=== PATIENT | female | born 1990 | race Caucasian/White ===

== ENCOUNTER 2016-10-01 10:09 | Emergency (ER) | payer OTHER ==
[2016-10-01] MEDS ORDERED: KETOROLAC 60 MG/2 ML VIAL IM STA (10:42)
[2016-10-01] MEDS ORDERED: ORPHENADRINE 30 MG/ML 2 ML VIAL IM STA (10:42)
--- NOTE | 2016-10-01 10:44 | ED ---
General Adult HPI - General Chief complaint: Back Pain/Injury Stated complaint: Back Pain Time Seen by Provider: 10/01/16 10:10 Source: patient, RN notes reviewed Mode of arrival: ambulatory Limitations: no limitations - History of Present Illness Initial comments: This is a 26-year-old female who presents emergency Department complaining of lower back pain. Patient states yesterday she was moving a lot of things in her apartment because she is moving into a new place. Patient states she woke up today bent over and also started having pain in the middle of her back. Patient states she feels like the pain radiates down to her upper thigh posteriorly. Patient states it is bilateral. Patient denies any numbness weakness. Patient denies any difficulty lifting her leg. Patient denies any urinary retention or urinary incontinence. Patient denies any direct blow or injury to the back. Patient states she's had this happen multiple times in the past and always resolves with a little anti-inflammatory and muscle relaxant. - Related Data Home Medications Medication Instructions Recorded Confirmed Multivitamins, Thera [Multivitamin 1 tab PO DAILY 10/01/16 10/01/16 (formulary)] Sleep Aid (Otc Unknown) 1 tab PO HS PRN 10/01/16 10/01/16 diphenhydrAMINE [Benadryl] 25 mg PO QID PRN 10/01/16 10/01/16 Previous Rx's Medication Instructions Recorded Ibuprofen [Motrin] 600 mg PO Q6HR PRN #20 tab 10/01/16 Orphenadrine [Norflex] 100 mg PO Q12H #20 tablet.er 10/01/16 Allergies Allergy/AdvReac Type Severity Reaction Status Date / Time cyclobenzaprine HCl Allergy Unknown Verified 10/01/16 10:34 [From Flexeril] divalproex sodium Allergy Unknown Verified 10/01/16 10:34 [From Depakote] sulfamethoxazole Allergy Unknown Verified 10/01/16 10:34 [From Septra] sumatriptan [From Imitrex] Allergy Unknown Verified 10/01/16 10:34 sumatriptan succinate Allergy Unknown Verified 10/01/16 10:34 [From Imitrex] trimethoprim [From Septra] Allergy Unknown Verified 10/01/16 10:34 Review of Systems ROS Statement: Those systems with pertinent positive or pertinent negative responses have been documented in the HPI. ROS Other: All systems not noted in ROS Statement are negative. Past Medical History Past Medical History: Asthma, Fibromyalgia Additional Past Medical History / Comment(s): ARTHRITIS, HIATAL HERNIA AND GASTRIC ULCER, ENVIRONMENTAL ALLERGIES, DIGESTIVE ISSUES, MIGRAINES History of Any Multi-Drug Resistant Organisms: None Reported Past Surgical History: Adenoidectomy, Tonsillectomy Past Psychological History: Anxiety Smoking Status: Never smoker Past Alcohol Use History: None Reported Past Drug Use History: None Reported General Exam - General Exam Comments Initial Comments: GENERAL: Patient is well-developed and well-nourished. Patient is nontoxic and well- hydrated and is in mild distress. ENT: Neck is soft and supple. No significant lymphadenopathy is noted. Oropharynx is clear. Moist mucous membranes. Neck has full range of motion without eliciting any pain. EYES: The sclera were anicteric and conjunctiva were pink and moist. Extraocular movements were intact and pupils were equal round and reactive to light. Eyelids were unremarkable. PULMONARY: Unlabored respirations. Good breath sounds bilaterally. No audible rales rhonchi or wheezing was noted. CARDIOVASCULAR: There is a regular rate and rhythm without any murmurs gallops or rubs. ABDOMEN: Soft and nontender with normal bowel sounds. No palpable organomegaly was noted. There is no palpable pulsatile mass. SKIN: Skin is clear with no lesions or rashes and otherwise unremarkable. NEUROLOGIC: Patient is alert and oriented x3. Cranial nerves II through XII are grossly intact. Motor and sensory are also intact. Normal speech, volume and content. Symmetrical smile. Straight leg test is negative bilaterally. Exam is normal MUSCULOSKELETAL: Normal extremities with adequate strength and full range of motion. LYMPHATICS: No significant lymphadenopathy is noted PSYCHIATRIC: Normal psychiatric evaluation. Normal interpersonal interactions appears functionally intact in deals appropriately with others. No signs of depression. Limitations: no limitations Course Vital Signs 10/01/16 10:22 Temperature 97.5 F L Pulse Rate 83 Respiratory 20 Rate Blood Pressure 99/71 O2 Sat by Pulse 98 Oximetry Medical Decision Making - Medical Decision Making Lumbosacral spine is normal I will begin to reevaluate the patient after the muscle relaxant while she was feeling better but not back to her baseline. Disposition Clinical Impression: Strain of lumbar region Disposition: HOME SELF-CARE Condition: Good Instructions: Acute Low Back Pain (ED) Prescriptions: Ibuprofen [Motrin] 600 mg PO Q6HR PRN #20 tab PRN Reason: For pain Orphenadrine [Norflex] 100 mg PO Q12H #20 tablet.er Referrals: Raciel Briones MD [REFERRING] - 1-2 days Time of Disposition: 11:26
--- NOTE | 2016-10-01 11:19 | XR ---
EXAMINATION TYPE: XR lumbosacral spine - 5V DATE OF EXAM: 10/01/2016 COMPARISON: NONE HISTORY: Neck pain TECHNIQUE: Departmental lumbar spine five-view protocol FINDINGS: There is no malalignment. The bones and joints and soft tissues are unremarkable. IMPRESSION: Negative examination.
[2016-10-01 12:11] VITALS: BP 107/51; PULSE 80; RESP 16; TEMP 98.1
== END 2016-10-01 12:12 | disposition home or self-care (01) ==
LOC: EC 10:09
DX: S39.012A Strain of muscle, fascia and tendon of lower back, initial encounter (principal); Z79.899 Other long term (current) drug therapy; Z88.8 Allergy status to other drugs, medicaments and biological substances; X50.9XXA Other and unspecified overexertion or strenuous movements or postures, initial encounter; Y92.039 Unspecified place in apartment as the place of occurrence of the external cause
CPT/HCPCS: 72110; 99283; 96372 ×2; J2360; J1885

== ENCOUNTER 2016-10-16 15:59 | Emergency (ER) | payer OTHER ==
--- NOTE | 2016-10-16 16:18 | ED ---
Abdominal Pain HPI - General Chief Complaint: Abdominal Pain Stated Complaint: Nausea Time Seen by Provider: 10/16/16 16:05 Source: patient, RN notes reviewed Mode of arrival: ambulatory Limitations: no limitations - History of Present Illness Initial Comments: 26-year-old female presents emergency department with a chief complaint of nausea vomiting and diarrhea. Patient states that she has a long history of any gastrointestinal issues but she did leave work today sustaining a work note. Patient states she is currently on Zofran at home and she started to have a prescription for this. Patient states is exactly like her normal abdominal pain. Patient states she does not want a workup she does not want lab work she just wants her prescriptions and to go home. Patient denies any fever chills with this. Patient states this is much like her chronic pain. Patient states is not currently having any other symptoms at this time. Patient denies any recent fever, chills, shortness of breath, chest pain, back pain, numbness or tingling, dysuria or hematuria, constipation, headaches or visual changes, or any other current symptoms. - Related Data Home Medications Medication Instructions Recorded Confirmed Multivitamins, Thera [Multivitamin 1 tab PO DAILY 10/01/16 10/01/16 (formulary)] Sleep Aid (Otc Unknown) 1 tab PO HS PRN 10/01/16 10/01/16 diphenhydrAMINE [Benadryl] 25 mg PO QID PRN 10/01/16 10/01/16 Previous Rx's Medication Instructions Recorded Ibuprofen [Motrin] 600 mg PO Q6HR PRN #20 tab 10/01/16 Orphenadrine [Norflex] 100 mg PO Q12H #20 tablet.er 10/01/16 Ondansetron Odt [Zofran ODT] 4 mg PO Q8HR PRN #20 tab 10/16/16 Pantoprazole [Protonix] 40 mg PO DAILY #20 tablet. 10/16/16 Allergies Allergy/AdvReac Type Severity Reaction Status Date / Time cyclobenzaprine HCl Allergy Unknown Verified 10/16/16 16:03 [From Flexeril] divalproex sodium Allergy Unknown Verified 10/16/16 16:03 [From Depakote] sulfamethoxazole Allergy Unknown Verified 10/16/16 16:03 [From Septra] sumatriptan [From Imitrex] Allergy Unknown Verified 10/16/16 16:03 sumatriptan succinate Allergy Unknown Verified 10/16/16 16:03 [From Imitrex] topiramate [From Topamax] Allergy Rash/Hives Verified 10/16/16 16:04 trimethoprim [From Septra] Allergy Unknown Verified 10/16/16 16:03 Review of Systems ROS Statement: Those systems with pertinent positive or pertinent negative responses have been documented in the HPI. ROS Other: All systems not noted in ROS Statement are negative. Past Medical History Past Medical History: Asthma, Fibromyalgia Additional Past Medical History / Comment(s): ARTHRITIS, HIATAL HERNIA AND GASTRIC ULCER, ENVIRONMENTAL ALLERGIES, DIGESTIVE ISSUES, MIGRAINES History of Any Multi-Drug Resistant Organisms: None Reported Past Surgical History: Adenoidectomy, Tonsillectomy Past Psychological History: Anxiety Smoking Status: Current every day smoker Past Alcohol Use History: Rare Past Drug Use History: None Reported General Exam - General Exam Comments Initial Comments: General: The patient is awake and alert, in no distress, and does not appear acutely ill. Eye: Pupils are equal, round and reactive to light, extra-ocular movements are intact; there is normal conjunctiva bilaterally. No signs of icterus. Ears, nose, mouth and throat: There are moist mucous membranes and no oral lesions. Neck: The neck is supple, there is no tenderness. Cardiovascular: There is a regular rate and rhythm. No murmur, rub or gallop is appreciated. Respiratory: Lungs are clear to auscultation, respirations are non-labored, breath sounds are equal. No wheezes, stridor, rales, or rhonchi. Gastrointestinal: Soft, non-distended, non-tender abdomen without masses or organomegaly noted. There is no rebound or guarding present. No CVA tenderness. Bowel sounds are unremarkable. Back: There is no tenderness to palpation in the midline. There is no obvious deformity. No rashes noted. Musculoskeletal: Normal ROM, no tenderness, There is no pedal edema. There is no calf tenderness or swelling. Sensation intact. Pulses equal bilaterally 2+. Neurological: CN II-XII intact, There are no obvious motor or sensory deficits. Coordination appears grossly intact. Speech is normal. Skin: Skin is warm and dry and no rashes or lesions are noted. Psychiatric: Cooperative, appropriate mood & affect, normal judgment. Limitations: no limitations Course Vital Signs 06/28/17 16:01 Temperature 98.1 F Pulse Rate 76 Respiratory 18 Rate Blood Pressure 111/75 O2 Sat by Pulse 99 Oximetry Medical Decision Making - Medical Decision Making 26-year-old female presents for nausea vomiting diarrhea. Patient was offered blood work imaging IV medications to help with her symptoms and she states she just needs a work note to like a refill of her Zofran medication. At this time we did discuss that we cannot rule anything out with this she states that she notices her chronic pain she does not want a workup. This time the patient will be discharged home. We did discuss follow-up with her doctor return parameters all questions. They stated they understood and they are given plan. They will be discharged. Disposition Clinical Impression: Nausea & vomiting, Diarrhea Disposition: HOME SELF-CARE Condition: Stable Instructions: Abdominal Pain (ED) Additional Instructions: Please use medication as discussed. Please follow up with family doctor if symptoms have not improved over the next two days. Please return to the emergency room if your symptoms increase or worsen or for any other concerns. Prescriptions: Ondansetron Odt [Zofran ODT] 4 mg PO Q8HR PRN #20 tab PRN Reason: Nausea Pantoprazole [Protonix] 40 mg PO DAILY #20 tablet.dr Referrals: Sumaya Frank MD [STAFF PHYSICIAN] - 1-2 days Time of Disposition: 16:18
[2016-10-16 16:32] VITALS: BP 116/58; PULSE 69; RESP 15; TEMP 97.3
== END 2016-10-16 16:30 | disposition home or self-care (01) ==
LOC: EC 15:59
DX: R11.2 Nausea with vomiting, unspecified (principal); R19.7 Diarrhea, unspecified; R10.9 Unspecified abdominal pain; F17.200 Nicotine dependence, unspecified, uncomplicated; Z79.899 Other long term (current) drug therapy; Z88.1 Allergy status to other antibiotic agents; Z88.8 Allergy status to other drugs, medicaments and biological substances
CPT/HCPCS: 99283

== ENCOUNTER 2016-11-16 15:08 | Emergency (ER) | payer OTHER ==
[2016-11-16 15:15] VITALS: BP 106/68; PULSE 83; RESP 16; TEMP 99.2
[2016-11-16] MEDS ORDERED: IBUPROFEN 800 MG TAB PO STA (15:26)
--- NOTE | 2016-11-16 15:27 | ED ---
Upper Extremity HPI - General Chief Complaint: Extremity Injury, Upper Stated Complaint: L wrist pain Time Seen by Provider: 11/16/16 15:16 Source: patient, RN notes reviewed Mode of arrival: ambulatory Limitations: no limitations - History of Present Illness Initial Comments: Patient is a pleasant 26-year-old female with past medical history of hiatal hernia, migraine, and asthma who is presenting to the emergency department with chief complaint of left wrist pain. Patient reports that she has had increasing pain over the last 4-5 days. She complains of swelling to the ulnar aspect of the wrist. 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 She believes this may have exacerbated her issue. She denies any recent fall or trauma. She reports a previous history of fracture in the left wrist at age 14 but no recent injury. Patient reports she has otherwise been well without fever, chills, cough, rhinorrhea, sore throat. Denies fatigue or malaise. Denies chest pain or shortness of breath. Denies abdominal pain, nausea, vomiting, diarrhea. - Related Data Home Medications Medication Instructions Recorded Confirmed Multivitamins, Thera [Multivitamin 1 tab PO DAILY 10/01/16 11/16/16 (formulary)] Sleep Aid (Otc Unknown) 1 tab PO HS PRN 10/01/16 11/16/16 diphenhydrAMINE [Benadryl] 25 mg PO QID PRN 10/01/16 11/16/16 Previous Rx's Medication Instructions Recorded Ibuprofen [Motrin] 600 mg PO Q6HR PRN #20 tab 10/01/16 Orphenadrine [Norflex] 100 mg PO Q12H #20 tablet.er 10/01/16 Ondansetron Odt [Zofran ODT] 4 mg PO Q8HR PRN #20 tab 10/16/16 Pantoprazole [Protonix] 40 mg PO DAILY #20 tablet. 10/16/16 Allergies Allergy/AdvReac Type Severity Reaction Status Date / Time cyclobenzaprine HCl Allergy Unknown Verified 11/16/16 15:11 [From Flexeril] divalproex sodium Allergy Unknown Verified 11/16/16 15:11 [From Depakote] sulfamethoxazole Allergy Unknown Verified 11/16/16 15:11 [From Septra] sumatriptan [From Imitrex] Allergy Unknown Verified 11/16/16 15:11 sumatriptan succinate Allergy Unknown Verified 11/16/16 15:11 [From Imitrex] topiramate [From Topamax] Allergy Rash/Hives Verified 11/16/16 15:11 trimethoprim [From Septra] Allergy Unknown Verified 11/16/16 15:11 Review of Systems ROS Statement: Those systems with pertinent positive or pertinent negative responses have been documented in the HPI. ROS Other: All systems not noted in ROS Statement are negative. Past Medical History Past Medical History: Asthma, Fibromyalgia Additional Past Medical History / Comment(s): ARTHRITIS, HIATAL HERNIA AND GASTRIC ULCER, ENVIRONMENTAL ALLERGIES, DIGESTIVE ISSUES, MIGRAINES History of Any Multi-Drug Resistant Organisms: None Reported Past Surgical History: Adenoidectomy, Tonsillectomy Past Psychological History: Anxiety Smoking Status: Current every day smoker Past Alcohol Use History: Rare Past Drug Use History: None Reported General Exam Limitations: no limitations General appearance: alert, in no apparent distress Head exam: Present: atraumatic, normocephalic Eye exam: Present: normal appearance ENT exam: Present: mucous membranes moist Neck exam: Present: normal inspection Respiratory exam: Present: normal lung sounds bilaterally. Absent: respiratory distress, wheezes, rales, rhonchi Cardiovascular Exam: Present: regular rate, normal rhythm, normal heart sounds. Absent: systolic murmur, diastolic murmur Left Shoulder Exam: Present: normal inspection, full ROM. Absent: tenderness Upper Arm exam: Present: normal inspection, full ROM. Absent: tenderness Elbow exam: Present: normal inspection, full ROM. Absent: tenderness, swelling Forearm Wrist exam: Present: full ROM, tenderness (Tenderness to palpation of the distal one third of the dorsal wrist. Point tenderness over the distal) Hand Wrist exam: Present: full ROM, tenderness (Diffuse tenderness to palpation of the distal one third of left wrist. Distal pulses and sensation intact. Range of motion full.), other (Patient has tenderness to palpation over the tendon of the flexor carpi ulnaris. ). Absent: normal inspection (Minimal swelling to the ulnar aspect of the aerosol left wrist.) Neuro motor exam: Present: wrist extension intact, thumb opposition intact, fingers 2-5 abduction intact Vascular: Present: normal capillary refill, radial pulse (2+ and symmetric bilaterally). Absent: vascular compromise, Pallo Course Vital Signs 11/16/16 15:11 Temperature 99.2 F Pulse Rate 83 Respiratory 16 Rate Blood Pressure 106/68 O2 Sat by Pulse 100 Oximetry Medical Decision Making - Medical Decision Making Patient is a pleasant 26-year-old female presenting to the emergency department with insidious onset increasing left wrist pain over the past 4-5 days. 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 Patient does have some mild swelling soft tissue swelling to the ulnar aspect of the wrist. Patient reports no recent trauma or injury. On exam, patient does have some tenderness to palpation over the tendon flexor carpi ulnaris. There is some surrounding soft tissue swelling in this area as well. Patient does have full range of motion but history and exam is most consistent with tendinitis. Patient and I have discussed conservative management including anti-inflammatory medications rest phase Motrin and continue to use other supportive brace was wearing prior to evaluation. Patient and I did discuss possible follow-up with orthopedics and possible PT evaluation and treatment. - Radiology Data Radiology results: report reviewed (X-ray left wrist: No evidence of fracture or dislocation. X-ray read by Dr. Callejas. Report reviewed. ) Disposition Clinical Impression: Wrist pain, left Disposition: HOME SELF-CARE Condition: Stable Instructions: Arthralgia (ED), Tendinitis (ED) Additional Instructions: Please follow up with a primary care physician and orthopedics as discussed. Take ibuprofen 600-800mg every 6-8 hours as needed for pain. Referrals: None,Stated [Primary Care Provider] - 1-2 days Imtiaz Mccarty PAC [PHYSICIAN PUBLIC ACCOUNTANT] - 1-2 days Time of Disposition: 16:05
--- NOTE | 2016-11-16 15:57 | XR ---
Left wrist HISTORY: Pain 4 views of the left wrist Bone mineralization, joint spaces and alignment are maintained. IMPRESSION: No fracture or dislocation.
== END 2016-11-16 16:14 | disposition home or self-care (01) ==
LOC: EC 15:08
DX: M25.532 Pain in left wrist (principal); M79.89 Other specified soft tissue disorders; F17.200 Nicotine dependence, unspecified, uncomplicated; Z79.899 Other long term (current) drug therapy; Z88.1 Allergy status to other antibiotic agents; Z88.8 Allergy status to other drugs, medicaments and biological substances
CPT/HCPCS: 99283

== ENCOUNTER 2016-12-21 20:08 | Emergency (ER) | payer OTHER ==
[2016-12-21] MEDS ORDERED: ACETAMINOPHEN TAB 500 MG TAB PO STA (21:22)
[2016-12-21] MEDS ORDERED: IBUPROFEN 600 MG TAB PO STA (21:22)
--- NOTE | 2016-12-21 21:27 | ED ---
General Adult HPI - General Chief complaint: ENT Stated complaint: Sore Throat/Cough Time Seen by Provider: 12/21/16 21:03 Source: patient, family, RN notes reviewed Mode of arrival: ambulatory Limitations: no limitations - History of Present Illness Initial comments: 26-year-old female presents emergency department with a chief complaint of sore throat and cough. Patient states she's been feeling rundown for about a week. Patient states she's had a sore throat with productive cough that causes a little bit of florid chest discomfort. Patient states she hasn't had any fever chills but she states that she has had hot and cold flashes. Patient denies any nausea vomiting any concern for . Patient states she was concerned due to the symptoms so she thought that she should be evaluated. Patient denies any recent fever, chills, shortness of breath, chest pain, back pain, abdominal pain, nausea vomiting, numbness or tingling, dysuria or hematuria, constipation or diarrhea, headaches or visual changes, or any other current symptoms. - Related Data Previous Rx's Medication Instructions Recorded Azithromycin [Zithromax] 250 mg PO DIRECTED #6 tab 12/21/16 Allergies Allergy/AdvReac Type Severity Reaction Status Date / Time cyclobenzaprine HCl Allergy Unknown Verified 12/21/16 20:21 [From Flexeril] divalproex sodium Allergy Unknown Verified 12/21/16 20:21 [From Depakote] sulfamethoxazole Allergy Unknown Verified 12/21/16 20:21 [From Septra] sumatriptan [From Imitrex] Allergy Unknown Verified 12/21/16 20:21 sumatriptan succinate Allergy Unknown Verified 12/21/16 20:21 [From Imitrex] topiramate [From Topamax] Allergy Rash/Hives Verified 12/21/16 20:21 trimethoprim [From Septra] Allergy Unknown Verified 12/21/16 20:21 Review of Systems ROS Statement: Those systems with pertinent positive or pertinent negative responses have been documented in the HPI. ROS Other: All systems not noted in ROS Statement are negative. Past Medical History Past Medical History: Asthma, Fibromyalgia Additional Past Medical History / Comment(s): ARTHRITIS, HIATAL HERNIA AND GASTRIC ULCER, ENVIRONMENTAL ALLERGIES, DIGESTIVE ISSUES, MIGRAINES History of Any Multi-Drug Resistant Organisms: None Reported Past Surgical History: Adenoidectomy, Tonsillectomy Past Psychological History: Anxiety Smoking Status: Current every day smoker Past Alcohol Use History: Rare Past Drug Use History: None Reported General Exam - General Exam Comments Initial Comments: General exam: Alert, active, comfortable in no apparent distress Head: Normocephalic Eyes: Normal reaction of pupils, equal size, normal range of extraocular motion Ears: normal external ear canals, pink tympanic membranes with normal cone of light Nose: clear with pink turbinates Throat: no erythema or exudates with normal sized tonsils Neck: no masses, no nuchal rigidity Chest: no chest wall deformity Lungs: equal air entry with no crackles or wheeze CVS: S1 and S2 normal with no audible mumurs, regular rhythm Abdomen: no hepatosplenomegaly, normal bowel sounds, no guarding or rigidity Spine: no scoliosis or deformity Skin: no rashes Neurological: No focal deficits, tone is normal in all 4 extremities Limitations: no limitations Course Vital Signs 12/21/16 12/21/16 12/21/16 20:19 20:37 21:36 Temperature 97 F L Pulse Rate 86 74 Respiratory 18 20 18 Rate Blood Pressure 118/76 100/57 O2 Sat by Pulse 97 97 Oximetry Medical Decision Making - Medical Decision Making 26-year-old female presents emergency 5 chief complaint of cough and sore throat. At this time chest x-ray is concern for possible developing infiltrates. We'll start patient on azithromycin for home. Discussed close follow-up with her doctor for repeat x-ray we discussed return parameters all questions. They stated that she understood and she plan. At this time she will be discharged home. - Lab Data Lab Results 12/21/16 Range/Units 21:24 Group A Strep Rapid Negative (Negative) - Radiology Data Radiology results: report reviewed, image reviewed Disposition Clinical Impression: Pneumonia of both lungs due to infectious organism Disposition: HOME SELF-CARE Condition: Stable Instructions: Bacterial Pneumonia (ED) Additional Instructions: Please use medication as discussed. Please follow up with family doctor if symptoms have not improved over the next two days. Please return to the emergency room if your symptoms increase or worsen or for any other concerns. Prescriptions: Azithromycin [Zithromax] 250 mg PO DIRECTED #6 tab Referrals: Yanna Rosales MD [STAFF PHYSICIAN] - 1-2 days Time of Disposition: 21:52
--- NOTE | 2016-12-21 21:48 | XR ---
EXAMINATION TYPE: XR chest 2V DATE OF EXAM: 12/21/2016 COMPARISON: Chest x-ray June 02, 1998 HISTORY: Cough and cold-like symptoms TECHNIQUE: Frontal and lateral views of the chest are obtained. FINDINGS: On frontal view there is suspicious right greater than left infrahilar opacities not as we ll seen on lateral view. No pleural effusion or pneumothorax is seen bilaterally. The cardiac silhou ette size is within normal limits. The osseous structures are intact. There are posterior vertical skin sangita overlying the upper thorax. IMPRESSION: Perhaps developing right greater than left infrahilar infiltrates. Consider progress two view chest x-ray.
[2016-12-21 22:04] VITALS: RESP 18
[2016-12-21 22:06] VITALS: BP 98/66; PULSE 70; TEMP 98.2
== END 2016-12-21 22:05 | disposition home or self-care (01) ==
LOC: EC 20:08
DX: J16.8 Pneumonia due to other specified infectious organisms (principal); F17.200 Nicotine dependence, unspecified, uncomplicated; Z88.8 Allergy status to other drugs, medicaments and biological substances
CPT/HCPCS: 71020; 87081; 87430; 99284

== ENCOUNTER 2016-12-31 16:20 | Emergency (ER) | payer OTHER ==
[2016-12-31] MEDS ORDERED: traMADol 50 MG TAB PO STA (18:03)
[2016-12-31] MEDS ORDERED: KETOROLAC 60 MG/2 ML VIAL IM STA (18:03)
[2016-12-31] MEDS ORDERED: ORPHENADRINE 30 MG/ML 2 ML VIAL IM STA (18:03)
--- NOTE | 2016-12-31 18:08 | ED ---
General Adult HPI - General Chief complaint: Back Pain/Injury Stated complaint: Lower Back Pain Time Seen by Provider: 12/31/16 17:00 Source: patient, RN notes reviewed Mode of arrival: wheelchair Limitations: no limitations - History of Present Illness Initial comments: This is a 26-year-old female who presents to the emergency department complaining of lower back pain across both sides of her back per patient states it started about 2 hours ago when she bent over to reach for some alfredo pins on the countertop. Patient states this is happened a couple times in the past as well. Patient states it felt like her back started to spasm when she bent over. Patient denies any numbness weakness patient denies any radiation of pain down her legs. Patient denies any recent injury or trauma. 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 - Related Data Previous Rx's Medication Instructions Recorded Azithromycin [Zithromax] 250 mg PO DIRECTED #6 tab 12/21/16 Ibuprofen [Motrin] 600 mg PO Q6HR PRN #20 tab 12/31/16 Orphenadrine [Norflex] 100 mg PO Q12H #20 tablet.er 12/31/16 traMADol HCl [Ultram] 50 mg PO Q6H PRN #20 tab 12/31/16 Allergies Allergy/AdvReac Type Severity Reaction Status Date / Time cyclobenzaprine HCl Allergy Unknown Verified 12/31/16 16:34 [From Flexeril] divalproex sodium Allergy Unknown Verified 12/31/16 16:34 [From Depakote] sulfamethoxazole Allergy Unknown Verified 12/31/16 16:34 [From Septra] sumatriptan [From Imitrex] Allergy Unknown Verified 12/31/16 16:34 sumatriptan succinate Allergy Unknown Verified 12/31/16 16:34 [From Imitrex] topiramate [From Topamax] Allergy Rash/Hives Verified 12/31/16 16:34 trimethoprim [From Septra] Allergy Unknown Verified 12/31/16 16:34 Review of Systems ROS Statement: Those systems with pertinent positive or pertinent negative responses have been documented in the HPI. ROS Other: All systems not noted in ROS Statement are negative. Past Medical History Past Medical History: Asthma, Fibromyalgia Additional Past Medical History / Comment(s): ARTHRITIS, HIATAL HERNIA AND GASTRIC ULCER, ENVIRONMENTAL ALLERGIES, DIGESTIVE ISSUES, MIGRAINES History of Any Multi-Drug Resistant Organisms: None Reported Past Surgical History: Adenoidectomy, Tonsillectomy Past Psychological History: Anxiety Smoking Status: Current every day smoker Past Alcohol Use History: Rare Past Drug Use History: None Reported General Exam - General Exam Comments Initial Comments: GENERAL: Patient is well-developed and well-nourished. Patient is nontoxic and well- hydrated and is in no acute distress. ENT: Neck is soft and supple. No significant lymphadenopathy is noted. Neck has full range of motion without eliciting any pain. EYES: The sclera were anicteric and conjunctiva were pink and moist. Extraocular movements were intact and pupils were equal round and reactive to light. Eyelids were unremarkable. SKIN: Skin is clear with no lesions or rashes and otherwise unremarkable. NEUROLOGIC: Patient is alert and oriented x3. Cranial nerves II through XII are grossly intact. Motor and sensory are also intact. Normal speech, volume and content. Symmetrical smile. Her leg test is negative. MUSCULOSKELETAL: Normal extremities with adequate strength and full range of motion. No lower extremity swelling or edema. No calf tenderness. Limitations: no limitations Course Vital Signs 12/31/16 16:32 Temperature 98 F Pulse Rate 93 Respiratory 20 Rate Blood Pressure 102/65 O2 Sat by Pulse 100 Oximetry Disposition Clinical Impression: Strain of lumbar region Disposition: HOME SELF-CARE Condition: Good Instructions: Acute Low Back Pain (ED) Prescriptions: Ibuprofen [Motrin] 600 mg PO Q6HR PRN #20 tab PRN Reason: For pain Orphenadrine [Norflex] 100 mg PO Q12H #20 tablet.er traMADol HCl [Ultram] 50 mg PO Q6H PRN #20 tab PRN Reason: When necessary for pain Referrals: Yanna Rosales MD [Primary Care Provider] - 1-2 days Time of Disposition: 18:07
[2016-12-31 18:50] VITALS: BP 107/67; PULSE 80; RESP 18; TEMP 97.7
== END 2016-12-31 18:58 | disposition home or self-care (01) ==
LOC: EC 16:20
DX: S39.012A Strain of muscle, fascia and tendon of lower back, initial encounter (principal); M79.7 Fibromyalgia; F17.200 Nicotine dependence, unspecified, uncomplicated; Z88.2 Allergy status to sulfonamides; Z88.8 Allergy status to other drugs, medicaments and biological substances; X50.1XXA Overexertion from prolonged static or awkward postures, initial encounter
CPT/HCPCS: 99283; 96372 ×2; J2360; J1885

== ENCOUNTER 2017-01-06 15:43 | Emergency (ER) | payer OTHER ==
--- NOTE | 2017-01-06 16:43 | ED ---
General Adult HPI - General Chief complaint: Dizziness Stated complaint: F/U Pneumonia Time Seen by Provider: 01/06/17 16:31 Source: patient, RN notes reviewed Mode of arrival: ambulatory Limitations: no limitations - History of Present Illness Initial comments: Patient is a 26-year-old female who presents emergency room today with a chief complaint of increased cough congestion. She does not that she was diagnosed with pneumonia recently a few weeks ago. She states she was beginning to feel better still having some nasal drainage and pressure. She does move to history of asthma states she states Benadryl daily and also uses her inhalers. She states that she noticed increased cough congestion and scratchy throat today. Patient states that she was supposed to have repeat chest x-ray this past Friday but was out of town. She states came here to the emergency room today for evaluation as she was worried that possibly the pneumonia may have come back. She denies any other complaints or symptoms at this time. Patient denies any recent fever, chills, shortness of breath, chest pain, back pain, abdominal pain, nausea or vomiting, numbness or tingling, dysuria or hematuria, constipation or diarrhea, headaches or visual changes, or any other complaints. - Related Data Home Medications Medication Instructions Recorded Confirmed Albuterol Inhaler [Ventolin Hfa 2 puff INHALATION RT-Q6H PRN 12/31/16 01/06/17 Inhaler] Beclomethasone Dip 80 Mcg/Puff 2 puff INHALATION RT-DAILY 12/31/16 01/06/17 [Qvar 80 mcg] Multivitamins, Thera [Multivitamin 1 tab PO DAILY 12/31/16 01/06/17 (formulary)] Cetirizine HCl 10 mg PO DAILY 01/06/17 01/06/17 Ibuprofen [Motrin] 600 mg PO Q6HR PRN 01/06/17 01/06/17 traMADol HCl [Ultram] 50 mg PO Q6H PRN 01/06/17 01/06/17 Previous Rx's Medication Instructions Recorded Orphenadrine [Norflex] 100 mg PO Q12H #20 tablet.er 12/31/16 Amoxicillin/Potassium Clav 1 each PO Q12HR #20 tab 01/06/17 [Augmentin 875-125 Tablet] Allergies Allergy/AdvReac Type Severity Reaction Status Date / Time cyclobenzaprine HCl Allergy Unknown Verified 01/06/17 16:30 [From Flexeril] divalproex sodium Allergy Unknown Verified 01/06/17 16:30 [From Depakote] sulfamethoxazole Allergy Unknown Verified 01/06/17 16:30 [From Septra] sumatriptan [From Imitrex] Allergy Unknown Verified 01/06/17 16:30 sumatriptan succinate Allergy Unknown Verified 01/06/17 16:30 [From Imitrex] topiramate [From Topamax] Allergy Rash/Hives Verified 01/06/17 16:30 trimethoprim [From Septra] Allergy Unknown Verified 01/06/17 16:30 Review of Systems ROS Statement: Those systems with pertinent positive or pertinent negative responses have been documented in the HPI. ROS Other: All systems not noted in ROS Statement are negative. Past Medical History Past Medical History: Asthma, Fibromyalgia Additional Past Medical History / Comment(s): ARTHRITIS, HIATAL HERNIA AND GASTRIC ULCER, ENVIRONMENTAL ALLERGIES, DIGESTIVE ISSUES, MIGRAINES History of Any Multi-Drug Resistant Organisms: None Reported Past Surgical History: Adenoidectomy, Tonsillectomy Past Psychological History: Anxiety Smoking Status: Current every day smoker Past Alcohol Use History: Rare Past Drug Use History: None Reported General Exam - General Exam Comments Initial Comments: General: The patient is awake and alert, in no distress, and does not appear acutely ill. Eye: Pupils are equal, round and reactive to light, extra-ocular movements are intact. No nystagmus. There is normal conjunctiva bilaterally. No signs of icterus. Ears, nose, mouth and throat: There are moist mucous membranes and no oral lesions. Patient tender over both frontal and maxillary sinuses. TMs clear bilaterally. Neck: The neck is supple, there is no tenderness or JVD. Cardiovascular: There is a regular rate and rhythm. No murmur, rub or gallop is appreciated. Respiratory: Lungs are clear to auscultation, respirations are non-labored, breath sounds are equal. No wheezes, stridor, rales, or rhonchi. Gastrointestinal: Soft, non-distended, non-tender abdomen without masses or organomegaly noted. There is no rebound or guarding present. No CVA tenderness. Bowel sounds are unremarkable. Musculoskeletal: Normal ROM, no tenderness. Strength 5/5. Sensation intact. Pulses equal bilaterally 2+. Neurological: A&O x 3. CN II-XII intact, There are no obvious motor or sensory deficits. Coordination appears grossly intact. Speech is normal. Skin: Skin is warm and dry and no rashes or lesions are noted. Psychiatric: Cooperative, appropriate mood & affect, normal judgment. Limitations: no limitations Course Vital Signs 01/06/17 15:52 Temperature 97.8 F Pulse Rate 78 Respiratory 18 Rate Blood Pressure 118/79 O2 Sat by Pulse 98 Oximetry Medical Decision Making - Medical Decision Making Patient's chest x-ray reviewed no evidence of pneumonia. Patient's tender over the sinuses. Does admit to rhinorrhea and congestion. Patient will be placed on Augmentin for sinusitis. Advised follow-up family doctor over the next 2 days return to emergency room for any other concerns. Disposition Clinical Impression: Sinusitis Disposition: HOME SELF-CARE Condition: Good Instructions: Sinusitis (ED) Additional Instructions: Please use medication as discussed. Please follow-up with family doctor in the next 2 days of symptoms have not improved. Please return to emergency room if the symptoms increase or worsen or for any other concerns. Prescriptions: Amoxicillin/Potassium Clav [Augmentin 875-125 Tablet] 1 each PO Q12HR #20 tab Referrals: Yanna Rosales MD [Primary Care Provider] - 1-2 days Time of Disposition: 17:45
--- NOTE | 2017-01-06 16:59 | XR ---
EXAMINATION TYPE: XR chest 2V DATE OF EXAM: 01/06/2017 COMPARISON: Chest x-ray December 21, 2016 HISTORY: Cough and cold-like symptoms TECHNIQUE: Frontal and lateral views of the chest are obtained. FINDINGS: Symmetric opacities projecting over bilateral lower thorax are redemonstrated, I suspect th is is product of overlying breast tissue in retrospect given no interval change and no suspicious opa city on lateral view. There is no suspicious new focal air space opacity, pleural effusion, or pneumo thorax seen. The cardiac silhouette size is within normal limits. The osseous structures are intac t. IMPRESSION: No acute infiltrate clearly seen. No significant change from most recent study.
[2017-01-06 18:13] VITALS: BP 112/68; PULSE 97; RESP 20; TEMP 98.2
== END 2017-01-06 18:13 | disposition home or self-care (01) ==
LOC: EC 15:43
DX: J32.0 Chronic maxillary sinusitis (principal); J32.1 Chronic frontal sinusitis; J45.909 Unspecified asthma, uncomplicated; F17.200 Nicotine dependence, unspecified, uncomplicated; Z79.51 Long term (current) use of inhaled steroids; Z79.899 Other long term (current) drug therapy; Z88.1 Allergy status to other antibiotic agents; Z88.8 Allergy status to other drugs, medicaments and biological substances
CPT/HCPCS: 71020; 99284

== ENCOUNTER 2017-01-15 17:07 | Emergency (ER) | payer OTHER ==
[2017-01-15 17:19] VITALS: RESP 18; TEMP 98.5
[2017-01-15] MEDS ORDERED: methylPREDNISolone SOD SUCCI 125 MG/2 ML VIAL IM ONE (18:07)
[2017-01-15] MEDS ORDERED: KETOROLAC 60 MG/2 ML VIAL IM STA (18:07)
--- NOTE | 2017-01-15 18:11 | ED ---
Back Pain HPI - General Chief Complaint: Back Pain/Injury Stated Complaint: back pain Time Seen by Provider: 01/15/17 17:26 Source: patient Limitations: no limitations - History of Present Illness Initial Comments: 26-year-old female patient presents to emergency department today for evaluation of lower back pain. She states that she has had this pain in the past. She states that she was taking Ultram and waiting for an appointment with her primary care physician for possible MRI. She states that the pain has a pattern of getting better and then worsening. She states that this episode has come on over the last few days. She states that she is getting some radiation down the back of both legs. She denies any numbness or tingling to her extremities. She denies any loss of bowel or bladder control. She denies any saddle anesthesia. She denies any discoloration to her lower extremities. She denies any injury causing the back pain. Has any change to the back pain or new symptoms. She does have an appointment with her primary doctor next Friday, she just needs some medication to get her through until she sees him. Patient denies any recent fever, chills, shortness breath, chest pain, abdominal pain, nausea, vomiting, diarrhea, constipation, headache, visual changes, hematuria, dysuria, urinary frequency, urinary urgency, or any other complaints. - Related Data Home Medications Medication Instructions Recorded Confirmed Albuterol Inhaler [Ventolin Hfa 2 puff INHALATION RT-Q6H PRN 12/31/16 01/06/17 Inhaler] Beclomethasone Dip 80 Mcg/Puff 2 puff INHALATION RT-DAILY 12/31/16 01/06/17 [Qvar 80 mcg] Multivitamins, Thera [Multivitamin 1 tab PO DAILY 12/31/16 01/06/17 (formulary)] Cetirizine HCl 10 mg PO DAILY 01/06/17 01/06/17 Ibuprofen [Motrin] 600 mg PO Q6HR PRN 01/06/17 01/06/17 traMADol HCl [Ultram] 50 mg PO Q6H PRN 01/06/17 01/06/17 Previous Rx's Medication Instructions Recorded Orphenadrine [Norflex] 100 mg PO Q12H #20 tablet.er 12/31/16 Amoxicillin/Potassium Clav 1 each PO Q12HR #20 tab 01/06/17 [Augmentin 875-125 Tablet] Ibuprofen 600 mg PO Q8H #30 tablet 01/15/17 traMADol HCL [Ultram] 50 mg PO Q6HR PRN #15 tab 01/15/17 Allergies Allergy/AdvReac Type Severity Reaction Status Date / Time cyclobenzaprine HCl Allergy Unknown Verified 01/15/17 17:16 [From Flexeril] divalproex sodium Allergy Unknown Verified 01/15/17 17:16 [From Depakote] sulfamethoxazole Allergy Unknown Verified 01/15/17 17:16 [From Septra] sumatriptan [From Imitrex] Allergy Unknown Verified 01/15/17 17:16 sumatriptan succinate Allergy Unknown Verified 01/15/17 17:16 [From Imitrex] topiramate [From Topamax] Allergy Rash/Hives Verified 01/15/17 17:16 trimethoprim [From Septra] Allergy Unknown Verified 01/15/17 17:16 Review of Systems ROS Statement: Those systems with pertinent positive or pertinent negative responses have been documented in the HPI. ROS Other: All systems not noted in ROS Statement are negative. Past Medical History Past Medical History: Asthma, Fibromyalgia Additional Past Medical History / Comment(s): ARTHRITIS, HIATAL HERNIA AND GASTRIC ULCER, ENVIRONMENTAL ALLERGIES, DIGESTIVE ISSUES, MIGRAINES History of Any Multi-Drug Resistant Organisms: None Reported Past Surgical History: Adenoidectomy, Tonsillectomy Past Psychological History: Anxiety Smoking Status: Current every day smoker Past Alcohol Use History: Rare Past Drug Use History: None Reported General Exam Limitations: no limitations General appearance: alert, in no apparent distress, other (This is a well- developed, well-nourished 26-year-old female. She is in no acute distress. Vital signs upon presentation temperature 98.5F, pulse 98, respirations 18, blood pressure 118/64, pulse ox 98% on room air.) Neck exam: Present: normal inspection. Absent: tenderness, meningismus, lymphadenopathy Respiratory exam: Present: normal lung sounds bilaterally. Absent: respiratory distress, wheezes, rales, rhonchi, stridor Cardiovascular Exam: Present: regular rate, normal rhythm, normal heart sounds. Absent: systolic murmur, diastolic murmur, rubs, gallop, clicks GI/Abdominal exam: Present: soft, normal bowel sounds. Absent: distended, tenderness, guarding, rebound, rigid Extremities exam: Present: normal inspection, full ROM, normal capillary refill , other (Strength in all 4 extremities is 5/5.). Absent: tenderness, pedal edema, joint swelling, calf tenderness Back exam: Present: normal inspection, other (Negative straight leg test.). Absent: tenderness Neurological exam: Present: alert, oriented X3, CN II-XII intact Psychiatric exam: Present: normal affect, normal mood Skin exam: Present: warm, dry, intact, normal color. Absent: rash Course Vital Signs 01/15/17 01/15/17 17:16 18:32 Temperature 98.5 F Pulse Rate 98 75 Respiratory 18 18 Rate Blood Pressure 118/64 115/72 O2 Sat by Pulse 98 100 Oximetry Medical Decision Making - Medical Decision Making 26-year-old female patient presented for evaluation of lower back pain. Physical exam is unremarkable. Patient is neurologically intact. She does have an appointment with her primary care physician next Friday for further evaluation of the back pain. She will be given a prescription for tramadol and Norflex, states that these have worked for her in the past. She was instructed to follow-up with the primary care physician, that keeping her appointment was important. She is instructed to return here immediately for any new, worsening , or concerning symptoms. She verbalizes understanding and agrees with this plan. Disposition Clinical Impression: Chronic low back pain Disposition: HOME SELF-CARE Condition: Good Instructions: Chronic Back Pain (ED) Additional Instructions: Apply warm moist heat to the area 20 minutes at a time at least 4 times daily. Take anti-inflammatory pain medications as directed. Follow up with your primary care physician for recheck as soon as possible. Return here immediately for any new, worsening, or concerning symptoms. Prescriptions: Ibuprofen 600 mg PO Q8H #30 tablet traMADol HCL [Ultram] 50 mg PO Q6HR PRN #15 tab PRN Reason: Pain Referrals: Yanna Rosales MD [Primary Care Provider] - 1-2 days Time of Disposition: 18:09
[2017-01-15 18:33] VITALS: BP 115/72; PULSE 75
== END 2017-01-15 18:33 | disposition home or self-care (01) ==
LOC: EC 17:07
DX: G89.29 Other chronic pain (principal); M54.5 Low back pain; J45.909 Unspecified asthma, uncomplicated; F17.200 Nicotine dependence, unspecified, uncomplicated; Z88.1 Allergy status to other antibiotic agents; Z88.8 Allergy status to other drugs, medicaments and biological substances; Z91.09 Other allergy status, other than to drugs and biological substances; Z79.51 Long term (current) use of inhaled steroids; Z79.899 Other long term (current) drug therapy
CPT/HCPCS: 99283; 96372 ×2; J2930; J1885

== ENCOUNTER → 2017-02-07 | Outpatient (CLI) | payer OTHER ==
--- NOTE | 2017-02-07 11:56 | MR ---
EXAMINATION TYPE: MR lumbar spine wo con DATE OF EXAM: 02/07/2017 COMPARISON: Plain film 10/01/2016 HISTORY: Low back pain TECHNIQUE: Multiplanar, multisequence images of the lumbar spine were acquired. L1-L2: Normal disc appearance without desiccation. No herniation, protrusion or disc bulging. No ca nal stenosis is present. Foramina are patent bilaterally. L2-L3: Normal disc appearance without desiccation. No herniation, protrusion or disc bulging. No ca nal stenosis is present. Foramina are patent bilaterally. L3-L4: Normal disc appearance without desiccation. No herniation, protrusion or disc bulging. No ca nal stenosis is present. Foramina are patent bilaterally. L4-L5: Posterior broad-based disc bulge causes mild anterior mass effect on the thecal sac. No signif icant central stenosis or foraminal encroachment L5-S1: Loss of disc height and signal is present compatible with disc desiccation. Small central post erior disc herniation may contact the proximal S1 nerve roots, anterior thecal sac and extends forest products teacher ior to the S1 vertebral body. No significant central stenosis or foraminal encroachment. Lumbar segments are intact. No paraspinal masses are identified. Conus medullaris has a normal appe arance. Lumbar vertebral bodies show normal height and alignment IMPRESSION: Mild degenerative disc disease. Small posterior central disc herniation L5-S1.
== END | disposition home or self-care (01) ==
LOC: RADMRIMAIN 08:28
PROVIDERS: ATTEND Internal Medicine
DX: M51.27 Other intervertebral disc displacement, lumbosacral region (principal); M51.36 Other intervertebral disc degeneration, lumbar region
CPT/HCPCS: 72148

== ENCOUNTER 2017-02-12 11:15 | Emergency (ER) | payer OTHER ==
--- NOTE | 2017-02-12 12:19 | ED ---
General Adult HPI - General Chief complaint: Extremity Problem,Nontraumatic Stated complaint: right shoulder pain Time Seen by Provider: 02/12/17 12:04 Source: patient, RN notes reviewed Mode of arrival: ambulatory Limitations: no limitations - History of Present Illness Initial comments: 26-year-old female presents emergency Department chief complaint of right shoulder pain. 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 Patient states her last Dr. Rudolph actually been vomiting. Feels almost out of place. Some positions make it worse than others. She denies any falls or injury that she is aware of to the shoulder. She denies any history of having issues with children past. Patient was concerned due to her pain so she thought that she should be seen.Patient denies any recent fever , chills, shortness of breath, chest pain, back pain, abdominal pain, nausea vomiting, numbness or tingling, dysuria or hematuria, constipation or diarrhea, headaches or visual changes, or any other current symptoms. - Related Data Home Medications Medication Instructions Recorded Confirmed Multivitamins, Thera [Multivitamin 1 tab PO DAILY 12/31/16 02/12/17 (formulary)] Ibuprofen [Motrin] 600 mg PO Q6HR PRN 01/06/17 02/12/17 Naproxen (Unknown Dose) 1 tab PO Q6H PRN 02/12/17 02/12/17 Previous Rx's Medication Instructions Recorded Ibuprofen [Motrin] 600 mg PO Q6HR PRN #20 tab 02/12/17 Allergies Allergy/AdvReac Type Severity Reaction Status Date / Time cyclobenzaprine HCl Allergy Unknown Verified 02/12/17 11:52 [From Flexeril] divalproex sodium Allergy Unknown Verified 02/12/17 11:52 [From Depakote] sulfamethoxazole Allergy Unknown Verified 02/12/17 11:52 [From Septra] sumatriptan [From Imitrex] Allergy Unknown Verified 02/12/17 11:52 sumatriptan succinate Allergy Unknown Verified 02/12/17 11:52 [From Imitrex] topiramate [From Topamax] Allergy Rash/Hives Verified 02/12/17 11:52 trimethoprim [From Septra] Allergy Unknown Verified 02/12/17 11:52 Review of Systems ROS Statement: Those systems with pertinent positive or pertinent negative responses have been documented in the HPI. ROS Other: All systems not noted in ROS Statement are negative. Past Medical History Past Medical History: Asthma, Fibromyalgia Additional Past Medical History / Comment(s): ARTHRITIS, HIATAL HERNIA AND GASTRIC ULCER, ENVIRONMENTAL ALLERGIES, DIGESTIVE ISSUES, MIGRAINES History of Any Multi-Drug Resistant Organisms: None Reported Past Surgical History: Adenoidectomy, Tonsillectomy Past Psychological History: Anxiety Smoking Status: Current every day smoker Past Alcohol Use History: Rare Past Drug Use History: None Reported General Exam - General Exam Comments Initial Comments: General: The patient is awake and alert, in no distress, and does not appear acutely ill. Neck: The neck is supple, there is no tenderness. Cardiovascular: There is a regular rate and rhythm. No murmur, rub or gallop is appreciated. Respiratory: Lungs are clear to auscultation, respirations are non-labored, breath sounds are equal. No wheezes, stridor, rales, or rhonchi. Musculoskeletal: sensation intact with 2+ pulses. Pressure. Full range of motion of the right shoulder right elbow. Patient has no point tenderness noted. No deformity no swelling noted. 5. Muscle strength testing. Negative empty can testing. Neurological: CN II-XII intact, There are no obvious motor or sensory deficits. Coordination appears grossly intact. Speech is normal. Skin: Skin is warm and dry and no rashes or lesions are noted. Psychiatric: Normal mood and affect. Limitations: no limitations Course Vital Signs 02/12/17 11:30 Temperature 99.0 F Pulse Rate 94 Respiratory 20 Rate Blood Pressure 113/72 O2 Sat by Pulse 100 Oximetry Medical Decision Making - Medical Decision Making 26-year-old female presents for appears to be right shoulder strain. This time we discussed Motrin Tylenol for pain ice. We discussed following up with orthopedic for continued care and return parameters. Patient stated that she understood and she is negative plan. All questions have been answered. She'll be discharged. - Radiology Data Radiology results: report reviewed, image reviewed Disposition Clinical Impression: Right shoulder strain Disposition: HOME SELF-CARE Condition: Stable Instructions: Rotator Cuff Injury (ED) Additional Instructions: Please use medication as discussed. Please follow up with family doctor if symptoms have not improved over the next two days. Please return to the emergency room if your symptoms increase or worsen or for any other concerns. Prescriptions: Ibuprofen [Motrin] 600 mg PO Q6HR PRN #20 tab PRN Reason: Pain Referrals: Yanna Rosales MD [Primary Care Provider] - 1-2 days Time of Disposition: 12:41
--- NOTE | 2017-02-12 12:35 | XR ---
EXAMINATION TYPE: XR shoulder complete RT DATE OF EXAM: 02/12/2017 COMPARISON: NONE HISTORY: Pain TECHNIQUE: Shoulder examined in 3 projections FINDINGS: The humeral head articulates with the glenoid. The acromio-clavicular junction is normal. No acute fractures or dislocations are evident. A follow up study can be performed 7-10 days from acute trauma for continued pain. IMPRESSION: 1. Normal Shoulder
[2017-02-12 12:51] VITALS: BP 120/80; PULSE 92; RESP 16; TEMP 98.9
== END 2017-02-12 12:51 | disposition home or self-care (01) ==
LOC: EC 11:15
DX: S46.911A Strain of unspecified muscle, fascia and tendon at shoulder and upper arm level, right arm, initial encounter (principal); F17.200 Nicotine dependence, unspecified, uncomplicated; Z88.2 Allergy status to sulfonamides; Z88.8 Allergy status to other drugs, medicaments and biological substances; Z79.899 Other long term (current) drug therapy; X50.0XXA Overexertion from strenuous movement or load, initial encounter; Y93.89 Activity, other specified
CPT/HCPCS: 99283

== ENCOUNTER 2017-03-07 05:11 | Emergency (ER) | payer OTHER ==
[2017-03-07] MEDS ORDERED: MORPHINE SULFATE 4 MG/ML SYRINGE IV STA (05:27)
[2017-03-07] MEDS ORDERED: SODIUM CHLORIDE 0.9% 1,000 ML IV ONE (05:27)
[2017-03-07] MEDS ORDERED: ONDANSETRON 4 MG/2 ML VIAL IVP STA (05:28)
--- NOTE | 2017-03-07 05:31 | ED ---
General Adult HPI - General Source: patient, RN notes reviewed, old records reviewed Mode of arrival: ambulatory Limitations: no limitations <Tony Paulino - Last Filed: 03/07/17 05:30> <Walter Cherry - Last Filed: 03/07/17 08:28> - General Chief complaint: Urogenital Stated complaint: Abd pain Time Seen by Provider: 03/07/17 05:12 - History of Present Illness Initial comments: This is a 26-year-old female to the ER for evaluation strictured bowel pain, cramping. Patient has no prior history of . Denies at this time. Patient states her periods are going on for 7 days and is progressively worsening with increased pain. Mild nausea no vomiting. Crampy pain. Patient' s periods are increasing in having this. The patient states the patient has been throughout the night. Patient does take and suffers from chronic pain and has taken Ultram and naproxen tonight with no help. Patient denies any other significant complaints (Tony Paulino) - Related Data Home Medications Medication Instructions Recorded Confirmed Multivitamins, Thera [Multivitamin 1 tab PO DAILY 12/31/16 03/07/17 (formulary)] Naproxen 500 mg PO Q12H PRN 02/19/17 03/07/17 Previous Rx's Medication Instructions Recorded Ibuprofen [Motrin] 600 mg PO Q6HR PRN #20 tab 02/12/17 Ibuprofen [Motrin] 600 mg PO Q8HR PRN #24 tab 03/07/17 traMADol HCL [Ultram] 50 mg PO Q8HR PRN #20 tab 03/07/17 Allergies Allergy/AdvReac Type Severity Reaction Status Date / Time cyclobenzaprine HCl Allergy Unknown Verified 03/07/17 08:09 [From Flexeril] divalproex sodium Allergy Unknown Verified 03/07/17 08:09 [From Depakote] sulfamethoxazole Allergy Unknown Verified 03/07/17 08:09 [From Septra] sumatriptan [From Imitrex] Allergy Unknown Verified 03/07/17 08:09 sumatriptan succinate Allergy Unknown Verified 03/07/17 08:09 [From Imitrex] topiramate [From Topamax] Allergy Rash/Hives Verified 03/07/17 08:09 trimethoprim [From Septra] Allergy Unknown Verified 03/07/17 08:09 Review of Systems ROS Other: All systems not noted in ROS Statement are negative. <Tony Paulino - Last Filed: 03/07/17 05:30> ROS Other: All systems not noted in ROS Statement are negative. <Walter Cherry - Last Filed: 03/07/17 08:28> ROS Statement: Those systems with pertinent positive or pertinent negative responses have been documented in the HPI. Past Medical History Past Medical History: Asthma, Fibromyalgia Additional Past Medical History / Comment(s): ARTHRITIS, HIATAL HERNIA AND GASTRIC ULCER, ENVIRONMENTAL ALLERGIES, DIGESTIVE ISSUES, MIGRAINES History of Any Multi-Drug Resistant Organisms: None Reported Past Surgical History: Adenoidectomy, Tonsillectomy Past Psychological History: Anxiety Smoking Status: Current every day smoker Past Alcohol Use History: Occasional Past Drug Use History: None Reported <Tony Paulino - Last Filed: 03/07/17 05:30> General Exam Limitations: no limitations General appearance: alert, in no apparent distress Head exam: Present: atraumatic, normocephalic, normal inspection Eye exam: Present: normal appearance, PERRL, EOMI. Absent: scleral icterus, conjunctival injection, periorbital swelling ENT exam: Present: normal exam, mucous membranes moist Neck exam: Present: normal inspection. Absent: tenderness, meningismus, lymphadenopathy Respiratory exam: Present: normal lung sounds bilaterally. Absent: respiratory distress, wheezes, rales, rhonchi, stridor Cardiovascular Exam: Present: regular rate, normal rhythm, normal heart sounds. Absent: systolic murmur, diastolic murmur, rubs, gallop, clicks GI/Abdominal exam: Present: soft, tenderness (Suprapubic), normal bowel sounds. Absent: distended, guarding, rebound, rigid Extremities exam: Present: normal inspection, full ROM, normal capillary refill. Absent: tenderness, pedal edema, joint swelling, calf tenderness Back exam: Present: normal inspection Neurological exam: Present: alert, oriented X3, CN II-XII intact Psychiatric exam: Present: normal affect, normal mood Skin exam: Present: warm, dry, intact, normal color. Absent: rash <Tony Paulino - Last Filed: 03/07/17 05:30> Course <Tony Paulino - Last Filed: 03/07/17 05:30> <Walter Cherry - Last Filed: 03/07/17 08:28> Vital Signs 03/07/17 03/07/17 03/07/17 05:16 05:51 06:41 Temperature 98.2 F Pulse Rate 89 83 86 Respiratory 16 18 18 Rate Blood Pressure 114/71 107/59 95/55 O2 Sat by Pulse 99 100 100 Oximetry - Reevaluation(s) Reevaluation #1: 03/07/17 08:25 I reevaluation, patient is feeling much better. (Walter Cherry) Medical Decision Making <Tony Paulino - Last Filed: 03/07/17 05:30> - Lab Data Result diagrams: 03/07/17 05:34 03/07/17 05:34 <Walter Cherry - Last Filed: 03/07/17 08:28> - Medical Decision Making 25-year-old female presents for evaluation of vaginal bleeding and pelvic pain. Patient was signed out at shift change awaiting pelvic ultrasound. This ultrasound was significant for a right hemorrhagic ovarian cyst, this is consistent with patient's pain. Hemoglobin stable. Vital signs stable. On reevaluation patient is feeling much better. She'll be given a prescription for Motrin and tramadol. 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 (Walter Cherry) - Lab Data Lab Results 03/07/17 03/07/17 03/07/17 Range/Units 05:34 05:34 05:34 WBC 7.7 (3.8-10.6) k/uL RBC 4.00 (3.80-5.40) m/uL Hgb 12.3 (11.4-16.0) gm/dL Hct 37.9 (34.0-46.0) % MCV 94.7 (80.0-100.0) fL MCH 30.8 (25.0-35.0) pg MCHC 32.5 (31.0-37.0) g/dL RDW 13.8 (11.5-15.5) % Plt Count 231 (150-450) k/uL Neutrophils % 64 % Lymphocytes % 26 % Monocytes % 7 % Eosinophils % 1 % Basophils % 0 % Neutrophils # 5.0 (1.3-7.7) k/uL Lymphocytes # 2.0 (1.0-4.8) k/uL Monocytes # 0.5 (0-1.0) k/uL Eosinophils # 0.1 (0-0.7) k/uL Basophils # 0.0 (0-0.2) k/uL PT (9.0-12.0) sec INR (<1.2) APTT (22.0-30.0) sec Sodium 141 (137-145) mmol/L Potassium 3.9 (3.5-5.1) mmol/L Chloride 108 H (98-107) mmol/L Carbon Dioxide 25 (22-30) mmol/L Anion Gap 8 mmol/L BUN 16 (7-17) mg/dL Creatinine 0.71 (0.52-1.04) mg/dL Est GFR (MDRD) Af Amer >60 (>60 ml/min/1.73 sqM) Est GFR (MDRD) Non-Af >60 (>60 ml/min/1.73 sqM) Glucose 87 (74-99) mg/dL Calcium 9.1 (8.4-10.2) mg/dL Total Bilirubin 0.2 (0.2-1.3) mg/dL AST 19 (14-36) U/L ALT 25 (9-52) U/L Alkaline Phosphatase 83 (38-126) U/L Total Protein 6.9 (6.3-8.2) g/dL Albumin 4.0 (3.5-5.0) g/dL HCG, Quant <2.4 mIU/mL Urine Color Urine Appearance (Clear) Urine pH (5.0-8.0) Ur Specific Mio (1.001-1.035) Urine Protein (Negative) Urine Glucose (UA) (Negative) Urine Ketones (Negative) Urine Blood (Negative) Urine Nitrite (Negative) Urine Bilirubin (Negative) Urine Urobilinogen (<2.0) mg/dL Ur Leukocyte Esterase (Negative) Urine RBC (0-5) /hpf Urine WBC (0-5) /hpf Ur Squamous Epith Cells (0-4) /hpf Urine Bacteria (None) /hpf Urine Mucus (None) /hpf Urine HCG, Qual (Not Detectd) Blood Type O Positive Blood Type Recheck No Antibody Screen NEGATIVE Spec Expiration Date 03/10/2017233303/07/17 03/07/17 03/07/17 Range/Units 05:34 06:00 06:00 WBC (3.8-10.6) k/uL RBC (3.80-5.40) m/uL Hgb (11.4-16.0) gm/dL Hct (34.0-46.0) % MCV (80.0-100.0) fL MCH (25.0-35.0) pg MCHC (31.0-37.0) g/dL RDW (11.5-15.5) % Plt Count (150-450) k/uL Neutrophils % % Lymphocytes % % Monocytes % % Eosinophils % % Basophils % % Neutrophils # (1.3-7.7) k/uL Lymphocytes # (1.0-4.8) k/uL Monocytes # (0-1.0) k/uL Eosinophils # (0-0.7) k/uL Basophils # (0-0.2) k/uL PT 10.0 (9.0-12.0) sec INR 1.0 (<1.2) APTT 25.4 (22.0-30.0) sec Sodium (137-145) mmol/L Potassium (3.5-5.1) mmol/L Chloride (98-107) mmol/L Carbon Dioxide (22-30) mmol/L Anion Gap mmol/L BUN (7-17) mg/dL Creatinine (0.52-1.04) mg/dL Est GFR (MDRD) Af Amer (>60 ml/min/1.73 sqM) Est GFR (MDRD) Non-Af (>60 ml/min/1.73 sqM) Glucose (74-99) mg/dL Calcium (8.4-10.2) mg/dL Total Bilirubin (0.2-1.3) mg/dL AST (14-36) U/L ALT (9-52) U/L Alkaline Phosphatase (38-126) U/L Total Protein (6.3-8.2) g/dL Albumin (3.5-5.0) g/dL HCG, Quant mIU/mL Urine Color Yellow Urine Appearance Cloudy H (Clear) Urine pH 8.0 (5.0-8.0) Ur Specific Mio 1.025 (1.001-1.035) Urine Protein 1+ H (Negative) Urine Glucose (UA) Negative (Negative) Urine Ketones Negative (Negative) Urine Blood Large H (Negative) Urine Nitrite Negative (Negative) Urine Bilirubin Negative (Negative) Urine Urobilinogen 2.0 (<2.0) mg/dL Ur Leukocyte Esterase Moderate H (Negative) Urine RBC >182 H (0-5) /hpf Urine WBC 26 H (0-5) /hpf Ur Squamous Epith Cells 3 (0-4) /hpf Urine Bacteria Rare H (None) /hpf Urine Mucus Rare H (None) /hpf Urine HCG, Qual Not Detected (Not Detectd) Blood Type Blood Type Recheck Antibody Screen Spec Expiration Date Disposition <Tony Paulino - Last Filed: 03/07/17 05:30> Time of Disposition: 08:28 <Walter Cherry - Last Filed: 03/07/17 08:28> Clinical Impression: Ovarian cyst, Ruptured ovarian cyst Disposition: HOME SELF-CARE Condition: Good Instructions: Ruptured Ovarian Cyst (ED) Prescriptions: Ibuprofen [Motrin] 600 mg PO Q8HR PRN #24 tab PRN Reason: Pain traMADol HCL [Ultram] 50 mg PO Q8HR PRN #20 tab PRN Reason: Pain Referrals: Yanna Rosales MD [Primary Care Provider] - 1-2 days Ajay Lawson MD [STAFF PHYSICIAN] - 1-2 days
[2017-03-07 05:47] LABS: Basophils % (A) 0 %; CHCM 32.9; Eosinophils # (A) 0.1 k/uL (0-0.7); Eosinophils % (A) 1 %; HCT 37.9 % (34.0-46.0); HDW 2.29; HGB 12.3 gm/dL (11.4-16.0); Luc # (Auto) 0.13; Luc % (Auto) 2; Lymphocytes % (A) 26 %; MCH 30.8 pg (25.0-35.0); MCHC 32.5 g/dL (31.0-37.0); MCV 94.7 fL (80.0-100.0); Mean Platelet Volume 7.4; Monocytes # (A) 0.5 k/uL (0-1.0); Monocytes % (A) 7 %; Neutrophils % (A) 64 %; RDW 13.8 % (11.5-15.5); WBC 7.7 k/uL (3.8-10.6); WBC (Perox) 7.97
[2017-03-07 05:54] LABS: Partial Thromboplastin Time 25.4 sec (22.0-30.0)
[2017-03-07 05:56] LABS: ALT 25 U/L (9-52); AST 19 U/L (14-36); Alkaline Phosphatase 83 U/L (38-126); Anion Gap 8 mmol/L; Blood Urea Nitrogen 16 mg/dL (7-17); Calcium 9.1 mg/dL (8.4-10.2); Carbon Dioxide 25 mmol/L (22-30); Chloride 108 mmol/L (98-107); Glucose 87 mg/dL (74-99); Non-African American GFR(MDRD) >60 (>60 ml/min/1.73 sqM); Potassium 3.9 mmol/L (3.5-5.1); Sodium 141 mmol/L (137-145); Total Bilirubin 0.2 mg/dL (0.2-1.3); Total Protein 6.9 g/dL (6.3-8.2)
[2017-03-07 07:04] LABS: Appearance,Urine Cloudy (Clear); Bacteria,Urine Rare /hpf; Bilirubin,Urine Negative (Negative); Glucose,Urine (UA) Negative (Negative); Ketones,Urine Negative (Negative); Leukocyte Esterase,Urine Moderate (Negative); Mucus,Urine Rare /hpf; Nitrite,Urine Negative (Negative); Particle Count 8403; Protein,Urine 1+ (Negative); RBC,Urine >182 /hpf (0-5); Specific Gravity,Urine 1.025 (1.001-1.035); Squamous Epithelial Cell,Urine 3 /hpf (0-4); UA Billing (MACRO vs. MICRO) MICRO; WBC,Urine 26 /hpf (0-5)
--- NOTE | 2017-03-07 08:05 | US ---
EXAMINATION TYPE: US transvaginal DATE OF EXAM: 03/07/2017 COMPARISON: NONE CLINICAL HISTORY: Pain. Right pelvic pain x 3 days, heavy bleeding and clots with this cycle, history of ovarian cysts, 0 TECHNIQUE: Transvaginal (TV) ER exam Date of LMP: 03/04/17 EXAM MEASUREMENTS: Uterus: 8.0 x 3.1 x 4.5 cm Endometrial Stripe: 0.3 cm Right Ovary: 4.2 x 2.6 x 3.3 cm Left Ovary: not seen 1. Uterus: anteverted 2. Endometrium: wnl 3. Right Ovary: 2.9 x 2.1 x 2.3cm cyst with internal echoes 4. Left Ovary: not seen due to overlying bowel gas Spectral, color and waveform doppler imaging shows good arterial and venous flow within the right o vary, left ovary not seen. 5. Bilateral Adnexa: wnl 6. Posterior cul-de-sac: small amount of free fluid IMPRESSION: 1. Minimally complex right ovarian cyst is most compatible with a hemorrhagic ovarian cyst. Scant gwendolyn unt of free fluid is likely physiologic and may be sequela of a recently ruptured cyst. 2. Left ovary is not seen. Endometrium is within normal limits in this patient with menorrhagia.
[2017-03-07] MEDS ORDERED: KETOROLAC 30 MG/ML 1 ML VIAL IVP STA (08:10)
[2017-03-07 08:48] VITALS: BP 103/72; PULSE 81; RESP 17; TEMP 98.3
== END 2017-03-07 08:47 | disposition home or self-care (01) ==
LOC: EC 05:11
DX: N83.201 Unspecified ovarian cyst, right side (principal); R11.0 Nausea; F17.200 Nicotine dependence, unspecified, uncomplicated; Z88.1 Allergy status to other antibiotic agents; Z88.8 Allergy status to other drugs, medicaments and biological substances; Z79.899 Other long term (current) drug therapy
CPT/HCPCS: 99285; 96374; 96375 ×2; 96361 ×2; 36415; 86900; 86901; 80053; 85025; 85610; 85730; 86850; 81001; 81025; 84702; 87491; 87591; 93976; 76830; J2270; J2405; J1885

== ENCOUNTER 2017-04-17 16:39 | Emergency (ER) | payer OTHER ==
[2017-04-17 16:55] VITALS: BP 123/78; PULSE 79; RESP 18; TEMP 98.7
--- NOTE | 2017-04-17 17:21 | ED ---
URI HPI - General Chief Complaint: Upper Respiratory Infection Stated Complaint: ENT Time Seen by Provider: 04/17/17 16:51 Source: patient, RN notes reviewed Mode of arrival: ambulatory Limitations: no limitations - History of Present Illness Initial Comments: This is a 26-year-old female who presents to the emergency department with chief complaint of cough and congestion. Patient states that she has felt unwell for the past 3 days. She states that she has had a cough productive of yellow phlegm. She states she has not had any fevers but has felt warm. Patient also complains of a sore throat but states that she has had some postnasal drip that is increased in the mornings. She also complains of bilateral ear pain and generalized myalgias. She states she has been feeling nauseous but has had no episodes of vomiting. She also complains of some diarrhea. Patient states that she does have some bowel issues and that may be the cause of her nausea and diarrhea. She also states that she has arthritis which may be contributing to her myalgias. Denies chills, chest pain, shortness of breath, abdominal pain, nausea, constipation, dysuria or hematuria , numbness or tingling, headache or vision changes. - Related Data Home Medications Medication Instructions Recorded Confirmed Multivitamins, Thera [Multivitamin 1 tab PO DAILY 12/31/16 03/25/17 (formulary)] Naproxen 500 mg PO Q12H PRN 02/19/17 03/25/17 Cetirizine HCl [Zyrtec] 10 mg PO HS 03/25/17 03/25/17 Allergies Allergy/AdvReac Type Severity Reaction Status Date / Time cyclobenzaprine HCl Allergy Unknown Verified 04/17/17 16:55 [From Flexeril] divalproex sodium Allergy Unknown Verified 04/17/17 16:55 [From Depakote] sulfamethoxazole Allergy Unknown Verified 04/17/17 16:55 [From Septra] sumatriptan [From Imitrex] Allergy Unknown Verified 04/17/17 16:55 sumatriptan succinate Allergy Unknown Verified 04/17/17 16:55 [From Imitrex] topiramate [From Topamax] Allergy Rash/Hives Verified 04/17/17 16:55 trimethoprim [From Septra] Allergy Unknown Verified 04/17/17 16:55 Review of Systems ROS Statement: Those systems with pertinent positive or pertinent negative responses have been documented in the HPI. ROS Other: All systems not noted in ROS Statement are negative. Past Medical History Past Medical History: Asthma, Fibromyalgia Additional Past Medical History / Comment(s): ARTHRITIS, HIATAL HERNIA AND GASTRIC ULCER, ENVIRONMENTAL ALLERGIES, DIGESTIVE ISSUES, MIGRAINES, ANEMIA, "PREDIABETIC" History of Any Multi-Drug Resistant Organisms: None Reported Past Surgical History: Adenoidectomy, Tonsillectomy Past Psychological History: Anxiety Smoking Status: Current every day smoker Past Alcohol Use History: Occasional Past Drug Use History: None Reported General Exam - General Exam Comments Initial Comments: General: Awake and alert, well-developed; in no apparent distress. HEENT: Head atraumatic, normocephalic. Pupils are equal, round and reactive to light. Extraocular movements intact. Oropharynx moist without erythema or exudate. Bilateral TMs are pearly without effusion. No tenderness on palpation of maxillary or frontal sinuses. Neck: Supple. Normal ROM. Tender anterior cervical lymphadenopathy. Cardiovascular: Regular rate and rhythm. No murmurs, rubs or gallops. Chest symmetrical. Respiratory: Lungs clear to auscultation bilaterally. No wheezes, rales or rhonchi. Normal respiratory effort with no use of accessory muscles. Musculoskeletal: Normal ROM, no tenderness bilateral upper and lower extremities. Ambulating normally. Skin: [place], warm and dry without rashes or lesions. Neurological: Alert and oriented x3. CN II-XII grossly intact. Speech is fluent and answers are appropriate. No focal neuro deficits. Psychiatric: Normal mood and affect. No overt signs of depression or anxiety noted. Limitations: no limitations Course Vital Signs 04/17/17 04/17/17 16:52 16:55 Temperature 98.7 F Pulse Rate 79 Respiratory 18 18 Rate Blood Pressure 123/78 O2 Sat by Pulse 98 Oximetry Medical Decision Making - Medical Decision Making This is a 26-year-old female who presents to the emergency department with chief complaint of cough and congestion. On presentation patient's vital signs are stable and she is afebrile. Chest x-ray revealed no acute abnormalities. Influenza was negative. Patient likely suffering from a common head cold. She will be discharged home. She is in no acute distress at this time. She is in agreement with plan and voices understanding. All questions were answered. Return parameters were discussed. - Radiology Data Radiology results: report reviewed Chest x-ray impression: No acute process. Disposition Clinical Impression: Common cold Disposition: HOME SELF-CARE Condition: Good Instructions: Upper Respiratory Infection (ED) Additional Instructions: Please follow up with primary care provider within 1-2 days. Return to emergency department if symptoms should worsen or any concerns arise. Referrals: Yanna Rosales MD [Primary Care Provider] - 1-2 days Time of Disposition: 17:48
--- NOTE | 2017-04-17 17:46 | XR ---
EXAMINATION: XR chest 2V DATE AND TIME: 04/17/2017 5:11 PM ORDERING PROVIDER: Marily Wood CLINICAL INDICATION: cough congestion, history of asthma TECHNIQUE: PA and lateral COMPARISON: 03/25/2017 DESCRIPTION: The lungs are clear. Subtle bilaterally symmetric groundglass opacity noted over the low er lung zones, consistent with mammary tissue. The pleural spaces are negative. The cardiac silhouette is not enlarged. The mediastinal and pleural silhouettes are unremarkable. The skeletal structures are intact without focal findings. The soft tissues are unremarkable. IMPRESSION: NO ACUTE PROCESS.
== END 2017-04-17 18:00 | disposition home or self-care (01) ==
LOC: EC 16:39
DX: J00 Acute nasopharyngitis [common cold] (principal); F17.200 Nicotine dependence, unspecified, uncomplicated; Z88.2 Allergy status to sulfonamides; Z88.8 Allergy status to other drugs, medicaments and biological substances
CPT/HCPCS: 71020; 87502; 99283

== ENCOUNTER 2017-05-20 10:30 | Emergency (ER) | payer OTHER ==
[2017-05-20 10:54] VITALS: BP 108/71; PULSE 82; RESP 16; TEMP 97.4
--- NOTE | 2017-05-20 10:56 | ED ---
Neck Injury/Pain HPI - General Stated Complaint: Neck pain Time Seen by Provider: 05/20/17 10:47 Source: patient, RN notes reviewed Mode of arrival: ambulatory Limitations: no limitations - History of Present Illness Initial Comments: This is a 26-year-old female presents emergency Department chief complaint of right-sided neck pain. Patient states this started yesterday when she was attempting to do her hair and states that she felt some tightening. She states it's worse with movement she denies any upper shunted paresthesias or weakness. Denies headache, dizziness, fever or chills denies sore throat. She states it feels like it's in the muscle. She did apply ice all night and took some ibuprofen with minimal relief. - Related Data Home Medications Medication Instructions Recorded Confirmed Multivitamins, Thera [Multivitamin 1 tab PO DAILY 12/31/16 03/25/17 (formulary)] Naproxen 500 mg PO Q12H PRN 02/19/17 03/25/17 Cetirizine HCl [Zyrtec] 10 mg PO HS 03/25/17 03/25/17 Previous Rx's Medication Instructions Recorded Acetaminophen-Codeine 300-30mg 1 tab PO Q4H PRN #20 tablet 05/20/17 [Tylenol #3] Orphenadrine [Norflex] 100 mg PO Q12H #14 tablet.er 05/20/17 Allergies Allergy/AdvReac Type Severity Reaction Status Date / Time cyclobenzaprine HCl Allergy Unknown Verified 04/17/17 16:55 [From Flexeril] divalproex sodium Allergy Unknown Verified 04/17/17 16:55 [From Depakote] sulfamethoxazole Allergy Unknown Verified 04/17/17 16:55 [From Septra] sumatriptan [From Imitrex] Allergy Unknown Verified 04/17/17 16:55 sumatriptan succinate Allergy Unknown Verified 04/17/17 16:55 [From Imitrex] topiramate [From Topamax] Allergy Rash/Hives Verified 04/17/17 16:55 trimethoprim [From Septra] Allergy Unknown Verified 04/17/17 16:55 Review of Systems ROS Statement: Those systems with pertinent positive or pertinent negative responses have been documented in the HPI. ROS Other: All systems not noted in ROS Statement are negative. Past Medical History Past Medical History: Asthma, Fibromyalgia Additional Past Medical History / Comment(s): ARTHRITIS, HIATAL HERNIA AND GASTRIC ULCER, ENVIRONMENTAL ALLERGIES, DIGESTIVE ISSUES, MIGRAINES, ANEMIA, "PREDIABETIC" History of Any Multi-Drug Resistant Organisms: None Reported Past Surgical History: Adenoidectomy, Tonsillectomy Past Psychological History: Anxiety Smoking Status: Current every day smoker Past Alcohol Use History: Occasional Past Drug Use History: None Reported General Exam General appearance: alert, in no apparent distress Head exam: Present: atraumatic, normocephalic, normal inspection Eye exam: Present: normal appearance, PERRL, EOMI. Absent: scleral icterus, conjunctival injection, periorbital swelling ENT exam: Present: normal exam, normal oropharynx, mucous membranes moist, TM's normal bilaterally, normal external ear exam Neck exam: Present: normal inspection, tenderness (Mild tenderness the right trapezius), full ROM (Mild discomfort with range of motion worse to the right compared to the left). Absent: meningismus, lymphadenopathy Respiratory exam: Present: normal lung sounds bilaterally. Absent: respiratory distress, wheezes, rales, rhonchi, stridor Cardiovascular Exam: Present: regular rate, normal rhythm, normal heart sounds. Absent: systolic murmur, diastolic murmur, rubs, gallop, clicks Extremities exam: Present: other (Patient has full range of motion full- strength and neurovascular intact upper extremities) Back exam: Present: normal inspection, full ROM. Absent: tenderness Neurological exam: Present: alert, oriented X3, CN II-XII intact, reflexes normal. Absent: motor sensory deficit Medical Decision Making - Medical Decision Making 26-year-old female presented For right-sided neck pain. Patient has obvious muscle spasm, tarsal the right trapezius is consistent with torticollis. Patient was given pain medication, muscle relaxer advised to take her ibuprofen as directed. Disposition Clinical Impression: Spasmodic torticollis Disposition: HOME SELF-CARE Condition: Stable Instructions: Spasmodic Torticollis (ED), Muscle Spasm (ED) Additional Instructions: Please return to the Emergency Department if symptoms worsen or any other concerns. Prescriptions: Acetaminophen-Codeine 300-30mg [Tylenol #3] 1 tab PO Q4H PRN #20 tablet PRN Reason: pain Orphenadrine [Norflex] 100 mg PO Q12H #14 tablet.er Referrals: Yanna Rosales MD [Primary Care Provider] - 1-2 days Time of Disposition: 10:56
[2017-05-20] MEDS ORDERED: Acetaminophen-Codeine 300-30mg TAB PO STA (11:10)
[2017-05-20] MEDS ORDERED: ORPHENADRINE 30 MG/ML 2 ML VIAL IM STA (11:12)
== END 2017-05-20 11:19 | disposition home or self-care (01) ==
LOC: EC 10:30
DX: G24.3 Spasmodic torticollis (principal); F17.200 Nicotine dependence, unspecified, uncomplicated; Z90.89 Acquired absence of other organs; Z88.2 Allergy status to sulfonamides; Z88.8 Allergy status to other drugs, medicaments and biological substances; Z79.899 Other long term (current) drug therapy
CPT/HCPCS: 99283; 96372; J2360

== ENCOUNTER 2017-10-12 16:49 | Emergency (ER) | payer OTHER ==
--- NOTE | 2017-10-12 17:09 | ED ---
SOB HPI - General Chief Complaint: Shortness of Breath Stated Complaint: SOB/Thoat Pain Time Seen by Provider: 10/12/17 17:09 Source: patient Mode of arrival: ambulatory Limitations: no limitations - History of Present Illness Initial Comments: Pt presents with 1 week SOB, nonproductive cough. States associated with mild rhinorrhea and nasal congestion. Mild decreased appetite. Patient states she has a history of intermittent diarrhea and constipation but no new bowel symptoms. Denies fevers, chills, nausea. States she vomited once one week ago without secondary to food poisoning, no vomiting the past 4 days. Patient states she always urinates frequently, no changes in urination. Denies vaginal bleeding or discharge. Denies history of lung disease. Patient states she has a history of fibromyalgia, "GI problems", arthritis. Pt states she had similar symptoms in fast 2/2 PNA. - Related Data Home Medications Medication Instructions Recorded Confirmed Multivitamins, Thera [Multivitamin 1 tab PO DAILY 12/31/16 05/20/17 (formulary)] Cetirizine HCl [Zyrtec] 10 mg PO HS 03/25/17 05/20/17 Ibuprofen [Motrin] 800 mg PO TID PRN 05/20/17 05/20/17 Otc Sleep Aid(Unknown) 1 tab PO HS PRN 05/20/17 05/20/17 Previous Rx's Medication Instructions Recorded Acetaminophen-Codeine 300-30mg 1 tab PO Q4H PRN #20 tablet 05/20/17 [Tylenol #3] Orphenadrine [Norflex] 100 mg PO Q12H #14 tablet.er 05/20/17 Albuterol Inhaler [Ventolin Hfa 1 - 2 puff INHALATION Q4HR PRN #1 10/12/17 Inhaler] inhaler predniSONE 40 mg PO DAILY 5 Days #10 tab 10/12/17 Allergies Allergy/AdvReac Type Severity Reaction Status Date / Time cyclobenzaprine HCl Allergy Unknown Verified 10/12/17 16:57 [From Flexeril] divalproex sodium Allergy Unknown Verified 10/12/17 16:57 [From Depakote] sulfamethoxazole Allergy Unknown Verified 10/12/17 16:57 [From Septra] sumatriptan [From Imitrex] Allergy Unknown Verified 10/12/17 16:57 sumatriptan succinate Allergy Unknown Verified 10/12/17 16:57 [From Imitrex] topiramate [From Topamax] Allergy Rash/Hives Verified 10/12/17 16:57 trimethoprim [From Septra] Allergy Unknown Verified 10/12/17 16:57 Review of Systems ROS Statement: Those systems with pertinent positive or pertinent negative responses have been documented in the HPI. ROS Other: All systems not noted in ROS Statement are negative. Constitutional: Denies: fever, chills, weakness, weight change, night sweats Eyes: Denies: vision change ENT: Reports: throat pain, congestion, other (rhinorrhea). Denies: ear pain, dental pain, hearing loss Respiratory: Reports: cough, dyspnea. Denies: wheezes, hemoptysis Cardiovascular: Denies: chest pain, palpitations, syncope Endocrine: Reports: fatigue Gastrointestinal: Denies: abdominal pain, hematemesis, melena Genitourinary: Reports: frequency. Denies: urgency, dysuria, hematuria, discharge, abnormal menses Musculoskeletal: Denies: back pain, joint swelling, arthralgia, myalgia Skin: Denies: rash, change in color Neurological: Denies: headache Past Medical History Past Medical History: Asthma, Fibromyalgia Additional Past Medical History / Comment(s): ARTHRITIS, HIATAL HERNIA AND GASTRIC ULCER, ENVIRONMENTAL ALLERGIES, DIGESTIVE ISSUES, MIGRAINES, ANEMIA, "PREDIABETIC" History of Any Multi-Drug Resistant Organisms: None Reported Past Surgical History: Adenoidectomy, Tonsillectomy Additional Past Surgical History / Comment(s): eye sclera Past Psychological History: Anxiety Smoking Status: Current every day smoker Past Alcohol Use History: Rare Past Drug Use History: None Reported General Exam - General Exam Comments Initial Comments: Sitting up in bed legs crossed. No acute distress. Conversing normally. Calm , pleasant, well-appearing, well-groomed well-dressed. Limitations: no limitations General appearance: alert, in no apparent distress Head exam: Present: atraumatic, normocephalic Eye exam: Present: normal appearance, PERRL, EOMI ENT exam: Present: normal exam, normal oropharynx, mucous membranes moist, normal external ear exam, other (Oropharynx clear, no erythema or exudates. No significant nasal congestion on exam.) Neck exam: Present: normal inspection, full ROM. Absent: tenderness, meningismus Respiratory exam: Present: normal lung sounds bilaterally. Absent: respiratory distress, wheezes, rales, rhonchi, stridor, accessory muscle use, decreased breath sounds, prolonged expiratory Cardiovascular Exam: Present: regular rate, normal rhythm GI/Abdominal exam: Present: soft. Absent: distended, tenderness, guarding, rebound Extremities exam: Present: normal inspection. Absent: pedal edema, joint swelling, calf tenderness Back exam: Present: normal inspection Neurological exam: Present: alert, oriented X3 Psychiatric exam: Present: normal affect, normal mood Skin exam: Present: warm, dry, intact, normal color. Absent: rash, cyanosis, diaphoretic, erythema, urticaria, vesicles Course Vital Signs 10/12/17 10/12/17 10/12/17 16:54 17:42 17:48 Temperature 98.2 F Pulse Rate 79 80 84 Respiratory 18 Rate Blood Pressure 116/72 O2 Sat by Pulse 100 Oximetry Medical Decision Making - Medical Decision Making HR, RR, O2 sat within normal limits. Do not feel pt has PE. Duonebs ordered. Urinalysis shows contaminated sample, patient with no symptoms of urinary tract infection. negative. Chest x-ray negative. Patient updated with all results. Symptoms likely secondary to bronchitis versus viral syndrome. Patient to follow primary care physician. Return to ER for new or worsening symptoms. Prescription of steroids and albuterol given. We'll discharge home. - Lab Data Lab Results 10/12/17 10/12/17 Range/Units 18:13 18:13 Urine Color Dark Yellow Urine Appearance Cloudy H (Clear) Urine pH 5.5 (5.0-8.0) Ur Specific [place] 1.029 (1.001-1.035) Urine Protein Trace H (Negative) Urine Glucose (UA) Negative (Negative) Urine Ketones Trace H (Negative) Urine Blood Negative (Negative) Urine Nitrite Negative (Negative) Urine Bilirubin Negative (Negative) Urine Urobilinogen <2.0 (<2.0) mg/dL Ur Leukocyte Esterase Moderate H (Negative) Urine RBC 3 (0-5) /hpf Urine WBC 49 H (0-5) /hpf Ur Squamous Epith Cells 21 H (0-4) /hpf Urine Mucus Moderate H (None) /hpf Urine HCG, Qual Not Detected (Not Detectd) Disposition Clinical Impression: Bronchitis, Congestive heart failure Disposition: HOME SELF-CARE Condition: Good Instructions: Acute Bronchitis (ED) Additional Instructions: Follow-up with your primary care physician one to 2 days. Prescriptions: Albuterol Inhaler [Ventolin Hfa Inhaler] 1 - 2 puff INHALATION Q4HR PRN #1 inhaler PRN Reason: Shortness Of Breath predniSONE 40 mg PO DAILY 5 Days #10 tab Is patient prescribed a controlled substance at d/c from ED?: No Referrals: Yanna Rosales MD [Primary Care Provider] - 1-2 days
[2017-10-12] MEDS ORDERED: IPRATROPIUM-ALBUTEROL 3 ML NEB INHALATION STA (17:14)
[2017-10-12 18:32] LABS: Appearance,Urine Cloudy (Clear); Bilirubin,Urine Negative (Negative); Blood,Urine Negative (Negative); Color,Urine Dark Yellow; Glucose,Urine (UA) Negative (Negative); Ketones,Urine Trace (Negative); Leukocyte Esterase,Urine Moderate (Negative); Mucus,Urine Moderate /hpf; Nitrite,Urine Negative (Negative); PH, Urine 5.5 (5.0-8.0); Protein,Urine Trace (Negative); RBC,Urine 3 /hpf (0-5); Specific Gravity,Urine 1.029 (1.001-1.035); Squamous Epithelial Cell,Urine 21 /hpf (0-4); Urobilinogen,Urine <2.0 mg/dL (<2.0); WBC,Urine 49 /hpf (0-5)
--- NOTE | 2017-10-12 18:54 | XR ---
EXAMINATION TYPE: XR chest 2V DATE OF EXAM: 10/12/2017 COMPARISON: 04/17/2017 INDICATION: Pain, cough, sore throat, dyspnea TECHNIQUE: Frontal and lateral views of the chest are obtained. FINDINGS: The heart size is normal. The pulmonary vasculature is normal. The lungs are clear. IMPRESSION: 1. No acute pulmonary process.
[2017-10-12 19:16] VITALS: BP 103/58; PULSE 58; RESP 19; TEMP 98.7
== END 2017-10-12 19:14 | disposition home or self-care (01) ==
LOC: EC 16:49
DX: J45.909 Unspecified asthma, uncomplicated (principal); I50.9 Heart failure, unspecified; R11.10 Vomiting, unspecified; M79.7 Fibromyalgia; F17.200 Nicotine dependence, unspecified, uncomplicated; Z79.899 Other long term (current) drug therapy; Z88.8 Allergy status to other drugs, medicaments and biological substances
CPT/HCPCS: 71046; 81001; 81025; 94640; 99285

== ENCOUNTER 2017-11-30 15:29 | Emergency (ER) | payer OTHER ==
[2017-11-30 15:36] VITALS: TEMP 98
[2017-11-30] MEDS ORDERED: KETOROLAC 30 MG/ML 1 ML VIAL IVP STA (16:29)
[2017-11-30] MEDS ORDERED: SODIUM CHLORIDE 0.9% 1,000 ML IV STA ×2 (16:29)
[2017-11-30] MEDS ORDERED: PANTOPRAZOLE 40 MG/10 ML VIAL IVP STA (16:29)
[2017-11-30] MEDS ORDERED: ONDANSETRON 4 MG/2 ML VIAL IVP STA (16:29)
--- NOTE | 2017-11-30 16:31 | ED ---
Abdominal Pain HPI - General Chief Complaint: Abdominal Pain Stated Complaint: Abd pain Time Seen by Provider: 11/30/17 16:17 Source: patient, RN notes reviewed, old records reviewed Mode of arrival: ambulatory Limitations: no limitations - History of Present Illness Initial Comments: 37-year-old female presents with nausea vomiting episodes of diarrhea after eating a barbecue yesterday. Symptoms started at 1 AM. Patient reports that multiple episodes of vomiting. Patient reports she's had no fevers or chills. She denies any significant abdominal pain. Patient states that she's had no other abnormal symptoms including chest pain or shortness of breath. She states it was due to the vomiting she said did feel somewhat lightheaded and dizzy. - Related Data Home Medications Medication Instructions Recorded Confirmed Otc Sleep Aid(Unknown) 1 tab PO HS PRN 05/20/17 11/30/17 Multivitamins, Thera [Multivitamin 1 tab PO DAILY 11/30/17 11/30/17 (formulary)] diphenhydrAMINE HCL [Benadryl] 25 mg PO Q6H PRN 11/30/17 11/30/17 hydrOXYzine PAMOATE [Vistaril] 25 mg PO Q12H PRN 11/30/17 11/30/17 Previous Rx's Medication Instructions Recorded Ondansetron Odt [Zofran Odt] 4 mg PO Q8HR PRN #12 tab 11/30/17 Allergies Allergy/AdvReac Type Severity Reaction Status Date / Time cyclobenzaprine HCl Allergy Unknown Verified 11/30/17 17:45 [From Flexeril] divalproex sodium Allergy Unknown Verified 11/30/17 17:45 [From Depakote] sulfamethoxazole Allergy Unknown Verified 11/30/17 17:45 [From Septra] sumatriptan [From Imitrex] Allergy Unknown Verified 11/30/17 17:45 sumatriptan succinate Allergy Unknown Verified 11/30/17 17:45 [From Imitrex] topiramate [From Topamax] Allergy Rash/Hives Verified 11/30/17 17:45 trimethoprim [From Septra] Allergy Unknown Verified 11/30/17 17:45 Review of Systems ROS Statement: Those systems with pertinent positive or pertinent negative responses have been documented in the HPI. ROS Other: All systems not noted in ROS Statement are negative. Past Medical History Past Medical History: Asthma, Fibromyalgia, GERD/Reflux, Osteoarthritis (OA), Pneumonia Additional Past Medical History / Comment(s): ARTHRITIS, HIATAL HERNIA AND GASTRIC ULCER, ENVIRONMENTAL ALLERGIES, DIGESTIVE ISSUES, MIGRAINES, ANEMIA, "PREDIABETIC", herniated disc History of Any Multi-Drug Resistant Organisms: None Reported Past Surgical History: Adenoidectomy, Tonsillectomy Additional Past Surgical History / Comment(s): eye sclera Past Psychological History: Anxiety, Depression, Panic Disorder Smoking Status: Current every day smoker Past Alcohol Use History: Rare Past Drug Use History: None Reported General Exam - General Exam Comments Initial Comments: This is a 27-year-old female. Alert and oriented. No significant distress. General: Well appearing, well nourished, in no distress. Oriented x 3, normal mood and affect . Ambulating without difficulty. Skin: Good turgor, no rash, unusual bruising or prominent lesions Hair: Normal texture and distribution. HEENT: Head: Normocephalic, atraumatic, no visible or palpable masses, depressions, or scaring. Eyes: Visual acuity intact, conjunctiva clear, sclera non-icteric, EOM intact, PERRL. Ears: EACs clear, TMs translucent & cone of light visualized. hearing intact. Nose: No external lesions, mucosa non-inflamed, septum and turbinates normal Mouth: Mucous membranes moist, no mucosal lesions. Teeth/Gums: No obvious caries or periodontal disease. No gingival inflammation or significant resorption. Pharynx: Mucosa non-inflamed, no tonsillar hypertrophy or exudate Neck: Supple, without lesions, bruits, or adenopathy, thyroid non-enlarged and non-tender Heart: No cardiomegaly or thrills; regular rate and rhythm, no murmur or gallop Lungs: Clear to auscultation and percussion Abdomen: Bowel sounds normal, no tenderness, organomegaly, masses, or hernia Back: Spine normal without deformity or tenderness, no CVA tenderness Musculoskeletal: Normal gait and station. No misalignment, asymmetry, crepitation, defects, tenderness, masses, effusions, decreased range of motion, instability, atrophy or abnormal strength or tone in the head, neck, spine, ribs , pelvis or extremities. Neurologic: CN 2-12 normal. Sensation to pain, touch, and proprioception normal. DTRs normal in upper and lower extremities. No pathologic reflexes. Psychiatric: Oriented X3, intact recent and remote memory, judgment and insight , normal mood and affect. Limitations: no limitations Course Vital Signs 11/30/17 15:34 Temperature 98 F Pulse Rate 67 Respiratory 18 Rate Blood Pressure 110/76 O2 Sat by Pulse 98 Oximetry Medical Decision Making - Medical Decision Making 27-year-old female presents nausea vomiting diarrhea after eating a barbecue. Possible food poisoning. Patient was given IV fluids are obtained. Lab work was reviewed and unremarkable. Chest x-ray and EKG reviewed and unremarkable. Patient was given Zofran and Protonix. She just a bit of her symptoms. We'll discharge her with Zofran and close follow-up with PCP. Discussed likely that he additional give her a note for work today. Patient is history plan will comply. Return parameters were discussed. - Lab Data Result diagrams: 11/30/17 17:08 11/30/17 17:08 Lab Results 11/30/17 11/30/17 11/30/17 Range/Units 17:08 17:08 17:08 WBC 7.2 (3.8-10.6) k/uL RBC 4.31 (3.80-5.40) m/uL Hgb 13.0 (11.4-16.0) gm/dL Hct 39.3 (34.0-46.0) % MCV 91.2 (80.0-100.0) fL MCH 30.2 (25.0-35.0) pg MCHC 33.2 (31.0-37.0) g/dL RDW 13.5 (11.5-15.5) % Plt Count 52 L (150-450) k/uL Neutrophils % 75 % Lymphocytes % 18 % Monocytes % 5 % Eosinophils % 1 % Basophils % 0 % Neutrophils # 5.3 (1.3-7.7) k/uL Lymphocytes # 1.3 (1.0-4.8) k/uL Monocytes # 0.3 (0-1.0) k/uL Eosinophils # 0.1 (0-0.7) k/uL Basophils # 0.0 (0-0.2) k/uL Manual Slide Review Performed RBC Morphology Normal PT (9.0-12.0) sec INR (<1.2) APTT (22.0-30.0) sec Sodium 141 (137-145) mmol/L Potassium 4.4 (3.5-5.1) mmol/L Chloride 105 (98-107) mmol/L Carbon Dioxide 21 L (22-30) mmol/L Anion Gap 15 mmol/L BUN 14 (7-17) mg/dL Creatinine 0.62 (0.52-1.04) mg/dL Est GFR (CKD-EPI)AfAm >90 (>60 ml/min/1.73 sqM) Est GFR (CKD-EPI)NonAf >90 (>60 ml/min/1.73 sqM) Glucose 77 (74-99) mg/dL Calcium 9.9 (8.4-10.2) mg/dL Total Bilirubin 0.7 (0.2-1.3) mg/dL AST 25 (14-36) U/L ALT 22 (9-52) U/L Alkaline Phosphatase 72 (38-126) U/L Total Protein 8.2 (6.3-8.2) g/dL Albumin 5.1 H (3.5-5.0) g/dL Amylase 76 (30-110) U/L Lipase 52 (23-300) U/L Urine Color Light Yellow Urine Appearance Clear (Clear) Urine pH 5.5 (5.0-8.0) Ur Specific [place] 1.007 (1.001-1.035) Urine Protein Negative (Negative) Urine Glucose (UA) Negative (Negative) Urine Ketones Negative (Negative) Urine Blood Negative (Negative) Urine Nitrite Negative (Negative) Urine Bilirubin Negative (Negative) Urine Urobilinogen <2.0 (<2.0) mg/dL Ur Leukocyte Esterase Trace H (Negative) Urine RBC <1 (0-5) /hpf Urine WBC 4 (0-5) /hpf Ur Squamous Epith Cells 5 H (0-4) /hpf Urine Bacteria Rare H (None) /hpf Urine Mucus Rare H (None) /hpf Urine HCG, Qual (Not Detectd) 11/30/17 11/30/17 Range/Units 17:08 17:33 WBC (3.8-10.6) k/uL RBC (3.80-5.40) m/uL Hgb (11.4-16.0) gm/dL Hct (34.0-46.0) % MCV (80.0-100.0) fL MCH (25.0-35.0) pg MCHC (31.0-37.0) g/dL RDW (11.5-15.5) % Plt Count (150-450) k/uL Neutrophils % % Lymphocytes % % Monocytes % % Eosinophils % % Basophils % % Neutrophils # (1.3-7.7) k/uL Lymphocytes # (1.0-4.8) k/uL Monocytes # (0-1.0) k/uL Eosinophils # (0-0.7) k/uL Basophils # (0-0.2) k/uL Manual Slide Review RBC Morphology PT 10.0 (9.0-12.0) sec INR 1.0 (<1.2) APTT 25.5 (22.0-30.0) sec Sodium (137-145) mmol/L Potassium (3.5-5.1) mmol/L Chloride (98-107) mmol/L Carbon Dioxide (22-30) mmol/L Anion Gap mmol/L BUN (7-17) mg/dL Creatinine (0.52-1.04) mg/dL Est GFR (CKD-EPI)AfAm (>60 ml/min/1.73 sqM) Est GFR (CKD-EPI)NonAf (>60 ml/min/1.73 sqM) Glucose (74-99) mg/dL Calcium (8.4-10.2) mg/dL Total Bilirubin (0.2-1.3) mg/dL AST (14-36) U/L ALT (9-52) U/L Alkaline Phosphatase (38-126) U/L Total Protein (6.3-8.2) g/dL Albumin (3.5-5.0) g/dL Amylase (30-110) U/L Lipase (23-300) U/L Urine Color Urine Appearance (Clear) Urine pH (5.0-8.0) Ur Specific [place] (1.001-1.035) Urine Protein (Negative) Urine Glucose (UA) (Negative) Urine Ketones (Negative) Urine Blood (Negative) Urine Nitrite (Negative) Urine Bilirubin (Negative) Urine Urobilinogen (<2.0) mg/dL Ur Leukocyte Esterase (Negative) Urine RBC (0-5) /hpf Urine WBC (0-5) /hpf Ur Squamous Epith Cells (0-4) /hpf Urine Bacteria (None) /hpf Urine Mucus (None) /hpf Urine HCG, Qual Not Detected (Not Detectd) 11/30/17 18:52 EKG shows sinus rhythm with sinus arrhythmia. Ventricular rate of 72 bpm. TN interval 136. QS duration 80. QT QTc is 390/427. - Radiology Data Radiology results: report reviewed Chest x-rays and a for any acute cardiopulmonary process. Normal bowel gas pattern. Disposition Clinical Impression: Nausea & vomiting, Diarrhea Disposition: HOME SELF-CARE Condition: Good Instructions: Acute Nausea and Vomiting (ED), Gastroenteritis (ED) Additional Instructions: Patient advised follow-up with primary care physician. Return to emergency department if any alarming signs or symptoms occur. Take nausea medicine as prescribed. Prescriptions: Ondansetron Odt [Zofran Odt] 4 mg PO Q8HR PRN #12 tab PRN Reason: Nausea Is patient prescribed a controlled substance at d/c from ED?: No Referrals: Murali Steele MD [Primary Care Provider] - 1-2 days Time of Disposition: 18:53
[2017-11-30 17:22] LABS: Basophils % (A) 0 %; Eosinophils # (A) 0.1 k/uL (0-0.7); Eosinophils % (A) 1 %; HCT 39.3 % (34.0-46.0); Lymphocytes # (A) 1.3 k/uL (1.0-4.8); Lymphocytes % (A) 18 %; MCH 30.2 pg (25.0-35.0); MCHC 33.2 g/dL (31.0-37.0); MCV 91.2 fL (80.0-100.0); Mean Platelet Volume 9.5; Monocytes # (A) 0.3 k/uL (0-1.0); Monocytes % (A) 5 %; Neutrophils # (A) 5.3 k/uL (1.3-7.7); Neutrophils % (A) 75 %; RBC 4.31 m/uL (3.80-5.40); RDW 13.5 % (11.5-15.5); WBC 7.2 k/uL (3.8-10.6)
[2017-11-30 17:33] LABS: ALT 22 U/L (9-52); AST 25 U/L (14-36); Albumin 5.1 g/dL (3.5-5.0); Alkaline Phosphatase 72 U/L (38-126); Amylase 76 U/L (30-110); Anion Gap 15 mmol/L; Blood Urea Nitrogen 14 mg/dL (7-17); Calcium 9.9 mg/dL (8.4-10.2); Carbon Dioxide 21 mmol/L (22-30); Chloride 105 mmol/L (98-107); Glucose 77 mg/dL (74-99); Lipase 52 U/L (23-300); Potassium 4.4 mmol/L (3.5-5.1); Sodium 141 mmol/L (137-145); Total Bilirubin 0.7 mg/dL (0.2-1.3); Total Protein 8.2 g/dL (6.3-8.2)
[2017-11-30 17:39] LABS: Platelet Count 52 k/uL (150-450)
[2017-11-30 18:05] LABS: Appearance,Urine Clear (Clear); Bacteria,Urine Rare /hpf; Bilirubin,Urine Negative (Negative); Blood,Urine Negative (Negative); Color,Urine Light Yellow; Glucose,Urine (UA) Negative (Negative); Ketones,Urine Negative (Negative); Leukocyte Esterase,Urine Trace (Negative); Mucus,Urine Rare /hpf; Nitrite,Urine Negative (Negative); PH, Urine 5.5 (5.0-8.0); Protein,Urine Negative (Negative); RBC,Urine <1 /hpf (0-5); Specific Gravity,Urine 1.007 (1.001-1.035); Squamous Epithelial Cell,Urine 5 /hpf (0-4); Urobilinogen,Urine <2.0 mg/dL (<2.0); WBC,Urine 4 /hpf (0-5)
[2017-11-30 18:07] LABS: Partial Thromboplastin Time 25.5 sec (22.0-30.0)
--- NOTE | 2017-11-30 18:30 | XR ---
EXAMINATION TYPE: XR chest 2V DATE OF EXAM: 11/30/2017 COMPARISON: 10/12/2017 HISTORY: Chest pain, nausea, and vomiting. TECHNIQUE: Frontal and lateral views of the chest are obtained. FINDINGS: There is no focal air space opacity, pleural effusion, or pneumothorax seen. The cardiac silhouette size is within normal limits. The osseous structures are intact. IMPRESSION: No acute cardiopulmonary process.
--- NOTE | 2017-11-30 18:31 | XR ---
EXAMINATION TYPE: XR KUB DATE OF EXAM: 11/30/2017 6:13 PM CLINICAL HISTORY: Nausea and vomiting TECHNIQUE: Single upright image of the abdomen is obtained. COMPARISON: 10/01/2016 lumbosacral spine radiograph FINDINGS: The liver is elongated extending to the iliac crest and may represent normal variant Raeann 's lobe or hepatomegaly. There is a moderate amount retained colonic stool in nondilated large bowel. No suspicious calcifications are seen within the abdomen or pelvis. No pneumoperitoneum. No dilated large or small bowel. Osseous structures appear intact. Lung bases are well aerated. IMPRESSION: Nonobstructive bowel gas pattern.
[2017-11-30] MEDS ORDERED: MAG HYDROX/AL HYDROX/SIMETH 30 ML, HYOSCYAMINE ELIXIR 10 ML, CIMETIDINE HCL 300 MG, LID... PO STA ×4 (19:03)
[2017-11-30 19:22] VITALS: BP 101/64; PULSE 68; RESP 16
== END 2017-11-30 17:10 | disposition home or self-care (01) ==
LOC: EC 15:29
DX: R11.2 Nausea with vomiting, unspecified (principal); R19.7 Diarrhea, unspecified; R42 Dizziness and giddiness; F41.9 Anxiety disorder, unspecified; F17.200 Nicotine dependence, unspecified, uncomplicated; Z88.1 Allergy status to other antibiotic agents; Z88.2 Allergy status to sulfonamides; Z88.8 Allergy status to other drugs, medicaments and biological substances
CPT/HCPCS: 36415; 93005; 80053; 82150; 83690; 85025; 85610; 85730; 81001; 81025; 71046; 74018; 99284; 96374; 96375 ×2; 96361; J2405; J1885; C9113

== ENCOUNTER 2017-12-15 22:29 | Emergency (ER) | payer OTHER ==
[2017-12-15 22:34] VITALS: RESP 16; TEMP 98.5
[2017-12-15] MEDS ORDERED: SODIUM CHLORIDE 0.9% 1,000 ML IV STA ×2 (23:01)
--- NOTE | 2017-12-15 23:04 | ED ---
Abdominal Pain HPI - General Chief Complaint: Abdominal Pain Stated Complaint: abdominal pain/dizzy Time Seen by Provider: 12/15/17 22:42 Source: patient, RN notes reviewed, old records reviewed Mode of arrival: ambulatory Limitations: no limitations - History of Present Illness Initial Comments: 27 year old female presents with RUQ pain after eating for 3 weeks. She reports she has had some vomiting, diarrhea, and gas intermittently. Patient denies fevers or chills. Patient has no chest pain or shortness or breath. Patient has history of ovarian cysts. She reports her LMP was 1 week ago. She has had history of GI upset for the past few years. She denies any other symptoms. She is concerned that her gallbladder could be source of issue, reports family history of gallbladder disease. - Related Data Home Medications Medication Instructions Recorded Confirmed Otc Sleep Aid(Unknown) 1 tab PO HS PRN 05/20/17 11/30/17 Multivitamins, Thera [Multivitamin 1 tab PO DAILY 11/30/17 11/30/17 (formulary)] diphenhydrAMINE HCL [Benadryl] 25 mg PO Q6H PRN 11/30/17 11/30/17 hydrOXYzine PAMOATE [Vistaril] 25 mg PO Q12H PRN 11/30/17 11/30/17 Previous Rx's Medication Instructions Recorded Ondansetron Odt [Zofran Odt] 4 mg PO Q8HR PRN #12 tab 11/30/17 Nitrofurantoin Monohyd/M-Cryst 100 mg PO Q12HR #14 cap 12/16/17 [Macrobid] Ondansetron [Zofran] 4 mg PO Q8HR PRN #8 tab 12/16/17 Allergies Allergy/AdvReac Type Severity Reaction Status Date / Time cyclobenzaprine HCl Allergy Unknown Verified 12/15/17 22:34 [From Flexeril] divalproex sodium Allergy Unknown Verified 12/15/17 22:34 [From Depakote] sulfamethoxazole Allergy Unknown Verified 12/15/17 22:34 [From Septra] sumatriptan [From Imitrex] Allergy Unknown Verified 12/15/17 22:34 sumatriptan succinate Allergy Unknown Verified 12/15/17 22:34 [From Imitrex] topiramate [From Topamax] Allergy Rash/Hives Verified 12/15/17 22:34 trimethoprim [From Septra] Allergy Unknown Verified 12/15/17 22:34 Review of Systems ROS Statement: Those systems with pertinent positive or pertinent negative responses have been documented in the HPI. ROS Other: All systems not noted in ROS Statement are negative. Past Medical History Past Medical History: Asthma, Fibromyalgia, GERD/Reflux, Osteoarthritis (OA), Pneumonia Additional Past Medical History / Comment(s): ARTHRITIS, HIATAL HERNIA AND GASTRIC ULCER, ENVIRONMENTAL ALLERGIES, DIGESTIVE ISSUES, MIGRAINES, ANEMIA, "PREDIABETIC", herniated disc History of Any Multi-Drug Resistant Organisms: None Reported Past Surgical History: Adenoidectomy, Tonsillectomy Additional Past Surgical History / Comment(s): eye sclera Past Psychological History: Anxiety, Depression, Panic Disorder Smoking Status: Current every day smoker Past Alcohol Use History: Rare Past Drug Use History: None Reported General Exam - General Exam Comments Initial Comments: This is a 27 year old female, no distress. Limitations: no limitations General appearance: alert, in no apparent distress Head exam: Present: atraumatic, normocephalic, normal inspection Eye exam: Present: normal appearance, PERRL, EOMI. Absent: scleral icterus, conjunctival injection, periorbital swelling ENT exam: Present: normal exam, mucous membranes moist Neck exam: Present: normal inspection. Absent: tenderness, meningismus, lymphadenopathy Respiratory exam: Present: normal lung sounds bilaterally. Absent: respiratory distress, wheezes, rales, rhonchi, stridor Cardiovascular Exam: Present: regular rate, normal rhythm, normal heart sounds. Absent: systolic murmur, diastolic murmur, rubs, gallop, clicks GI/Abdominal exam: Present: soft, tenderness (RUQ tendernesss), normal bowel sounds. Absent: distended, guarding, rebound, rigid Neurological exam: Present: alert, oriented X3, CN II-XII intact Psychiatric exam: Present: normal affect, normal mood Skin exam: Present: warm, dry, intact, normal color. Absent: rash Course Vital Signs 12/15/17 12/16/17 22:31 00:41 Temperature 98.5 F Pulse Rate 84 71 Respiratory 16 16 Rate Blood Pressure 120/75 111/56 O2 Sat by Pulse 97 99 Oximetry Medical Decision Making - Medical Decision Making 27 year old female with 3 weeks of intermittent RUQ pain, worse after eating. At this time she has mild tenderness. KUB shows no acute process. She is concerned for gallbladder etiology. RUQ US obtained and negative for acute disease. Patient labs are unremarkable. Patient does have mild UTI, WBC and leukocyte esterase in UA. Urine culture obtained. Started patient on macrobid. She has relief after toradol and zofran. Will discharge patient with follow upwith PCP and GI doctor. She was advised for possiblity of further testing including EGD and HIDA scan. - Lab Data Result diagrams: 12/15/17 22:56 12/15/17 22:56 Lab Results 12/15/17 12/15/17 12/15/17 Range/Units 22:56 22:56 22:56 WBC 7.4 (3.8-10.6) k/uL RBC 4.50 (3.80-5.40) m/uL Hgb 13.4 (11.4-16.0) gm/dL Hct 42.1 (34.0-46.0) % MCV 93.5 (80.0-100.0) fL MCH 29.7 (25.0-35.0) pg MCHC 31.8 (31.0-37.0) g/dL RDW 12.7 (11.5-15.5) % Plt Count 264 D (150-450) k/uL Neutrophils % 63 % Lymphocytes % 28 % Monocytes % 6 % Eosinophils % 1 % Basophils % 0 % Neutrophils # 4.7 (1.3-7.7) k/uL Lymphocytes # 2.0 (1.0-4.8) k/uL Monocytes # 0.4 (0-1.0) k/uL Eosinophils # 0.1 (0-0.7) k/uL Basophils # 0.0 (0-0.2) k/uL PT 10.2 (9.0-12.0) sec INR 1.0 (<1.2) APTT 26.1 (22.0-30.0) sec Sodium 141 (137-145) mmol/L Potassium 3.7 (3.5-5.1) mmol/L Chloride 103 (98-107) mmol/L Carbon Dioxide 27 (22-30) mmol/L Anion Gap 11 mmol/L BUN 6 L (7-17) mg/dL Creatinine 0.70 (0.52-1.04) mg/dL Est GFR (CKD-EPI)AfAm >90 (>60 ml/min/1.73 sqM) Est GFR (CKD-EPI)NonAf >90 (>60 ml/min/1.73 sqM) Glucose 88 (74-99) mg/dL Calcium 9.7 (8.4-10.2) mg/dL Total Bilirubin 0.4 (0.2-1.3) mg/dL AST 20 (14-36) U/L ALT 26 (9-52) U/L Alkaline Phosphatase 56 (38-126) U/L Total Protein 7.7 (6.3-8.2) g/dL Albumin 4.8 (3.5-5.0) g/dL Amylase 66 (30-110) U/L Lipase 60 (23-300) U/L Urine Color Urine Appearance (Clear) Urine pH (5.0-8.0) Ur Specific [place] (1.001-1.035) Urine Protein (Negative) Urine Glucose (UA) (Negative) Urine Ketones (Negative) Urine Blood (Negative) Urine Nitrite (Negative) Urine Bilirubin (Negative) Urine Urobilinogen (<2.0) mg/dL Ur Leukocyte Esterase (Negative) Urine RBC (0-5) /hpf Urine WBC (0-5) /hpf Ur Squamous Epith Cells (0-4) /hpf Urine Bacteria (None) /hpf Urine HCG, Qual (Not Detectd) 12/15/17 12/15/17 Range/Units 23:05 23:05 WBC (3.8-10.6) k/uL RBC (3.80-5.40) m/uL Hgb (11.4-16.0) gm/dL Hct (34.0-46.0) % MCV (80.0-100.0) fL MCH (25.0-35.0) pg MCHC (31.0-37.0) g/dL RDW (11.5-15.5) % Plt Count (150-450) k/uL Neutrophils % % Lymphocytes % % Monocytes % % Eosinophils % % Basophils % % Neutrophils # (1.3-7.7) k/uL Lymphocytes # (1.0-4.8) k/uL Monocytes # (0-1.0) k/uL Eosinophils # (0-0.7) k/uL Basophils # (0-0.2) k/uL PT (9.0-12.0) sec INR (<1.2) APTT (22.0-30.0) sec Sodium (137-145) mmol/L Potassium (3.5-5.1) mmol/L Chloride (98-107) mmol/L Carbon Dioxide (22-30) mmol/L Anion Gap mmol/L BUN (7-17) mg/dL Creatinine (0.52-1.04) mg/dL Est GFR (CKD-EPI)AfAm (>60 ml/min/1.73 sqM) Est GFR (CKD-EPI)NonAf (>60 ml/min/1.73 sqM) Glucose (74-99) mg/dL Calcium (8.4-10.2) mg/dL Total Bilirubin (0.2-1.3) mg/dL AST (14-36) U/L ALT (9-52) U/L Alkaline Phosphatase (38-126) U/L Total Protein (6.3-8.2) g/dL Albumin (3.5-5.0) g/dL Amylase (30-110) U/L Lipase (23-300) U/L Urine Color Colorless Urine Appearance Clear (Clear) Urine pH 7.0 (5.0-8.0) Ur Specific [place] 1.002 (1.001-1.035) Urine Protein Negative (Negative) Urine Glucose (UA) Negative (Negative) Urine Ketones Negative (Negative) Urine Blood Negative (Negative) Urine Nitrite Negative (Negative) Urine Bilirubin Negative (Negative) Urine Urobilinogen <2.0 (<2.0) mg/dL Ur Leukocyte Esterase Moderate H (Negative) Urine RBC <1 (0-5) /hpf Urine WBC 14 H (0-5) /hpf Ur Squamous Epith Cells 1 (0-4) /hpf Urine Bacteria Few H (None) /hpf Urine HCG, Qual Not Detected (Not Detectd) - Radiology Data Radiology results: report reviewed RUQ US is negative for acute process. KUB is within normal limits. Disposition Clinical Impression: Nausea & vomiting, UTI (urinary tract infection), Right sided abdominal pain Disposition: HOME SELF-CARE Condition: Good Instructions: Abdominal Pain (ED) Additional Instructions: Patient has a follow-up with primary care provider and GI specialist. Take nausea medicine as prescribed. Make sure take the antibiotic prescription. Return to emergency department if any alarming signs or symptoms occur. Prescriptions: Nitrofurantoin Monohyd/M-Cryst [Macrobid] 100 mg PO Q12HR #14 cap Ondansetron [Zofran] 4 mg PO Q8HR PRN #8 tab PRN Reason: Nausea And Vomiting Is patient prescribed a controlled substance at d/c from ED?: No Referrals: Leonardo Daugherty DO [Primary Care Provider] - 1-2 days Radha Mckinnon MD [STAFF PHYSICIAN] - 1-2 days Time of Disposition: 00:20
[2017-12-15 23:13] LABS: Basophils % (A) 0 %; Eosinophils # (A) 0.1 k/uL (0-0.7); Eosinophils % (A) 1 %; HCT 42.1 % (34.0-46.0); HGB 13.4 gm/dL (11.4-16.0); Lymphocytes % (A) 28 %; MCH 29.7 pg (25.0-35.0); MCHC 31.8 g/dL (31.0-37.0); MCV 93.5 fL (80.0-100.0); Mean Platelet Volume 6.5; Monocytes # (A) 0.4 k/uL (0-1.0); Monocytes % (A) 6 %; Neutrophils # (A) 4.7 k/uL (1.3-7.7); Neutrophils % (A) 63 %; RDW 12.7 % (11.5-15.5); WBC 7.4 k/uL (3.8-10.6)
[2017-12-15 23:21] LABS: Platelet Count 264 k/uL (150-450)
[2017-12-15 23:23] LABS: ALT 26 U/L (9-52); AST 20 U/L (14-36); Albumin 4.8 g/dL (3.5-5.0); Alkaline Phosphatase 56 U/L (38-126); Amylase 66 U/L (30-110); Anion Gap 11 mmol/L; Blood Urea Nitrogen 6 mg/dL (7-17); Calcium 9.7 mg/dL (8.4-10.2); Carbon Dioxide 27 mmol/L (22-30); Chloride 103 mmol/L (98-107); Glucose 88 mg/dL (74-99); Lipase 60 U/L (23-300); Potassium 3.7 mmol/L (3.5-5.1); Sodium 141 mmol/L (137-145); Total Bilirubin 0.4 mg/dL (0.2-1.3); Total Protein 7.7 g/dL (6.3-8.2)
[2017-12-15 23:25] LABS: Appearance,Urine Clear (Clear); Bacteria,Urine Few /hpf; Bilirubin,Urine Negative (Negative); Blood,Urine Negative (Negative); Color,Urine Colorless; Glucose,Urine (UA) Negative (Negative); Ketones,Urine Negative (Negative); Leukocyte Esterase,Urine Moderate (Negative); Nitrite,Urine Negative (Negative); Protein,Urine Negative (Negative); RBC,Urine <1 /hpf (0-5); Specific Gravity,Urine 1.002 (1.001-1.035); Squamous Epithelial Cell,Urine 1 /hpf (0-4); Urobilinogen,Urine <2.0 mg/dL (<2.0); WBC,Urine 14 /hpf (0-5)
[2017-12-15 23:32] LABS: Partial Thromboplastin Time 26.1 sec (22.0-30.0); Prothrombin Time 10.2 sec (9.0-12.0)
--- NOTE | 2017-12-15 23:43 | US ---
EXAMINATION TYPE: US gallbladder DATE OF EXAM: 12/15/2017 COMPARISON: NONE CLINICAL HISTORY: Pain. EXAM MEASUREMENTS: Liver Length: 18.2 cm Gallbladder Wall: 0.23 cm CBD: 0.24 cm Right Kidney: 10.8 x 3.9 x 4.5 cm Pancreas: wnl Liver: wnl Gallbladder: No stones seen Evidence for sonographic Marques's sign: No CBD: wnl Right Kidney: wnl IMPRESSION: No gallstones or dilated ducts.
--- NOTE | 2017-12-16 00:08 | XR ---
EXAMINATION TYPE: XR KUB DATE OF EXAM: 12/15/2017 COMPARISON: NONE HISTORY: Abdominal pain TECHNIQUE: 2 views upright FINDINGS: Bowel gas pattern is normal. There is no sign of intestinal obstruction or pneumoperitoneum . Fecal pattern is normal. There are no pathologic calcifications over the kidneys. Lung bases are cl ear. IMPRESSION: Nonacute abdomen.
[2017-12-16] MEDS ORDERED: ONDANSETRON 4 MG/2 ML VIAL IVP STA (00:19)
[2017-12-16] MEDS ORDERED: KETOROLAC 30 MG/ML 1 ML VIAL IVP STA (00:19)
[2017-12-16 00:42] VITALS: BP 111/56; PULSE 71
== END 2017-12-16 00:42 | disposition home or self-care (01) ==
LOC: EC 22:29
DX: N39.0 Urinary tract infection, site not specified (principal); R11.2 Nausea with vomiting, unspecified; R42 Dizziness and giddiness; F41.0 Panic disorder [episodic paroxysmal anxiety]; F17.200 Nicotine dependence, unspecified, uncomplicated; Z88.2 Allergy status to sulfonamides; Z88.8 Allergy status to other drugs, medicaments and biological substances
CPT/HCPCS: 36415; 80053; 82150; 83690; 85025; 85610; 85730; 81001; 81025; 87086; 74018; 76705; 99285; 96374; 96375; 96361; J2405; J1885; 99284

== ENCOUNTER → 2017-12-25 | Outpatient (CLI) | payer OTHER ==
--- NOTE | 2017-12-25 14:39 | US ---
EXAMINATION TYPE: US pelvis complete transvag DATE OF EXAM: 12/25/2017 COMPARISON: TV 2017 CLINICAL HISTORY: R10.31 RLQ PAIN. TECHNIQUE: . Transabdominal sonographic images of the pelvis were acquired. Transvaginal sonographi c images were medically necessary to better assess the following anatomy: Ovaries Date of LMP: 11/25/2017 EXAM MEASUREMENTS: Uterus: 7.4 x2.4 x 4.9 cm Endometrial Stripe: 0.2 cm Right Ovary: 2.6 x 2.5 x 2.2 cm Left Ovary: 1.9 x 1.2 x 1.7 cm 1. Uterus: Anteverted wnl 2. Endometrium: wnl 3. Right Ovary: small cyst 0.7 x 0.8 x 0.7 cm 4. Left Ovary: small cyst 0.6 x 0.4 x 0.4 5. Bilateral Adnexa: wnl 6. Posterior cul-de-sac: fluid IMPRESSION: 1. Follicles bilateral ovaries
== END | disposition home or self-care (01) ==
LOC: RADUSWWP 13:44
PROVIDERS: ATTEND Family Medicine
DX: R10.31 Right lower quadrant pain (principal)
CPT/HCPCS: 76830; 76856

== ENCOUNTER → 2018-01-09 | Outpatient (CLI) | payer OTHER ==
--- NOTE | 2018-01-09 17:15 | NM ---
EXAMINATION TYPE: NM hepatobiliary w EF DATE OF EXAM: 01/09/2018 COMPARISON: NONE HISTORY: Abdominal pain TECHNIQUE: After the intravenous administration of 5.09 mCi Tc 99m Mebrofenin hepatobiliary scintigra phy is performed. Immediate images post injection. FINDINGS: There is satisfactory initial accumulation of tracer by the liver. The gallbladder is visualized wit hin 8 minutes. The small bowel activity is noted within 18 minutes. At one hour 8 ounces of oral en sure plus is given to mimic CCK and gallbladder ejection fraction is calculated at 48 %, in the mushtaq l range. Therefore there is no scintigraphic evidence of cystic or common bile duct obstruction to s uggest acute cholecystitis or gallbladder dyskinesia. There is no focal liver defect. IMPRESSION: Normal exam. Normal gallbladder ejection fraction..
== END ==
LOC: RADNMMAIN 15:16
PROVIDERS: ATTEND Family Medicine
DX: R10.9 Unspecified abdominal pain (principal)
CPT/HCPCS: 78226; A9537

== ENCOUNTER 2018-04-27 08:38 | Emergency (ER) | payer OTHER ==
[2018-04-27] MEDS ORDERED: METOCLOPRAMIDE 5 MG/ML 2 ML VIAL IVP STA (08:55)
[2018-04-27] MEDS ORDERED: SODIUM CHLORIDE 0.9% 1,000 ML IV STA (08:55)
[2018-04-27] MEDS ORDERED: KETOROLAC 30 MG/ML 1 ML VIAL IVP STA (08:55)
[2018-04-27] MEDS ORDERED: diphenhydrAMINE 50 MG/ML 1 ML VIAL IVP STA (08:55)
[2018-04-27] MEDS ORDERED: ORPHENADRINE 30 MG/ML 2 ML VIAL IVP STA (08:56)
--- NOTE | 2018-04-27 09:00 | ED ---
Headache HPI - General Chief Complaint: Headache Stated Complaint: Headache Time Seen by Provider: 04/27/18 08:44 Source: RN notes reviewed, old records reviewed Mode of arrival: ambulatory Limitations: no limitations - History of Present Illness Initial Comments: Patient is a 27-year-old female presents emergency room chief complaint of migraine headache. Patient reports that she's had a history of migraine headaches in the past. She reports that she received injections in her neck and go away for about 5 years. She reports that over the past year she's been having them intermittently. Patient reports she's been taking Fioricet last night and today with little relief. She did have some episodes of vomiting. Headache is worse with relates noises. She denies specific abdominal pain. She denies any chance of , last menstrual period was on April 03. Patient states that she's had no fevers or chills. - Related Data Home Medications Medication Instructions Recorded Confirmed Otc Sleep Aid(Unknown) 1 tab PO HS PRN 05/20/17 04/27/18 Multivitamins, Thera [Multivitamin 1 tab PO DAILY 11/30/17 04/27/18 (formulary)] Albuterol Inhaler [Ventolin Hfa 2 puff INHALATION RT-Q6H PRN 04/27/18 04/27/18 Inhaler] Amitriptyline HCl [Elavil] 25 mg PO HS 04/27/18 04/27/18 Beclomethasone Dipropionate [Qvar 1 puff INHALATION RT-BID 04/27/18 04/27/18 40 mcg Redihaler] Dicyclomine [Bentyl] 10 mg PO QID PRN 04/27/18 04/27/18 Escitalopram [Lexapro] 10 mg PO DAILY 04/27/18 04/27/18 hydrOXYzine PAMOATE [Vistaril] 50 mg PO TID 04/27/18 04/27/18 Previous Rx's Medication Instructions Recorded Ondansetron Odt [Zofran Odt] 4 mg PO Q8HR PRN #12 tab 04/27/18 Allergies Allergy/AdvReac Type Severity Reaction Status Date / Time calcium [From DHEA] Allergy Unknown Verified 04/27/18 09:46 calcium carbonate [From DHEA] Allergy Unknown Verified 04/27/18 09:46 cyclobenzaprine HCl Allergy Unknown Verified 04/27/18 09:46 [From Flexeril] divalproex sodium Allergy Unknown Verified 04/27/18 09:46 [From Depakote] prasterone (DHEA) [From DHEA] Allergy Unknown Verified 04/27/18 09:46 sulfamethoxazole Allergy Unknown Verified 04/27/18 09:46 [From Septra] sumatriptan [From Imitrex] Allergy Unknown Verified 04/27/18 09:46 sumatriptan succinate Allergy Unknown Verified 04/27/18 09:46 [From Imitrex] topiramate [From Topamax] Allergy Rash/Hives Verified 04/27/18 09:46 trimethoprim [From Septra] Allergy Unknown Verified 04/27/18 09:46 Review of Systems ROS Statement: Those systems with pertinent positive or pertinent negative responses have been documented in the HPI. ROS Other: All systems not noted in ROS Statement are negative. Past Medical History Past Medical History: Asthma, Fibromyalgia, GERD/Reflux, Osteoarthritis (OA), Pneumonia Additional Past Medical History / Comment(s): ARTHRITIS, HIATAL HERNIA AND GASTRIC ULCER, ENVIRONMENTAL ALLERGIES, DIGESTIVE ISSUES, MIGRAINES, ANEMIA, "PREDIABETIC", herniated disc History of Any Multi-Drug Resistant Organisms: None Reported Past Surgical History: Adenoidectomy, Tonsillectomy Additional Past Surgical History / Comment(s): eye sclera Past Psychological History: Anxiety, Depression, Panic Disorder Smoking Status: Current every day smoker Past Alcohol Use History: Rare Past Drug Use History: None Reported General Exam - General Exam Comments Initial Comments: Alert and oriented 27-year-old female. No significant distress. Limitations: no limitations General appearance: alert, in no apparent distress Head exam: Present: atraumatic, normocephalic, normal inspection Eye exam: Present: normal appearance, PERRL, EOMI. Absent: scleral icterus, conjunctival injection, periorbital swelling ENT exam: Present: normal exam, mucous membranes moist Neck exam: Present: normal inspection. Absent: tenderness, meningismus, lymphadenopathy Respiratory exam: Present: normal lung sounds bilaterally Cardiovascular Exam: Present: regular rate, normal rhythm, normal heart sounds. Absent: systolic murmur, diastolic murmur, rubs, gallop, clicks GI/Abdominal exam: Present: soft, normal bowel sounds. Absent: distended, tenderness, guarding, rebound, rigid Extremities exam: Present: normal inspection, full ROM, normal capillary refill. Absent: tenderness, pedal edema, joint swelling, calf tenderness Back exam: Present: normal inspection Neurological exam: Present: alert, oriented X3, CN II-XII intact, normal gait Expanded Patient oriented to: Present: person, place, time Speech: Present: fluid speech Cranial nerves: EOM's Intact: Normal Cerebellar function: Finger to Nose: Normal Upper motor neuron: Pronator Drift: Normal Sensory exam: Upper Extremity Light Touch: Normal, Lower Extremity Light Touch: Normal Motor strength exam: RUE: 5, LUE: 5, RLE: 5, LLE: 5 Eye Response: (4) open spontaneously Motor Response: (6) obeys commands Verbal Response: (5) oriented [place] Total: 15 Psychiatric exam: Present: normal affect Skin exam: Present: warm, dry, intact, normal color. Absent: rash Course Vital Signs 04/27/18 08:39 Temperature 97.6 F Pulse Rate 95 Respiratory 16 Rate Blood Pressure 100/68 O2 Sat by Pulse 100 Oximetry - Reevaluation(s) Reevaluation #1: 04/27/18 10:11 Patient was reevaluated at this time and states she feels much better after receiving the migraine cocktail. She feels well and the like to be discharged home. Medical Decision Making - Medical Decision Making 27-year-old female presents emergency room today with 2 days of migraine headache. She's had episodes of vomiting. Patient shows no neurological deficits, otherwise appears well. She's had significant episodes of vomiting. Mildly dehydrated. She was given IV fluids and migraine cocktail. After evaluation she reports she feels much improved. I discussed the Patient should follow-up with her neurologist. She's received Botox injections in the past and discusses could be another next treatment option. We'll discharge the Patient with nausea medication as well and close follow-up with primary care physician. All questions answered and return parameters were discussed. - Lab Data Result diagrams: 04/27/18 09:13 04/27/18 09:13 Lab Results 04/27/18 04/27/18 04/27/18 Range/Units 09:13 09:13 09:35 WBC 5.3 (3.8-10.6) k/uL RBC 4.67 (3.80-5.40) m/uL Hgb 13.9 (11.4-16.0) gm/dL Hct 42.0 (34.0-46.0) % MCV 89.8 (80.0-100.0) fL MCH 29.7 (25.0-35.0) pg MCHC 33.1 (31.0-37.0) g/dL RDW 11.8 (11.5-15.5) % Plt Count 262 (150-450) k/uL Neutrophils % 72 % Lymphocytes % 19 % Monocytes % 5 % Eosinophils % 2 % Basophils % 0 % Neutrophils # 3.8 (1.3-7.7) k/uL Lymphocytes # 1.0 (1.0-4.8) k/uL Monocytes # 0.2 (0-1.0) k/uL Eosinophils # 0.1 (0-0.7) k/uL Basophils # 0.0 (0-0.2) k/uL Sodium 142 (137-145) mmol/L Potassium 4.6 (3.5-5.1) mmol/L Chloride 106 (98-107) mmol/L Carbon Dioxide 26 (22-30) mmol/L Anion Gap 10 mmol/L BUN 11 (7-17) mg/dL Creatinine 0.64 (0.52-1.04) mg/dL Est GFR (CKD-EPI)AfAm >90 (>60 ml/min/1.73 sqM) Est GFR (CKD-EPI)NonAf >90 (>60 ml/min/1.73 sqM) Glucose 93 (74-99) mg/dL Calcium 9.9 (8.4-10.2) mg/dL Total Bilirubin 0.4 (0.2-1.3) mg/dL AST 20 (14-36) U/L ALT 22 (9-52) U/L Alkaline Phosphatase 74 (38-126) U/L Total Protein 8.2 (6.3-8.2) g/dL Albumin 5.0 (3.5-5.0) g/dL Amylase 69 (30-110) U/L Lipase 60 (23-300) U/L Urine Color Urine Appearance (Clear) Urine pH (5.0-8.0) Ur Specific [place] (1.001-1.035) Urine Protein (Negative) Urine Glucose (UA) (Negative) Urine Ketones (Negative) Urine Blood (Negative) Urine Nitrite (Negative) Urine Bilirubin (Negative) Urine Urobilinogen (<2.0) mg/dL Ur Leukocyte Esterase (Negative) Urine RBC (0-5) /hpf Urine WBC (0-5) /hpf Ur Squamous Epith Cells (0-4) /hpf Urine Bacteria (None) /hpf Urine Mucus (None) /hpf Urine HCG, Qual Not Detected (Not Detectd) 04/27/18 Range/Units 09:35 WBC (3.8-10.6) k/uL RBC (3.80-5.40) m/uL Hgb (11.4-16.0) gm/dL Hct (34.0-46.0) % MCV (80.0-100.0) fL MCH (25.0-35.0) pg MCHC (31.0-37.0) g/dL RDW (11.5-15.5) % Plt Count (150-450) k/uL Neutrophils % % Lymphocytes % % Monocytes % % Eosinophils % % Basophils % % Neutrophils # (1.3-7.7) k/uL Lymphocytes # (1.0-4.8) k/uL Monocytes # (0-1.0) k/uL Eosinophils # (0-0.7) k/uL Basophils # (0-0.2) k/uL Sodium (137-145) mmol/L Potassium (3.5-5.1) mmol/L Chloride (98-107) mmol/L Carbon Dioxide (22-30) mmol/L Anion Gap mmol/L BUN (7-17) mg/dL Creatinine (0.52-1.04) mg/dL Est GFR (CKD-EPI)AfAm (>60 ml/min/1.73 sqM) Est GFR (CKD-EPI)NonAf (>60 ml/min/1.73 sqM) Glucose (74-99) mg/dL Calcium (8.4-10.2) mg/dL Total Bilirubin (0.2-1.3) mg/dL AST (14-36) U/L ALT (9-52) U/L Alkaline Phosphatase (38-126) U/L Total Protein (6.3-8.2) g/dL Albumin (3.5-5.0) g/dL Amylase (30-110) U/L Lipase (23-300) U/L Urine Color Light Yellow Urine Appearance Cloudy H (Clear) Urine pH 6.0 (5.0-8.0) Ur Specific [place] 1.007 (1.001-1.035) Urine Protein Negative (Negative) Urine Glucose (UA) Negative (Negative) Urine Ketones Negative (Negative) Urine Blood Negative (Negative) Urine Nitrite Negative (Negative) Urine Bilirubin Negative (Negative) Urine Urobilinogen <2.0 (<2.0) mg/dL Ur Leukocyte Esterase Moderate H (Negative) Urine RBC 1 (0-5) /hpf Urine WBC 1 (0-5) /hpf Ur Squamous Epith Cells 13 H (0-4) /hpf Urine Bacteria Rare H (None) /hpf Urine Mucus Rare H (None) /hpf Urine HCG, Qual (Not Detectd) Disposition Clinical Impression: Migraine Disposition: HOME SELF-CARE Condition: Good Instructions: Acute Headache (ED) Additional Instructions: Patient advised to follow-up with primary care physician. Return to the emergency department if any alarming signs or symptoms occur. Also recommended following up neurologist for possible further injections to prevent his migraines. Prescriptions: Ondansetron Odt [Zofran Odt] 4 mg PO Q8HR PRN #12 tab PRN Reason: Nausea Is patient prescribed a controlled substance at d/c from ED?: No Referrals: Leonardo Daugherty DO [Primary Care Provider] - 1-2 days Time of Disposition: 10:12
[2018-04-27 09:34] LABS: Basophils % (A) 0 %; Eosinophils # (A) 0.1 k/uL (0-0.7); Eosinophils % (A) 2 %; HGB 13.9 gm/dL (11.4-16.0); Lymphocytes % (A) 19 %; MCH 29.7 pg (25.0-35.0); MCHC 33.1 g/dL (31.0-37.0); MCV 89.8 fL (80.0-100.0); Mean Platelet Volume 6.3; Monocytes # (A) 0.2 k/uL (0-1.0); Monocytes % (A) 5 %; Neutrophils # (A) 3.8 k/uL (1.3-7.7); Neutrophils % (A) 72 %; Platelet Count 262 k/uL (150-450); RBC 4.67 m/uL (3.80-5.40); RDW 11.8 % (11.5-15.5); WBC 5.3 k/uL (3.8-10.6)
[2018-04-27 09:51] LABS: ALT 22 U/L (9-52); AST 20 U/L (14-36); Alkaline Phosphatase 74 U/L (38-126); Amylase 69 U/L (30-110); Anion Gap 10 mmol/L; Blood Urea Nitrogen 11 mg/dL (7-17); Calcium 9.9 mg/dL (8.4-10.2); Carbon Dioxide 26 mmol/L (22-30); Chloride 106 mmol/L (98-107); Glucose 93 mg/dL (74-99); Lipase 60 U/L (23-300); Sodium 142 mmol/L (137-145); Total Bilirubin 0.4 mg/dL (0.2-1.3); Total Protein 8.2 g/dL (6.3-8.2)
[2018-04-27 09:57] LABS: Appearance,Urine Cloudy (Clear); Bacteria,Urine Rare /hpf; Bilirubin,Urine Negative (Negative); Blood,Urine Negative (Negative); Color,Urine Light Yellow; Glucose,Urine (UA) Negative (Negative); Ketones,Urine Negative (Negative); Leukocyte Esterase,Urine Moderate (Negative); Mucus,Urine Rare /hpf; Nitrite,Urine Negative (Negative); Protein,Urine Negative (Negative); RBC,Urine 1 /hpf (0-5); Specific Gravity,Urine 1.007 (1.001-1.035); Squamous Epithelial Cell,Urine 13 /hpf (0-4); Urobilinogen,Urine <2.0 mg/dL (<2.0)
[2018-04-27 10:05] LABS: Potassium 4.6 mmol/L (3.5-5.1)
[2018-04-27 10:26] VITALS: BP 99/63; PULSE 83; RESP 18; TEMP 98.7
== END 2018-04-27 10:24 | disposition home or self-care (01) ==
LOC: EC 08:38
DX: G43.909 Migraine, unspecified, not intractable, without status migrainosus (principal); J45.909 Unspecified asthma, uncomplicated; F32.9 Major depressive disorder, single episode, unspecified; F41.0 Panic disorder [episodic paroxysmal anxiety]; F17.200 Nicotine dependence, unspecified, uncomplicated; Z79.51 Long term (current) use of inhaled steroids; Z79.899 Other long term (current) drug therapy; Z88.1 Allergy status to other antibiotic agents; Z88.8 Allergy status to other drugs, medicaments and biological substances
CPT/HCPCS: 36415; 80053; 82150; 83690; 85025; 81001; 81025; 99284; 96374; 96375 ×3; 96361; J1200; J2360; J2765; J1885

== ENCOUNTER 2018-06-05 16:01 | Emergency (ER) | payer OTHER ==
[2018-06-05 16:05] VITALS: TEMP 97.6
[2018-06-05] MEDS ORDERED: BUPIVACAINE (PF) 0.5% 30 ML VIAL SQ STA (16:36)
[2018-06-05] MEDS ORDERED: LIDOCAINE 1%-EPI 1:100,000 20 ML VIAL SQ STA (16:36)
[2018-06-05] MEDS ORDERED: SODIUM CHLORIDE 0.9% 1,000 ML IV STA (16:41)
--- NOTE | 2018-06-05 16:43 | ED ---
General Adult HPI - General Chief complaint: Headache Stated complaint: headache Time Seen by Provider: 06/05/18 16:23 Source: patient Mode of arrival: ambulatory Limitations: no limitations - History of Present Illness Initial comments: Dictation was produced using [employer] dictation software. please excuse any grammatical, word or spelling errors. Chief Complaint: 27-year-old female with past medical history of migraines presents with Persistent migraines. History of Present Illness: 27-year-old female. She states she has been having approximately one month of headaches. Patient sees Dr. Calderon her neurologist. She's had a series of 3 sphenopalatine blocks through the nose. States that he sphenopalatine blocks do not work. At the age of 20 patient had botulinum toxin injection to her greater occipital nerves. States that provided relief for several years. She reports that her migraine has been ongoing for approximately one month now and has not resolved. She states her headaches are her usual. Patient denies any neuro deficits. The ROS documented in this emergency department record has been reviewed and confirmed by me. Those systems with pertinent positive or negative responses have been documented in the HPI. All other systems are other negative and/or noncontributory. PHYSICAL EXAM: General Impression: Alert and oriented x3, not in acute distress HEENT: Normocephalic atraumatic, extra-ocular movements intact, pupils equal and reactive to light bilaterally, mucous membranes moist. Cardiovascular: Heart regular rate and rhythm, S1&S2 audible, no murmurs, rubs or gallops Chest: Lungs clear to auscultation bilaterally, no rhonchi, no wheeze, no rales Abdomen: Bowel sounds present, abdomen soft, non-tender, non-distended, no organomegaly Musculoskeletal: Pulses present and equal in all extremities, no peripheral edema Motor: Power 5/5 bilaterally, no focal deficits noted Neurological: CN II-XII grossly intact, no focal motor or sensory deficits noted Skin: Intact with no visualized rashes Psych: Normal affect and mood ED course: 27-year-old female presents with persistent headaches. States that her headaches have not responded to sphenopalatine block. Vital signs upon arrival are within acceptable limits. Patient requesting occipital nerve block. Discussed risk and benefits with patient of the greater occipital nerve block. She's told that infection in hematoma can. However rare. Patient also offered migraine cocktail. She states that she would like to proceed with occipital nerve block. Patient given intravenous fluids. Greater occipital nerve block was performed with improvement of symptoms. Patient clear for discharge. Please see procedure note for detailed technique and procedure of the greater occipital nerve block. Patient told to follow up with neurologist upon discharge. - Related Data Home Medications Medication Instructions Recorded Confirmed Multivitamins, Thera [Multivitamin 1 tab PO DAILY 11/30/17 06/05/18 (formulary)] Albuterol Inhaler [Ventolin Hfa 2 puff INHALATION RT-Q6H PRN 04/27/18 06/05/18 Inhaler] Amitriptyline HCl [Elavil] 25 mg PO HS 04/27/18 06/05/18 Beclomethasone Dipropionate [Qvar 1 puff INHALATION RT-BID 04/27/18 06/05/18 40 mcg Redihaler] Dicyclomine [Bentyl] 10 mg PO QID PRN 04/27/18 06/05/18 Escitalopram [Lexapro] 10 mg PO DAILY 04/27/18 06/05/18 hydrOXYzine PAMOATE [Vistaril] 50 mg PO TID 04/27/18 06/05/18 Butalb/Acetaminophen/Caffeine 1 cap PO Q8H PRN 06/05/18 06/05/18 [Fioricet 50-300-40 mg Capsule] Gabapentin [Neurontin] 100 mg PO TID 06/05/18 06/05/18 Zolpidem [Ambien] 5 mg PO HS 06/05/18 06/05/18 Previous Rx's Medication Instructions Recorded Ondansetron Odt [Zofran Odt] 4 mg PO Q8HR PRN #12 tab 04/27/18 Allergies Allergy/AdvReac Type Severity Reaction Status Date / Time calcium [From DHEA] Allergy Unknown Verified 06/05/18 16:39 calcium carbonate [From DHEA] Allergy Unknown Verified 06/05/18 16:39 cyclobenzaprine HCl Allergy Unknown Verified 06/05/18 16:39 [From Flexeril] divalproex sodium Allergy Unknown Verified 06/05/18 16:39 [From Depakote] prasterone (DHEA) [From DHEA] Allergy Unknown Verified 06/05/18 16:39 sulfamethoxazole Allergy Unknown Verified 06/05/18 16:39 [From Septra] sumatriptan [From Imitrex] Allergy Unknown Verified 06/05/18 16:39 sumatriptan succinate Allergy Unknown Verified 06/05/18 16:39 [From Imitrex] topiramate [From Topamax] Allergy Rash/Hives Verified 06/05/18 16:39 trimethoprim [From Septra] Allergy Unknown Verified 06/05/18 16:39 Review of Systems ROS Statement: Those systems with pertinent positive or pertinent negative responses have been documented in the HPI. ROS Other: All systems not noted in ROS Statement are negative. Past Medical History Past Medical History: Asthma, Fibromyalgia, GERD/Reflux, Osteoarthritis (OA), Pneumonia Additional Past Medical History / Comment(s): ARTHRITIS, HIATAL HERNIA AND GASTRIC ULCER, ENVIRONMENTAL ALLERGIES, DIGESTIVE ISSUES, MIGRAINES, ANEMIA, "PREDIABETIC", herniated disc History of Any Multi-Drug Resistant Organisms: None Reported Past Surgical History: Adenoidectomy, Tonsillectomy Additional Past Surgical History / Comment(s): eye sclera Past Psychological History: Anxiety, Depression, Panic Disorder Smoking Status: Current every day smoker Past Alcohol Use History: Rare Past Drug Use History: None Reported General Exam Limitations: no limitations Course Vital Signs 06/05/18 16:02 Temperature 97.6 F Pulse Rate 82 Respiratory 20 Rate Blood Pressure 118/79 O2 Sat by Pulse 100 Oximetry Procedures - Nerve Block Consent Obtained: verbal consent Local Anesthetic Used: Other Side: left, right Nerve Blocks: occipital Procedure Successful: Yes Complications: none Patient Tolerated Procedure: well Disposition Clinical Impression: Headache Disposition: HOME SELF-CARE Instructions (If sedation given, give patient instructions): Acute Headache (ED ) Is patient prescribed a controlled substance at d/c from ED?: No Referrals: Leonardo Daugherty DO [Primary Care Provider] - 1-2 days Elmer Calderon MD [Medical Doctor] - 1-2 days Time of Disposition: 18:37
[2018-06-05] MEDS ORDERED: BUPIVACAIN-EPI 0.5%-1:200,000 30 ML VIAL SQ STA (17:27)
[2018-06-05 19:02] VITALS: BP 114/70; PULSE 80; RESP 18
== END 2018-06-05 19:03 | disposition home or self-care (01) ==
LOC: EC 16:01
DX: R51 Headache (principal); J45.909 Unspecified asthma, uncomplicated; M79.7 Fibromyalgia; F32.9 Major depressive disorder, single episode, unspecified; F41.9 Anxiety disorder, unspecified; F17.200 Nicotine dependence, unspecified, uncomplicated; Z88.2 Allergy status to sulfonamides; Z88.8 Allergy status to other drugs, medicaments and biological substances; Z79.51 Long term (current) use of inhaled steroids; Z79.899 Other long term (current) drug therapy; Z86.69 Personal history of other diseases of the nervous system and sense organs
CPT/HCPCS: 64405; 96360; 99283

== ENCOUNTER 2018-06-28 09:20 | Emergency (ER) | payer OTHER ==
[2018-06-28 09:23] VITALS: RESP 18
[2018-06-28] MEDS ORDERED: METOCLOPRAMIDE 5 MG/ML 2 ML VIAL IVP STA (10:07)
[2018-06-28] MEDS ORDERED: KETOROLAC 30 MG/ML 1 ML VIAL IVP STA (10:07)
[2018-06-28] MEDS ORDERED: SODIUM CHLORIDE 0.9% 1,000 ML IV ONE (10:07)
[2018-06-28] MEDS ORDERED: diphenhydrAMINE 50 MG/ML 1 ML VIAL IVP STA (10:08)
--- NOTE | 2018-06-28 10:39 | ED ---
Headache HPI - General Chief Complaint: Headache Stated Complaint: migraines/vomiting/diarrhea Time Seen by Provider: 06/28/18 09:55 Source: patient, RN notes reviewed Mode of arrival: ambulatory Limitations: no limitations - History of Present Illness Initial Comments: 28-year-old female presents emergency Department with chief complaint of migraine headache. Patient has chronic migraines. Patient currently seeing Dr. Calderon for these. Patient states this is her typical headache not the worst headache of her life. Patient states that she's had associated nausea vomiting diarrhea. Patient does have some light sensitivity. Patient denies any fever, chills, neck pain or neck stiffness. Patient had no relief with medications at home. - Related Data Home Medications Medication Instructions Recorded Confirmed Multivitamins, Thera [Multivitamin 1 tab PO DAILY 11/30/17 06/28/18 (formulary)] Albuterol Inhaler [Ventolin Hfa 2 puff INHALATION RT-Q6H PRN 04/27/18 06/28/18 Inhaler] Amitriptyline HCl [Elavil] 25 mg PO HS 04/27/18 06/28/18 Beclomethasone Dipropionate [Qvar 1 puff INHALATION RT-BID 04/27/18 06/28/18 40 mcg Redihaler] Dicyclomine [Bentyl] 10 mg PO QID PRN 04/27/18 06/28/18 Escitalopram [Lexapro] 10 mg PO DAILY 04/27/18 06/28/18 hydrOXYzine PAMOATE [Vistaril] 50 mg PO TID 04/27/18 06/28/18 Butalb/Acetaminophen/Caffeine 1 cap PO Q8H PRN 06/05/18 06/28/18 [Fioricet 50-300-40 mg Capsule] Gabapentin [Neurontin] 100 mg PO TID 06/05/18 06/28/18 Zolpidem [Ambien] 5 mg PO HS 06/05/18 06/28/18 Biotin 5 mg PO DAILY 06/28/18 06/28/18 Cranberry Fruit Extract [Cranberry] 500 mg PO DAILY 06/28/18 06/28/18 Ferrous Sulfate [Feosol] 325 mg PO DAILY 06/28/18 06/28/18 diphenhydrAMINE [Benadryl] 25 mg PO DAILY PRN 06/28/18 06/28/18 Allergies Allergy/AdvReac Type Severity Reaction Status Date / Time calcium [From DHEA] Allergy Unknown Verified 06/28/18 09:34 calcium carbonate [From DHEA] Allergy Unknown Verified 06/28/18 09:34 cyclobenzaprine HCl Allergy Unknown Verified 06/28/18 09:34 [From Flexeril] divalproex sodium Allergy Unknown Verified 06/28/18 09:34 [From Depakote] prasterone (DHEA) [From DHEA] Allergy Unknown Verified 06/28/18 09:34 sulfamethoxazole Allergy Unknown Verified 06/28/18 09:34 [From Septra] sumatriptan [From Imitrex] Allergy Unknown Verified 06/28/18 09:34 sumatriptan succinate Allergy Unknown Verified 06/28/18 09:34 [From Imitrex] topiramate [From Topamax] Allergy Rash/Hives Verified 06/28/18 09:34 trimethoprim [From Septra] Allergy Unknown Verified 06/28/18 09:34 Review of Systems ROS Statement: Those systems with pertinent positive or pertinent negative responses have been documented in the HPI. ROS Other: All systems not noted in ROS Statement are negative. Past Medical History Past Medical History: Asthma, Fibromyalgia, GERD/Reflux, Osteoarthritis (OA), Pneumonia Additional Past Medical History / Comment(s): ARTHRITIS, HIATAL HERNIA AND GASTRIC ULCER, ENVIRONMENTAL ALLERGIES, DIGESTIVE ISSUES, MIGRAINES, ANEMIA, "PREDIABETIC", herniated disc History of Any Multi-Drug Resistant Organisms: None Reported Past Surgical History: Adenoidectomy, Tonsillectomy Additional Past Surgical History / Comment(s): eye sclera Past Psychological History: Anxiety, Depression, Panic Disorder Smoking Status: Current every day smoker Past Alcohol Use History: Rare Past Drug Use History: None Reported General Exam Limitations: no limitations General appearance: alert, in no apparent distress Head exam: Present: atraumatic, normocephalic, normal inspection Eye exam: Present: normal appearance, PERRL, EOMI. Absent: scleral icterus, conjunctival injection, periorbital swelling ENT exam: Present: normal exam, normal oropharynx, mucous membranes moist, TM's normal bilaterally Neck exam: Present: normal inspection, full ROM. Absent: tenderness, meningismus, lymphadenopathy Respiratory exam: Present: normal lung sounds bilaterally. Absent: respiratory distress, wheezes, rales, rhonchi, stridor Cardiovascular Exam: Present: regular rate, normal rhythm, normal heart sounds. Absent: systolic murmur, diastolic murmur, rubs, gallop, clicks Neurological exam: Present: alert, oriented X3, CN II-XII intact, reflexes normal, other (Finger to Nose intact bilaterally). Absent: motor sensory deficit Skin exam: Present: warm, dry, intact, normal color. Absent: rash Course Vital Signs 06/28/18 09:20 Temperature 98.2 F Pulse Rate 112 H Respiratory 18 Rate Blood Pressure 130/83 O2 Sat by Pulse 97 Oximetry Medical Decision Making - Medical Decision Making 28-year-old female present for migraine headache. This is her typical headache has completely resolved with Toradol and Reglan Benadryl and IV fluids. Return parameters were discussed. Disposition Clinical Impression: Migraine Disposition: HOME SELF-CARE Condition: Stable Instructions (If sedation given, give patient instructions): Acute Headache (ED) Additional Instructions: Please return to the Emergency Department if symptoms worsen or any other concerns. Is patient prescribed a controlled substance at d/c from ED?: No Referrals: Leonardo Daugherty DO [Primary Care Provider] - 1-2 days Time of Disposition: 11:35
[2018-06-28 11:57] VITALS: BP 95/57; PULSE 93; TEMP 98.8
== END 2018-06-28 11:55 | disposition home or self-care (01) ==
LOC: EC 09:20
DX: G43.909 Migraine, unspecified, not intractable, without status migrainosus (principal); R19.7 Diarrhea, unspecified; J45.909 Unspecified asthma, uncomplicated; M79.7 Fibromyalgia; D64.9 Anemia, unspecified; F41.9 Anxiety disorder, unspecified; F32.9 Major depressive disorder, single episode, unspecified; F17.200 Nicotine dependence, unspecified, uncomplicated; Z79.51 Long term (current) use of inhaled steroids; Z79.899 Other long term (current) drug therapy; Z88.8 Allergy status to other drugs, medicaments and biological substances; Z88.2 Allergy status to sulfonamides
CPT/HCPCS: 99283; 96374; 96375 ×2; 96361; J1200; J2765; J1885

== ENCOUNTER 2018-07-07 22:07 | Emergency (ER) | payer OTHER ==
[2018-07-07] MEDS ORDERED: SODIUM CHLORIDE 0.9% 1,000 ML IV STA (22:17)
--- NOTE | 2018-07-07 22:24 | ED ---
Female Urogenital HPI - General Stated complaint: Lwr ABD Pain Time Seen by Provider: 07/07/18 22:17 Source: patient Mode of arrival: EMS Limitations: no limitations - History of Present Illness Initial comments: Mouna is a 28 yo female who presents to the ER today via EMS for dilation and pelvic pain. Patient reports that she recently learned that she was , she is very early her she did elect to have a termination. Patient states that she was evaluated at a clinic earlier, she states that she had an ultrasound was told that she was very early in she was then given oral medications and intravaginal was supposed all to facilitate determina tion. Patient was prescribed hydrocodone and Tylenol 3 to deal with the pain. She reports that approximately 2 hours after placing the misoprostol in the vagina she developed severe cramping lower abdominal pain with associated nausea. Patient reports that she took her pain medications at that time however she was doubled over in pain which prompted her significant other to call EMS. Patient states that by the time EMS arrived her pain was improving she did receive IV Toradol and route and reports that her pain is improved to approximately 5 out of 10 in intensity. At this time she is feeling much better Last Menstrual Period: 05/31/18 - Related Data Home Medications Medication Instructions Recorded Confirmed Multivitamins, Thera [Multivitamin 1 tab PO DAILY 11/30/17 07/07/18 (formulary)] Albuterol Inhaler [Ventolin Hfa 2 puff INHALATION RT-Q6H PRN 04/27/18 07/07/18 Inhaler] Beclomethasone Dipropionate [Qvar 1 puff INHALATION RT-BID 04/27/18 07/07/18 40 mcg Redihaler] Dicyclomine [Bentyl] 10 mg PO QID PRN 04/27/18 07/07/18 hydrOXYzine PAMOATE [Vistaril] 100 mg PO TID 04/27/18 07/07/18 Butalb/Acetaminophen/Caffeine 1 cap PO Q8H PRN 06/05/18 07/07/18 [Fioricet 50-300-40 mg Capsule] Zolpidem [Ambien] 5 mg PO HS 06/05/18 07/07/18 Cranberry Fruit Extract [Cranberry] 500 mg PO DAILY 06/28/18 07/07/18 Ferrous Sulfate [Feosol] 325 mg PO DAILY 06/28/18 07/07/18 RX: Biotin 5 mg PO DAILY 06/28/18 07/07/18 Azithromycin [Zithromax] 500 mg PO ONCE 07/07/18 07/07/18 Calcium Polycarbophil [Fibercon] 625 mg PO DAILY 07/07/18 07/07/18 HYDROcodone/APAP 5-325MG [[place] 1 - 2 tab PO Q4HR PRN 07/07/18 07/07/18 5-325] Ibuprofen [Motrin] 800 mg PO TID PRN 07/07/18 07/07/18 Allergies Allergy/AdvReac Type Severity Reaction Status Date / Time calcium [From DHEA] Allergy Unknown Verified 07/07/18 22:26 calcium carbonate [From DHEA] Allergy Unknown Verified 07/07/18 22:26 cyclobenzaprine HCl Allergy Unknown Verified 07/07/18 22:26 [From Flexeril] divalproex sodium Allergy Unknown Verified 07/07/18 22:26 [From Depakote] prasterone (DHEA) [From DHEA] Allergy Unknown Verified 07/07/18 22:26 sulfamethoxazole Allergy Unknown Verified 07/07/18 22:26 [From Septra] sumatriptan [From Imitrex] Allergy Unknown Verified 07/07/18 22:26 sumatriptan succinate Allergy Unknown Verified 07/07/18 22:26 [From Imitrex] topiramate [From Topamax] Allergy Rash/Hives Verified 07/07/18 22:26 trimethoprim [From Septra] Allergy Unknown Verified 07/07/18 22:26 Review of Systems ROS Statement: Those systems with pertinent positive or pertinent negative responses have been documented in the HPI. ROS Other: All systems not noted in ROS Statement are negative. Past Medical History Past Medical History: Asthma, Fibromyalgia, GERD/Reflux, Osteoarthritis (OA), Pneumonia Additional Past Medical History / Comment(s): ARTHRITIS, HIATAL HERNIA AND GASTRIC ULCER, ENVIRONMENTAL ALLERGIES, DIGESTIVE ISSUES, MIGRAINES, ANEMIA, "PREDIABETIC", herniated disc History of Any Multi-Drug Resistant Organisms: None Reported Past Surgical History: Adenoidectomy, Tonsillectomy Additional Past Surgical History / Comment(s): eye sclera Past Psychological History: Anxiety, Depression, Panic Disorder Smoking Status: Current every day smoker Past Alcohol Use History: Rare Past Drug Use History: None Reported General Exam - General Exam Comments Initial Comments: Physical Exam GENERAL: Appears uncomfortable HENT: Normocephalic, Atraumatic. EYES: PERRL, EOMI No conjunctival pallor PULMONARY: Unlabored respirations. No audible rales rhonchi or wheezing was noted. CARDIOVASCULAR: There is a regular rate and rhythm without any murmurs gallops or rubs. ABDOMEN: Soft and nontender with normal bowel sounds. SKIN: Skin is clear with no lesions or rashes and otherwise unremarkable. : Deferred NEUROLOGIC: Patient is alert and oriented x3. Moving all extremities spontaneously MUSCULOSKELETAL: Normal extremities with adequate strength and full range of motion. No lower extremity swelling or edema. No calf tenderness. PSYCHIATRIC: Normal psychiatric evaluation. Limitations: no limitations Limitations: no limitations Course Vital Signs 07/07/18 07/08/18 22:13 01:29 Temperature 98.8 F 98.3 F Pulse Rate 98 84 Respiratory 20 16 Rate Blood Pressure 117/74 98/57 O2 Sat by Pulse 98 96 Oximetry Medical Decision Making - Medical Decision Making Patient was seen and evaluated, history is obtained from the patient Patient given oral medications for elective termination of early , reports she had an ultrasound which did confirm an intrauterine however no ultrasound report available Will repeat ultrasound Morphine was ordered to facilitate the transvaginal ultrasound She reported significant improvement in discomfort with morphine. Ultrasound resulted with a small cystic structure within the endometrium which likely represented an intrauterine gestational sac with no pole year or yolk sac identified. There is no evidence of free fluid in the pelvis there was no adnexal masses. At this time I'm confident that the patient has a single intrauterine her pain is likely related to the medications taken today. I advised the patient she will likely continue to experience labor like pains and cramping and should experience heavy bleeding over the next few days. Patient was aware that she should expect these symptoms. Additional dose of morphine was given for discomfort patient was discharged home in stable condition patient will resume poor oral narcotic pain medication for pain management upon discharge. - Lab Data Result diagrams: 07/07/18 22:09 07/07/18 22:09 Lab Results 07/07/18 07/07/18 07/07/18 Range/Units 22:09 22:09 22:09 WBC 6.8 (3.8-10.6) k/uL RBC 4.09 (3.80-5.40) m/uL Hgb 12.6 (11.4-16.0) gm/dL Hct 38.3 (34.0-46.0) % MCV 93.7 (80.0-100.0) fL MCH 30.9 (25.0-35.0) pg MCHC 33.0 (31.0-37.0) g/dL RDW 12.9 (11.5-15.5) % Plt Count 258 (150-450) k/uL Neutrophils % 67 % Lymphocytes % 22 % Monocytes % 7 % Eosinophils % 1 % Basophils % 0 % Neutrophils # 4.6 (1.3-7.7) k/uL Lymphocytes # 1.5 (1.0-4.8) k/uL Monocytes # 0.5 (0-1.0) k/uL Eosinophils # 0.1 (0-0.7) k/uL Basophils # 0.0 (0-0.2) k/uL Sodium 139 (137-145) mmol/L Potassium 3.9 (3.5-5.1) mmol/L Chloride 108 H (98-107) mmol/L Carbon Dioxide 22 (22-30) mmol/L Anion Gap 9 mmol/L BUN 6 L (7-17) mg/dL Creatinine 0.52 (0.52-1.04) mg/dL Est GFR (CKD-EPI)AfAm >90 (>60 ml/min/1.73 sqM) Est GFR (CKD-EPI)NonAf >90 (>60 ml/min/1.73 sqM) Glucose 88 (74-99) mg/dL Calcium 9.4 (8.4-10.2) mg/dL Total Bilirubin 0.4 (0.2-1.3) mg/dL AST 107 H (14-36) U/L ALT 61 H (9-52) U/L Alkaline Phosphatase 82 (38-126) U/L Total Protein 6.9 (6.3-8.2) g/dL Albumin 4.1 (3.5-5.0) g/dL HCG, Quant 1569.3 mIU/mL Urine Color Urine Appearance (Clear) Urine pH (5.0-8.0) Ur Specific [place] (1.001-1.035) Urine Protein (Negative) Urine Glucose (UA) (Negative) Urine Ketones (Negative) Urine Blood (Negative) Urine Nitrite (Negative) Urine Bilirubin (Negative) Urine Urobilinogen (<2.0) mg/dL Ur Leukocyte Esterase (Negative) Urine RBC (0-5) /hpf Urine WBC (0-5) /hpf Ur Squamous Epith Cells (0-4) /hpf Urine Bacteria (None) /hpf Urine Mucus (None) /hpf Blood Type O Positive Blood Type Recheck No Antibody Screen NEGATIVE Spec Expiration Date 07/10/2018230807/07/18 Range/Units 22:09 WBC (3.8-10.6) k/uL RBC (3.80-5.40) m/uL Hgb (11.4-16.0) gm/dL Hct (34.0-46.0) % MCV (80.0-100.0) fL MCH (25.0-35.0) pg MCHC (31.0-37.0) g/dL RDW (11.5-15.5) % Plt Count (150-450) k/uL Neutrophils % % Lymphocytes % % Monocytes % % Eosinophils % % Basophils % % Neutrophils # (1.3-7.7) k/uL Lymphocytes # (1.0-4.8) k/uL Monocytes # (0-1.0) k/uL Eosinophils # (0-0.7) k/uL Basophils # (0-0.2) k/uL Sodium (137-145) mmol/L Potassium (3.5-5.1) mmol/L Chloride (98-107) mmol/L Carbon Dioxide (22-30) mmol/L Anion Gap mmol/L BUN (7-17) mg/dL Creatinine (0.52-1.04) mg/dL Est GFR (CKD-EPI)AfAm (>60 ml/min/1.73 sqM) Est GFR (CKD-EPI)NonAf (>60 ml/min/1.73 sqM) Glucose (74-99) mg/dL Calcium (8.4-10.2) mg/dL Total Bilirubin (0.2-1.3) mg/dL AST (14-36) U/L ALT (9-52) U/L Alkaline Phosphatase (38-126) U/L Total Protein (6.3-8.2) g/dL Albumin (3.5-5.0) g/dL HCG, Quant mIU/mL Urine Color Yellow Urine Appearance Clear (Clear) Urine pH 6.0 (5.0-8.0) Ur Specific [place] 1.017 (1.001-1.035) Urine Protein Negative (Negative) Urine Glucose (UA) Negative (Negative) Urine Ketones Negative (Negative) Urine Blood Negative (Negative) Urine Nitrite Negative (Negative) Urine Bilirubin Negative (Negative) Urine Urobilinogen <2.0 (<2.0) mg/dL Ur Leukocyte Esterase Trace H (Negative) Urine RBC <1 (0-5) /hpf Urine WBC 14 H (0-5) /hpf Ur Squamous Epith Cells <1 (0-4) /hpf Urine Bacteria Few H (None) /hpf Urine Mucus Many H (None) /hpf Blood Type Blood Type Recheck Antibody Screen Spec Expiration Date Disposition Clinical Impression: Pelvic pain, Miscarriage Disposition: HOME SELF-CARE Condition: Stable Instructions (If sedation given, give patient instructions): Miscarriage (ED) Additional Inst[place] [facility] [id number] Follow up with your OB or the family planning center for repeat to ensure this level decreases to 0 Return to the ER for any worsening pain Is patient prescribed a controlled substance at d/c from ED?: No Referrals: Leonardo Daugherty DO [Primary Care Provider] - 1-2 days
[2018-07-07] MEDS ORDERED: MORPHINE SULFATE 4 MG/ML SYRINGE IVP STA (22:33)
[2018-07-07 22:35] LABS: Basophils % (A) 0 %; Eosinophils # (A) 0.1 k/uL (0-0.7); Eosinophils % (A) 1 %; HCT 38.3 % (34.0-46.0); HGB 12.6 gm/dL (11.4-16.0); Lymphocytes # (A) 1.5 k/uL (1.0-4.8); Lymphocytes % (A) 22 %; MCH 30.9 pg (25.0-35.0); MCV 93.7 fL (80.0-100.0); Mean Platelet Volume 6.5; Monocytes # (A) 0.5 k/uL (0-1.0); Monocytes % (A) 7 %; Neutrophils # (A) 4.6 k/uL (1.3-7.7); Neutrophils % (A) 67 %; Platelet Count 258 k/uL (150-450); RBC 4.09 m/uL (3.80-5.40); RDW 12.9 % (11.5-15.5); WBC 6.8 k/uL (3.8-10.6)
[2018-07-07 22:38] LABS: Appearance,Urine Clear (Clear); Bacteria,Urine Few /hpf; Bilirubin,Urine Negative (Negative); Blood,Urine Negative (Negative); Color,Urine Yellow; Glucose,Urine (UA) Negative (Negative); Ketones,Urine Negative (Negative); Leukocyte Esterase,Urine Trace (Negative); Mucus,Urine Many /hpf; Nitrite,Urine Negative (Negative); Protein,Urine Negative (Negative); RBC,Urine <1 /hpf (0-5); Specific Gravity,Urine 1.017 (1.001-1.035); Squamous Epithelial Cell,Urine <1 /hpf (0-4); Urobilinogen,Urine <2.0 mg/dL (<2.0); WBC,Urine 14 /hpf (0-5)
[2018-07-07 22:45] LABS: ALT 61 U/L (9-52); AST 107 U/L (14-36); Albumin 4.1 g/dL (3.5-5.0); Alkaline Phosphatase 82 U/L (38-126); Anion Gap 9 mmol/L; Blood Urea Nitrogen 6 mg/dL (7-17); Calcium 9.4 mg/dL (8.4-10.2); Carbon Dioxide 22 mmol/L (22-30); Chloride 108 mmol/L (98-107); Glucose 88 mg/dL (74-99); Potassium 3.9 mmol/L (3.5-5.1); Sodium 139 mmol/L (137-145); Total Bilirubin 0.4 mg/dL (0.2-1.3); Total Protein 6.9 g/dL (6.3-8.2)
[2018-07-07 23:01] LABS: HCG,Quantitative Serum 1569.3 mIU/mL
[2018-07-08 01:31] VITALS: BP 98/57; PULSE 84; RESP 16; TEMP 98.3
[2018-07-08] MEDS ORDERED: MORPHINE SULFATE 4 MG/ML SYRINGE IVP STA (02:11)
--- NOTE | 2018-07-08 07:24 | US ---
EXAMINATION TYPE: Transabdominal DATE OF EXAM: 07/08/2018 7:01 AM COMPARISON: None CLINICAL HISTORY: Pain. Pain, shaking took first pill earlier today then second set of 4 pil ls at 630pm EXAM PERFORMED: Transvaginal (TV) and Transabdominal (TA) EXAM MEASUREMENTS: GESTATIONAL AGE / DATING Dates by LMP: (5 weeks/2 days) EDC: 03/07/2019 Dates by Current Scan for: Unable to date by today's study MATERNAL ANATOMY Uterus: 6.6 x 3.8 x 3.7 cm Right Ovary: Not visualized Left Ovary: Not visualized Post CDS / Adnexa: no free fluid Presence of free fluid: no Presence of corpus luteal cyst: no Presence of subchorionic bleed: no GESTATION / SURVEY CRL: No CRL visualized MSD: 0.4 cm Unable to date due to small MSD size Yolk Sac (normal less than 6mm): Not visualized IUP: Possible GS seen within endometrial cavity Date of LMP: 05/31/2018 Beta HcG (if available): Not available at this time Heterogeneous anteverted uterus is seen. Endometrium is poorly visualized but felt thickened up to 21 mm. There is oval 5 x 3 x 4 mm anechoic structure mid to lower uterus could reflect gestational sac. No yolk sac or pole is evident. No free fluid is seen in the pelvic cul-de-sac. Neither ovary is identified but no suspicious adnexal masses are seen. IMPRESSION: Given above history, findings favor impending , too early to visualize intrauterine however is in differential and ectopic is not excluded. Consider serial beta hCG and ultra sound follow-up. Preliminary report for study was provided by [employer].
== END 2018-07-08 02:57 | disposition home or self-care (01) ==
LOC: EC 22:07
DX: O03.9 Complete or unspecified spontaneous abortion without complication (principal); O99.89 Other specified diseases and conditions complicating pregnancy, childbirth and the puerperium; N85.8 Other specified noninflammatory disorders of uterus; O99.519 Diseases of the respiratory system complicating pregnancy, unspecified trimester; J45.909 Unspecified asthma, uncomplicated; O99.119 Other diseases of the blood and blood-forming organs and certain disorders involving the immune mechanism complicating pregnancy, unspecified trimester; D64.9 Anemia, unspecified; O99.340 Other mental disorders complicating pregnancy, unspecified trimester; F41.9 Anxiety disorder, unspecified; O99.330 Smoking (tobacco) complicating pregnancy, unspecified trimester; F17.200 Nicotine dependence, unspecified, uncomplicated; Z88.2 Allergy status to sulfonamides; Z88.8 Allergy status to other drugs, medicaments and biological substances; Z79.51 Long term (current) use of inhaled steroids; Z79.899 Other long term (current) drug therapy; Z3A.00 Weeks of gestation of pregnancy not specified
CPT/HCPCS: 99285; 96374; 96376; 96361; 36415; 86900; 86901; 80053; 85025; 86850; 81001; 84702; 76801; 76817; J2270 ×2

== ENCOUNTER 2018-07-10 23:01 | Emergency (ER) | payer OTHER ==
[2018-07-11 00:14] LABS: Basophils % (A) 0 %; Eosinophils # (A) 0.1 k/uL (0-0.7); Eosinophils % (A) 1 %; HCT 39.5 % (34.0-46.0); HGB 13.1 gm/dL (11.4-16.0); Lymphocytes # (A) 1.3 k/uL (1.0-4.8); Lymphocytes % (A) 19 %; MCH 30.8 pg (25.0-35.0); MCHC 33.2 g/dL (31.0-37.0); MCV 92.6 fL (80.0-100.0); Mean Platelet Volume 6.4; Monocytes # (A) 0.5 k/uL (0-1.0); Monocytes % (A) 7 %; Neutrophils # (A) 4.7 k/uL (1.3-7.7); Neutrophils % (A) 70 %; Platelet Count 277 k/uL (150-450); RBC 4.26 m/uL (3.80-5.40); RDW 12.8 % (11.5-15.5); WBC 6.7 k/uL (3.8-10.6)
[2018-07-11 00:26] LABS: Appearance,Urine Clear (Clear); Bacteria,Urine Occasional /hpf; Bilirubin,Urine Negative (Negative); Blood,Urine Large (Negative); Color,Urine Yellow; Glucose,Urine (UA) Negative (Negative); Ketones,Urine 1+ (Negative); Leukocyte Esterase,Urine Negative (Negative); Mucus,Urine Occasional /hpf; Nitrite,Urine Negative (Negative); PH, Urine 6.5 (5.0-8.0); Protein,Urine Negative (Negative); RBC,Urine >182 /hpf (0-5); Specific Gravity,Urine 1.005 (1.001-1.035); Squamous Epithelial Cell,Urine <1 /hpf (0-4); Urobilinogen,Urine <2.0 mg/dL (<2.0)
[2018-07-11] MEDS ORDERED: MORPHINE SULFATE 4 MG/ML SYRINGE IV STA ×2 (00:27→02:30)
[2018-07-11 00:28] LABS: ALT 41 U/L (9-52); AST 29 U/L (14-36); Albumin 4.4 g/dL (3.5-5.0); Alkaline Phosphatase 82 U/L (38-126); Amylase 60 U/L (30-110); Anion Gap 8 mmol/L; Blood Urea Nitrogen 5 mg/dL (7-17); Carbon Dioxide 26 mmol/L (22-30); Chloride 108 mmol/L (98-107); Glucose 100 mg/dL (74-99); Lipase 104 U/L (23-300); Potassium 4.1 mmol/L (3.5-5.1); Sodium 142 mmol/L (137-145); Total Bilirubin 0.4 mg/dL (0.2-1.3); Total Protein 7.6 g/dL (6.3-8.2)
--- NOTE | 2018-07-11 00:32 | ED ---
Abdominal Pain HPI - General Chief Complaint: Abdominal Pain Stated Complaint: Abd Pain Time Seen by Provider: 07/10/18 23:37 Source: patient, family Mode of arrival: wheelchair Limitations: no limitations - History of Present Illness Initial Comments: This patient is a 28-year-old woman who presents to have evaluation of lower abdominal and suprapubic pain. The patient relates that she had been administered medication for medical on 07/07/18. He rates that she started having lower abdominal cramping on the and was seen here in the em ergency department. Over the course of today she has developed some vaginal bleeding, has passed some clots, and is having a bit of an increase in the lower abdominal pain, which she describes as "labor pains." Patient denies fever or chills. She has not noted any purulent-type discharge. MD Complaint: abdominal pain -: days(s) Location: suprapubic Radiation: none Migration to: no migration Severity: severe Quality: cramping Consistency: constant Improves With: nothing Worsens With: nothing - Related Data Home Medications Medication Instructions Recorded Confirmed Multivitamins, Thera [Multivitamin 1 tab PO DAILY 11/30/17 07/07/18 (formulary)] Albuterol Inhaler [Ventolin Hfa 2 puff INHALATION RT-Q6H PRN 04/27/18 07/07/18 Inhaler] Beclomethasone Dipropionate [Qvar 1 puff INHALATION RT-BID 04/27/18 07/07/18 40 mcg Redihaler] Dicyclomine [Bentyl] 10 mg PO QID PRN 04/27/18 07/07/18 hydrOXYzine PAMOATE [Vistaril] 100 mg PO TID 04/27/18 07/07/18 Butalb/Acetaminophen/Caffeine 1 cap PO Q8H PRN 06/05/18 07/07/18 [Fioricet 50-300-40 mg Capsule] Zolpidem [Ambien] 5 mg PO HS 06/05/18 07/07/18 Biotin 5 mg PO DAILY 06/28/18 07/07/18 Cranberry Fruit Extract [Cranberry] 500 mg PO DAILY 06/28/18 07/07/18 Ferrous Sulfate [Feosol] 325 mg PO DAILY 06/28/18 07/07/18 Azithromycin [Zithromax] 500 mg PO ONCE 07/07/18 07/07/18 Calcium Polycarbophil [Fibercon] 625 mg PO DAILY 07/07/18 07/07/18 HYDROcodone/APAP 5-325MG [Keeling 1 - 2 tab PO Q4HR PRN 07/07/18 07/07/18 5-325] Ibuprofen [Motrin] 800 mg PO TID PRN 07/07/18 07/07/18 Previous Rx's Medication Instructions Recorded Hydrocodone/Acetaminophen [Keeling 1 each PO Q6HR PRN #12 tab 07/11/18 5-325] Allergies Allergy/AdvReac Type Severity Reaction Status Date / Time calcium [From DHEA] Allergy Unknown Verified 07/10/18 23:19 calcium carbonate [From DHEA] Allergy Unknown Verified 07/10/18 23:19 cyclobenzaprine HCl Allergy Unknown Verified 07/10/18 23:19 [From Flexeril] divalproex sodium Allergy Unknown Verified 07/10/18 23:19 [From Depakote] prasterone (DHEA) [From DHEA] Allergy Unknown Verified 07/10/18 23:19 sulfamethoxazole Allergy Unknown Verified 07/10/18 23:19 [From Septra] sumatriptan [From Imitrex] Allergy Unknown Verified 07/10/18 23:19 sumatriptan succinate Allergy Unknown Verified 07/10/18 23:19 [From Imitrex] topiramate [From Topamax] Allergy Rash/Hives Verified 07/10/18 23:19 trimethoprim [From Septra] Allergy Unknown Verified 07/10/18 23:19 Review of Systems ROS Statement: Those systems with pertinent positive or pertinent negative responses have been documented in the HPI. ROS Other: All systems not noted in ROS Statement are negative. Constitutional: Denies: fever, chills Respiratory: Denies: cough, dyspnea Cardiovascular: Denies: chest pain, palpitations, edema Gastrointestinal: Reports: abdominal pain, nausea. Denies: vomiting, diarrhea, constipation Genitourinary: Reports: as per HPI. Denies: dysuria, hematuria Musculoskeletal: Denies: back pain Skin: Denies: rash Hematological/Lymphatic: Denies: easy bleeding Past Medical History Past Medical History: Asthma, Fibromyalgia, GERD/Reflux, Osteoarthritis (OA), Pneumonia Additional Past Medical History / Comment(s): ARTHRITIS, HIATAL HERNIA AND GASTRIC ULCER, ENVIRONMENTAL ALLERGIES, DIGESTIVE ISSUES, MIGRAINES, ANEMIA, "PREDIABETIC", herniated disc History of Any Multi-Drug Resistant Organisms: None Reported Past Surgical History: Adenoidectomy, Tonsillectomy Additional Past Surgical History / Comment(s): eye sclera Past Psychological History: Anxiety, Depression, Panic Disorder Smoking Status: Current every day smoker Past Alcohol Use History: Rare Past Drug Use History: None Reported General Exam Limitations: no limitations General appearance: alert, in no apparent distress Head exam: Present: atraumatic, normocephalic Eye exam: Present: normal appearance. Absent: scleral icterus, conjunctival injection ENT exam: Present: normal oropharynx Respiratory exam: Present: normal lung sounds bilaterally. Absent: respiratory distress, wheezes, rales, rhonchi, stridor Cardiovascular Exam: Present: regular rate, normal rhythm, normal heart sounds. Absent: systolic murmur, diastolic murmur, rubs, gallop GI/Abdominal exam: Present: soft, tenderness (There is mild suprapubic tenderness without rebound or guarding), normal bowel sounds. Absent: distended, guarding, rebound, rigid, mass, pulsatile mass, hernia Extremities exam: Present: normal inspection, normal capillary refill. Absent: pedal edema, calf tenderness Back exam: Present: normal inspection. Absent: CVA tenderness (R), CVA tenderness (L) Neurological exam: Present: alert Skin exam: Present: warm, dry, intact, normal color. Absent: rash Course Vital Signs 07/10/18 07/11/18 23:15 01:55 Temperature 98.2 F 98.0 F Pulse Rate 96 80 Respiratory 18 18 Rate Blood Pressure 132/85 116/68 O2 Sat by Pulse 99 100 Oximetry Medical Decision Making - Lab Data Result diagrams: 07/10/18 23:50 07/10/18 23:50 Lab Results 07/10/18 07/10/18 07/10/18 Range/Units 21:50 23:50 23:50 WBC 6.7 (3.8-10.6) k/uL RBC 4.26 (3.80-5.40) m/uL Hgb 13.1 (11.4-16.0) gm/dL Hct 39.5 (34.0-46.0) % MCV 92.6 (80.0-100.0) fL MCH 30.8 (25.0-35.0) pg MCHC 33.2 (31.0-37.0) g/dL RDW 12.8 (11.5-15.5) % Plt Count 277 (150-450) k/uL Neutrophils % 70 % Lymphocytes % 19 % Monocytes % 7 % Eosinophils % 1 % Basophils % 0 % Neutrophils # 4.7 (1.3-7.7) k/uL Lymphocytes # 1.3 (1.0-4.8) k/uL Monocytes # 0.5 (0-1.0) k/uL Eosinophils # 0.1 (0-0.7) k/uL Basophils # 0.0 (0-0.2) k/uL Sodium 142 (137-145) mmol/L Potassium 4.1 (3.5-5.1) mmol/L Chloride 108 H (98-107) mmol/L Carbon Dioxide 26 (22-30) mmol/L Anion Gap 8 mmol/L BUN 5 L (7-17) mg/dL Creatinine 0.51 L (0.52-1.04) mg/dL Est GFR (CKD-EPI)AfAm >90 (>60 ml/min/1.73 sqM) Est GFR (CKD-EPI)NonAf >90 (>60 ml/min/1.73 sqM) Glucose 100 H (74-99) mg/dL Calcium 10.0 (8.4-10.2) mg/dL Total Bilirubin 0.4 (0.2-1.3) mg/dL AST 29 (14-36) U/L ALT 41 (9-52) U/L Alkaline Phosphatase 82 (38-126) U/L Total Protein 7.6 (6.3-8.2) g/dL Albumin 4.4 (3.5-5.0) g/dL Amylase 60 (30-110) U/L Lipase 104 (23-300) U/L Urine Color Yellow Urine Appearance Clear (Clear) Urine pH 6.5 (5.0-8.0) Ur Specific Hankinson 1.005 (1.001-1.035) Urine Protein Negative (Negative) Urine Glucose (UA) Negative (Negative) Urine Ketones 1+ H (Negative) Urine Blood Large H (Negative) Urine Nitrite Negative (Negative) Urine Bilirubin Negative (Negative) Urine Urobilinogen <2.0 (<2.0) mg/dL Ur Leukocyte Esterase Negative (Negative) Urine RBC >182 H (0-5) /hpf Urine WBC 8 H (0-5) /hpf Ur Squamous Epith Cells <1 (0-4) /hpf Urine Bacteria Occasional H (None) /hpf Urine Mucus Occasional H (None) /hpf Disposition Clinical Impression: Miscarriage Disposition: HOME SELF-CARE Condition: Good Instructions (If sedation given, give patient instructions): Miscarriage (ED) Prescriptions: Hydrocodone/Acetaminophen [Keeling 5-325] 1 each PO Q6HR PRN #12 tab PRN Reason: Pain Is patient prescribed a controlled substance at d/c from ED?: Yes When asked, does pt state using other controlled substances?: No If prescribed controlled substance>3 days was MAPS reviewed?: Prescribed <3 Days If opioid is for acute pain is fill amount 7 days or less?: Yes If Rx opioid, was Start Talking consent form obtained?: Yes Referrals: Leonardo Daugherty DO [Primary Care Provider] - 1-2 days
--- NOTE | 2018-07-11 01:32 | US ---
History: ITS.REASON US Reason: Pain Exam: US OB/ENDOVAG Comparison: 07/07/2018 FINDINGS: The uterus measures 8 x 2.8 x 4.7 cm. 6 mm homogeneous endometrium. No intrauterine identified. The right ovary measures 3.2 x 1.7 x 2 cm. The left ovary measures 2.4 x 1.7 x 2.3 cm. The ovaries appear within limits. No evidence of adnexal mass or free fluid. IMPRESSION: 6 mm homogeneous endometrium. No intrauterine identified. No evidence of adnexal mass or free fluid.
[2018-07-11 03:00] VITALS: BP 106/72; PULSE 72; RESP 14; TEMP 97.7
== END 2018-07-11 03:08 | disposition home or self-care (01) ==
LOC: EC 23:01
DX: O03.9 Complete or unspecified spontaneous abortion without complication (principal); R10.30 Lower abdominal pain, unspecified; J45.909 Unspecified asthma, uncomplicated; K21.9 Gastro-esophageal reflux disease without esophagitis; D64.9 Anemia, unspecified; F17.200 Nicotine dependence, unspecified, uncomplicated; Z79.51 Long term (current) use of inhaled steroids; Z79.899 Other long term (current) drug therapy; Z88.8 Allergy status to other drugs, medicaments and biological substances; Z88.1 Allergy status to other antibiotic agents; Z88.2 Allergy status to sulfonamides
CPT/HCPCS: 36415; 76801; 76817; 80053; 81001; 82150; 83690; 85025; 96374; 96376; 99284

== ENCOUNTER 2018-07-20 18:07 | Emergency (ER) | payer OTHER ==
[2018-07-20] MEDS ORDERED: SODIUM CHLORIDE 0.9% 1,000 ML IV STA (19:24)
[2018-07-20] MEDS ORDERED: IPRATROPIUM-ALBUTEROL 3 ML NEB INHALATION STA (19:24)
[2018-07-20] MEDS ORDERED: diphenhydrAMINE 50 MG/ML 1 ML VIAL IVP STA (19:24)
[2018-07-20] MEDS ORDERED: KETOROLAC 30 MG/ML 1 ML VIAL IVP STA (19:24)
[2018-07-20] MEDS ORDERED: ONDANSETRON 4 MG/2 ML VIAL IVP STA (19:25)
--- NOTE | 2018-07-20 19:31 | ED ---
General Adult HPI - General Chief complaint: Headache Stated complaint: migraine, dizziness, vomiting, chest cold Time Seen by Provider: 07/20/18 19:13 Source: patient, RN notes reviewed, old records reviewed Mode of arrival: ambulatory Limitations: no limitations - History of Present Illness Initial comments: 28-year-old female patient past medical history of migraine headaches, asthma presents ED with chief complaint of migraine headache. Patient reports that she is followed by a neurologist and she was prescribed a new medication for headaches approximately 2 weeks ago, however has not taken this medication due to fear about side effects. Patient reports that today at approximately 10 AM she began to experience a in serious onset of a typical migraine headache for her. Patient reports that is in her left temporal region as well as generalized. Patient describes this as a pressure sensation. Patient reports that she has minor photophobia. Patient did take ibuprofen at approximately 2 PM for this problem. Patient has a secondary complaint of which she describes as a chest cold. Patient reports that for approximately 2 days she has had a dry cough. Patient additionally reports that she feels as if she is having a minor asthma exacerbation, has used her rescue inhaler today. Patient denies any chest pain. Patient has minor shortness of breath that she states this is similar to asthma in the past. Systemic: Pt denies fatigue, myalgia, fever/chills, rash. Pt denies weakness, night sweats, weight loss. Neuro: Pt denies headache, visual disturbances, syncope or pre-syncope. HEENT: Pt denies ocular discharge or irritation, otalgia, rhinorrhea, pharyngitis or notable lymphadenopathy. Cardiopulmonary: Pt denies chest pain, heart palpitations, dyspnea on exertion. Abdominal/GI: Pt denies abdominal pain, n/v/d. : Pt denies dysuria, burning w/ urination, frequency/urgency. Denies new onset urinary or bowel incontinence. MSK: Pt denies myalgia, loss of strength or function in extremities. Neuro: Pt denies new onset weakness, paresthesias. - Related Data Home Medications Medication Instructions Recorded Confirmed Multivitamins, Thera [Multivitamin 1 tab PO DAILY 11/30/17 07/20/18 (formulary)] Albuterol Inhaler [Ventolin Hfa 2 puff INHALATION RT-Q6H PRN 04/27/18 07/20/18 Inhaler] Beclomethasone Dipropionate [Qvar 1 puff INHALATION RT-BID 04/27/18 07/20/18 40 mcg Redihaler] Dicyclomine [Bentyl] 10 mg PO QID PRN 04/27/18 07/20/18 hydrOXYzine PAMOATE [Vistaril] 100 mg PO TID 04/27/18 07/20/18 Zolpidem [Ambien] 5 mg PO HS 06/05/18 07/20/18 Biotin 5 mg PO DAILY 06/28/18 07/20/18 Cranberry Fruit Extract [Cranberry] 500 mg PO DAILY 06/28/18 07/20/18 Ferrous Sulfate [Feosol] 325 mg PO DAILY 06/28/18 07/20/18 Calcium Polycarbophil [Fibercon] 625 mg PO DAILY 07/07/18 07/20/18 Ibuprofen [Motrin] 800 mg PO TID PRN 07/07/18 07/20/18 Amitriptyline HCl [Elavil] 25 mg PO HS 07/20/18 07/20/18 Escitalopram Oxalate [Lexapro] 10 mg PO DAILY 07/20/18 07/20/18 Previous Rx's Medication Instructions Recorded methylPREDNISolone Dose Pack 4 mg PO DIRECTED #21 package 07/20/18 [Medrol Dose Pack] Allergies Allergy/AdvReac Type Severity Reaction Status Date / Time calcium [From DHEA] Allergy Unknown Verified 07/20/18 21:11 calcium carbonate [From DHEA] Allergy Unknown Verified 07/20/18 21:11 cyclobenzaprine HCl Allergy Unknown Verified 07/20/18 21:11 [From Flexeril] divalproex sodium Allergy Unknown Verified 07/20/18 21:11 [From Depakote] prasterone (DHEA) [From DHEA] Allergy Unknown Verified 07/20/18 21:11 sulfamethoxazole Allergy Unknown Verified 07/20/18 21:11 [From Septra] sumatriptan [From Imitrex] Allergy Unknown Verified 07/20/18 21:11 sumatriptan succinate Allergy Unknown Verified 07/20/18 21:11 [From Imitrex] topiramate [From Topamax] Allergy Rash/Hives Verified 07/20/18 21:11 trimethoprim [From Septra] Allergy Unknown Verified 07/20/18 21:11 Review of Systems ROS Statement: Those systems with pertinent positive or pertinent negative responses have been documented in the HPI. ROS Other: All systems not noted in ROS Statement are negative. Past Medical History Past Medical History: Asthma, Fibromyalgia, GERD/Reflux, Osteoarthritis (OA), Pneumonia Additional Past Medical History / Comment(s): ARTHRITIS, HIATAL HERNIA AND GASTRIC ULCER, ENVIRONMENTAL ALLERGIES, DIGESTIVE ISSUES, MIGRAINES, ANEMIA, "PREDIABETIC", herniated disc History of Any Multi-Drug Resistant Organisms: None Reported Past Surgical History: Adenoidectomy, Tonsillectomy Additional Past Surgical History / Comment(s): eye sclera Past Psychological History: Anxiety, Depression, Panic Disorder Smoking Status: Current every day smoker Past Alcohol Use History: Rare Past Drug Use History: Marijuana General Exam - General Exam Comments Initial Comments: Constitutional: NAD, AOX3, Pt has pleasant affect. HEENT: NC/AT, trachea midline, neck supple, no lymphadenopathy. Posterior pharynx non erythematous, without exudates. External ears appear normal, without discharge. Mucous membranes moist. Eyes PERRLA, EOM intact. There is no scleral icterus. No pallor noted. Cardiopulmonary: RRR, no murmurs, rubs or gallops, no JVD noted. Mild wheeze noted in anterior lung gooden, resolved after breathing treatment. Lungs CTAB. No peripheral edema. Abdominal exam: Abdomen soft and non-distended. Abdomen non-tender to palpation in all 4 quadrants. Bowel sounds active in LLQ. No hepatosplenomegaly. No ecchymosis Neuro: CN II-XII intact. No nuchal rigidity. No focal deficit. MSK: No posterior calf tenderness bilaterally, homans sign negative bilaterally. Posterior tibialis and radial pulse +2 bilaterally. Sensation intact in upper and lower extremities. Full active ROM in upper and lower extremities, 5/5 stregnth. Limitations: no limitations Course Vital Signs 07/20/18 07/20/18 07/20/18 18:17 20:28 20:40 Temperature 98.4 F Pulse Rate 93 100 96 Respiratory 18 Rate Blood Pressure 109/68 O2 Sat by Pulse 99 Oximetry 07/20/18 22:06 Temperature 99.5 F Pulse Rate 98 Respiratory 16 Rate Blood Pressure 95/46 O2 Sat by Pulse 98 Oximetry Medical Decision Making - Medical Decision Making 28-year-old female patient past medical history of migraine headaches, asthma presents ED with chief complaint of migraine headache. Patient reports that she is followed by a neurologist and she was prescribed a new medication for headach es approximately 2 weeks ago, however has not taken this medication due to fear about side effects. Patient reports that today at approximately 10 AM she began to experience a in serious onset of a typical migraine headache for her. Patient reports that is in her left temporal region as well as generalized. Patient describes this as a pressure sensation. Patient reports that she has minor photophobia. Patient did take ibuprofen at approximately 2 PM for this problem. Patient has a secondary complaint of which she describes as a chest cold. Patient reports that for approximately 2 days she has had a dry cough. Patient additionally reports that she feels as if she is having a minor asthma exacerbation, has used her rescue inhaler today. Patient denies any chest pain. Patient has minor shortness of breath that she states this is similar to asthma in the past. Patient vital signs stable, afebrile. Physical exam displayed: Mild wheeze noted in anterior lung gooden, resolved after breathing treatment. Lungs CTAB. CN II-XII intact. No nuchal rigidity. No focal deficit. Patient headache resolved with pharmacologic intervention. Patient rested breathing treatment. Wheezing resolved, patient asymptomatic. Chest revealed no acute process. Patient to be discharged, will prescribe Medrol Dosepak. Patient has asthma Medications at Home, does not require any Refill. Pt to f/u with PCP in 1-2 days, pt to f/u with neurologist in 1-2 days. Patient Return to ER Condition Worsens in Any Way. Patient not Driving Home. Case Discussed with Dr. Castro. Disposition Clinical Impression: Acute headache, Asthma exacerbation Disposition: HOME SELF-CARE Condition: Stable Instructions (If sedation given, give patient instructions): Acute Headache (ED), Bronchospasm (ED) Additional Instructions: Patient to adhere to previously discussed treatment plan and will take medication(s) as directed. Patient to follow up with PCP in 1-2 days. Patient to return to ED if symptoms do not improve. Please follow up with PCP and neurologist in 1-2 days. Please return to ER if condition worsens in anyway. Prescriptions: methylPREDNISolone Dose Pack [Medrol Dose Pack] 4 mg PO DIRECTED #21 package Is patient prescribed a controlled substance at d/c from ED?: No Referrals: Leonardo Daugherty, [Primary Care Provider] - 1-2 days
[2018-07-20] MEDS: METOCLOPRAMIDE 5 MG/ML 2 ML VIAL IVP STA ×2 (20:27→20:29)
--- NOTE | 2018-07-20 21:21 | XR ---
EXAMINATION TYPE: XR chest 2V DATE OF EXAM: 07/20/2018 COMPARISON: Prior chest x-ray November 30, 2017 HISTORY: Chest pain. TECHNIQUE: Frontal and lateral views of the chest are obtained. FINDINGS: There is no focal air space opacity, pleural effusion, or pneumothorax seen. The cardiac silhouette size is within normal limits. The osseous structures are intact. IMPRESSION: No acute cardiopulmonary process. No significant change from prior.
[2018-07-20] MEDS ORDERED: MORPHINE SULFATE 4 MG/ML SYRINGE IV STA (21:45)
[2018-07-20 22:56] VITALS: BP 100/59; PULSE 96; RESP 15; TEMP 98.5
== END 2018-07-20 22:50 | disposition home or self-care (01) ==
LOC: EC 18:07
DX: J45.901 Unspecified asthma with (acute) exacerbation (principal); R51 Headache; R11.10 Vomiting, unspecified; H53.149 Visual discomfort, unspecified; D64.9 Anemia, unspecified; F41.9 Anxiety disorder, unspecified; F32.9 Major depressive disorder, single episode, unspecified; F17.200 Nicotine dependence, unspecified, uncomplicated; Z86.69 Personal history of other diseases of the nervous system and sense organs; Z87.01 Personal history of pneumonia (recurrent); Z87.19 Personal history of other diseases of the digestive system; Z79.51 Long term (current) use of inhaled steroids; Z79.899 Other long term (current) drug therapy; Z88.1 Allergy status to other antibiotic agents; Z88.2 Allergy status to sulfonamides; Z88.8 Allergy status to other drugs, medicaments and biological substances
CPT/HCPCS: 94640; 71046; 99284; 96374; 96375 ×3; 96361 ×2; J2270; J1200; J2405; J1885

== ENCOUNTER 2018-07-21 09:12 | Emergency (ER) | payer OTHER ==
[2018-07-21 09:27] VITALS: RESP 18
[2018-07-21] MEDS ORDERED: ACETAMINOPHEN TAB 325 MG TAB PO STA (09:52)
[2018-07-21] MEDS ORDERED: diphenhydrAMINE 50 MG CAP PO STA (10:18)
[2018-07-21] MEDS ORDERED: ONDANSETRON ODT 4 MG TAB PO STA (10:18)
--- NOTE | 2018-07-21 10:30 | ED ---
General Adult HPI - General Chief complaint: Headache Stated complaint: fever, bodyaches Time Seen by Provider: 07/21/18 09:51 Source: patient Mode of arrival: ambulatory Limitations: no limitations - History of Present Illness Initial comments: 28-year-old female past medical history of fibromyalgia, chronic migraines presents today for chief complaint of headache, body aches, sore throat. Patient states that she has had headache on and off for the past week, she states she has recently had nausea vomiting diarrhea, denies hematemesis melena or hematochezia. She denies uncontrolled vomiting or diarrhea. Patient states she was seen here yesterday for her typical migraine headache. She denies any change in characteristic. She states she had some relief following discharge. Today she developed a fever as well as body aches, she states she was concerned she had caught the flu as her nephew has been sick for the past few days. Patient states she took an ibuprofen around 6 AM. Remaining review of systems negative, patient denies any neck stiffness, shortness of breath, chest pain, back pain, abdominal pain, numbness or tingling, dysuria or hematuria, constipation, or visual changes, or any other complaints. - Related Data Home Medications Medication Instructions Recorded Confirmed Albuterol Inhaler [Ventolin Hfa 2 puff INHALATION RT-Q6H PRN 04/27/18 07/21/18 Inhaler] Beclomethasone Dipropionate [Qvar 1 puff INHALATION RT-BID 04/27/18 07/21/18 40 mcg Redihaler] Dicyclomine [Bentyl] 10 mg PO Q4H PRN 04/27/18 07/21/18 hydrOXYzine PAMOATE [Vistaril] 100 mg PO TID PRN 04/27/18 07/21/18 Zolpidem [Ambien] 5 mg PO HS 06/05/18 07/21/18 Ibuprofen [Motrin] 800 mg PO TID PRN 07/07/18 07/21/18 Amitriptyline HCl [Elavil] 25 mg PO HS 07/20/18 07/21/18 Escitalopram Oxalate [Lexapro] 10 mg PO DAILY 07/20/18 07/21/18 Butalb/APAP/Caff 50-325-40Mg 1 tab PO Q8H PRN 07/21/18 07/21/18 [Fioricet 50-325-40] Previous Rx's Medication Instructions Recorded Oseltamivir [Tamiflu] 75 mg PO Q12HR 5 Days #10 cap 07/21/18 Allergies Allergy/AdvReac Type Severity Reaction Status Date / Time calcium [From DHEA] Allergy Unknown Verified 07/21/18 09:50 calcium carbonate [From DHEA] Allergy Unknown Verified 07/21/18 09:50 cyclobenzaprine HCl Allergy Unknown Verified 07/21/18 09:50 [From Flexeril] divalproex sodium Allergy Unknown Verified 07/21/18 09:50 [From Depakote] metoclopramide [From Reglan] Allergy Unknown Verified 07/21/18 09:50 prasterone (DHEA) [From DHEA] Allergy Unknown Verified 07/21/18 09:50 sulfamethoxazole Allergy Unknown Verified 07/21/18 09:50 [From Septra] sumatriptan [From Imitrex] Allergy Unknown Verified 07/21/18 09:50 sumatriptan succinate Allergy Unknown Verified 07/21/18 09:50 [From Imitrex] topiramate [From Topamax] Allergy Rash/Hives Verified 07/21/18 09:50 trimethoprim [From Septra] Allergy Unknown Verified 07/21/18 09:50 Review of Systems ROS Statement: Those systems with pertinent positive or pertinent negative responses have been documented in the HPI. ROS Other: All systems not noted in ROS Statement are negative. Past Medical History Past Medical History: Asthma, Fibromyalgia, GERD/Reflux, Osteoarthritis (OA), Pneumonia Additional Past Medical History / Comment(s): ARTHRITIS, HIATAL HERNIA AND GASTRIC ULCER, ENVIRONMENTAL ALLERGIES, DIGESTIVE ISSUES, MIGRAINES, ANEMIA, "PREDIABETIC", herniated disc History of Any Multi-Drug Resistant Organisms: None Reported Past Surgical History: Adenoidectomy, Tonsillectomy Additional Past Surgical History / Comment(s): eye sclera Past Psychological History: Anxiety, Depression, Panic Disorder Smoking Status: Current every day smoker Past Alcohol Use History: Rare Past Drug Use History: Marijuana General Exam - General Exam Comments Initial Comments: General: The patient is awake and alert, in no distress, and does not appear acutely ill. Eye: +3 mm pupils are equal, round and reactive to light, extra-ocular movements are intact. No nystagmus. There is normal conjunctiva bilaterally. No signs of icterus. No photophobia Ears, nose, mouth and throat: There are moist mucous membranes and no oral lesions. Oropharynx was not erythematous there is no tonsillar enlargement exudates or lesions. Uvula midline. Tympanic membranes are not erythematous or is no effusions bulging or retraction. No tenderness to palpation of the mastoid. No anterior cervical lymphadenopathy. Rhinorrhea, clear and bilateral nares. No tripoding, no drooling. Neck: The neck is supple, there is no tenderness or JVD. No nuchal rigidity negative Brudzinski and Kernig Cardiovascular: There is a regular rate and rhythm. No murmur, rub or gallop is appreciated. Respiratory: Lungs are clear to auscultation, respirations are non-labored, breath sounds are equal. No wheezes, stridor, rales, or rhonchi. No retractions or abdominal breathing. Gastrointestinal: Soft, non-distended, non-tender abdomen without masses or organomegaly noted. There is no rebound or guarding present. Bowel sounds are unremarkable. Musculoskeletal: Normal ROM, no tenderness. Strength 5/5. Sensation intact. Radial pulses equal bilaterally 2+. Neurological: A&O x 3. CN II-XII intact, There are no obvious motor or sensory deficits. Coordination appears grossly intact. Speech appears normal, no muffling. Skin: Skin is warm and dry and no rashes or lesions are noted. No extremity edema Psychiatric: Cooperative Limitations: no limitations Course Vital Signs 07/21/18 07/21/18 09:25 11:30 Temperature 102.5 F H 98.8 F Pulse Rate 123 H 115 H Respiratory 18 18 Rate Blood Pressure 103/69 107/65 O2 Sat by Pulse 99 98 Oximetry Medical Decision Making - Medical Decision Making Patient presenting for body aches, fever, headache. Patient has clinical findings suggestive of influenza. Patient states she has had exposure. Patient informs a positive. No nuchal rigidity or meningeal irritation sign. No focal neurological deficits. Patient appears stable/nontoxic. Patient is given Tylenol for fever management. Urinalysis revealed no signs of dehydration. This I feel patient is stable for discharge with outpatient follow-up. Patient was given a procedure for Tamiflu. Return parameters were discussed at length the patient verbalized nursing. Patient was given pain medication for headache. Patient states she has had some relief. Patient discharged apparently well after discussed the case attending provider Dr. Ibarra. - Lab Data Lab Results 07/21/18 07/21/18 07/21/18 Range/Units 10:05 10:05 10:40 Urine Color Yellow Urine Appearance Clear (Clear) Urine pH 6.5 (5.0-8.0) Ur Specific [place] 1.019 (1.001-1.035) Urine Protein Trace H (Negative) Urine Glucose (UA) Negative (Negative) Urine Ketones Negative (Negative) Urine Blood Negative (Negative) Urine Nitrite Negative (Negative) Urine Bilirubin Negative (Negative) Urine Urobilinogen <2.0 (<2.0) mg/dL Ur Leukocyte Esterase Negative (Negative) Influenza Type A RNA Detected H (Not Detectd) Influenza Type B (PCR) Not Detected (Not Detectd) Group A Strep Rapid Negative (Negative) Disposition Clinical Impression: Influenza A Disposition: HOME SELF-CARE Condition: Good Instructions (If sedation given, give patient instructions): Influenza (ED) Additional Instructions: Please use medication as discussed. Please follow-up with family doctor in the next 2 days of symptoms have not improved. Please return to emergency room if the symptoms increase or worsen or for any other concerns. Prescriptions: Oseltamivir [Tamiflu] 75 mg PO Q12HR 5 Days #10 cap Is patient prescribed a controlled substance at d/c from ED?: No Referrals: Leonardo Daugherty DO [Primary Care Provider] - 1-2 days Time of Disposition: 11:26
[2018-07-21 11:17] LABS: Appearance,Urine Clear (Clear); Bilirubin,Urine Negative (Negative); Blood,Urine Negative (Negative); Color,Urine Yellow; Glucose,Urine (UA) Negative (Negative); Ketones,Urine Negative (Negative); Leukocyte Esterase,Urine Negative (Negative); Nitrite,Urine Negative (Negative); PH, Urine 6.5 (5.0-8.0); Protein,Urine Trace (Negative); Specific Gravity,Urine 1.019 (1.001-1.035); Urobilinogen,Urine <2.0 mg/dL (<2.0)
[2018-07-21] MEDS ORDERED: MORPHINE SULFATE 2 MG/ML SYRINGE IM STA (11:24)
[2018-07-21 12:30] VITALS: BP 107/65; PULSE 115; TEMP 98.8
== END 2018-07-21 11:53 | disposition home or self-care (01) ==
LOC: EC 09:12
DX: J10.1 Influenza due to other identified influenza virus with other respiratory manifestations (principal); J45.909 Unspecified asthma, uncomplicated; F41.0 Panic disorder [episodic paroxysmal anxiety]; F32.9 Major depressive disorder, single episode, unspecified; M79.7 Fibromyalgia; G43.709 Chronic migraine without aura, not intractable, without status migrainosus; F17.200 Nicotine dependence, unspecified, uncomplicated; Z79.899 Other long term (current) drug therapy; Z88.8 Allergy status to other drugs, medicaments and biological substances; Z88.2 Allergy status to sulfonamides; Z88.1 Allergy status to other antibiotic agents
CPT/HCPCS: 81003; 87081; 87430; 87502; 96372; 99284

== ENCOUNTER 2018-07-29 20:56 | Emergency (ER) | payer OTHER ==
[2018-07-29 21:02] VITALS: RESP 18
[2018-07-29] MEDS ORDERED: diphenhydrAMINE 50 MG/ML 1 ML VIAL IVP STA (21:43)
[2018-07-29] MEDS ORDERED: ONDANSETRON 4 MG/2 ML VIAL IVP STA (21:43)
[2018-07-29] MEDS ORDERED: SODIUM CHLORIDE 0.9% 500 ML 500 ML IV STA (21:43)
[2018-07-29] MEDS ORDERED: KETOROLAC 30 MG/ML 1 ML VIAL IVP STA (21:43)
--- NOTE | 2018-07-29 21:59 | ED ---
Headache HPI - General Chief Complaint: Headache Stated Complaint: Headache Time Seen by Provider: 07/29/18 21:07 Mode of arrival: ambulatory Limitations: no limitations - History of Present Illness Initial Comments: This patient is a 28-year-old woman with history of migraine headaches, who presents today stating she is having one of her usual migraine headaches. She states that she believes this was triggered by going to see her neurologist to attempt to perform occipital block in the clinic. Patient states she was also given prescription for Maxalt but has not been able to take any of that yet. The patient states that this headache is entirely typical of her migraines. She also has associated nausea which is usual for her. She has not had any atypical headaches symptoms. This is not the worst headache of life. No fever or chills. No neurologic symptoms MD Complaint: "migraine" Onset/Timin -: hour(s) Onset Description: gradual Location: right, left, occipital Severity: moderate Quality: throbbing Consistency: constant Improves With: nothing Worsens With: none Context: occurred at rest Associated Symptoms: nausea Treatments Prior to Arrival: none - Related Data Home Medications Medication Instructions Recorded Confirmed Albuterol Inhaler [Ventolin Hfa 2 puff INHALATION RT-Q6H PRN 04/27/18 07/29/18 Inhaler] Beclomethasone Dipropionate [Qvar 1 puff INHALATION RT-BID 04/27/18 07/29/18 40 mcg Redihaler] Dicyclomine [Bentyl] 10 mg PO Q4H PRN 04/27/18 07/29/18 hydrOXYzine PAMOATE [Vistaril] 100 mg PO TID PRN 04/27/18 07/29/18 Zolpidem [Ambien] 5 mg PO HS 06/05/18 07/29/18 Ibuprofen [Motrin] 800 mg PO TID PRN 07/07/18 07/29/18 Amitriptyline HCl [Elavil] 25 mg PO HS 07/20/18 07/29/18 Butalb/APAP/Caff 50-325-40Mg 1 tab PO Q8H PRN 07/21/18 07/29/18 [Fioricet 50-325-40] Gabapentin [Neurontin] 300 mg PO TID 07/29/18 07/29/18 Allergies Allergy/AdvReac Type Severity Reaction Status Date / Time calcium [From DHEA] Allergy Unknown Verified 07/29/18 21:18 calcium carbonate [From DHEA] Allergy Unknown Verified 07/29/18 21:18 cyclobenzaprine HCl Allergy Unknown Verified 07/29/18 21:18 [From Flexeril] divalproex sodium Allergy Unknown Verified 07/29/18 21:18 [From Depakote] metoclopramide [From Reglan] Allergy Unknown Verified 07/29/18 21:18 prasterone (DHEA) [From DHEA] Allergy Unknown Verified 07/29/18 21:18 sulfamethoxazole Allergy Unknown Verified 07/29/18 21:18 [From Septra] sumatriptan [From Imitrex] Allergy Unknown Verified 07/29/18 21:18 sumatriptan succinate Allergy Unknown Verified 07/29/18 21:18 [From Imitrex] topiramate [From Topamax] Allergy Rash/Hives Verified 07/29/18 21:18 trimethoprim [From Septra] Allergy Unknown Verified 07/29/18 21:18 Review of Systems ROS Statement: Those systems with pertinent positive or pertinent negative responses have been documented in the HPI. ROS Other: All systems not noted in ROS Statement are negative. Constitutional: Denies: fever, chills, weakness Eyes: Denies: vision change Respiratory: Denies: cough, dyspnea Cardiovascular: Denies: chest pain Gastrointestinal: Reports: nausea. Denies: vomiting Musculoskeletal: Denies: back pain Skin: Denies: rash Neurological: Reports: headache. Denies: weakness, numbness, paresthesias, confusion Past Medical History Past Medical History: Asthma, Fibromyalgia, GERD/Reflux, Osteoarthritis (OA), Pneumonia Additional Past Medical History / Comment(s): ARTHRITIS, HIATAL HERNIA AND GASTRIC ULCER, ENVIRONMENTAL ALLERGIES, DIGESTIVE ISSUES, MIGRAINES, ANEMIA, "PREDIABETIC", herniated disc History of Any Multi-Drug Resistant Organisms: None Reported Past Surgical History: Adenoidectomy, Tonsillectomy Additional Past Surgical History / Comment(s): eye sclera Past Psychological History: Anxiety, Depression, Panic Disorder Smoking Status: Current every day smoker Past Alcohol Use History: None Reported Past Drug Use History: Marijuana General Exam Limitations: no limitations General appearance: alert, in no apparent distress Head exam: Present: atraumatic, normocephalic Eye exam: Present: normal appearance, PERRL, EOMI. Absent: scleral icterus, conjunctival injection ENT exam: Present: normal oropharynx, mucous membranes moist Neck exam: Present: normal inspection, full ROM. Absent: tenderness, meningismus Respiratory exam: Present: normal lung sounds bilaterally. Absent: respiratory distress, wheezes, rales, rhonchi, stridor Cardiovascular Exam: Present: regular rate, normal rhythm, normal heart sounds. Absent: systolic murmur, diastolic murmur, rubs, gallop Neurological exam: Present: alert, oriented X3, CN II-XII intact. Absent: motor sensory deficit Skin exam: Present: warm, dry, intact, normal color. Absent: rash Course Vital Signs 07/29/18 20:58 Temperature 97.9 F Pulse Rate 113 H Respiratory 18 Rate Blood Pressure 112/76 O2 Sat by Pulse 98 Oximetry Disposition Clinical Impression: Acute headache Disposition: HOME SELF-CARE Condition: Good Instructions (If sedation given, give patient instructions): Acute Headache (ED) Is patient prescribed a controlled substance at d/c from ED?: No Referrals: Leonardo Daugherty DO [Primary Care Provider] - 1-2 days
[2018-07-29 23:30] VITALS: BP 93/47; PULSE 74; TEMP 98
== END 2018-07-29 23:29 | disposition home or self-care (01) ==
LOC: EC 20:56
DX: R51 Headache (principal); R11.0 Nausea; J45.909 Unspecified asthma, uncomplicated; M79.7 Fibromyalgia; F41.9 Anxiety disorder, unspecified; F32.9 Major depressive disorder, single episode, unspecified; F17.200 Nicotine dependence, unspecified, uncomplicated; Z86.69 Personal history of other diseases of the nervous system and sense organs; Z79.51 Long term (current) use of inhaled steroids; Z79.899 Other long term (current) drug therapy; Z88.8 Allergy status to other drugs, medicaments and biological substances; Z88.2 Allergy status to sulfonamides
CPT/HCPCS: 99283; 96374; 96375 ×2; J1200; J2405; J1885

== ENCOUNTER 2018-08-17 17:27 | Emergency (ER) | payer OTHER ==
[2018-08-17 17:31] VITALS: TEMP 97.8
[2018-08-17] MEDS ORDERED: SODIUM CHLORIDE 0.9% 1,000 ML IV STA (17:39)
[2018-08-17 17:52] LABS: Appearance,Urine Clear (Clear); Bilirubin,Urine Negative (Negative); Blood,Urine Negative (Negative); Color,Urine Yellow; Glucose,Urine (UA) Negative (Negative); Ketones,Urine Negative (Negative); Leukocyte Esterase,Urine Negative (Negative); Nitrite,Urine Negative (Negative); PH, Urine 7.5 (5.0-8.0); Protein,Urine Trace (Negative); Specific Gravity,Urine 1.018 (1.001-1.035); Urobilinogen,Urine <2.0 mg/dL (<2.0)
[2018-08-17] MEDS ORDERED: BUPIVACAINE (PF) 0.75% 10 ML VIAL SQ STA (18:09)
[2018-08-17] MEDS ORDERED: LIDOCAINE 1%-EPI 1:100,000 20 ML VIAL SQ STA (18:09)
--- NOTE | 2018-08-17 18:12 | ED ---
General Adult HPI - General Chief complaint: Headache Stated complaint: migraine Time Seen by Provider: 08/17/18 17:38 Source: patient Mode of arrival: ambulatory Limitations: no limitations - History of Present Illness Initial comments: Dictation was produced using [employer] dictation software. please excuse any grammatical, word or spelling errors. Chief Complaint: 28-year-old female past medical history of asthma, fibromyalgia, IBS presents with chief complaint of headache. History of Present Illness: Patient is a 28-year-old female she has multiple comorbidities. She states that she has history of chronic migraines patient presents today with 24 hours of headache. Patient sees neurologist. She's had multiple interventions performed to her spine as an approach to improve her headaches. Patient currently on headache medications. She states that her headaches haven't been working over the last 24 hours. She states that the headache is located at the vertex of her head. She states it's like her usual headaches. Denies any neurologic deficits. The ROS documented in this emergency department record has been reviewed and confirmed by me. Those systems with pertinent positive or negative responses have been documented in the HPI. All other systems are other negative and/or noncontributory. PHYSICAL EXAM: General Impression: Alert and oriented x3, not in acute distress HEENT: Normocephalic atraumatic, extra-ocular movements intact, pupils equal and reactive to light bilaterally, mucous membranes moist. Cardiovascular: Heart regular rate and rhythm, S1&S2 audible, no murmurs, rubs or gallops Chest: Lungs clear to auscultation bilaterally, no rhonchi, no wheeze, no rales Abdomen: Bowel sounds present, abdomen soft, non-tender, non-distended, no organomegaly Musculoskeletal: Pulses present and equal in all extremities, no peripheral edema Motor: no focal deficits noted Neurological: CN II-XII grossly intact, no focal motor or sensory deficits noted Skin: Intact with no visualized rashes Psych: Normal affect and mood ED course: 28-year-old female with past medical history of migraines presents chief complaint of headache. Clinical presentation consistent with patient's usual migraines. As upon arrival are within acceptable limits. Patient given option between occipital nerve block versus trial with headache cocktail. I believe this is reasonable option given that I was one who performed occipital nerve block last time she was here and she reports good results. Occipital nerve block was performed patient tired procedure well.Patient reported mild relief with occipital nerve block. She requested that she still wanted more to alleviate her symptoms. Patient given headache cocktail with been slightly more improvement. Patient given magnesium and Decadron. Patient reports improvement of her headache. Patient was that she wants to go home. She does have a established neurologist. Patient reports that she will make an appointment with her neurologist tomorrow. Patient to be discharge. At time of discharge patient's pain was controlled. No imaging studies indicated at this time. Return parameters discussed. - Related Data Home Medications Medication Instructions Recorded Confirmed Albuterol Inhaler [Ventolin Hfa 2 puff INHALATION RT-Q6H PRN 04/27/18 08/17/18 Inhaler] hydrOXYzine PAMOATE [Vistaril] 100 mg PO TID PRN 04/27/18 08/17/18 Zolpidem [Ambien] 5 mg PO HS 06/05/18 08/17/18 Amitriptyline HCl [Elavil] 25 mg PO DAILY 07/20/18 08/17/18 Gabapentin [Neurontin] 300 mg PO TID 07/29/18 08/17/18 Beclomethasone Dipropionate [Qvar 2 puff INHALATION RT-DAILY 08/17/18 08/17/18 80 mcg] Dicyclomine [Bentyl] 20 mg PO Q46H PRN 08/17/18 08/17/18 Escitalopram Oxalate [Lexapro] 10 mg PO DAILY 08/17/18 08/17/18 Rizatriptan Benzoate [Maxalt] 10 mg PO BID PRN 08/17/18 08/17/18 Allergies Allergy/AdvReac Type Severity Reaction Status Date / Time calcium [From DHEA] Allergy Unknown Verified 08/17/18 18:43 calcium carbonate [From DHEA] Allergy Unknown Verified 08/17/18 18:43 cyclobenzaprine HCl Allergy Unknown Verified 08/17/18 18:43 [From Flexeril] divalproex sodium Allergy Unknown Verified 08/17/18 18:43 [From Depakote] metoclopramide [From Reglan] Allergy Unknown Verified 08/17/18 18:43 prasterone (DHEA) [From DHEA] Allergy Unknown Verified 08/17/18 18:43 sulfamethoxazole Allergy Unknown Verified 08/17/18 18:43 [From Septra] sumatriptan [From Imitrex] Allergy Unknown Verified 08/17/18 18:43 sumatriptan succinate Allergy Unknown Verified 08/17/18 18:43 [From Imitrex] topiramate [From Topamax] Allergy Rash/Hives Verified 08/17/18 18:43 trimethoprim [From Septra] Allergy Unknown Verified 08/17/18 18:43 Review of Systems ROS Statement: Those systems with pertinent positive or pertinent negative responses have been documented in the HPI. ROS Other: All systems not noted in ROS Statement are negative. Past Medical History Past Medical History: Asthma, Fibromyalgia, GERD/Reflux, Osteoarthritis (OA), Pneumonia Additional Past Medical History / Comment(s): ARTHRITIS, HIATAL HERNIA AND GASTRIC ULCER, ENVIRONMENTAL ALLERGIES, DIGESTIVE ISSUES, MIGRAINES, ANEMIA, "PREDIABETIC", herniated disc History of Any Multi-Drug Resistant Organisms: None Reported Past Surgical History: Adenoidectomy, Tonsillectomy Additional Past Surgical History / Comment(s): eye sclera Past Psychological History: Anxiety, Depression, Panic Disorder Smoking Status: Current every day smoker Past Alcohol Use History: None Reported Past Drug Use History: Marijuana General Exam Limitations: no limitations Course Vital Signs 08/17/18 08/17/18 17:29 20:01 Temperature 97.8 F Pulse Rate 80 77 Respiratory 18 16 Rate Blood Pressure 125/71 123/81 O2 Sat by Pulse 98 99 Oximetry Medical Decision Making - Lab Data Lab Results 08/17/18 08/17/18 Range/Units 17:40 17:40 Urine Color Yellow Urine Appearance Clear (Clear) Urine pH 7.5 (5.0-8.0) Ur Specific [place] 1.018 (1.001-1.035) Urine Protein Trace H (Negative) Urine Glucose (UA) Negative (Negative) Urine Ketones Negative (Negative) Urine Blood Negative (Negative) Urine Nitrite Negative (Negative) Urine Bilirubin Negative (Negative) Urine Urobilinogen <2.0 (<2.0) mg/dL Ur Leukocyte Esterase Negative (Negative) Urine HCG, Qual Not Detected (Not Detectd) Disposition Clinical Impression: Headache Disposition: HOME SELF-CARE Condition: Good Instructions (If sedation given, give patient instructions): Acute Headache (ED) Is patient prescribed a controlled substance at d/c from ED?: No Referrals: Elmer Calderon MD [Medical Doctor] - 1-2 days Time of Disposition: 20:44
[2018-08-17] MEDS ORDERED: ONDANSETRON 4 MG/2 ML VIAL IVP STA (19:23)
[2018-08-17] MEDS ORDERED: diphenhydrAMINE 50 MG/ML 1 ML VIAL IVP STA (19:23)
[2018-08-17] MEDS ORDERED: KETOROLAC 30 MG/ML 1 ML VIAL IVP STA (19:24)
[2018-08-17 20:02] VITALS: RESP 16
[2018-08-17] MEDS ORDERED: DEXAMETHASONE SOD PHOSPHATE 10 MG/ML 1 ML VIAL IV STA (20:30)
[2018-08-17] MEDS: MAGNESIUM SULFATE-D5W PMX 1 GM in DEXTROSE/WATER 1 100ML.BAG IVPB SCH ×2 (20:42→22:03)
[2018-08-17 20:47] VITALS: BP 110/74; PULSE 73
== END 2018-08-17 21:55 | disposition home or self-care (01) ==
LOC: EC 17:27
DX: G43.709 Chronic migraine without aura, not intractable, without status migrainosus (principal); J45.909 Unspecified asthma, uncomplicated; F41.0 Panic disorder [episodic paroxysmal anxiety]; F32.9 Major depressive disorder, single episode, unspecified; F17.200 Nicotine dependence, unspecified, uncomplicated; Z79.899 Other long term (current) drug therapy; Z88.8 Allergy status to other drugs, medicaments and biological substances; Z88.2 Allergy status to sulfonamides; Z88.6 Allergy status to analgesic agent; Z88.1 Allergy status to other antibiotic agents
CPT/HCPCS: 81003; 81025; 99283; 64405; 96374; 96375 ×3; 96361; J1200; J1100; J2405; J1885; J3475

== ENCOUNTER 2018-08-21 21:48 | Emergency (ER) | payer OTHER ==
[2018-08-21 21:53] VITALS: TEMP 97.4
[2018-08-21] MEDS ORDERED: KETOROLAC 30 MG/ML 1 ML VIAL IVP STA (22:15)
[2018-08-21] MEDS ORDERED: diphenhydrAMINE 50 MG/ML 1 ML VIAL IVP STA (22:15)
[2018-08-21] MEDS ORDERED: ONDANSETRON 4 MG/2 ML VIAL IVP STA (22:15)
[2018-08-21] MEDS ORDERED: SODIUM CHLORIDE 0.9% 1,000 ML IV STA (22:15)
[2018-08-21] MEDS ORDERED: MAGNESIUM SULFATE-D5W PMX 1 GM in DEXTROSE/WATER 1 100ML.BAG IVPB ONE (22:17)
--- NOTE | 2018-08-21 22:32 | ED ---
General Adult HPI - General Chief complaint: Headache Stated complaint: Headache, dizzy Time Seen by Provider: 08/21/18 21:59 Source: patient Mode of arrival: ambulatory Limitations: no limitations - History of Present Illness Initial comments: Mouna is a 28yo female with PMH of recurrent migraine headaches for which she frequently visits the ER. Patient reports that her headache began last week, she took her maxalt on Friday-Friday and was evaluated by our emergency department on friday night. Patient reports she had mild improvement in her headache however the headache has persisted and she fels like she cannot control it at home. Patient is scheduled to follow up with her neurologist next week for re- evaluation. Patient states that her headache is left sided, no associated vision changes or focal neurologic deficits. Headache is similar to previous migraines. - Related Data Home Medications Medication Instructions Recorded Confirmed Albuterol Inhaler [Ventolin Hfa 2 puff INHALATION RT-Q6H PRN 04/27/18 08/21/18 Inhaler] hydrOXYzine PAMOATE [Vistaril] 100 mg PO TID PRN 04/27/18 08/21/18 Zolpidem [Ambien] 5 mg PO HS 06/05/18 08/21/18 Amitriptyline HCl [Elavil] 25 mg PO DAILY 07/20/18 08/21/18 Gabapentin [Neurontin] 300 mg PO TID 07/29/18 08/21/18 Beclomethasone Dipropionate [Qvar 2 puff INHALATION RT-DAILY 08/17/18 08/21/18 80 mcg] Dicyclomine [Bentyl] 20 mg PO Q46H PRN 08/17/18 08/21/18 Escitalopram Oxalate [Lexapro] 10 mg PO DAILY 08/17/18 08/21/18 Rizatriptan Benzoate [Maxalt] 10 mg PO BID PRN 08/17/18 08/21/18 Allergies Allergy/AdvReac Type Severity Reaction Status Date / Time calcium [From DHEA] Allergy Unknown Verified 08/21/18 22:06 calcium carbonate [From DHEA] Allergy Unknown Verified 08/21/18 22:06 cyclobenzaprine HCl Allergy Unknown Verified 08/21/18 22:06 [From Flexeril] divalproex sodium Allergy Unknown Verified 08/21/18 22:06 [From Depakote] metoclopramide [From Reglan] Allergy Unknown Verified 08/21/18 22:06 prasterone (DHEA) [From DHEA] Allergy Unknown Verified 08/21/18 22:06 sulfamethoxazole Allergy Unknown Verified 08/21/18 22:06 [From Septra] sumatriptan [From Imitrex] Allergy Unknown Verified 08/21/18 22:06 sumatriptan succinate Allergy Unknown Verified 08/21/18 22:06 [From Imitrex] topiramate [From Topamax] Allergy Rash/Hives Verified 08/21/18 22:06 trimethoprim [From Septra] Allergy Unknown Verified 08/21/18 22:06 Review of Systems ROS Statement: Those systems with pertinent positive or pertinent negative responses have been documented in the HPI. ROS Other: All systems not noted in ROS Statement are negative. Past Medical History Past Medical History: Asthma, Fibromyalgia, GERD/Reflux, Osteoarthritis (OA), Pneumonia Additional Past Medical History / Comment(s): ARTHRITIS, HIATAL HERNIA AND GASTRIC ULCER, ENVIRONMENTAL ALLERGIES, DIGESTIVE ISSUES, MIGRAINES, ANEMIA, "PREDIABETIC", herniated disc History of Any Multi-Drug Resistant Organisms: None Reported Past Surgical History: Adenoidectomy, Tonsillectomy Additional Past Surgical History / Comment(s): eye sclera Past Psychological History: Anxiety, Depression, Panic Disorder Smoking Status: Current every day smoker Past Alcohol Use History: None Reported Past Drug Use History: Marijuana General Exam - General Exam Comments Initial Comments: Physical Exam GENERAL: Patient is well-developed and well-nourished resting comfortably in bed, appears comfortable and in no distress Patient is nontoxic and well-hydrated and is in no distress. HENT: Normocephalic, Atraumatic. EYES: PERRL, EOMI PULMONARY: Unlabored respirations. CARDIOVASCULAR: RRR ABDOMEN: Non-distended SKIN: Skin is clear with no lesions or rashes and otherwise unremarkable. Multiple tattoos : Deferred NEUROLOGIC: Patient is alert and oriented x3. Moving all extremities spontaneously MUSCULOSKELETAL: Normal extremities with adequate strength and full range of motion. No lower extremity swelling or edema. No calf tenderness. PSYCHIATRIC: Normal psychiatric evaluation. Limitations: no limitations Course Vital Signs 08/21/18 08/22/18 21:50 00:03 Temperature 97.4 F L Pulse Rate 69 80 Respiratory 18 17 Rate Blood Pressure 108/76 101/66 O2 Sat by Pulse 100 98 Oximetry Medical Decision Making - Medical Decision Making Patient was seen and evaluated Patient with chronic migraines she appears very comfortable sitting in bed talking during examination Medications were ordered Patient could be heard laughing and socializing with her significant mother andreas galeana throughout her emergency department stay. Patient was reevaluated after medications reports her headache has improved at this time patient be discharged home she will follow up with Dr. Calderon as scheduled on Friday. Disposition Clinical Impression: Headache Disposition: HOME SELF-CARE Condition: Stable Instructions (If sedation given, give patient instructions): Acute Headache (ED) Is patient prescribed a controlled substance at d/c from ED?: No Referrals: Isaac Rubin MD [Primary Care Provider] - 1-2 days
[2018-08-22 00:04] VITALS: BP 101/66; PULSE 80; RESP 17
== END 2018-08-22 00:59 | disposition home or self-care (01) ==
LOC: EC 21:48
DX: R51 Headache (principal); R42 Dizziness and giddiness; J45.909 Unspecified asthma, uncomplicated; F41.0 Panic disorder [episodic paroxysmal anxiety]; F32.9 Major depressive disorder, single episode, unspecified; F17.200 Nicotine dependence, unspecified, uncomplicated; Z79.51 Long term (current) use of inhaled steroids; Z79.899 Other long term (current) drug therapy; Z88.2 Allergy status to sulfonamides; Z88.1 Allergy status to other antibiotic agents; Z88.8 Allergy status to other drugs, medicaments and biological substances
CPT/HCPCS: 99283; 96365; 96375 ×3; J1200; J2405; J1885; J3475

== ENCOUNTER → 2018-08-22 | Outpatient (CLI) | payer OTHER | END | disposition home or self-care (01) | LOC: LABWHC1 11:18 | PROVIDERS: ATTEND Nurse Practitioner Acute Care | DX: I49.9 Cardiac arrhythmia, unspecified (principal) | CPT/HCPCS: 36415; 93005 ==

== ENCOUNTER 2018-09-03 20:19 | Emergency (ER) | payer OTHER ==
[2018-09-03] MEDS ORDERED: SODIUM CHLORIDE 0.9% 1,000 ML IV ONE (21:51)
--- NOTE | 2018-09-03 21:57 | ED ---
Abdominal Pain HPI - General Chief Complaint: Abdominal Pain Stated Complaint: abdominal pain Time Seen by Provider: 09/03/18 21:35 Source: patient Mode of arrival: ambulatory Limitations: no limitations - History of Present Illness Initial Comments: This patient is a 28-year-old woman who states she has history of IBS. She presents to have evaluation for abdominal pain and constipation. The patient states that she usually sees Dr. Mayberry from gastroenterology, however he has referred her to the [facility] for further care. She had an appo intment there yesterday but was not able to keep it. The patient states it feels like her abdomen has cramping and bloating diffusely. Pain is moderate. She has not noted worsening or relieving factors. She has tried taking Bentyl but states it doesn't seem to due to much for her symptoms. She states that she sometimes feels more gassy with eating. She states she has not had what she considers to be a normal bowel movement in some time. She did pass a small amount of stool on Mother's Day, and had some blood on the paper. The following day she had a small amount of orange mucous. Patient denies fever or chills. She has occasional nausea but not currently. No change in urination. The patient states that she had her last period in July, the month prior to that she had a miscarriage. No vaginal discharge or bleeding. MD Complaint: abdominal pain -: year(s) Location: diffuse Radiation: none Severity: moderate Quality: cramping, fullness Consistency: constant Improves With: nothing Worsens With: nothing Associated Symptoms: nausea, constipation - Related Data LMP (females 10-50): 1 month Home Medications Medication Instructions Recorded Confirmed Albuterol Inhaler [Ventolin Hfa 2 puff INHALATION RT-Q6H PRN 04/27/18 09/03/18 Inhaler] hydrOXYzine PAMOATE [Vistaril] 100 mg PO TID PRN 04/27/18 09/03/18 Zolpidem [Ambien] 5 mg PO HS 06/05/18 09/03/18 Amitriptyline HCl [Elavil] 25 mg PO DAILY 07/20/18 09/03/18 Gabapentin [Neurontin] 300 mg PO TID 07/29/18 09/03/18 Beclomethasone Dipropionate [Qvar 2 puff INHALATION RT-DAILY 08/17/18 09/03/18 80 mcg] Dicyclomine [Bentyl] 20 mg PO Q4-6H PRN 08/17/18 09/03/18 Escitalopram Oxalate [Lexapro] 10 mg PO DAILY 08/17/18 09/03/18 Rizatriptan Benzoate [Maxalt] 10 mg PO BID PRN 08/17/18 09/03/18 Allergies Allergy/AdvReac Type Severity Reaction Status Date / Time calcium [From DHEA] Allergy Unknown Verified 09/03/18 21:32 calcium carbonate [From DHEA] Allergy Unknown Verified 09/03/18 21:32 cyclobenzaprine HCl Allergy Unknown Verified 09/03/18 21:32 [From Flexeril] divalproex sodium Allergy Unknown Verified 09/03/18 21:32 [From Depakote] metoclopramide [From Reglan] Allergy Unknown Verified 09/03/18 21:32 prasterone (DHEA) [From DHEA] Allergy Unknown Verified 09/03/18 21:32 sulfamethoxazole Allergy Unknown Verified 09/03/18 21:32 [From Septra] sumatriptan [From Imitrex] Allergy Unknown Verified 09/03/18 21:32 sumatriptan succinate Allergy Unknown Verified 09/03/18 21:32 [From Imitrex] topiramate [From Topamax] Allergy Rash/Hives Verified 09/03/18 21:32 trimethoprim [From Septra] Allergy Unknown Verified 09/03/18 21:32 Review of Systems ROS Statement: Those systems with pertinent positive or pertinent negative responses have been documented in the HPI. ROS Other: All systems not noted in ROS Statement are negative. Constitutional: Denies: fever, chills Respiratory: Denies: cough, dyspnea Cardiovascular: Denies: chest pain, palpitations, edema Gastrointestinal: Reports: as per HPI, abdominal pain, nausea, constipation. Denies: vomiting, diarrhea, melena, hematochezia Genitourinary: Reports: abnormal menses. Denies: dysuria, frequency, hematuria, discharge Musculoskeletal: Denies: back pain Skin: Denies: rash Neurological: Denies: headache, weakness Hematological/Lymphatic: Denies: easy bleeding Past Medical History Past Medical History: Asthma, Fibromyalgia, GERD/Reflux, Osteoarthritis (OA), Pneumonia Additional Past Medical History / Comment(s): ARTHRITIS, HIATAL HERNIA AND GASTRIC ULCER, ENVIRONMENTAL ALLERGIES, DIGESTIVE ISSUES, MIGRAINES, ANEMIA, "PREDIABETIC", herniated disc History of Any Multi-Drug Resistant Organisms: None Reported Past Surgical History: Adenoidectomy, Tonsillectomy Additional Past Surgical History / Comment(s): eye sclera Past Psychological History: Anxiety, Depression, Panic Disorder Smoking Status: Current every day smoker Past Alcohol Use History: None Reported Past Drug Use History: Marijuana General Exam Limitations: no limitations General appearance: alert, in no apparent distress Head exam: Present: atraumatic, normocephalic Eye exam: Present: normal appearance. Absent: scleral icterus, conjunctival injection ENT exam: Present: mucous membranes dry Neck exam: Present: normal inspection Respiratory exam: Present: normal lung sounds bilaterally. Absent: respiratory distress, wheezes, rales, rhonchi, stridor Cardiovascular Exam: Present: regular rate, normal rhythm, normal heart sounds. Absent: systolic murmur, diastolic murmur, rubs, gallop GI/Abdominal exam: Present: soft, normal bowel sounds. Absent: distended, tenderness, guarding, rebound, rigid, mass, pulsatile mass, hernia Extremities exam: Present: normal inspection, normal capillary refill. Absent: pedal edema, calf tenderness Back exam: Present: normal inspection. Absent: CVA tenderness (R), CVA tenderness (L) Neurological exam: Present: alert Skin exam: Present: warm, dry, intact, normal color. Absent: rash Course Vital Signs 09/03/18 20:20 Temperature 98.2 F Pulse Rate 83 Respiratory 18 Rate Blood Pressure 124/89 O2 Sat by Pulse 99 Oximetry Medical Decision Making - Lab Data Result diagrams: 09/03/18 22:24 09/03/18 22:24 Lab Results 09/03/18 09/03/18 09/03/18 Range/Units 22:24 22:24 22:24 WBC 8.5 (3.8-10.6) k/uL RBC 4.80 (3.80-5.40) m/uL Hgb 14.4 (11.4-16.0) gm/dL Hct 42.8 (34.0-46.0) % MCV 89.1 (80.0-100.0) fL MCH 30.1 (25.0-35.0) pg MCHC 33.7 (31.0-37.0) g/dL RDW 13.0 (11.5-15.5) % Plt Count 267 (150-450) k/uL Neutrophils % 59 % Lymphocytes % 33 % Monocytes % 6 % Eosinophils % 2 % Basophils % 0 % Neutrophils # 5.0 (1.3-7.7) k/uL Lymphocytes # 2.8 (1.0-4.8) k/uL Monocytes # 0.5 (0-1.0) k/uL Eosinophils # 0.1 (0-0.7) k/uL Basophils # 0.0 (0-0.2) k/uL Sodium 138 (137-145) mmol/L Potassium 4.2 (3.5-5.1) mmol/L Chloride 106 (98-107) mmol/L Carbon Dioxide 25 (22-30) mmol/L Anion Gap 7 mmol/L BUN 10 (7-17) mg/dL Creatinine 0.56 (0.52-1.04) mg/dL Est GFR (CKD-EPI)AfAm >90 (>60 ml/min/1.73 sqM) Est GFR (CKD-EPI)NonAf >90 (>60 ml/min/1.73 sqM) Glucose 78 (74-99) mg/dL Calcium 9.6 (8.4-10.2) mg/dL Total Bilirubin 0.3 (0.2-1.3) mg/dL AST 16 (14-36) U/L ALT 14 (9-52) U/L Alkaline Phosphatase 73 (38-126) U/L Total Protein 7.3 (6.3-8.2) g/dL Albumin 4.5 (3.5-5.0) g/dL Amylase 65 (30-110) U/L Lipase 90 (23-300) U/L Urine Color Urine Appearance (Clear) Urine pH (5.0-8.0) Ur Specific Novelty (1.001-1.035) Urine Protein (Negative) Urine Glucose (UA) (Negative) Urine Ketones (Negative) Urine Blood (Negative) Urine Nitrite (Negative) Urine Bilirubin (Negative) Urine Urobilinogen (<2.0) mg/dL Ur Leukocyte Esterase (Negative) Urine HCG, Qual Not Detected (Not Detectd) 09/03/18 Range/Units 22:24 WBC (3.8-10.6) k/uL RBC (3.80-5.40) m/uL Hgb (11.4-16.0) gm/dL Hct (34.0-46.0) % MCV (80.0-100.0) fL MCH (25.0-35.0) pg MCHC (31.0-37.0) g/dL RDW (11.5-15.5) % Plt Count (150-450) k/uL Neutrophils % % Lymphocytes % % Monocytes % % Eosinophils % % Basophils % % Neutrophils # (1.3-7.7) k/uL Lymphocytes # (1.0-4.8) k/uL Monocytes # (0-1.0) k/uL Eosinophils # (0-0.7) k/uL Basophils # (0-0.2) k/uL Sodium (137-145) mmol/L Potassium (3.5-5.1) mmol/L Chloride (98-107) mmol/L Carbon Dioxide (22-30) mmol/L Anion Gap mmol/L BUN (7-17) mg/dL Creatinine (0.52-1.04) mg/dL Est GFR (CKD-EPI)AfAm (>60 ml/min/1.73 sqM) Est GFR (CKD-EPI)NonAf (>60 ml/min/1.73 sqM) Glucose (74-99) mg/dL Calcium (8.4-10.2) mg/dL Total Bilirubin (0.2-1.3) mg/dL AST (14-36) U/L ALT (9-52) U/L Alkaline Phosphatase (38-126) U/L Total Protein (6.3-8.2) g/dL Albumin (3.5-5.0) g/dL Amylase (30-110) U/L Lipase (23-300) U/L Urine Color Yellow Urine Appearance Clear (Clear) Urine pH 6.5 (5.0-8.0) Ur Specific Novelty 1.019 (1.001-1.035) Urine Protein Negative (Negative) Urine Glucose (UA) Negative (Negative) Urine Ketones Negative (Negative) Urine Blood Negative (Negative) Urine Nitrite Negative (Negative) Urine Bilirubin Negative (Negative) Urine Urobilinogen <2.0 (<2.0) mg/dL Ur Leukocyte Esterase Negative (Negative) Urine HCG, Qual (Not Detectd) Disposition Clinical Impression: Abdominal pain Disposition: HOME SELF-CARE Condition: Good Instructions (If sedation given, give patient instructions): Abdominal Pain (ED) Is patient prescribed a controlled substance at d/c from ED?: No Referrals: Isaac Rubin MD [Primary Care Provider] - 1-2 days
[2018-09-03 22:39] LABS: Basophils % (A) 0 %; Eosinophils # (A) 0.1 k/uL (0-0.7); Eosinophils % (A) 2 %; HCT 42.8 % (34.0-46.0); HGB 14.4 gm/dL (11.4-16.0); Lymphocytes # (A) 2.8 k/uL (1.0-4.8); Lymphocytes % (A) 33 %; MCH 30.1 pg (25.0-35.0); MCHC 33.7 g/dL (31.0-37.0); MCV 89.1 fL (80.0-100.0); Mean Platelet Volume 7.2; Monocytes # (A) 0.5 k/uL (0-1.0); Monocytes % (A) 6 %; Neutrophils % (A) 59 %; Platelet Count 267 k/uL (150-450); WBC 8.5 k/uL (3.8-10.6)
[2018-09-03 22:40] LABS: Appearance,Urine Clear (Clear); Bilirubin,Urine Negative (Negative); Blood,Urine Negative (Negative); Color,Urine Yellow; Glucose,Urine (UA) Negative (Negative); Ketones,Urine Negative (Negative); Leukocyte Esterase,Urine Negative (Negative); Nitrite,Urine Negative (Negative); PH, Urine 6.5 (5.0-8.0); Protein,Urine Negative (Negative); Specific Gravity,Urine 1.019 (1.001-1.035); Urobilinogen,Urine <2.0 mg/dL (<2.0)
[2018-09-03 22:46] LABS: ALT 14 U/L (9-52); AST 16 U/L (14-36); Albumin 4.5 g/dL (3.5-5.0); Alkaline Phosphatase 73 U/L (38-126); Amylase 65 U/L (30-110); Anion Gap 7 mmol/L; Blood Urea Nitrogen 10 mg/dL (7-17); Calcium 9.6 mg/dL (8.4-10.2); Carbon Dioxide 25 mmol/L (22-30); Chloride 106 mmol/L (98-107); Glucose 78 mg/dL (74-99); Lipase 90 U/L (23-300); Potassium 4.2 mmol/L (3.5-5.1); Sodium 138 mmol/L (137-145); Total Bilirubin 0.3 mg/dL (0.2-1.3); Total Protein 7.3 g/dL (6.3-8.2)
--- NOTE | 2018-09-03 23:52 | XR ---
EXAM: XR Abdomen, 1 View CLINICAL HISTORY: ITS.REASON XR Reason: Pain TECHNIQUE: Frontal supine view of the abdomen/pelvis. COMPARISON: Abdominal radiographs on 12/15/2017 FINDINGS: Hardware: None. Abdomen: Nonobstructive bowel gas pattern. No free air. Bones: Normal. Soft tissues: Normal. Lower chest: Normal. IMPRESSION: No acute abnormality.
[2018-09-04] MEDS ORDERED: MAGNESIUM CITRATE 296 ML BOTTLE PO ONE (00:12)
[2018-09-04] MEDS ORDERED: ONDANSETRON 4 MG/2 ML VIAL IVP STA (00:20)
[2018-09-04 00:38] VITALS: BP 117/62; PULSE 69; RESP 16; TEMP 98
== END 2018-09-04 00:38 | disposition home or self-care (01) ==
LOC: EC 20:19
DX: R10.84 Generalized abdominal pain (principal); R11.0 Nausea; J45.909 Unspecified asthma, uncomplicated; F32.9 Major depressive disorder, single episode, unspecified; F41.0 Panic disorder [episodic paroxysmal anxiety]; F17.200 Nicotine dependence, unspecified, uncomplicated; Z79.51 Long term (current) use of inhaled steroids; Z79.899 Other long term (current) drug therapy; Z88.8 Allergy status to other drugs, medicaments and biological substances
CPT/HCPCS: 36415; 74018; 80053; 81003; 81025; 82150; 83690; 85025; 96361; 96374; 99284

== ENCOUNTER 2018-09-11 17:03 | Emergency (ER) | payer OTHER ==
[2018-09-11] MEDS ORDERED: SODIUM CHLORIDE 0.9% 1,000 ML IV STA (17:17)
[2018-09-11] MEDS ORDERED: KETOROLAC 30 MG/ML 1 ML VIAL IVP STA (17:17)
[2018-09-11] MEDS ORDERED: diphenhydrAMINE 50 MG/ML 1 ML VIAL IVP STA (17:17)
[2018-09-11] MEDS ORDERED: IPRATROPIUM-ALBUTEROL 3 ML NEB INHALATION STA (18:00)
[2018-09-11] MEDS ORDERED: ONDANSETRON 4 MG/2 ML VIAL IVP STA (18:05)
--- NOTE | 2018-09-11 18:09 | ED ---
General Adult HPI - General Chief complaint: Headache Stated complaint: flu symptoms, migraine Time Seen by Provider: 09/11/18 17:08 Source: patient, RN notes reviewed, old records reviewed Mode of arrival: ambulatory Limitations: no limitations - History of Present Illness Initial comments: 28-year-old female patient with past medical history of headache disorder, asthma presents to ED with approximately 3 days of cough, nausea vomiting diarrhea, fevers and chills. Patient denies any abdominal pain. Patient also had waxing and waning headaches which are similar to headaches she has experienced in the past. Denies any recent falls or trauma. Denies worst headache of life or thunderclap headache. Patient also states that she feels as if she has experiencing a minor asthma exacerbation. Patient states that when she gets herself she gets mildly short of breath which is similar to her asthma she strains in the past. Denies any chest pain. Patient denies any other complaints at this time. Patient is seen on a weekly basis by neurology for her headaches. Systemic: Pt denies fatigue, myalgia, fever/chills, rash. Pt denies weakness, night sweats, weight loss. Neuro: Pt denies visual disturbances, syncope or pre-syncope. HEENT: Pt denies ocular discharge or irritation, otalgia, rhinorrhea, pharyngitis or notable lymphadenopathy. Cardiopulmonary: Pt denies chest pain, SOB, heart palpitations, dyspnea on exertion. Abdominal/GI: Pt denies abdominal pain. : Pt denies dysuria, burning w/ urination, frequency/urgency. Denies new onset urinary or bowel incontinence. MSK: Pt denies myalgia, loss of strength or function in extremities. Neuro: Pt denies new onset weakness, paresthesias. - Related Data Home Medications Medication Instructions Recorded Confirmed Albuterol Inhaler [Ventolin Hfa 2 puff INHALATION RT-Q6H PRN 04/27/18 09/03/18 Inhaler] hydrOXYzine PAMOATE [Vistaril] 100 mg PO TID PRN 04/27/18 09/03/18 Zolpidem [Ambien] 5 mg PO HS 06/05/18 09/03/18 Amitriptyline HCl [Elavil] 25 mg PO DAILY 07/20/18 09/03/18 Gabapentin [Neurontin] 300 mg PO TID 07/29/18 09/03/18 Beclomethasone Dipropionate [Qvar 2 puff INHALATION RT-DAILY 08/17/18 09/03/18 80 mcg] Dicyclomine [Bentyl] 20 mg PO Q4-6H PRN 08/17/18 09/03/18 Escitalopram Oxalate [Lexapro] 10 mg PO DAILY 08/17/18 09/03/18 Rizatriptan Benzoate [Maxalt] 10 mg PO BID PRN 08/17/18 09/03/18 Previous Rx's Medication Instructions Recorded Albuterol Inhaler [Ventolin Hfa 1 - 2 puff INHALATION Q4-6H PRN #1 09/11/18 Inhaler] inhaler Albuterol Nebulized [Ventolin 2.5 mg INHALATION Q4H PRN 10 Days 09/11/18 Nebulized] nebu predniSONE 50 mg PO DAILY #5 tab 09/11/18 Allergies Allergy/AdvReac Type Severity Reaction Status Date / Time calcium [From DHEA] Allergy Unknown Verified 09/11/18 17:06 calcium carbonate [From DHEA] Allergy Unknown Verified 09/11/18 17:06 cyclobenzaprine HCl Allergy Unknown Verified 09/11/18 17:06 [From Flexeril] divalproex sodium Allergy Unknown Verified 09/11/18 17:06 [From Depakote] metoclopramide [From Reglan] Allergy Unknown Verified 09/11/18 17:06 prasterone (DHEA) [From DHEA] Allergy Unknown Verified 09/11/18 17:06 sulfamethoxazole Allergy Unknown Verified 09/11/18 17:06 [From Septra] sumatriptan [From Imitrex] Allergy Unknown Verified 09/11/18 17:06 sumatriptan succinate Allergy Unknown Verified 09/11/18 17:06 [From Imitrex] topiramate [From Topamax] Allergy Rash/Hives Verified 09/11/18 17:06 trimethoprim [From Septra] Allergy Unknown Verified 09/11/18 17:06 Review of Systems ROS Statement: Those systems with pertinent positive or pertinent negative responses have been documented in the HPI. ROS Other: All systems not noted in ROS Statement are negative. Past Medical History Past Medical History: Asthma, Fibromyalgia, GERD/Reflux, Osteoarthritis (OA), Pneumonia Additional Past Medical History / Comment(s): ARTHRITIS, HIATAL HERNIA AND GASTRIC ULCER, ENVIRONMENTAL ALLERGIES, DIGESTIVE ISSUES, MIGRAINES, ANEMIA, "PREDIABETIC", herniated disc History of Any Multi-Drug Resistant Organisms: None Reported Past Surgical History: Adenoidectomy, Tonsillectomy Additional Past Surgical History / Comment(s): eye sclera Past Psychological History: Anxiety, Depression, Panic Disorder Smoking Status: Current every day smoker Past Alcohol Use History: None Reported Past Drug Use History: Marijuana General Exam - General Exam Comments Initial Comments: Constitutional: NAD, AOX3, Pt has pleasant affect. HEENT: NC/AT, trachea midline, neck supple, no lymphadenopathy. Posterior pharynx non erythematous, without exudates. External ears appear normal, without discharge. Mucous membranes moist. Eyes PERRLA, EOM intact. There is no scleral icterus. No pallor noted. Cardiopulmonary: RRR, no murmurs, rubs or gallops, no JVD noted. Mild wheezing in anterior lung gooden, resolved after breathing treatment. No peripheral edema. Abdominal exam: Abdomen soft and non-distended. Abdomen non-tender to palpation in all 4 quadrants. Bowel sounds active in LLQ. No hepatosplenomegaly. No ecchymosis Neuro: CN II-XII grossly intact. No nuchal rigidity. MSK: No posterior calf tenderness bilaterally, homans sign negative bilaterally. Posterior tibialis and radial pulse +2 bilaterally. Sensation intact in upper and lower extremities. Full active ROM in upper and lower extremities, 5/5 stregnth. Limitations: no limitations Course Vital Signs 09/11/18 09/11/18 09/11/18 17:04 18:22 18:30 Temperature 99.0 F Pulse Rate 120 H 65 68 Respiratory 18 16 16 Rate Blood Pressure 126/80 O2 Sat by Pulse 99 Oximetry Medical Decision Making - Medical Decision Making 28-year-old female patient with past medical history of headache disorder, asthma presents to ED with approximately 3 days of cough, nausea vomiting diarrhea, fevers and chills. Patient denies any abdominal pain. Patient also had waxing and waning headaches which are similar to headaches she has experienced in the past. Denies any recent falls or trauma. Denies worst headache of life or thunderclap headache. Patient also states that she feels as if she has experiencing a minor asthma exacerbation. Patient states that when she exerts herself she gets mildly short of breath which is similar to her asthma she strains in the past. Denies any chest pain. Patient denies any other complaints at this time. Patient vital signs stable, afebrile. Physical exam displayed very mild wheezing in anterior lung gooden which resolved after breathing treatment. Laboratory investigations revealed leukocytosis of 18.2. CMP non-impressive. UA displayed +2 ketones. HCG negative. Influenza A negative. Chest x-ray displayed no acute process. Patient likely has a viral syndrome. Patient also treated for a minor asthma exacerbation. Pt headache resolved. Patient to follow up with primary care provider tomorrow. Patient return to ED if condition worsens in any way. Case discussed with Dr. Mckoy. - Lab Data Result diagrams: 09/11/18 18:00 09/11/18 18:00 Lab Results 09/11/18 09/11/18 09/11/18 Range/Units 18:00 18:00 18:00 WBC 18.2 H (3.8-10.6) k/uL RBC 4.62 (3.80-5.40) m/uL Hgb 13.5 (11.4-16.0) gm/dL Hct 41.1 (34.0-46.0) % MCV 89.0 (80.0-100.0) fL MCH 29.2 (25.0-35.0) pg MCHC 32.8 (31.0-37.0) g/dL RDW 12.9 (11.5-15.5) % Plt Count 264 (150-450) k/uL Neutrophils % 91 % Lymphocytes % 4 % Monocytes % 3 % Eosinophils % 1 % Basophils % 0 % Neutrophils # 16.6 H (1.3-7.7) k/uL Lymphocytes # 0.8 L (1.0-4.8) k/uL Monocytes # 0.6 (0-1.0) k/uL Eosinophils # 0.2 (0-0.7) k/uL Basophils # 0.0 (0-0.2) k/uL Sodium 141 (137-145) mmol/L Potassium 3.8 (3.5-5.1) mmol/L Chloride 108 H (98-107) mmol/L Carbon Dioxide 23 (22-30) mmol/L Anion Gap 10 mmol/L BUN 5 L (7-17) mg/dL Creatinine 0.59 (0.52-1.04) mg/dL Est GFR (CKD-EPI)AfAm >90 (>60 ml/min/1.73 sqM) Est GFR (CKD-EPI)NonAf >90 (>60 ml/min/1.73 sqM) Glucose 94 (74-99) mg/dL Calcium 9.8 (8.4-10.2) mg/dL Total Bilirubin 0.7 (0.2-1.3) mg/dL AST 17 (14-36) U/L ALT 15 (9-52) U/L Alkaline Phosphatase 73 (38-126) U/L Total Protein 7.6 (6.3-8.2) g/dL Albumin 4.8 (3.5-5.0) g/dL Urine Color Urine Appearance (Clear) Urine pH (5.0-8.0) Ur Specific [place] (1.001-1.035) Urine Protein (Negative) Urine Glucose (UA) (Negative) Urine Ketones (Negative) Urine Blood (Negative) Urine Nitrite (Negative) Urine Bilirubin (Negative) Urine Urobilinogen (<2.0) mg/dL Ur Leukocyte Esterase (Negative) Urine HCG, Qual Not Detected (Not Detectd) Influenza Type A RNA (Not Detectd) Influenza Type B (PCR) (Not Detectd) 09/11/18 09/11/18 Range/Units 18:00 18:46 WBC (3.8-10.6) k/uL RBC (3.80-5.40) m/uL Hgb (11.4-16.0) gm/dL Hct (34.0-46.0) % MCV (80.0-100.0) fL MCH (25.0-35.0) pg MCHC (31.0-37.0) g/dL RDW (11.5-15.5) % Plt Count (150-450) k/uL Neutrophils % % Lymphocytes % % Monocytes % % Eosinophils % % Basophils % % Neutrophils # (1.3-7.7) k/uL Lymphocytes # (1.0-4.8) k/uL Monocytes # (0-1.0) k/uL Eosinophils # (0-0.7) k/uL Basophils # (0-0.2) k/uL Sodium (137-145) mmol/L Potassium (3.5-5.1) mmol/L Chloride (98-107) mmol/L Carbon Dioxide (22-30) mmol/L Anion Gap mmol/L BUN (7-17) mg/dL Creatinine (0.52-1.04) mg/dL Est GFR (CKD-EPI)AfAm (>60 ml/min/1.73 sqM) Est GFR (CKD-EPI)NonAf (>60 ml/min/1.73 sqM) Glucose (74-99) mg/dL Calcium (8.4-10.2) mg/dL Total Bilirubin (0.2-1.3) mg/dL AST (14-36) U/L ALT (9-52) U/L Alkaline Phosphatase (38-126) U/L Total Protein (6.3-8.2) g/dL Albumin (3.5-5.0) g/dL Urine Color Yellow Urine Appearance Clear (Clear) Urine pH 7.0 (5.0-8.0) Ur Specific [place] 1.012 (1.001-1.035) Urine Protein Negative (Negative) Urine Glucose (UA) Negative (Negative) Urine Ketones 2+ H (Negative) Urine Blood Negative (Negative) Urine Nitrite Negative (Negative) Urine Bilirubin Negative (Negative) Urine Urobilinogen <2.0 (<2.0) mg/dL Ur Leukocyte Esterase Negative (Negative) Urine HCG, Qual (Not Detectd) Influenza Type A RNA Not Detected (Not Detectd) Influenza Type B (PCR) Not Detected (Not Detectd) Disposition Clinical Impression: Viral syndrome, Asthma exacerbation Disposition: HOME SELF-CARE Condition: Stable Instructions (If sedation given, give patient instructions): Asthma (ED), Viral Syndrome (ED) Additional Instructions: Patient to adhere to previously discussed treatment plan and will take medication(s) as directed. Patient to follow up with PCP in 1-2 days. Patient to return to ED if symptoms do not improve. Please take medications directed. Follow up with primary care provider tomorrow. Return to ER if condition worsens. Continue to follow with neurology for headaches. Prescriptions: predniSONE 50 mg PO DAILY #5 tab Albuterol Inhaler [Ventolin Hfa Inhaler] 1 - 2 puff INHALATION Q4-6H PRN #1 inhaler PRN Reason: Cough Albuterol Nebulized [Ventolin Nebulized] 2.5 mg INHALATION Q4H PRN 10 Days nebu PRN Reason: Cough Is patient prescribed a controlled substance at d/c from ED?: No Referrals: Isaac Rubin MD [Primary Care Provider] - 1-2 days
[2018-09-11 18:12] LABS: Appearance,Urine Clear (Clear); Basophils % (A) 0 %; Bilirubin,Urine Negative (Negative); Blood,Urine Negative (Negative); Color,Urine Yellow; Eosinophils # (A) 0.2 k/uL (0-0.7); Eosinophils % (A) 1 %; Glucose,Urine (UA) Negative (Negative); HCT 41.1 % (34.0-46.0); HGB 13.5 gm/dL (11.4-16.0); Ketones,Urine 2+ (Negative); Leukocyte Esterase,Urine Negative (Negative); Lymphocytes # (A) 0.8 k/uL (1.0-4.8); Lymphocytes % (A) 4 %; MCH 29.2 pg (25.0-35.0); MCHC 32.8 g/dL (31.0-37.0); Monocytes # (A) 0.6 k/uL (0-1.0); Monocytes % (A) 3 %; Neutrophils # (A) 16.6 k/uL (1.3-7.7); Neutrophils % (A) 91 %; Nitrite,Urine Negative (Negative); Platelet Count 264 k/uL (150-450); Protein,Urine Negative (Negative); RBC 4.62 m/uL (3.80-5.40); RDW 12.9 % (11.5-15.5); Specific Gravity,Urine 1.012 (1.001-1.035); Urobilinogen,Urine <2.0 mg/dL (<2.0); WBC 18.2 k/uL (3.8-10.6)
[2018-09-11 18:22] LABS: ALT 15 U/L (9-52); AST 17 U/L (14-36); Albumin 4.8 g/dL (3.5-5.0); Alkaline Phosphatase 73 U/L (38-126); Anion Gap 10 mmol/L; Blood Urea Nitrogen 5 mg/dL (7-17); Calcium 9.8 mg/dL (8.4-10.2); Carbon Dioxide 23 mmol/L (22-30); Chloride 108 mmol/L (98-107); Glucose 94 mg/dL (74-99); Potassium 3.8 mmol/L (3.5-5.1); Sodium 141 mmol/L (137-145); Total Bilirubin 0.7 mg/dL (0.2-1.3); Total Protein 7.6 g/dL (6.3-8.2)
--- NOTE | 2018-09-11 19:21 | XR ---
EXAMINATION: XR chest 2V DATE AND TIME: 09/11/2018 7:12 PM CLINICAL INDICATION: PHH; Pain TECHNIQUE: Departmental protocol COMPARISON: 07/20/2018 FINDINGS: The lungs are clear. The pleural spaces are negative. The cardiac silhouette is not enlarged. The remainder of the mediastinal silhouette is unremarkable. The skeletal structures and soft tissues are negative for acute findings. IMPRESSION: No acute process.
[2018-09-11 20:07] VITALS: BP 122/72; PULSE 77; RESP 18; TEMP 97.6
== END 2018-09-11 20:07 | disposition home or self-care (01) ==
LOC: EC 17:03
DX: B34.9 Viral infection, unspecified (principal); J45.901 Unspecified asthma with (acute) exacerbation; F41.0 Panic disorder [episodic paroxysmal anxiety]; F32.9 Major depressive disorder, single episode, unspecified; F17.200 Nicotine dependence, unspecified, uncomplicated; Z79.51 Long term (current) use of inhaled steroids; Z79.899 Other long term (current) drug therapy; Z88.2 Allergy status to sulfonamides; Z88.1 Allergy status to other antibiotic agents; Z88.8 Allergy status to other drugs, medicaments and biological substances
CPT/HCPCS: 36415; 94640; 80053; 85025; 81003; 81025; 87502; 71046; 99284; 96374; 96375 ×2; 96361 ×2; J1200; J2405; J1885

== ENCOUNTER 2018-09-17 03:43 | Emergency (ER) | payer OTHER ==
[2018-09-17 03:52] VITALS: RESP 18
[2018-09-17] MEDS ORDERED: MORPHINE SULFATE 4 MG/ML SYRINGE IV STA (04:29)
[2018-09-17] MEDS ORDERED: SODIUM CHLORIDE 0.9% 1,000 ML IV STA (04:29)
--- NOTE | 2018-09-17 04:46 | ED ---
Chest Pain HPI - General Chief Complaint: Chest Pain Stated Complaint: Chest pain Time Seen by Provider: 09/17/18 03:44 Source: patient, RN notes reviewed, old records reviewed Mode of arrival: wheelchair - History of Present Illness Initial Comments: This is a 28-year-old female the ER for chest pain. Chest is currently nonspecific. She has history of asthma, fibromyalgia and headaches. Migraines. Patient is constant complaints of different issues multiple ER visits for pain. No fevers no trauma. No shortness of breath no diaphoresis no fever. Patient states she was seen in the ER recently for similar complaints was feeling better prior to discharge. Patient symptoms came back this morning. No recent change in medications. MD Complaint: chest pain -: days(s) Onset: during rest Pain Location: left chest, epigastric Pain Radiation: LUE Severity: moderate Severity scale (1-10): 4 Quality: tightness, aching Consistency: constant Improves With: nothing Worsens With: nothing Treatments Prior to Arrival: none - Related Data Home Medications Medication Instructions Recorded Confirmed Albuterol Inhaler [Ventolin Hfa 2 puff INHALATION RT-Q6H PRN 04/27/18 09/03/18 Inhaler] hydrOXYzine PAMOATE [Vistaril] 100 mg PO TID PRN 04/27/18 09/03/18 Zolpidem [Ambien] 5 mg PO HS 06/05/18 09/03/18 Amitriptyline HCl [Elavil] 25 mg PO DAILY 07/20/18 09/03/18 Gabapentin [Neurontin] 300 mg PO TID 07/29/18 09/03/18 Beclomethasone Dipropionate [Qvar 2 puff INHALATION RT-DAILY 08/17/18 09/03/18 80 mcg] Dicyclomine [Bentyl] 20 mg PO Q4-6H PRN 08/17/18 09/03/18 Escitalopram Oxalate [Lexapro] 10 mg PO DAILY 08/17/18 09/03/18 Rizatriptan Benzoate [Maxalt] 10 mg PO BID PRN 08/17/18 09/03/18 Previous Rx's Medication Instructions Recorded Albuterol Inhaler [Ventolin Hfa 1 - 2 puff INHALATION Q4-6H PRN #1 09/11/18 Inhaler] inhaler Albuterol Nebulized [Ventolin 2.5 mg INHALATION Q4H PRN 10 Days 09/11/18 Nebulized] nebu predniSONE 50 mg PO DAILY #5 tab 09/11/18 Ofloxacin 0.3% Otic Soln [Floxin 10 drops BOTH EARS DAILY 5 Days #1 09/17/18 0.3% Otic Soln] bottle Allergies Allergy/AdvReac Type Severity Reaction Status Date / Time calcium [From DHEA] Allergy Unknown Verified 09/17/18 03:53 calcium carbonate [From DHEA] Allergy Unknown Verified 09/17/18 03:53 cyclobenzaprine HCl Allergy Unknown Verified 09/17/18 03:53 [From Flexeril] divalproex sodium Allergy Unknown Verified 09/17/18 03:53 [From Depakote] metoclopramide [From Reglan] Allergy Unknown Verified 09/17/18 03:53 prasterone (DHEA) [From DHEA] Allergy Unknown Verified 09/17/18 03:53 sulfamethoxazole Allergy Unknown Verified 09/17/18 03:53 [From Septra] sumatriptan [From Imitrex] Allergy Unknown Verified 09/17/18 03:53 sumatriptan succinate Allergy Unknown Verified 09/17/18 03:53 [From Imitrex] topiramate [From Topamax] Allergy Rash/Hives Verified 09/17/18 03:53 trimethoprim [From Septra] Allergy Unknown Verified 09/17/18 03:53 Review of Systems ROS Statement: Those systems with pertinent positive or pertinent negative responses have been documented in the HPI. ROS Other: All systems not noted in ROS Statement are negative. EKG Findings - EKG Comments: EKG Findings:: EKG shows sinus rhythm rate of 74, MA 144, QRS 80, QTC 404 Past Medical History Past Medical History: Asthma, Fibromyalgia, GERD/Reflux, Osteoarthritis (OA), Pn eumonia Additional Past Medical History / Comment(s): ARTHRITIS, HIATAL HERNIA AND GASTRIC ULCER, ENVIRONMENTAL ALLERGIES, DIGESTIVE ISSUES, MIGRAINES, ANEMIA, "PREDIABETIC", herniated disc History of Any Multi-Drug Resistant Organisms: None Reported Past Surgical History: Adenoidectomy, Tonsillectomy Additional Past Surgical History / Comment(s): eye sclera Past Psychological History: Anxiety, Depression, Panic Disorder Smoking Status: Current every day smoker Past Alcohol Use History: None Reported Past Drug Use History: Marijuana General Exam General appearance: alert, in no apparent distress Head exam: Present: atraumatic, normocephalic, normal inspection Eye exam: Present: normal appearance, PERRL, EOMI. Absent: scleral icterus, conjunctival injection, periorbital swelling ENT exam: Present: normal exam, mucous membranes moist Neck exam: Present: normal inspection. Absent: tenderness, meningismus, lymphadenopathy Respiratory exam: Present: normal lung sounds bilaterally. Absent: respiratory distress, wheezes, rales, rhonchi, stridor Cardiovascular Exam: Present: regular rate, normal rhythm, normal heart sounds. Absent: systolic murmur, diastolic murmur, rubs, gallop, clicks GI/Abdominal exam: Present: soft, normal bowel sounds. Absent: distended, tenderness, guarding, rebound, rigid Extremities exam: Present: normal inspection, full ROM, normal capillary refill. Absent: tenderness, pedal edema, joint swelling, calf tenderness Back exam: Present: normal inspection Neurological exam: Present: alert, oriented X3, CN II-XII intact Psychiatric exam: Present: normal affect, normal mood Skin exam: Present: warm, dry, intact, normal color. Absent: rash Course Vital Signs 09/17/18 09/17/18 03:50 06:17 Temperature 98.1 F 98.3 F Pulse Rate 95 84 Respiratory 18 18 Rate Blood Pressure 113/68 110/73 O2 Sat by Pulse 99 96 Oximetry - Reevaluation(s) Reevaluation #1: Medical record and multiple prior ER visits are reviewed This pain is resolved, has no current complaints Chest Pain MDM - MDM 28 female the ER for evaluation, patient presents for evaluation chest pain migraines. Symptoms resolved here in the ER x-ray and labwork is normal. Patient can be discharged home Disposition Clinical Impression: Chest pain, Atypical chest pain, Migraine Disposition: HOME SELF-CARE Instructions (If sedation given, give patient instructions): Chest Pain (ED) Is patient prescribed a controlled substance at d/c from ED?: No Referrals: Isaac Rubin MD [Primary Care Provider] - 1-2 days
--- NOTE | 2018-09-17 04:48 | XR ---
EXAM: XR Chest, 2 Views CLINICAL HISTORY: ITS.REASON XR Reason: Chest Pain TECHNIQUE: Frontal and lateral views of the chest. COMPARISON: 09/11/18 x-ray FINDINGS: Lungs: No consolidation or mass. Pleural space: No effusion. Heart: No cardiomegaly. Mediastinum: Unremarkable. Bones/joints: No acute findings. IMPRESSION: No acute cardiopulmonary process.
[2018-09-17 05:20] LABS: Basophils % (A) 0 %; Eosinophils # (A) 0.1 k/uL (0-0.7); Eosinophils % (A) 2 %; HCT 40.2 % (34.0-46.0); HGB 13.3 gm/dL (11.4-16.0); Lymphocytes # (A) 1.6 k/uL (1.0-4.8); Lymphocytes % (A) 16 %; MCH 29.3 pg (25.0-35.0); MCHC 33.1 g/dL (31.0-37.0); MCV 88.6 fL (80.0-100.0); Mean Platelet Volume 7.3; Monocytes # (A) 0.5 k/uL (0-1.0); Monocytes % (A) 6 %; Neutrophils # (A) 7.2 k/uL (1.3-7.7); Neutrophils % (A) 75 %; Platelet Count 286 k/uL (150-450); RBC 4.54 m/uL (3.80-5.40); RDW 12.8 % (11.5-15.5); WBC 9.6 k/uL (3.8-10.6)
[2018-09-17 05:31] LABS: ALT 17 U/L (9-52); AST 13 U/L (14-36); African American GFR (CKD) >90 (>60 ml/min/1.73 sqM); Albumin 4.5 g/dL (3.5-5.0); Alkaline Phosphatase 84 U/L (38-126); Anion Gap 8 mmol/L; Blood Urea Nitrogen 8 mg/dL (7-17); Calcium 9.6 mg/dL (8.4-10.2); Carbon Dioxide 26 mmol/L (22-30); Chloride 106 mmol/L (98-107); Glucose 94 mg/dL (74-99); Lipase 30 U/L (23-300); Potassium 4.1 mmol/L (3.5-5.1); Sodium 140 mmol/L (137-145); Total Bilirubin 0.3 mg/dL (0.2-1.3); Total Protein 7.2 g/dL (6.3-8.2)
[2018-09-17 06:21] VITALS: BP 110/73; PULSE 84; TEMP 98.3
--- NOTE | 2018-09-18 02:11 | CDI ---
Dear Tony Paulino DO: Please do addendum History of Present Illness, Physical Examination, and Disposition of the patient. Thank you, Johanna Ramos, Circuit Board Inspector. If you have any questions, please contact Principal Technical Writer at [phone]. [facility]
== END 2018-09-17 06:22 | disposition home or self-care (01) ==
LOC: EC 03:43
DX: G43.909 Migraine, unspecified, not intractable, without status migrainosus (principal); R07.89 Other chest pain; R10.13 Epigastric pain; M79.602 Pain in left arm; J45.909 Unspecified asthma, uncomplicated; M79.7 Fibromyalgia; F32.9 Major depressive disorder, single episode, unspecified; F41.9 Anxiety disorder, unspecified; F17.200 Nicotine dependence, unspecified, uncomplicated; Z88.2 Allergy status to sulfonamides; Z88.8 Allergy status to other drugs, medicaments and biological substances; Z79.51 Long term (current) use of inhaled steroids; Z79.899 Other long term (current) drug therapy
CPT/HCPCS: 99285 ×2; 96374 ×2; 96361 ×2; 99282; 69200; 36415; 93005; 83880; 80053; 83690; 83735; 84484; 85025; 71046; J2270

== ENCOUNTER 2018-09-17 17:54 | Emergency (ER) | payer OTHER ==
[2018-09-17] MEDS ORDERED: diphenhydrAMINE 50 MG CAP PO STA (20:49)
--- NOTE | 2018-09-17 20:49 | ED ---
ENT HPI - General Chief complaint: ENT Stated complaint: viral infection-revisit Time Seen by Provider: 09/17/18 19:40 Source: patient Mode of arrival: ambulatory Limitations: no limitations - History of Present Illness Initial comments: 28-year-old female presenting for left ear pain. She states she is ALLERGIC to dog care. Patient states she woke up this morning with hives on the left side of her face. Patient states she is resistant and it antibiotic azithromycin by her primary care provider for a viral infection. Patient states she had a neg ative chest x-ray this morning and had blood work obtained after she presented for chest pain. Patient states chest pain is subsided. She states she noted stabbing pain in left ear and that is wheen he boyfriend looking in her ear and saw a piece of dog hair. She denies fever chills night sweats. Patient denies cough. Remaining review of systems negative. Upon arrival patient appears on the signs of acute distress. She states that the hives resolved on their own. - Related Data Home Medications Medication Instructions Recorded Confirmed Albuterol Inhaler [Ventolin Hfa 2 puff INHALATION RT-Q6H PRN 04/27/18 09/03/18 Inhaler] hydrOXYzine PAMOATE [Vistaril] 100 mg PO TID PRN 04/27/18 09/03/18 Zolpidem [Ambien] 5 mg PO HS 06/05/18 09/03/18 Amitriptyline HCl [Elavil] 25 mg PO DAILY 07/20/18 09/03/18 Gabapentin [Neurontin] 300 mg PO TID 07/29/18 09/03/18 Beclomethasone Dipropionate [Qvar 2 puff INHALATION RT-DAILY 08/17/18 09/03/18 80 mcg] Dicyclomine [Bentyl] 20 mg PO Q4-6H PRN 08/17/18 09/03/18 Escitalopram Oxalate [Lexapro] 10 mg PO DAILY 08/17/18 09/03/18 Rizatriptan Benzoate [Maxalt] 10 mg PO BID PRN 08/17/18 09/03/18 Previous Rx's Medication Instructions Recorded Albuterol Inhaler [Ventolin Hfa 1 - 2 puff INHALATION Q4-6H PRN #1 09/11/18 Inhaler] inhaler Albuterol Nebulized [Ventolin 2.5 mg INHALATION Q4H PRN 10 Days 09/11/18 Nebulized] nebu predniSONE 50 mg PO DAILY #5 tab 09/11/18 Ofloxacin 0.3% Otic Soln [Floxin 10 drops BOTH EARS DAILY 5 Days #1 09/17/18 0.3% Otic Soln] bottle Allergies Allergy/AdvReac Type Severity Reaction Status Date / Time calcium [From DHEA] Allergy Unknown Verified 09/17/18 03:53 calcium carbonate [From DHEA] Allergy Unknown Verified 09/17/18 03:53 cyclobenzaprine HCl Allergy Unknown Verified 09/17/18 03:53 [From Flexeril] divalproex sodium Allergy Unknown Verified 09/17/18 03:53 [From Depakote] metoclopramide [From Reglan] Allergy Unknown Verified 09/17/18 03:53 prasterone (DHEA) [From DHEA] Allergy Unknown Verified 09/17/18 03:53 sulfamethoxazole Allergy Unknown Verified 09/17/18 03:53 [From Septra] sumatriptan [From Imitrex] Allergy Unknown Verified 09/17/18 03:53 sumatriptan succinate Allergy Unknown Verified 09/17/18 03:53 [From Imitrex] topiramate [From Topamax] Allergy Rash/Hives Verified 09/17/18 03:53 trimethoprim [From Septra] Allergy Unknown Verified 09/17/18 03:53 Review of Systems ROS Statement: Those systems with pertinent positive or pertinent negative responses have been documented in the HPI. ROS Other: All systems not noted in ROS Statement are negative. Past Medical History Past Medical History: Asthma, Fibromyalgia, GERD/Reflux, Osteoarthritis (OA), Pneumonia Additional Past Medical History / Comment(s): ARTHRITIS, HIATAL HERNIA AND GASTRIC ULCER, ENVIRONMENTAL ALLERGIES, DIGESTIVE ISSUES, MIGRAINES, ANEMIA, "PREDIABETIC", herniated disc, narrowed ureters History of Any Multi-Drug Resistant Organisms: None Reported Past Surgical History: Adenoidectomy, Tonsillectomy Additional Past Surgical History / Comment(s): eye sclera Past Psychological History: Anxiety, Depression, Panic Disorder Smoking Status: Current every day smoker Past Alcohol Use History: None Reported Past Drug Use History: Marijuana General Exam - General Exam Comments Initial Comments: General: The patient is awake and alert, in no distress, and does not appear acutely ill. Eye: Pupils are equal, round and reactive to light, extra-ocular movements are intact. No nystagmus. There is normal conjunctiva bilaterally. No signs of icterus. Upon section of the tympanic membranes bilaterally are non- erythematous however there is irritation of the external auditory canal the left ear with a dog here present in the ear canal. No tenderness to palpation of the mastoid. Ears, nose, mouth and throat: There are moist mucous membranes and no oral lesions. Neck: The neck is supple, there is no tenderness or JVD. Cardiovascular: There is a regular rate and rhythm. No murmur, rub or gallop is appreciated. Respiratory: Lungs are clear to auscultation, respirations are non-labored, breath sounds are equal. No wheezes, stridor, rales, or rhonchi. Musculoskeletal: Normal ROM, no tenderness. Strength 5/5. Sensation intact. Pulses equal bilaterally 2+. Neurological: A&O x 3. CN II-XII intact, There are no obvious motor or sensory deficits. Coordination appears grossly intact. Speech is normal. Skin: Skin is warm and dry and no rashes or lesions are noted. Psychiatric: Cooperative, appropriate mood & affect, normal judgment. Limitations: no limitations Course Vital Signs 09/17/18 09/17/18 18:11 21:05 Temperature 98.5 F 98.7 F Pulse Rate 94 87 Respiratory 20 18 Rate Blood Pressure 129/87 114/74 O2 Sat by Pulse 98 100 Oximetry Medical Decision Making - Medical Decision Making 28yo female with left ear pain. Dog hair in EAC. EAC irritation. Hair removed with small alligator forcepts and gentle irrigation. Pt started on ofloxacin topically. Patient is to follow up primary care provider tomorrow patient is to discontinue azithromycin. Return parameters discussed at length. Patient is discharged appearing well after discussing case with Dr. Mckoy. Disposition Clinical Impression: Foreign body in left ear Disposition: HOME SELF-CARE Condition: Good Instructions (If sedation given, give patient instructions): Ear Foreign Body (ED) Additional Instructions: Please use medication as discussed. Please follow-up with family doctor in the next 24 hours. Please follow up with your mastercam programmer Dr. Dunham. Please discontinue Azithromycin. Please return to emergency room if the symptoms increase or worsen or for any other concerns. Prescriptions: Ofloxacin 0.3% Otic Soln [Floxin 0.3% Otic Soln] 10 drops BOTH EARS DAILY 5 Days #1 bottle Is patient prescribed a controlled substance at d/c from ED?: No Referrals: Isaac Rubin MD [Primary Care Provider] - 1-2 days Hui Toro MD [STAFF PHYSICIAN] - 1-2 days Time of Disposition: 20:49
[2018-09-17 21:06] VITALS: BP 114/74; PULSE 87; RESP 18; TEMP 98.7
== END 2018-09-17 21:05 | disposition home or self-care (01) ==
LOC: EC 17:54
DX: T16.2XXA Foreign body in left ear, initial encounter (principal); J45.909 Unspecified asthma, uncomplicated; M79.7 Fibromyalgia; F32.9 Major depressive disorder, single episode, unspecified; F41.9 Anxiety disorder, unspecified; F17.200 Nicotine dependence, unspecified, uncomplicated; Z88.2 Allergy status to sulfonamides; Z88.8 Allergy status to other drugs, medicaments and biological substances; Z91.048 Other nonmedicinal substance allergy status; Z79.51 Long term (current) use of inhaled steroids; Z79.899 Other long term (current) drug therapy; Z86.69 Personal history of other diseases of the nervous system and sense organs
CPT/HCPCS: 69200; 99282

== ENCOUNTER 2020-04-26 11:01 | Emergency (ER) | payer OTHER ==
[2020-04-26 11:29] VITALS: TEMP 99.3
[2020-04-26] MEDS ORDERED: SODIUM CHLORIDE 0.9% 2,000 ML IV STA (11:39)
--- NOTE | 2020-04-26 11:45 | ED ---
General Adult HPI - General Chief complaint: Nausea/Vomiting/Diarrhea Stated complaint: NV&D Time Seen by Provider: 04/26/20 11:32 Source: patient, RN notes reviewed Mode of arrival: ambulatory Limitations: no limitations - History of Present Illness Initial comments: 29-year-old female presents to the emergency room for nausea vomiting diarrhea times one week. Patient states that she is dry heaving and having diarrhea several times per day. States she is able to sip water and Coca-Cola. Every once in a while she'll get abdominal pain however this is not consistent. Patient states that she has a long history of abdominal problems. States she was diagnosed with IBS constipation and diarrhea. She was then referred to a surgeon who worked her up. However they cannot find anything so she was referred to [facility]. She has not yet followed up for this. Patient has not been diagnosed with Crohn's or ulcerative colitis. Patient does not take any immunosuppressants. Patient has no other complaints at this time including shortness of breath, chest pain, headache, or visual changes. - Related Data Home Medications Medication Instructions Recorded Confirmed Beclomethasone Dipropionate [Qvar 2 puff INHALATION RT-DAILY 08/17/18 04/26/20 80 mcg] Albuterol Sulfate [Ventolin HFA] 1 - 2 puff INHALATION RT-Q6H PRN 04/26/20 04/26/20 Multivitamins, Thera [Multivitamin 1 tab PO DAILY 04/26/20 04/26/20 (formulary)] Pantoprazole Sodium [Protonix] 20 mg PO DAILY 04/26/20 04/26/20 Previous Rx's Medication Instructions Recorded Nitrofurantoin Monohyd/M-Cryst 100 mg PO Q12HR #14 cap 04/26/20 [Macrobid] Pnv No.95/Ferrous Fum/Folic AC 1 each PO DAILY #30 tablet 04/26/20 [ Multivitamin Tablet] Allergies Allergy/AdvReac Type Severity Reaction Status Date / Time calcium [From DHEA] Allergy Unknown Verified 04/26/20 12:14 calcium carbonate [From DHEA] Allergy Unknown Verified 04/26/20 12:14 cyclobenzaprine HCl Allergy Unknown Verified 04/26/20 12:14 [From Flexeril] divalproex sodium Allergy Unknown Verified 04/26/20 12:14 [From Depakote] influenza virus vaccine, Allergy Rash/Hives Verified 04/26/20 12:14 specific metoclopramide [From Reglan] Allergy Unknown Verified 04/26/20 12:14 prasterone (DHEA) [From DHEA] Allergy Unknown Verified 04/26/20 12:14 sulfamethoxazole Allergy Unknown Verified 04/26/20 12:14 [From Septra] sumatriptan [From Imitrex] Allergy Unknown Verified 04/26/20 12:14 sumatriptan succinate Allergy Unknown Verified 04/26/20 12:14 [From Imitrex] topiramate [From Topamax] Allergy Rash/Hives Verified 04/26/20 12:14 trimethoprim [From Septra] Allergy Unknown Verified 04/26/20 12:14 antihistamines Allergy Dyspnea Uncoded 04/26/20 11:31 Review of Systems ROS Statement: Those systems with pertinent positive or pertinent negative responses have been documented in the HPI. ROS Other: All systems not noted in ROS Statement are negative. Past Medical History Past Medical History: GERD/Reflux Additional Past Medical History / Comment(s): ARTHRITIS, HIATAL HERNIA AND GA STRIC ULCER, ENVIRONMENTAL ALLERGIES, DIGESTIVE ISSUES, MIGRAINES, ANEMIA, "PREDIABETIC", herniated disc, narrowed ureters History of Any Multi-Drug Resistant Organisms: None Reported Past Surgical History: Adenoidectomy, Tonsillectomy Additional Past Surgical History / Comment(s): eye sclera Past Psychological History: Anxiety, Depression, Panic Disorder Smoking Status: Current every day smoker Past Alcohol Use History: None Reported Past Drug Use History: Marijuana General Exam Limitations: no limitations General appearance: alert, in no apparent distress Head exam: Present: atraumatic, normocephalic, normal inspection Eye exam: Present: normal appearance, PERRL, EOMI. Absent: scleral icterus, conjunctival injection, periorbital swelling ENT exam: Present: normal exam, mucous membranes moist Neck exam: Present: normal inspection, full ROM. Absent: tenderness, meningismus, lymphadenopathy Respiratory exam: Present: normal lung sounds bilaterally. Absent: respiratory distress, wheezes, rales, rhonchi, stridor Cardiovascular Exam: Present: regular rate, normal rhythm, normal heart sounds. Absent: systolic murmur, diastolic murmur, rubs, gallop, clicks GI/Abdominal exam: Present: soft, normal bowel sounds. Absent: distended, tenderness (no tenderness), guarding, rebound, rigid Course Vital Signs 04/26/20 04/26/20 11:26 13:02 Temperature 99.3 F Pulse Rate 118 H 85 Respiratory 20 18 Rate Blood Pressure 144/87 108/67 O2 Sat by Pulse 99 98 Oximetry Medical Decision Making - Medical Decision Making Patient initially tachycardic however this is likely secondary to anxiety. This did improve throughout her stay. Patient has chronic nausea vomiting diarrhea. No significant abdominal pain. This is largely chronic in nature. Physical e xam is unremarkable. No abdominal tenderness. CBC CMP unremarkable. Urinalysis does show positive nitrites with 8 white blood cells which will be treated. Patient also had a positive test in the emergency room. Patient thought this might be the case. Patient was given fluids. Patient has a Rx for Zofran however I told her she needs to talk to her OB before taking this. If she has severe vomiting sheet given try it but otherwise should avoid Zofran. I did offer Diclegis however patient has an antihistamine ALLERGY. Patient was given vitamins as well. She will follow up with her doctor. She does have OB care established in the area. She will return here for any abdominal pain or vaginal bleeding. - Lab Data Result diagrams: 04/26/20 11:47 04/26/20 11:47 Lab Results 04/26/20 04/26/20 04/26/20 Range/Units 11:47 11:47 11:47 WBC 7.7 (3.8-10.6) k/uL RBC 4.47 (3.80-5.40) m/uL Hgb 14.2 (11.4-16.0) gm/dL Hct 41.0 (34.0-46.0) % MCV 91.8 (80.0-100.0) fL MCH 31.7 (25.0-35.0) pg MCHC 34.5 (31.0-37.0) g/dL RDW 11.5 (11.5-15.5) % Plt Count 255 (150-450) k/uL MPV 7.0 Neutrophils % 80 % Lymphocytes % 13 % Monocytes % 5 % Eosinophils % 0 % Basophils % 0 % Neutrophils # 6.1 (1.3-7.7) k/uL Lymphocytes # 1.0 (1.0-4.8) k/uL Monocytes # 0.4 (0-1.0) k/uL Eosinophils # 0.0 (0-0.7) k/uL Basophils # 0.0 (0-0.2) k/uL Sodium (137-145) mmol/L Potassium (3.5-5.1) mmol/L Chloride (98-107) mmol/L Carbon Dioxide (22-30) mmol/L Anion Gap mmol/L BUN (7-17) mg/dL Creatinine (0.52-1.04) mg/dL Est GFR (CKD-EPI)AfAm (>60 ml/min/1.73 sqM) Est GFR (CKD-EPI)NonAf (>60 ml/min/1.73 sqM) Glucose (74-99) mg/dL Calcium (8.4-10.2) mg/dL Total Bilirubin (0.2-1.3) mg/dL AST (14-36) U/L ALT (4-34) U/L Alkaline Phosphatase (38-126) U/L Total Protein (6.3-8.2) g/dL Albumin (3.5-5.0) g/dL Amylase (30-110) U/L Lipase (23-300) U/L Urine Color Yellow Urine Appearance Cloudy H (Clear) Urine pH 5.5 (5.0-8.0) Ur Specific Hayes 1.017 (1.001-1.035) Urine Protein Negative (Negative) Urine Glucose (UA) Negative (Negative) Urine Ketones Negative (Negative) Urine Blood Negative (Negative) Urine Nitrite Positive H (Negative) Urine Bilirubin Negative (Negative) Urine Urobilinogen <2.0 (<2.0) mg/dL Ur Leukocyte Esterase Trace H (Negative) Urine RBC 1 (0-5) /hpf Urine WBC 8 H (0-5) /hpf Ur Squamous Epith Cells 1 (0-4) /hpf Urine Bacteria Many H (None) /hpf Urine Mucus Few H (None) /hpf Urine HCG, Qual Detected (Not Detectd) 04/26/20 Range/Units 11:47 WBC (3.8-10.6) k/uL RBC (3.80-5.40) m/uL Hgb (11.4-16.0) gm/dL Hct (34.0-46.0) % MCV (80.0-100.0) fL MCH (25.0-35.0) pg MCHC (31.0-37.0) g/dL RDW (11.5-15.5) % Plt Count (150-450) k/uL MPV Neutrophils % % Lymphocytes % % Monocytes % % Eosinophils % % Basophils % % Neutrophils # (1.3-7.7) k/uL Lymphocytes # (1.0-4.8) k/uL Monocytes # (0-1.0) k/uL Eosinophils # (0-0.7) k/uL Basophils # (0-0.2) k/uL Sodium 137 (137-145) mmol/L Potassium 3.9 (3.5-5.1) mmol/L Chloride 104 (98-107) mmol/L Carbon Dioxide 25 (22-30) mmol/L Anion Gap 8 mmol/L BUN 10 (7-17) mg/dL Creatinine 0.54 (0.52-1.04) mg/dL Est GFR (CKD-EPI)AfAm >90 (>60 ml/min/1.73 sqM) Est GFR (CKD-EPI)NonAf >90 (>60 ml/min/1.73 sqM) Glucose 98 (74-99) mg/dL Calcium 9.7 (8.4-10.2) mg/dL Total Bilirubin 0.5 (0.2-1.3) mg/dL AST 19 (14-36) U/L ALT 12 (4-34) U/L Alkaline Phosphatase 67 (38-126) U/L Total Protein 8.0 (6.3-8.2) g/dL Albumin 4.8 (3.5-5.0) g/dL Amylase 64 (30-110) U/L Lipase 39 (23-300) U/L Urine Color Urine Appearance (Clear) Urine pH (5.0-8.0) Ur Specific Hayes (1.001-1.035) Urine Protein (Negative) Urine Glucose (UA) (Negative) Urine Ketones (Negative) Urine Blood (Negative) Urine Nitrite (Negative) Urine Bilirubin (Negative) Urine Urobilinogen (<2.0) mg/dL Ur Leukocyte Esterase (Negative) Urine RBC (0-5) /hpf Urine WBC (0-5) /hpf Ur Squamous Epith Cells (0-4) /hpf Urine Bacteria (None) /hpf Urine Mucus (None) /hpf Urine HCG, Qual (Not Detectd) Disposition Clinical Impression: Nausea vomiting and diarrhea, Disposition: HOME SELF-CARE Condition: Good Instructions (If sedation given, give patient instructions): Hyperemesis Gravidarum (ED) Additional Instructions: Please drink plenty of fluids. Follow-up with your doctor and BULB PLANTER in 1-2 days. Take vitamins. Take Macrobid as directed. Return to the emergency room for any worsening symptoms. Prescriptions: Nitrofurantoin Monohyd/M-Cryst [Macrobid] 100 mg PO Q12HR #14 cap Pnv No.95/Ferrous Fum/Folic AC [ Multivitamin Tablet] 1 each PO DAILY #30 tablet Is patient prescribed a controlled substance at d/c from ED?: No Referrals: Inna Bonilla MD [Primary Care Provider] - 1-2 days Time of Disposition: 13:16
[2020-04-26 12:11] LABS: Basophils % (A) 0 %; Eosinophils % (A) 0 %; HGB 14.2 gm/dL (11.4-16.0); Lymphocytes % (A) 13 %; MCH 31.7 pg (25.0-35.0); MCHC 34.5 g/dL (31.0-37.0); MCV 91.8 fL (80.0-100.0); Monocytes # (A) 0.4 k/uL (0-1.0); Monocytes % (A) 5 %; Neutrophils # (A) 6.1 k/uL (1.3-7.7); Neutrophils % (A) 80 %; Platelet Count 255 k/uL (150-450); RBC 4.47 m/uL (3.80-5.40); RDW 11.5 % (11.5-15.5); WBC 7.7 k/uL (3.8-10.6)
[2020-04-26 12:19] LABS: ALT 12 U/L (4-34); AST 19 U/L (14-36); African American GFR (CKD) >90 (>60 ml/min/1.73 sqM); Albumin 4.8 g/dL (3.5-5.0); Alkaline Phosphatase 67 U/L (38-126); Amylase 64 U/L (30-110); Anion Gap 8 mmol/L; Blood Urea Nitrogen 10 mg/dL (7-17); Calcium 9.7 mg/dL (8.4-10.2); Carbon Dioxide 25 mmol/L (22-30); Chloride 104 mmol/L (98-107); Glucose 98 mg/dL (74-99); Lipase 39 U/L (23-300); Non-African American GFR(CKD) >90 (>60 ml/min/1.73 sqM); Potassium 3.9 mmol/L (3.5-5.1); Sodium 137 mmol/L (137-145); Total Bilirubin 0.5 mg/dL (0.2-1.3)
[2020-04-26 12:23] LABS: Appearance,Urine Cloudy (Clear); Bacteria,Urine Many /hpf; Bilirubin,Urine Negative (Negative); Blood,Urine Negative (Negative); Color,Urine Yellow; Glucose,Urine (UA) Negative (Negative); Ketones,Urine Negative (Negative); Leukocyte Esterase,Urine Trace (Negative); Mucus,Urine Few /hpf; Nitrite,Urine Positive (Negative); PH, Urine 5.5 (5.0-8.0); Protein,Urine Negative (Negative); RBC,Urine 1 /hpf (0-5); Specific Gravity,Urine 1.017 (1.001-1.035); Squamous Epithelial Cell,Urine 1 /hpf (0-4); Urobilinogen,Urine <2.0 mg/dL (<2.0); WBC,Urine 8 /hpf (0-5)
[2020-04-26 13:03] VITALS: BP 108/67; PULSE 85; RESP 18
[2020-04-26] MEDS ORDERED: NITROFURANTOIN MONOHYD/M-CRYST 100 MG CAP PO STA (13:16)
== END 2020-04-26 13:45 | disposition home or self-care (01) ==
LOC: EC 11:01
DX: O21.9 Vomiting of pregnancy, unspecified (principal); O26.899 Other specified pregnancy related conditions, unspecified trimester; R19.7 Diarrhea, unspecified; O99.619 Diseases of the digestive system complicating pregnancy, unspecified trimester; K21.9 Gastro-esophageal reflux disease without esophagitis; O99.330 Smoking (tobacco) complicating pregnancy, unspecified trimester; F17.200 Nicotine dependence, unspecified, uncomplicated; Z3A.00 Weeks of gestation of pregnancy not specified; Z79.51 Long term (current) use of inhaled steroids; Z79.899 Other long term (current) drug therapy; Z88.8 Allergy status to other drugs, medicaments and biological substances; Z88.7 Allergy status to serum and vaccine; Z88.2 Allergy status to sulfonamides; Z88.1 Allergy status to other antibiotic agents
CPT/HCPCS: 36415; 80053; 81001; 81025; 82150; 83690; 85025; 96360; 99284

== ENCOUNTER 2020-05-03 13:07 | Emergency (ER) | payer OTHER ==
[2020-05-03 13:13] VITALS: RESP 18
[2020-05-03 13:43] LABS: Basophils # (A) 0.1 k/uL (0-0.2); Basophils % (A) 1 %; Eosinophils # (A) 0.1 k/uL (0-0.7); Eosinophils % (A) 1 %; HGB 14.1 gm/dL (11.4-16.0); Lymphocytes # (A) 1.5 k/uL (1.0-4.8); Lymphocytes % (A) 20 %; MCH 31.4 pg (25.0-35.0); MCHC 34.3 g/dL (31.0-37.0); MCV 91.6 fL (80.0-100.0); Mean Platelet Volume 6.8; Monocytes # (A) 0.4 k/uL (0-1.0); Monocytes % (A) 6 %; Neutrophils # (A) 5.2 k/uL (1.3-7.7); Neutrophils % (A) 71 %; Platelet Count 264 k/uL (150-450); RBC 4.48 m/uL (3.80-5.40); RDW 11.6 % (11.5-15.5); WBC 7.4 k/uL (3.8-10.6)
[2020-05-03 13:55] LABS: ALT 13 U/L (4-34); AST 19 U/L (14-36); African American GFR (CKD) >90 (>60 ml/min/1.73 sqM); Albumin 4.8 g/dL (3.5-5.0); Alkaline Phosphatase 62 U/L (38-126); Anion Gap 9 mmol/L; Blood Urea Nitrogen 7 mg/dL (7-17); Calcium 9.6 mg/dL (8.4-10.2); Carbon Dioxide 26 mmol/L (22-30); Chloride 101 mmol/L (98-107); Glucose 107 mg/dL (74-99); Non-African American GFR(CKD) >90 (>60 ml/min/1.73 sqM); Potassium 3.8 mmol/L (3.5-5.1); Sodium 136 mmol/L (137-145); Total Bilirubin 0.3 mg/dL (0.2-1.3); Total Protein 7.8 g/dL (6.3-8.2)
--- NOTE | 2020-05-03 14:08 | ED ---
Abdominal Pain HPI - General Chief Complaint: Abdominal Pain Stated Complaint: Abd Pain Time Seen by Provider: 05/03/20 13:12 Source: patient Mode of arrival: ambulatory Limitations: no limitations - History of Present Illness Initial Comments: 29yo female presenting for cc of lower abdominal discomfort. pt states she struggles with chronic abdominal pain as well as on and off chronic diarrhea/constipation. pt states she has been somewhat constipated. she states she has an occasional lower abdominal pain and is . she states she believes she is around 7 weeks. pt jared vaginal bleeding, urinary symptoms, blood in stool. she staes she has had some nausea, vomiting with the . denies increase. denies fevers. patietn states she believes the pain is stool relate but wanted to be sure baby was ok. denies adidtional complaints, no dis tress on arriva. - Related Data Home Medications Medication Instructions Recorded Confirmed Beclomethasone Dipropionate [Qvar 2 puff INHALATION RT-DAILY 08/17/18 04/26/20 80 mcg] Albuterol Sulfate [Ventolin HFA] 1 - 2 puff INHALATION RT-Q6H PRN 04/26/2010/09 Multivitamins, Thera [Multivitamin 1 tab PO DAILY 04/26/20 04/26/20 (formulary)] Pantoprazole Sodium [Protonix] 20 mg PO DAILY 04/26/20 04/26/20 Previous Rx's Medication Instructions Recorded Nitrofurantoin Monohyd/M-Cryst 100 mg PO Q12HR #14 cap 04/26/20 [Macrobid] Pnv No.95/Ferrous Fum/Folic AC 1 each PO DAILY #30 tablet 04/26/20 [ Multivitamin Tablet] Famotidine [Pepcid] 20 mg PO DAILY 3 Days #3 tablet 05/03/20 Ondansetron Odt [Zofran Odt] 4 mg PO Q8HR PRN 3 Days #9 tab 05/03/20 Allergies Allergy/AdvReac Type Severity Reaction Status Date / Time calcium [From DHEA] Allergy Unknown Verified 05/03/20 13:12 calcium carbonate [From DHEA] Allergy Unknown Verified 05/03/20 13:12 cyclobenzaprine HCl Allergy Unknown Verified 05/03/20 13:12 [From Flexeril] divalproex sodium Allergy Unknown Verified 05/03/20 13:12 [From Depakote] influenza virus vaccine, Allergy Rash/Hives Verified 05/03/20 13:12 specific metoclopramide [From Reglan] Allergy Unknown Verified 05/03/20 13:12 prasterone (DHEA) [From DHEA] Allergy Unknown Verified 05/03/20 13:12 sulfamethoxazole Allergy Unknown Verified 05/03/20 13:12 [From Septra] sumatriptan [From Imitrex] Allergy Unknown Verified 05/03/20 13:12 sumatriptan succinate Allergy Unknown Verified 05/03/20 13:12 [From Imitrex] topiramate [From Topamax] Allergy Rash/Hives Verified 05/03/20 13:12 trimethoprim [From Septra] Allergy Unknown Verified 05/03/20 13:12 antihistamines Allergy Dyspnea Uncoded 05/03/20 13:12 Review of Systems ROS Statement: Those systems with pertinent positive or pertinent negative responses have been documented in the HPI. ROS Other: All systems not noted in ROS Statement are negative. Past Medical History Past Medical History: GERD/Reflux Additional Past Medical History / Comment(s): ARTHRITIS, HIATAL HERNIA AND GASTRIC ULCER, ENVIRONMENTAL ALLERGIES, DIGESTIVE ISSUES, MIGRAINES, ANEMIA, "PREDIABETIC", herniated disc, narrowed ureters History of Any Multi-Drug Resistant Organisms: None Reported Past Surgical History: Adenoidectomy, Tonsillectomy Additional Past Surgical History / Comment(s): eye sclera, Past Psychological History: Anxiety, Depression, Panic Disorder Smoking Status: Former smoker Past Alcohol Use History: None Reported Past Drug Use History: Marijuana General Exam - General Exam Comments Initial Comments: General: The patient is awake and alert, in no distress Eye: +3 mm pupils are equal, round and reactive to light, extra-ocular movements are intact. No nystagmus. There is normal conjunctiva bilaterally. No signs of icterus. Ears, nose, mouth and throat: There are moist mucous membranes and no oral lesions. Neck: The neck is supple, there is no tenderness or JVD. Cardiovascular: There is a regular rate and rhythm. No murmur, rub or gallop is appreciated. Respiratory: Lungs are clear to auscultation, respirations are non-labored, breath sounds are equal. No wheezes, stridor, rales, or rhonchi. Gastrointestinal: Soft, non-distended, non-tender abdomen without masses or organomegaly noted. There is no rebound or guarding present. Musculoskeletal: Normal ROM, no tenderness. Strength 5/5. Sensation intact. Radial pulses equal bilaterally 2+. Neurological: A&O x 3. CN II-XII intact grossly, There are no obvious motor or sensory deficits. Coordination appears grossly intact. Speech is normal. Skin: Skin is warm and dry and no rashes or lesions are noted. Psychiatric: Cooperative, appropriate mood & affect, normal judgment. Limitations: no limitations Course Vital Signs 05/03/20 05/03/20 13:09 15:03 Temperature 98.3 F 98.2 F Pulse Rate 94 75 Respiratory 18 18 Rate Blood Pressure 111/80 109/59 O2 Sat by Pulse 99 100 Oximetry Medical Decision Making - Medical Decision Making labs stable. UA unremarkable. US IUP measuring 7wk4 days. pt pooped in ER and states the pain went away. pt discharged appearing well with OBGYN f/u. - Lab Data Result diagrams: 05/03/20 13:34 05/03/20 13:34 Lab Results 05/03/20 05/03/20 05/03/20 Range/Units 13:34 13:34 13:34 WBC 7.4 (3.8-10.6) k/uL RBC 4.48 (3.80-5.40) m/uL Hgb 14.1 (11.4-16.0) gm/dL Hct 41.0 (34.0-46.0) % MCV 91.6 (80.0-100.0) fL MCH 31.4 (25.0-35.0) pg MCHC 34.3 (31.0-37.0) g/dL RDW 11.6 (11.5-15.5) % Plt Count 264 (150-450) k/uL MPV 6.8 Neutrophils % 71 % Lymphocytes % 20 % Monocytes % 6 % Eosinophils % 1 % Basophils % 1 % Neutrophils # 5.2 (1.3-7.7) k/uL Lymphocytes # 1.5 (1.0-4.8) k/uL Monocytes # 0.4 (0-1.0) k/uL Eosinophils # 0.1 (0-0.7) k/uL Basophils # 0.1 (0-0.2) k/uL Sodium 136 L (137-145) mmol/L Potassium 3.8 (3.5-5.1) mmol/L Chloride 101 (98-107) mmol/L Carbon Dioxide 26 (22-30) mmol/L Anion Gap 9 mmol/L BUN 7 (7-17) mg/dL Creatinine 0.64 (0.52-1.04) mg/dL Est GFR (CKD-EPI)AfAm >90 (>60 ml/min/1.73 sqM) Est GFR (CKD-EPI)NonAf >90 (>60 ml/min/1.73 sqM) Glucose 107 H (74-99) mg/dL Calcium 9.6 (8.4-10.2) mg/dL Total Bilirubin 0.3 (0.2-1.3) mg/dL AST 19 (14-36) U/L ALT 13 (4-34) U/L Alkaline Phosphatase 62 (38-126) U/L Total Protein 7.8 (6.3-8.2) g/dL Albumin 4.8 (3.5-5.0) g/dL HCG, Quant 892424.0 mIU/mL Urine Color Urine Appearance (Clear) Urine pH (5.0-8.0) Ur Specific [place] (1.001-1.035) Urine Protein (Negative) Urine Glucose (UA) (Negative) Urine Ketones (Negative) Urine Blood (Negative) Urine Nitrite (Negative) Urine Bilirubin (Negative) Urine Urobilinogen (<2.0) mg/dL Ur Leukocyte Esterase (Negative) Blood Type O Positive Blood Type Recheck O Pos Bld Type Recheck Status No 05/03/20 Range/Units 14:45 WBC (3.8-10.6) k/uL RBC (3.80-5.40) m/uL Hgb (11.4-16.0) gm/dL Hct (34.0-46.0) % MCV (80.0-100.0) fL MCH (25.0-35.0) pg MCHC (31.0-37.0) g/dL RDW (11.5-15.5) % Plt Count (150-450) k/uL MPV Neutrophils % % Lymphocytes % % Monocytes % % Eosinophils % % Basophils % % Neutrophils # (1.3-7.7) k/uL Lymphocytes # (1.0-4.8) k/uL Monocytes # (0-1.0) k/uL Eosinophils # (0-0.7) k/uL Basophils # (0-0.2) k/uL Sodium (137-145) mmol/L Potassium (3.5-5.1) mmol/L Chloride (98-107) mmol/L Carbon Dioxide (22-30) mmol/L Anion Gap mmol/L BUN (7-17) mg/dL Creatinine (0.52-1.04) mg/dL Est GFR (CKD-EPI)AfAm (>60 ml/min/1.73 sqM) Est GFR (CKD-EPI)NonAf (>60 ml/min/1.73 sqM) Glucose (74-99) mg/dL Calcium (8.4-10.2) mg/dL Total Bilirubin (0.2-1.3) mg/dL AST (14-36) U/L ALT (4-34) U/L Alkaline Phosphatase (38-126) U/L Total Protein (6.3-8.2) g/dL Albumin (3.5-5.0) g/dL HCG, Quant mIU/mL Urine Color Yellow Urine Appearance Clear (Clear) Urine pH 5.0 (5.0-8.0) Ur Specific [place] 1.015 (1.001-1.035) Urine Protein Negative (Negative) Urine Glucose (UA) Negative (Negative) Urine Ketones Negative (Negative) Urine Blood Negative (Negative) Urine Nitrite Negative (Negative) Urine Bilirubin Negative (Negative) Urine Urobilinogen <2.0 (<2.0) mg/dL Ur Leukocyte Esterase Negative (Negative) Blood Type Blood Type Recheck Bld Type Recheck Status Disposition Clinical Impression: Pelvic pain during Disposition: HOME SELF-CARE Condition: Good Instructions (If sedation given, give patient instructions): Abdominal Pain in (ED) Additional Instructions: Please use medication as discussed. Please follow-up with OBGYN in next week. Please return to emergency room if the symptoms increase or worsen or for any other concerns. Prescriptions: Famotidine [Pepcid] 20 mg PO DAILY 3 Days #3 tablet Ondansetron Odt [Zofran Odt] 4 mg PO Q8HR PRN 3 Days #9 tab PRN Reason: Nausea Is patient prescribed a controlled substance at d/c from ED?: No Referrals: Inna Bonilla MD [Primary Care Provider] - 1-2 days Chelsie Call DO [Doctor of Osteopathic Medicine] - 1-2 days Time of Disposition: 14:36
--- NOTE | 2020-05-03 14:23 | US ---
EXAMINATION TYPE: Transabdominal DATE OF EXAM: 05/03/2020 2:10 PM COMPARISON: NONE CLINICAL HISTORY: pelvic pain . cramping EXAM PERFORMED: Transvaginal (TV) and Transabdominal (TA) EXAM MEASUREMENTS: GESTATIONAL AGE / DATING Physician Established: Not yet established Dates by LMP: 03/10/2020 (7 weeks/5 days) EDC: 12/15/2020 Dates by First Scan: No previous this is first scan Dates by Current Scan for: (7 weeks/4 days) EDC: 12/16/2020 MATERNAL ANATOMY Uterus: 7.3 x 5.4 x 6.5 cm Right Ovary: 3.5 x 1.7 x 1.6 cm Left Ovary: Obscured by bowel gas Post CDS / Adnexa: wnl Presence of free fluid: no Presence of corpus luteal cyst: no Presence of subchorionic bleed: no GESTATION / SURVEY CRL: 1.36 cm (7 weeks/4 days) ys)Yolk Sac (normal less than 6mm): 2 mm Heart Rate: 149 bpm Rhythm: Normal IUP: Viable IUP Beta HcG (if available): Not available at this time Single live intrauterine gestation is confirmed as gestational sac, yolk sac, and pole are pres ent. No free fluid in pelvic cul-de-sac. Right ovary is seen. Left ovary is not identified. No suspicious adnexal masses are present on images saved. IMPRESSION: Single live intrauterine gestation confirmed, mean crown-rump length 1.4 cm corresponding to 7 week 4 day old fetus.
[2020-05-03 14:49] LABS: Appearance,Urine Clear (Clear); Bilirubin,Urine Negative (Negative); Blood,Urine Negative (Negative); Color,Urine Yellow; Glucose,Urine (UA) Negative (Negative); Ketones,Urine Negative (Negative); Leukocyte Esterase,Urine Negative (Negative); Nitrite,Urine Negative (Negative); Protein,Urine Negative (Negative); Specific Gravity,Urine 1.015 (1.001-1.035); Urobilinogen,Urine <2.0 mg/dL (<2.0)
[2020-05-03 15:04] VITALS: BP 109/59; PULSE 75; TEMP 98.2
== END 2020-05-03 15:04 | disposition home or self-care (01) ==
LOC: EC 13:07
DX: O99.891 Other specified diseases and conditions complicating pregnancy (principal); R10.2 Pelvic and perineal pain; O99.611 Diseases of the digestive system complicating pregnancy, first trimester; K21.9 Gastro-esophageal reflux disease without esophagitis; Z79.899 Other long term (current) drug therapy; Z87.891 Personal history of nicotine dependence; Z88.8 Allergy status to other drugs, medicaments and biological substances; Z88.7 Allergy status to serum and vaccine; Z88.1 Allergy status to other antibiotic agents; Z88.2 Allergy status to sulfonamides; Z3A.08 8 weeks gestation of pregnancy
CPT/HCPCS: 36415; 76801; 76817; 80053; 81003; 84702; 85025; 86900; 86901; 99284

== ENCOUNTER 2020-06-08 01:17 | Emergency (ER) | payer OTHER ==
[2020-06-08 01:24] VITALS: TEMP 98.2
[2020-06-08] MEDS ORDERED: SODIUM CHLORIDE 0.9% 1,000 ML IV STA (01:31)
[2020-06-08] MEDS ORDERED: ONDANSETRON 4 MG/2 ML VIAL IVP STA (01:31)
[2020-06-08] MEDS ORDERED: FAMOTIDINE 20 MG/2 ML VIAL IV STA (01:31)
[2020-06-08] MEDS ORDERED: SODIUM CHLORIDE 0.9% 500 ML 500 ML IV STA (01:31)
--- NOTE | 2020-06-08 01:43 | ED ---
Nausea/Vomiting/Diarrhea HPI - General Chief complaint: Nausea/Vomiting/Diarrhea Stated complaint: vomiting Time Seen by Provider: 06/08/20 01:19 Source: patient, EMS Mode of arrival: EMS Limitations: no limitations - History of Present Illness Initial comments: 29 year-old female patient who is and 13 weeks presents to the emergency deparment for evaluation of vomiting, hematemesis, and migraine headache. Patient states that she has had the headache for the last couple of days. States that she has had a lot of vomiting with this and due to many "GI issues" has a lot of vomiting in general. States that the frequency of vomiting increased today. States she has had at least 12 episodes throughout the day. States the last 6 episodes contained bright red blood. Patient denies use of blood thinners. States she does take pepcid daily. States that her physician is not giving her zofran at this time due to the . Patient is also reporting migraine headache. Denies blurred or double vision. Has extensive history of migraines. Not currently taking anything due to . States she did start to feel a little weak and dizzy so she called ambulance. Patient denies any recent rash, fever, chills, cough, shortness of breath, chest pain, abdominal pain, diarrhea, constipation, back pain, numbness, tingling, dizzin ess, weakness, hematuria, dysuria, urinary urgency, urinary frequency, or any other complaints. - Related Data Home Medications Medication Instructions Recorded Confirmed Beclomethasone Dipropionate [Qvar 2 puff INHALATION RT-DAILY 08/17/18 04/26/20 80 mcg] Albuterol Sulfate [Ventolin HFA] 1 - 2 puff INHALATION RT-Q6H PRN 04/26/20 04/26/20 Multivitamins, Thera [Multivitamin 1 tab PO DAILY 04/26/20 04/26/20 (formulary)] Pantoprazole Sodium [Protonix] 20 mg PO DAILY 04/26/20 04/26/20 Previous Rx's Medication Instructions Recorded Nitrofurantoin Monohyd/M-Cryst 100 mg PO Q12HR #14 cap 04/26/20 [Macrobid] Pnv No.95/Ferrous Fum/Folic AC 1 each PO DAILY #30 tablet 04/26/20 [ Multivitamin Tablet] Famotidine [Pepcid] 20 mg PO DAILY 3 Days #3 tablet 05/03/20 Ondansetron Odt [Zofran Odt] 4 mg PO Q8HR PRN 3 Days #9 tab 05/03/20 Ondansetron [Zofran ODT] 4 mg PO Q8HR PRN #20 tab 06/08/20 Allergies Allergy/AdvReac Type Severity Reaction Status Date / Time calcium [From DHEA] Allergy Unknown Verified 06/08/20 01:25 calcium carbonate [From DHEA] Allergy Unknown Verified 06/08/20 01:25 cyclobenzaprine HCl Allergy Unknown Verified 06/08/20 01:25 [From Flexeril] divalproex sodium Allergy Unknown Verified 06/08/20 01:25 [From Depakote] influenza virus vaccine, Allergy Rash/Hives Verified 06/08/20 01:25 specific metoclopramide [From Reglan] Allergy Unknown Verified 06/08/20 01:25 prasterone (DHEA) [From DHEA] Allergy Unknown Verified 06/08/20 01:25 sulfamethoxazole Allergy Unknown Verified 06/08/20 01:25 [From Septra] sumatriptan [From Imitrex] Allergy Unknown Verified 06/08/20 01:25 sumatriptan succinate Allergy Unknown Verified 06/08/20 01:25 [From Imitrex] topiramate [From Topamax] Allergy Rash/Hives Verified 06/08/20 01:25 trimethoprim [From Septra] Allergy Unknown Verified 06/08/20 01:25 antihistamines Allergy Dyspnea Uncoded 06/08/20 01:25 Review of Systems ROS Statement: Those systems with pertinent positive or pertinent negative responses have been documented in the HPI. ROS Other: All systems not noted in ROS Statement are negative. Past Medical History Past Medical History: GERD/Reflux Additional Past Medical History / Comment(s): ARTHRITIS, HIATAL HERNIA AND GASTRIC ULCER, ENVIRONMENTAL ALLERGIES, DIGESTIVE ISSUES, MIGRAINES, ANEMIA, "PREDIABETIC", herniated disc, narrowed ureters History of Any Multi-Drug Resistant Organisms: None Reported Past Surgical History: Adenoidectomy, Tonsillectomy Additional Past Surgical History / Comment(s): eye sclera, Past Psychological History: Anxiety, Depression, Panic Disorder Smoking Status: Former smoker Past Alcohol Use History: None Reported Past Drug Use History: Marijuana General Exam Limitations: no limitations General appearance: alert, in no apparent distress, other (This is a well developed, well nourished adult female patient in no acute distress. ) Eye exam: Present: normal appearance, PERRL, EOMI. Absent: scleral icterus, conjunctival injection, nystagmus, periorbital swelling ENT exam: Present: normal exam, normal oropharynx Respiratory exam: Present: normal lung sounds bilaterally. Absent: respiratory distress, wheezes, rales, rhonchi, stridor Cardiovascular Exam: Present: regular rate, normal rhythm, normal heart sounds. Absent: systolic murmur, diastolic murmur, rubs, gallop, clicks GI/Abdominal exam: Present: soft, normal bowel sounds. Absent: distended, tenderness, guarding, rebound, rigid Neurological exam: Present: alert, oriented X3, CN II-XII intact Expanded Speech: Present: fluid speech Cranial nerves: EOM's Intact: Normal, Nystagmus: Normal Motor strength exam: RUE: 5, LUE: 5, RLE: 5, LLE: 5 Psychiatric exam: Present: normal affect, normal mood Skin exam: Present: warm, dry, intact, normal color. Absent: rash Course Vital Signs 06/08/20 06/08/20 01:18 02:56 Temperature 98.2 F Pulse Rate 80 80 Respiratory 18 17 Rate Blood Pressure 103/60 122/62 O2 Sat by Pulse 98 100 Oximetry Medical Decision Making - Medical Decision Making 29-year-old female patient who is 13 weeks , G2, P0 presents to the emergency department today for evaluation of increased vomiting, migraine headache, hematemesis. She reports 6 episodes of vomiting containing bright red blood. Physical examination reveals soft nontender abdomen. She denies any abdominal pain. Denies any urinary symptoms or vaginal bleeding. heart tones were obtained and were 162-176. Labs reviewed and were unremarkable. Blood counts are normal. Urinalysis shows no sign of infection, no ketones. She was given IV fluids and Zofran here. She was given Ofirmev for headache. Upon reevaluation she is resting comfortably states her symptoms are improved. She'll be discharged home with a starter pack for Zofran as well as a prescription. She'll be following up with her EMB[employer]NA[employer] Dr. Willis. She is instructed to follow-up with her primary care physician for recheck in 1-2 days. Return parameters were discussed in detail. She verbalizes understanding and agrees with this plan. Case discussed with my attending Dr. Baxter. - Lab Data Result diagrams: 06/08/20 01:43 06/08/20 01:43 Lab Results 06/08/20 06/08/20 06/08/20 Range/Units 01:43 01:43 01:43 WBC 8.5 (3.8-10.6) k/uL RBC 3.69 L (3.80-5.40) m/uL Hgb 12.0 (11.4-16.0) gm/dL Hct 34.3 (34.0-46.0) % MCV 92.8 (80.0-100.0) fL MCH 32.5 (25.0-35.0) pg MCHC 35.0 (31.0-37.0) g/dL RDW 12.1 (11.5-15.5) % Plt Count 203 (150-450) k/uL MPV 6.8 Neutrophils % 79 % Lymphocytes % 14 % Monocytes % 5 % Eosinophils % 1 % Basophils % 0 % Neutrophils # 6.7 (1.3-7.7) k/uL Lymphocytes # 1.2 (1.0-4.8) k/uL Monocytes # 0.4 (0-1.0) k/uL Eosinophils # 0.1 (0-0.7) k/uL Basophils # 0.0 (0-0.2) k/uL PT 9.9 (9.0-12.0) sec INR 0.9 (<1.2) APTT 24.3 (22.0-30.0) sec Sodium (137-145) mmol/L Potassium (3.5-5.1) mmol/L Chloride (98-107) mmol/L Carbon Dioxide (22-30) mmol/L Anion Gap mmol/L BUN (7-17) mg/dL Creatinine (0.52-1.04) mg/dL Est GFR (CKD-EPI)AfAm (>60 ml/min/1.73 sqM) Est GFR (CKD-EPI)NonAf (>60 ml/min/1.73 sqM) Glucose (74-99) mg/dL Calcium (8.4-10.2) mg/dL Total Bilirubin (0.2-1.3) mg/dL AST (14-36) U/L ALT (4-34) U/L Alkaline Phosphatase (38-126) U/L Total Protein (6.3-8.2) g/dL Albumin (3.5-5.0) g/dL Amylase (30-110) U/L Lipase (23-300) U/L Urine Color Light Yellow Urine Appearance Cloudy H (Clear) Urine pH 7.5 (5.0-8.0) Ur Specific [place] 1.009 (1.001-1.035) Urine Protein Negative (Negative) Urine Glucose (UA) Negative (Negative) Urine Ketones Negative (Negative) Urine Blood Negative (Negative) Urine Nitrite Negative (Negative) Urine Bilirubin Negative (Negative) Urine Urobilinogen <2.0 (<2.0) mg/dL Ur Leukocyte Esterase Negative (Negative) Urine WBC 1 (0-5) /hpf Ur Squamous Epith Cells <1 (0-4) /hpf Amorphous Sediment Rare H (None) /hpf 06/08/20 Range/Units 01:43 WBC (3.8-10.6) k/uL RBC (3.80-5.40) m/uL Hgb (11.4-16.0) gm/dL Hct (34.0-46.0) % MCV (80.0-100.0) fL MCH (25.0-35.0) pg MCHC (31.0-37.0) g/dL RDW (11.5-15.5) % Plt Count (150-450) k/uL MPV Neutrophils % % Lymphocytes % % Monocytes % % Eosinophils % % Basophils % % Neutrophils # (1.3-7.7) k/uL Lymphocytes # (1.0-4.8) k/uL Monocytes # (0-1.0) k/uL Eosinophils # (0-0.7) k/uL Basophils # (0-0.2) k/uL PT (9.0-12.0) sec INR (<1.2) APTT (22.0-30.0) sec Sodium 134 L (137-145) mmol/L Potassium 3.5 (3.5-5.1) mmol/L Chloride 105 (98-107) mmol/L Carbon Dioxide 24 (22-30) mmol/L Anion Gap 5 mmol/L BUN 7 (7-17) mg/dL Creatinine 0.47 L (0.52-1.04) mg/dL Est GFR (CKD-EPI)AfAm >90 (>60 ml/min/1.73 sqM) Est GFR (CKD-EPI)NonAf >90 (>60 ml/min/1.73 sqM) Glucose 95 (74-99) mg/dL Calcium 9.0 (8.4-10.2) mg/dL Total Bilirubin 0.3 (0.2-1.3) mg/dL AST 17 (14-36) U/L ALT 11 (4-34) U/L Alkaline Phosphatase 57 (38-126) U/L Total Protein 6.5 (6.3-8.2) g/dL Albumin 3.7 (3.5-5.0) g/dL Amylase 65 (30-110) U/L Lipase 79 (23-300) U/L Urine Color Urine Appearance (Clear) Urine pH (5.0-8.0) Ur Specific [place] (1.001-1.035) Urine Protein (Negative) Urine Glucose (UA) (Negative) Urine Ketones (Negative) Urine Blood (Negative) Urine Nitrite (Negative) Urine Bilirubin (Negative) Urine Urobilinogen (<2.0) mg/dL Ur Leukocyte Esterase (Negative) Urine WBC (0-5) /hpf Ur Squamous Epith Cells (0-4) /hpf Amorphous Sediment (None) /hpf Disposition Clinical Impression: Vomiting, Hematemesis, Migraine Disposition: HOME SELF-CARE Condition: Good Instructions (If sedation given, give patient instructions): Migraine Headache (ED), Acute Nausea and Vomiting (ED), Hematemesis (ED) Additional Instructions: Take Zofran as directed. Start with clear liquid diet and advance as tolerated. Follow up with her [employer] and primary care physician for recheck in 1-2 days. Return to the emergency department for any new, worsening, or concerning symptoms. Prescriptions: Ondansetron [Zofran ODT] 4 mg PO Q8HR PRN #20 tab PRN Reason: Nausea Is patient prescribed a controlled substance at d/c from ED?: No Referrals: Inna Bonilla MD [Primary Care Provider] - 1-2 days Time of Disposition: 03:13
[2020-06-08] MEDS ORDERED: ACETAMINOPHEN IV (For NPO) 1,000 MG in EMPTY BAG 1 BAG IVPB ONE (01:45)
[2020-06-08 01:50] LABS: Basophils % (A) 0 %; Eosinophils # (A) 0.1 k/uL (0-0.7); Eosinophils % (A) 1 %; HCT 34.3 % (34.0-46.0); Lymphocytes # (A) 1.2 k/uL (1.0-4.8); Lymphocytes % (A) 14 %; MCH 32.5 pg (25.0-35.0); MCV 92.8 fL (80.0-100.0); Mean Platelet Volume 6.8; Monocytes # (A) 0.4 k/uL (0-1.0); Monocytes % (A) 5 %; Neutrophils # (A) 6.7 k/uL (1.3-7.7); Neutrophils % (A) 79 %; Platelet Count 203 k/uL (150-450); RBC 3.69 m/uL (3.80-5.40); RDW 12.1 % (11.5-15.5); WBC 8.5 k/uL (3.8-10.6)
[2020-06-08 02:00] LABS: ALT 11 U/L (4-34); AST 17 U/L (14-36); African American GFR (CKD) >90 (>60 ml/min/1.73 sqM); Albumin 3.7 g/dL (3.5-5.0); Alkaline Phosphatase 57 U/L (38-126); Amylase 65 U/L (30-110); Anion Gap 5 mmol/L; Blood Urea Nitrogen 7 mg/dL (7-17); Carbon Dioxide 24 mmol/L (22-30); Chloride 105 mmol/L (98-107); Glucose 95 mg/dL (74-99); Lipase 79 U/L (23-300); Non-African American GFR(CKD) >90 (>60 ml/min/1.73 sqM); Potassium 3.5 mmol/L (3.5-5.1); Sodium 134 mmol/L (137-145); Total Bilirubin 0.3 mg/dL (0.2-1.3); Total Protein 6.5 g/dL (6.3-8.2)
[2020-06-08 02:05] LABS: INR 0.9 (<1.2); Partial Thromboplastin Time 24.3 sec (22.0-30.0); Prothrombin Time 9.9 sec (9.0-12.0)
[2020-06-08 02:57] VITALS: BP 122/62; PULSE 80; RESP 17
[2020-06-08 03:10] LABS: Amorphous Sediment,Urine Rare /hpf; Appearance,Urine Cloudy (Clear); Bilirubin,Urine Negative (Negative); Blood,Urine Negative (Negative); Color,Urine Light Yellow; Glucose,Urine (UA) Negative (Negative); Ketones,Urine Negative (Negative); Leukocyte Esterase,Urine Negative (Negative); Nitrite,Urine Negative (Negative); PH, Urine 7.5 (5.0-8.0); Protein,Urine Negative (Negative); Specific Gravity,Urine 1.009 (1.001-1.035); Squamous Epithelial Cell,Urine <1 /hpf (0-4); Urobilinogen,Urine <2.0 mg/dL (<2.0); WBC,Urine 1 /hpf (0-5)
[2020-06-08] MEDS ORDERED: ONDANSETRON 4 MG ODT STARTER PACK 2 TAB BTL PO STA (03:12)
== END 2020-06-08 03:22 | disposition home or self-care (01) ==
LOC: EC 01:17
DX: O99.351 Diseases of the nervous system complicating pregnancy, first trimester (principal); G43.909 Migraine, unspecified, not intractable, without status migrainosus; O21.8 Other vomiting complicating pregnancy; K92.0 Hematemesis; O99.611 Diseases of the digestive system complicating pregnancy, first trimester; K21.9 Gastro-esophageal reflux disease without esophagitis; Z79.899 Other long term (current) drug therapy; Z3A.13 13 weeks gestation of pregnancy; Z87.891 Personal history of nicotine dependence; Z88.8 Allergy status to other drugs, medicaments and biological substances; Z88.7 Allergy status to serum and vaccine; Z88.2 Allergy status to sulfonamides; Z91.048 Other nonmedicinal substance allergy status
CPT/HCPCS: 36415; 80053; 81001; 82150; 83690; 85025; 85610; 85730; 96365; 96375; 99284

== ENCOUNTER 2020-06-12 17:59 | Emergency (ER) | payer OTHER ==
[2020-06-12 18:03] VITALS: RESP 18; TEMP 97.6
[2020-06-12] MEDS ORDERED: SODIUM CHLORIDE 0.9% 1,000 ML IV STA (18:18)
[2020-06-12] MEDS ORDERED: ONDANSETRON 4 MG/2 ML VIAL IVP STA (18:18)
[2020-06-12] MEDS ORDERED: ACETAMINOPHEN IV (For NPO) 1,000 MG in EMPTY BAG 1 BAG IVPB STA (18:19)
--- NOTE | 2020-06-12 18:22 | ED ---
Headache HPI - General Chief Complaint: Headache Stated Complaint: Head pain Time Seen by Provider: 06/12/20 18:04 Source: RN notes reviewed Mode of arrival: ambulatory Limitations: no limitations - History of Present Illness Initial Comments: Patient is a 30-year-old female presents emergency department complaining of migraine type headache. She noted that she is , at 13-14 weeks. She stated that she gets migraines regularly and has a history of them. She does note photophobia and phonophobia. She was recently in the ER on 06/08/2020 for a similar issue. And noted that IV fluids and Zofran and IV Tylenol worked well to reduce symptoms. She did note that she will follow-up with her headache doctor to get infusions. She denied any nausea or vomiting today. She denied any chest pain shortness of breath fever fatigue chills diarrhea constipation lightheadedness dizziness. - Related Data Home Medications Medication Instructions Recorded Confirmed Beclomethasone Dipropionate [Qvar 2 puff INHALATION RT-DAILY 08/17/18 04/26/20 80 mcg] Albuterol Sulfate [Ventolin HFA] 1 - 2 puff INHALATION RT-Q6H PRN 04/26/20 04/26/20 Multivitamins, Thera [Multivitamin 1 tab PO DAILY 04/26/20 04/26/20 (formulary)] Pantoprazole Sodium [Protonix] 20 mg PO DAILY 04/26/20 04/26/20 Previous Rx's Medication Instructions Recorded Nitrofurantoin Monohyd/M-Cryst 100 mg PO Q12HR #14 cap 04/26/20 [Macrobid] Pnv No.95/Ferrous Fum/Folic AC 1 each PO DAILY #30 tablet 04/26/20 [ Multivitamin Tablet] Famotidine [Pepcid] 20 mg PO DAILY 3 Days #3 tablet 05/03/20 Ondansetron Odt [Zofran Odt] 4 mg PO Q8HR PRN 3 Days #9 tab 05/03/20 Ondansetron [Zofran ODT] 4 mg PO Q8HR PRN #20 tab 06/08/20 Allergies Allergy/AdvReac Type Severity Reaction Status Date / Time calcium [From DHEA] Allergy Unknown Verified 06/12/20 18:03 calcium carbonate [From DHEA] Allergy Unknown Verified 06/12/20 18:03 cyclobenzaprine HCl Allergy Unknown Verified 06/12/20 18:03 [From Flexeril] divalproex sodium Allergy Unknown Verified 06/12/20 18:03 [From Depakote] influenza virus vaccine, Allergy Rash/Hives Verified 06/12/20 18:03 specific metoclopramide [From Reglan] Allergy Unknown Verified 06/12/20 18:03 prasterone (DHEA) [From DHEA] Allergy Unknown Verified 06/12/20 18:03 sulfamethoxazole Allergy Unknown Verified 06/12/20 18:03 [From Septra] sumatriptan [From Imitrex] Allergy Unknown Verified 06/12/20 18:03 sumatriptan succinate Allergy Unknown Verified 06/12/20 18:03 [From Imitrex] topiramate [From Topamax] Allergy Rash/Hives Verified 06/12/20 18:03 trimethoprim [From Septra] Allergy Unknown Verified 06/12/20 18:03 antihistamines Allergy Dyspnea Uncoded 06/12/20 18:03 Review of Systems ROS Statement: Those systems with pertinent positive or pertinent negative responses have been documented in the HPI. ROS Other: All systems not noted in ROS Statement are negative. Past Medical History Past Medical History: GERD/Reflux Additional Past Medical History / Comment(s): ARTHRITIS, HIATAL HERNIA AND GASTRIC ULCER, ENVIRONMENTAL ALLERGIES, DIGESTIVE ISSUES, MIGRAINES, ANEMIA, "PREDIABETIC", herniated disc, narrowed ureters History of Any Multi-Drug Resistant Organisms: None Reported Past Surgical History: Adenoidectomy, Tonsillectomy Additional Past Surgical History / Comment(s): eye sclera Past Psychological History: Anxiety, Depression, Panic Disorder Smoking Status: Former smoker Past Alcohol Use History: None Reported Past Drug Use History: Marijuana General Exam Limitations: no limitations General appearance: alert, in no apparent distress Head exam: Present: atraumatic, normocephalic, normal inspection Eye exam: Present: normal appearance, PERRL, EOMI. Absent: scleral icterus, conjunctival injection, periorbital swelling ENT exam: Present: normal exam, mucous membranes moist Neck exam: Present: normal inspection. Absent: tenderness, meningismus, lympha denopathy Respiratory exam: Present: normal lung sounds bilaterally. Absent: respiratory distress, wheezes, rales, rhonchi, stridor Cardiovascular Exam: Present: regular rate, normal rhythm, normal heart sounds. Absent: systolic murmur, diastolic murmur, rubs, gallop, clicks GI/Abdominal exam: Present: soft, normal bowel sounds. Absent: distended, tenderness, guarding, rebound, rigid Extremities exam: Present: normal inspection, full ROM, normal capillary refill. Absent: tenderness, pedal edema, joint swelling, calf tenderness Neurological exam: Present: alert, oriented X3, CN II-XII intact Psychiatric exam: Present: normal affect, normal mood Skin exam: Present: warm, dry, intact, normal color. Absent: rash Course Vital Signs 06/12/20 18:00 Temperature 97.6 F Pulse Rate 96 Respiratory 18 Rate Blood Pressure 117/79 O2 Sat by Pulse 99 Oximetry Medical Decision Making - Medical Decision Making 30-year-old female with migraine type headache, at 13-14 weeks. 1 L normal saline, IV Tylenol, Zofran ordered. patient tolerated medications and fluid bolus well stated that she was feeling better. Case discussed with Dr. Zelaya decided was okay patient to discharge home with primary care follow-up. Disposition Clinical Impression: Migraine Disposition: HOME SELF-CARE Condition: Stable Instructions (If sedation given, give patient instructions): Acute Headache (ED) Additional Instructions: Please return to the Emergency Department if symptoms worsen or any other concerns. Follow-up with primary care in 1-2 days. Follow-up with neurology as soon as possible. Continue to take [id number] pain medications as needed for conservative management. Is patient prescribed a controlled substance at d/c from ED?: No Referrals: Inna Bonilla MD [Primary Care Provider] - 1-2 days Time of Disposition: 19:00
[2020-06-12 19:28] VITALS: BP 95/65; PULSE 91
== END 2020-06-12 19:28 | disposition home or self-care (01) ==
LOC: EC 17:59
DX: O99.351 Diseases of the nervous system complicating pregnancy, first trimester (principal); G43.909 Migraine, unspecified, not intractable, without status migrainosus; O99.611 Diseases of the digestive system complicating pregnancy, first trimester; K21.9 Gastro-esophageal reflux disease without esophagitis; Z79.899 Other long term (current) drug therapy; Z87.891 Personal history of nicotine dependence; Z90.89 Acquired absence of other organs; Z88.1 Allergy status to other antibiotic agents; Z88.2 Allergy status to sulfonamides; Z88.7 Allergy status to serum and vaccine; Z88.8 Allergy status to other drugs, medicaments and biological substances; Z3A.14 14 weeks gestation of pregnancy
CPT/HCPCS: 99283; 96374; 96375; 96361; J2405; J0131

== ENCOUNTER 2020-06-18 11:21 | Emergency (ER) | payer OTHER ==
[2020-06-18 11:28] VITALS: BP 123/70; PULSE 100; RESP 20; TEMP 98.4
[2020-06-18 12:14] LABS: Appearance,Urine Clear (Clear); Bilirubin,Urine Negative (Negative); Blood,Urine Negative (Negative); Color,Urine Colorless; Glucose,Urine (UA) Negative (Negative); Ketones,Urine Negative (Negative); Leukocyte Esterase,Urine Negative (Negative); Nitrite,Urine Negative (Negative); Protein,Urine Negative (Negative); Specific Gravity,Urine 1.002 (1.001-1.035); Urobilinogen,Urine <2.0 mg/dL (<2.0)
[2020-06-18] MEDS ORDERED: MAGNESIUM HYDROXIDE 2,400 MG/10 ML CUP PO STA (12:32)
[2020-06-18] MEDS ORDERED: DOCUSATE 283 MG/5 ML ENEMA RECTAL STA ×2 (12:32)
--- NOTE | 2020-06-18 12:33 | ED ---
Abdominal Pain HPI - General Chief Complaint: Abdominal Pain Stated Complaint: no bowel movement/1 week Time Seen by Provider: 06/18/20 11:32 Source: patient, RN notes reviewed Mode of arrival: ambulatory Limitations: no limitations - History of Present Illness Initial Comments: 30-year-old female presents emergency Department chief complaint of constip ation. Patient states that she's been constant for the last month with no bowel movement. Patient states she's taken some iyjy-geg-eruowxy medications with no significant relief. Patient states that she has had issues with constipation states that she is currently is which is made it worse. No vaginal bleeding or vaginal discharge she is 13 weeks she states her [employer] is Dr. Breen. Patient has no fevers chills no flank pain no back pain. - Related Data Home Medications Medication Instructions Recorded Confirmed Beclomethasone Dipropionate [Qvar 2 puff INHALATION RT-DAILY 08/17/18 04/26/20 80 mcg] Albuterol Sulfate [Ventolin HFA] 1 - 2 puff INHALATION RT-Q6H PRN 04/26/20 04/26/20 Multivitamins, Thera [Multivitamin 1 tab PO DAILY 04/26/20 04/26/20 (formulary)] Pantoprazole Sodium [Protonix] 20 mg PO DAILY 04/26/20 04/26/20 Previous Rx's Medication Instructions Recorded Nitrofurantoin Monohyd/M-Cryst 100 mg PO Q12HR #14 cap 04/26/20 [Macrobid] Pnv No.95/Ferrous Fum/Folic AC 1 each PO DAILY #30 tablet 04/26/20 [ Multivitamin Tablet] Famotidine [Pepcid] 20 mg PO DAILY 3 Days #3 tablet 05/03/20 Ondansetron Odt [Zofran Odt] 4 mg PO Q8HR PRN 3 Days #9 tab 05/03/20 Ondansetron [Zofran ODT] 4 mg PO Q8HR PRN #20 tab 06/08/20 Allergies Allergy/AdvReac Type Severity Reaction Status Date / Time calcium [From DHEA] Allergy Unknown Verified 06/18/20 11:28 calcium carbonate [From DHEA] Allergy Unknown Verified 06/18/20 11:28 cyclobenzaprine HCl Allergy Unknown Verified 06/18/20 11:28 [From Flexeril] divalproex sodium Allergy Unknown Verified 06/18/20 11:28 [From Depakote] influenza virus vaccine, Allergy Rash/Hives Verified 06/18/20 11:28 specific metoclopramide [From Reglan] Allergy Unknown Verified 06/18/20 11:28 prasterone (DHEA) [From DHEA] Allergy Unknown Verified 06/18/20 11:28 sulfamethoxazole Allergy Unknown Verified 06/18/20 11:28 [From Septra] sumatriptan [From Imitrex] Allergy Unknown Verified 06/18/20 11:28 sumatriptan succinate Allergy Unknown Verified 06/18/20 11:28 [From Imitrex] topiramate [From Topamax] Allergy Rash/Hives Verified 06/12/20 18:03 trimethoprim [From Septra] Allergy Unknown Verified 06/12/20 18:03 antihistamines Allergy Dyspnea Uncoded 06/12/20 18:03 Review of Systems ROS Statement: Those systems with pertinent positive or pertinent negative responses have been documented in the HPI. ROS Other: All systems not noted in ROS Statement are negative. Past Medical History Past Medical History: Asthma, GERD/Reflux Additional Past Medical History / Comment(s): ARTHRITIS, HIATAL HERNIA AND GASTRIC ULCER, ENVIRONMENTAL ALLERGIES, DIGESTIVE ISSUES, MIGRAINES, ANEMIA, "PREDIABETIC", herniated disc, narrowed ureters History of Any Multi-Drug Resistant Organisms: None Reported Past Surgical History: Adenoidectomy, Tonsillectomy Additional Past Surgical History / Comment(s): eye sclera Past Psychological History: Anxiety, Depression, Panic Disorder Smoking Status: Former smoker Past Alcohol Use History: None Reported Past Drug Use History: Marijuana General Exam Limitations: no limitations General appearance: alert, in no apparent distress Head exam: Present: atraumatic, normocephalic, normal inspection Neck exam: Present: normal inspection. Absent: tenderness, meningismus, lymphadenopathy Respiratory exam: Present: normal lung sounds bilaterally. Absent: respiratory distress, wheezes, rales, rhonchi, stridor Cardiovascular Exam: Present: regular rate, normal rhythm, normal heart sounds. Absent: systolic murmur, diastolic murmur, rubs, gallop, clicks GI/Abdominal exam: Present: soft, normal bowel sounds. Absent: distended, tenderness, guarding, rebound, rigid Back exam: Absent: CVA tenderness (R), CVA tenderness (L) Skin exam: Present: warm, dry, intact, normal color. Absent: rash Course Vital Signs 06/18/20 11:26 Temperature 98.4 F Pulse Rate 100 Respiratory 20 Rate Blood Pressure 123/70 O2 Sat by Pulse 99 Oximetry Medical Decision Making - Medical Decision Making 30-year-old for constipation. Patient is supposed chronic GI issues along with current causing worsening constipation. Patient we discharged with appropriate treatment for constipation safe in . Patient's urinalysis is unremarkable she is to follow-up with [employer] return for any worsening change in symptoms. - Lab Data Lab Results 06/18/20 Range/Units 12:02 Urine Color Colorless Urine Appearance Clear (Clear) Urine pH 6.0 (5.0-8.0) Ur Specific [place] 1.002 (1.001-1.035) Urine Protein Negative (Negative) Urine Glucose (UA) Negative (Negative) Urine Ketones Negative (Negative) Urine Blood Negative (Negative) Urine Nitrite Negative (Negative) Urine Bilirubin Negative (Negative) Urine Urobilinogen <2.0 (<2.0) mg/dL Ur Leukocyte Esterase Negative (Negative) Disposition Clinical Impression: Constipation Disposition: HOME SELF-CARE Condition: Stable Instructions (If sedation given, give patient instructions): High Fiber Diet (ED), Constipation (ED) Additional Instructions: Please return to the Emergency Department if symptoms worsen or any other concerns. Is patient prescribed a controlled substance at d/c from ED?: No Referrals: Inna Bonilla MD [Primary Care Provider] - 1-2 days Time of Disposition: 12:33
== END 2020-06-18 12:43 | disposition home or self-care (01) ==
LOC: EC 11:21
DX: O99.619 Diseases of the digestive system complicating pregnancy, unspecified trimester (principal); K59.00 Constipation, unspecified; O99.519 Diseases of the respiratory system complicating pregnancy, unspecified trimester; J45.909 Unspecified asthma, uncomplicated; O99.340 Other mental disorders complicating pregnancy, unspecified trimester; F41.0 Panic disorder [episodic paroxysmal anxiety]; F32.9 Major depressive disorder, single episode, unspecified; K21.9 Gastro-esophageal reflux disease without esophagitis; M19.90 Unspecified osteoarthritis, unspecified site; Z3A.00 Weeks of gestation of pregnancy not specified; Z79.51 Long term (current) use of inhaled steroids; Z87.891 Personal history of nicotine dependence; Z90.09 Acquired absence of other part of head and neck
CPT/HCPCS: 81003; 99283

== ENCOUNTER 2020-07-05 05:12 | Emergency (ER) | payer OTHER ==
[2020-07-05 05:20] VITALS: RESP 16; TEMP 97.9
[2020-07-05] MEDS ORDERED: diphenhydrAMINE 50 MG/ML 1 ML VIAL IVP STA (05:32)
[2020-07-05] MEDS ORDERED: ONDANSETRON 4 MG/2 ML VIAL IVP STA (05:32)
[2020-07-05] MEDS ORDERED: SODIUM CHLORIDE 0.9% 1,000 ML IV STA ×2 (05:32)
[2020-07-05] MEDS ORDERED: SODIUM CHLORIDE 0.9% 500 ML 500 ML IV STA (05:32)
[2020-07-05] MEDS ORDERED: PYRIDOXINE 100 MG/ML 1 ML VIAL IVP STA (05:32)
--- NOTE | 2020-07-05 05:34 | ED ---
Nausea/Vomiting/Diarrhea HPI - General Chief complaint: Nausea/Vomiting/Diarrhea Stated complaint: Vomiting Blood Time Seen by Provider: 07/05/20 05:13 Source: patient, RN notes reviewed, old records reviewed Mode of arrival: ambulatory Limitations: no limitations - History of Present Illness Initial comments: This is a 30-year-old female to the ER for evaluation of vomiting of . As well as persistent headaches. Patient is otherwise without fever, no vaginal discharge no bleeding. Patient has had nausea and vomiting throughout and this is felt this has been since. Patient denies any fevers no chest pain no cough or shortness of breath. No abdominal pain MD complaint: nausea, vomiting -: days(s) Description of Vomiting: watery Associated Abdominal Pain: No Radiation: none Severity: mild Quality: cramping Consistency: constant Improves with: none Worsens with: none Context: other (none) Associated Symptoms: loss of appetite, nausea/vomiting, weakness - Related Data Home Medications Medication Instructions Recorded Confirmed Beclomethasone Dipropionate [Qvar 2 puff INHALATION RT-DAILY 08/17/18 04/26/20 80 mcg] Albuterol Sulfate [Ventolin HFA] 1 - 2 puff INHALATION RT-Q6H PRN 04/26/20 04/26/20 Multivitamins, Thera [Multivitamin 1 tab PO DAILY 04/26/20 04/26/20 (formulary)] Pantoprazole Sodium [Protonix] 20 mg PO DAILY 04/26/20 04/26/20 Previous Rx's Medication Instructions Recorded Nitrofurantoin Monohyd/M-Cryst 100 mg PO Q12HR #14 cap 04/26/20 [Macrobid] Pnv No.95/Ferrous Fum/Folic AC 1 each PO DAILY #30 tablet 04/26/20 [ Multivitamin Tablet] Famotidine [Pepcid] 20 mg PO DAILY 3 Days #3 tablet 05/03/20 Ondansetron Odt [Zofran Odt] 4 mg PO Q8HR PRN 3 Days #9 tab 05/03/20 Ondansetron [Zofran ODT] 4 mg PO Q8HR PRN #20 tab 06/08/20 Allergies Allergy/AdvReac Type Severity Reaction Status Date / Time calcium [From DHEA] Allergy Unknown Verified 07/05/20 05:20 calcium carbonate [From DHEA] Allergy Unknown Verified 07/05/20 05:20 cyclobenzaprine HCl Allergy Unknown Verified 07/05/20 05:20 [From Flexeril] divalproex sodium Allergy Unknown Verified 07/05/20 05:20 [From Depakote] influenza virus vaccine, Allergy Rash/Hives Verified 07/05/20 05:20 specific metoclopramide [From Reglan] Allergy Unknown Verified 07/05/20 05:20 prasterone (DHEA) [From DHEA] Allergy Unknown Verified 07/05/20 05:20 sulfamethoxazole Allergy Unknown Verified 07/05/20 05:20 [From Septra] sumatriptan [From Imitrex] Allergy Unknown Verified 07/05/20 05:20 sumatriptan succinate Allergy Unknown Verified 07/05/20 05:20 [From Imitrex] topiramate [From Topamax] Allergy Rash/Hives Verified 07/05/20 05:20 trimethoprim [From Septra] Allergy Unknown Verified 07/05/20 05:20 antihistamines Allergy Dyspnea Uncoded 07/05/20 05:20 Review of Systems ROS Statement: Those systems with pertinent positive or pertinent negative responses have been documented in the HPI. ROS Other: All systems not noted in ROS Statement are negative. Past Medical History Past Medical History: Asthma, GERD/Reflux Additional Past Medical History / Comment(s): ARTHRITIS, HIATAL HERNIA AND GASTRIC ULCER, ENVIRONMENTAL ALLERGIES, DIGESTIVE ISSUES, MIGRAINES, ANEMIA, "PREDIABETIC", herniated disc, narrowed ureters History of Any Multi-Drug Resistant Organisms: None Reported Past Surgical History: Adenoidectomy, Tonsillectomy Additional Past Surgical History / Comment(s): eye sclera Past Psychological History: Anxiety, Depression, Panic Disorder Smoking Status: Former smoker Past Alcohol Use History: None Reported Past Drug Use History: Marijuana General Exam Limitations: no limitations General appearance: alert, in no apparent distress Head exam: Present: atraumatic, normocephalic, normal inspection Eye exam: Present: normal appearance, PERRL, EOMI. Absent: scleral icterus, conjunctival injection, periorbital swelling ENT exam: Present: normal exam, mucous membranes moist Neck exam: Present: normal inspection. Absent: tenderness, meningismus, lymphadenopathy Respiratory exam: Present: normal lung sounds bilaterally. Absent: respiratory distress, wheezes, rales, rhonchi, stridor Cardiovascular Exam: Present: normal rhythm, tachycardia, normal heart sounds. Absent: systolic murmur, diastolic murmur, rubs, gallop, clicks GI/Abdominal exam: Present: soft, normal bowel sounds. Absent: distended, tenderness, guarding, rebound, rigid Extremities exam: Present: normal inspection, full ROM, normal capillary refill. Absent: tenderness, pedal edema, joint swelling, calf tenderness Back exam: Present: normal inspection Neurological exam: Present: alert, oriented X3, CN II-XII intact Psychiatric exam: Present: normal affect, normal mood Skin exam: Present: warm, dry, intact, normal color. Absent: rash Course Vital Signs 07/05/20 07/05/20 05:15 06:59 Temperature 97.9 F Pulse Rate 107 H 75 Respiratory 16 16 Rate Blood Pressure 107/77 92/62 O2 Sat by Pulse 99 100 Oximetry - Reevaluation(s) Reevaluation #1: Medical record is reviewed Patient symptoms improved here in the ER Patient family informed of results, questions have been answered Patient continues to feel improved here in the ER feels good for discharge Medical Decision Making - Medical Decision Making 22 female who is 18 weeks for nausea vomiting abdominal pain and headaches. History of similar throughout . At this point patient can be discharged home. As she does feel improved - Lab Data Result diagrams: 07/05/20 05:43 07/05/20 05:43 Lab Results 07/05/20 07/05/20 07/05/20 Range/Units 05:43 05:43 05:43 WBC 8.1 (3.8-10.6) k/uL RBC 3.97 (3.80-5.40) m/uL Hgb 12.5 (11.4-16.0) gm/dL Hct 36.5 (34.0-46.0) % MCV 92.0 (80.0-100.0) fL MCH 31.6 (25.0-35.0) pg MCHC 34.4 (31.0-37.0) g/dL RDW 12.9 (11.5-15.5) % Plt Count 221 (150-450) k/uL MPV 7.1 Neutrophils % 76 % Lymphocytes % 16 % Monocytes % 6 % Eosinophils % 1 % Basophils % 0 % Neutrophils # 6.1 (1.3-7.7) k/uL Lymphocytes # 1.3 (1.0-4.8) k/uL Monocytes # 0.5 (0-1.0) k/uL Eosinophils # 0.1 (0-0.7) k/uL Basophils # 0.0 (0-0.2) k/uL Sodium 134 L (137-145) mmol/L Potassium 3.8 (3.5-5.1) mmol/L Chloride 103 (98-107) mmol/L Carbon Dioxide 26 (22-30) mmol/L Anion Gap 5 mmol/L BUN 7 (7-17) mg/dL Creatinine 0.50 L (0.52-1.04) mg/dL Est GFR (CKD-EPI)AfAm >90 (>60 ml/min/1.73 sqM) Est GFR (CKD-EPI)NonAf >90 (>60 ml/min/1.73 sqM) Glucose 87 (74-99) mg/dL Calcium 9.3 (8.4-10.2) mg/dL Phosphorus 4.5 (2.5-4.5) mg/dL Magnesium 1.7 (1.6-2.3) mg/dL Total Bilirubin 0.2 (0.2-1.3) mg/dL AST 30 (14-36) U/L ALT 24 (4-34) U/L Alkaline Phosphatase 80 (38-126) U/L Total Protein 6.9 (6.3-8.2) g/dL Albumin 4.0 (3.5-5.0) g/dL Amylase 74 (30-110) U/L Lipase 71 (23-300) U/L Urine Color Yellow Urine Appearance Clear (Clear) Urine pH 6.0 (5.0-8.0) Ur Specific [place] 1.015 (1.001-1.035) Urine Protein Negative (Negative) Urine Glucose (UA) Negative (Negative) Urine Ketones Negative (Negative) Urine Blood Negative (Negative) Urine Nitrite Negative (Negative) Urine Bilirubin Negative (Negative) Urine Urobilinogen <2.0 (<2.0) mg/dL Ur Leukocyte Esterase Negative (Negative) Disposition Clinical Impression: Vomiting, Dehydration, Hematemesis, Nausea and vomiting during Disposition: HOME SELF-CARE Condition: Good Instructions (If sedation given, give patient instructions): Acute Nausea and Vomiting (ED) Is patient prescribed a controlled substance at d/c from ED?: No Referrals: Inna Bonilla MD [Primary Care Provider] - 1-2 days
[2020-07-05] MEDS ORDERED: ACETAMINOPHEN IV (For NPO) 1,000 MG in EMPTY BAG 1 BAG IVPB ONE (06:00)
[2020-07-05 06:31] LABS: Basophils % (A) 0 %; Eosinophils # (A) 0.1 k/uL (0-0.7); Eosinophils % (A) 1 %; HCT 36.5 % (34.0-46.0); HGB 12.5 gm/dL (11.4-16.0); Lymphocytes # (A) 1.3 k/uL (1.0-4.8); Lymphocytes % (A) 16 %; MCH 31.6 pg (25.0-35.0); MCHC 34.4 g/dL (31.0-37.0); Mean Platelet Volume 7.1; Monocytes # (A) 0.5 k/uL (0-1.0); Monocytes % (A) 6 %; Neutrophils # (A) 6.1 k/uL (1.3-7.7); Neutrophils % (A) 76 %; Platelet Count 221 k/uL (150-450); RBC 3.97 m/uL (3.80-5.40); RDW 12.9 % (11.5-15.5); WBC 8.1 k/uL (3.8-10.6)
[2020-07-05 06:44] LABS: ALT 24 U/L (4-34); AST 30 U/L (14-36); African American GFR (CKD) >90 (>60 ml/min/1.73 sqM); Alkaline Phosphatase 80 U/L (38-126); Amylase 74 U/L (30-110); Anion Gap 5 mmol/L; Blood Urea Nitrogen 7 mg/dL (7-17); Calcium 9.3 mg/dL (8.4-10.2); Carbon Dioxide 26 mmol/L (22-30); Chloride 103 mmol/L (98-107); Glucose 87 mg/dL (74-99); Lipase 71 U/L (23-300); Magnesium 1.7 mg/dL (1.6-2.3); Non-African American GFR(CKD) >90 (>60 ml/min/1.73 sqM); Phosphorus 4.5 mg/dL (2.5-4.5); Potassium 3.8 mmol/L (3.5-5.1); Sodium 134 mmol/L (137-145); Total Bilirubin 0.2 mg/dL (0.2-1.3); Total Protein 6.9 g/dL (6.3-8.2)
[2020-07-05 06:54] LABS: Appearance,Urine Clear (Clear); Bilirubin,Urine Negative (Negative); Blood,Urine Negative (Negative); Color,Urine Yellow; Glucose,Urine (UA) Negative (Negative); Ketones,Urine Negative (Negative); Leukocyte Esterase,Urine Negative (Negative); Nitrite,Urine Negative (Negative); Protein,Urine Negative (Negative); Specific Gravity,Urine 1.015 (1.001-1.035); Urobilinogen,Urine <2.0 mg/dL (<2.0)
[2020-07-05 07:00] VITALS: BP 92/62; PULSE 75
== END 2020-07-05 07:17 | disposition home or self-care (01) ==
LOC: EC 05:12
DX: O21.1 Hyperemesis gravidarum with metabolic disturbance (principal); O26.892 Other specified pregnancy related conditions, second trimester; K92.0 Hematemesis; R10.9 Unspecified abdominal pain; R51.9 Headache, unspecified; O99.512 Diseases of the respiratory system complicating pregnancy, second trimester; J45.909 Unspecified asthma, uncomplicated; O99.612 Diseases of the digestive system complicating pregnancy, second trimester; K21.9 Gastro-esophageal reflux disease without esophagitis; Z79.51 Long term (current) use of inhaled steroids; Z79.899 Other long term (current) drug therapy; Z88.8 Allergy status to other drugs, medicaments and biological substances; Z88.7 Allergy status to serum and vaccine; Z88.2 Allergy status to sulfonamides; Z88.1 Allergy status to other antibiotic agents; Z3A.18 18 weeks gestation of pregnancy; Z87.891 Personal history of nicotine dependence
CPT/HCPCS: 36415; 80053; 82150; 83690; 83735; 84100; 85025; 81003; 99284; 96374; 96375 ×2; 96361; J3415; J2405; J0131

== ENCOUNTER 2020-08-02 13:00 | Emergency (ER) | payer OTHER ==
[2020-08-02] MEDS ORDERED: SODIUM CHLORIDE 0.9% 1,000 ML IV STA (13:45)
--- NOTE | 2020-08-02 13:49 | ED ---
General Adult HPI - General Source: patient, RN notes reviewed Mode of arrival: ambulatory Limitations: no limitations <Nikhil Lynch - Last Filed: 08/02/20 13:47> <Ever German - Last Filed: 08/02/20 15:25> - General Stated complaint: Abd Pain Time Seen by Provider: 08/02/20 13:42 - History of Present Illness Initial comments: This a 30-year-old female presents emergency Department chief complaint of GI issues. Patient has a history of colitis, gastritis states that she feels like she ate something wrong. Patient states that she's had equal in the past. Patient states she's been having nausea vomiting, diarrhea states he just she has worsening symptoms. She has no complaints of . Patient is a vaginal bleeding vaginal discharge. Patient's [employer] APPRENTICE is Dr. Koenigise is A1. Patient states that she is approximately 21 weeks scheduled for an ultrasound today. (Nikhil Lynch) 30-year-old female currently 21 weeks presents for diarrhea. Patient reports she has had diarrhea for the past several days. States that she has had similar symptoms before and has had gastroenteritis in the past. She thinks she may have had something bad to eat over the weekend. Patient states she came in today because she feels she is dehydrated and needs fluids. She denies any significant abdominal pain. She denies fevers. Patient states baby is moving, denies any pelvic pain or vaginal bleeding (Ever German) - Related Data Home Medications Medication Instructions Recorded Confirmed Beclomethasone Dipropionate [Qvar 2 puff INHALATION RT-DAILY 08/17/18 04/26/20 80 mcg] Albuterol Sulfate [Ventolin HFA] 1 - 2 puff INHALATION RT-Q6H PRN 04/26/20 04/26/20 Multivitamins, Thera [Multivitamin 1 tab PO DAILY 04/26/20 04/26/20 (formulary)] Pantoprazole Sodium [Protonix] 20 mg PO DAILY 04/26/20 04/26/20 Previous Rx's Medication Instructions Recorded Nitrofurantoin Monohyd/M-Cryst 100 mg PO Q12HR #14 cap 04/26/20 [Macrobid] Pnv No.95/Ferrous Fum/Folic AC 1 each PO DAILY #30 tablet 04/26/20 [ Multivitamin Tablet] Famotidine [Pepcid] 20 mg PO DAILY 3 Days #3 tablet 05/03/20 Ondansetron Odt [Zofran Odt] 4 mg PO Q8HR PRN 3 Days #9 tab 05/03/20 Ondansetron [Zofran ODT] 4 mg PO Q8HR PRN #20 tab 06/08/20 Allergies Allergy/AdvReac Type Severity Reaction Status Date / Time calcium [From DHEA] Allergy Unknown Verified 08/02/20 13:48 calcium carbonate [From DHEA] Allergy Unknown Verified 08/02/20 13:48 cyclobenzaprine HCl Allergy Unknown Verified 08/02/20 13:48 [From Flexeril] divalproex sodium Allergy Unknown Verified 08/02/20 13:48 [From Depakote] influenza virus vaccine, Allergy Rash/Hives Verified 08/02/20 13:48 specific metoclopramide [From Reglan] Allergy Unknown Verified 08/02/20 13:48 prasterone (DHEA) [From DHEA] Allergy Unknown Verified 08/02/20 13:48 sulfamethoxazole Allergy Unknown Verified 08/02/20 13:48 [From Septra] sumatriptan [From Imitrex] Allergy Unknown Verified 08/02/20 13:48 sumatriptan succinate Allergy Unknown Verified 08/02/20 13:48 [From Imitrex] topiramate [From Topamax] Allergy Rash/Hives Verified 08/02/20 13:48 trimethoprim [From Septra] Allergy Unknown Verified 08/02/20 13:48 antihistamines Allergy Dyspnea Uncoded 08/02/20 13:48 Review of Systems ROS Other: All systems not noted in ROS Statement are negative. <Nikhil Lynch - Last Filed: 08/02/20 13:47> ROS Other: All systems not noted in ROS Statement are negative. <Ever German - Last Filed: 08/02/20 15:25> ROS Statement: Those systems with pertinent positive or pertinent negative responses have been documented in the HPI. Past Medical History Past Medical History: Asthma, GERD/Reflux Additional Past Medical History / Comment(s): ARTHRITIS, HIATAL HERNIA AND GASTRIC ULCER, ENVIRONMENTAL ALLERGIES, DIGESTIVE ISSUES, MIGRAINES, ANEMIA, "PREDIABETIC", herniated disc, narrowed ureters History of Any Multi-Drug Resistant Organisms: None Reported Past Surgical History: Adenoidectomy, Tonsillectomy Additional Past Surgical History / Comment(s): eye sclera Past Psychological History: Anxiety, Depression, Panic Disorder Smoking Status: Former smoker Past Alcohol Use History: None Reported Past Drug Use History: Marijuana <SyedNikhil Kia - Last Filed: 08/02/20 13:47> General Exam General appearance: alert, in no apparent distress <EricjimmyNikhil Kia - Last Filed: 08/02/20 13:47> Course Vital Signs 08/02/20 08/02/20 13:45 15:19 Temperature 97.6 F 98.1 F Pulse Rate 93 79 Respiratory 20 18 Rate Blood Pressure 114/77 100/64 O2 Sat by Pulse 100 100 Oximetry Medical Decision Making - Lab Data Result diagrams: 08/02/20 14:10 08/02/20 14:10 <Ever German - Last Filed: 08/02/20 15:25> - Medical Decision Making Patient is well-appearing. Vitals are stable. Abdomen is gravid, nontender. CBC CMP unremarkable. Amylase and lipase normal. Urinalysis is negative. At this time we will give patient a prescription for stool culture. Otherwise she will drink plenty of fluids. She has a prescription for Zofran at home from her [employer]PRENTICE. Patient will monitor for worsening symptoms as abdominal pain or fevers and return if these occur. She will return for any other worsening symptoms. I discussed this case with attending Dr. Ibarra who agrees with this assessment and treatment plan. (Ever German) - Lab Data Lab Results 08/02/20 08/02/20 08/02/20 Range/Units 14:10 14:10 14:10 WBC 9.1 (3.8-10.6) k/uL RBC 3.94 (3.80-5.40) m/uL Hgb 12.9 (11.4-16.0) gm/dL Hct 36.6 (34.0-46.0) % MCV 93.0 (80.0-100.0) fL MCH 32.8 (25.0-35.0) pg MCHC 35.3 (31.0-37.0) g/dL RDW 12.3 (11.5-15.5) % Plt Count 240 (150-450) k/uL MPV 6.9 Neutrophils % 80 % Lymphocytes % 13 % Monocytes % 4 % Eosinophils % 1 % Basophils % 0 % Neutrophils # 7.3 (1.3-7.7) k/uL Lymphocytes # 1.2 (1.0-4.8) k/uL Monocytes # 0.4 (0-1.0) k/uL Eosinophils # 0.1 (0-0.7) k/uL Basophils # 0.0 (0-0.2) k/uL Sodium 136 L (137-145) mmol/L Potassium 3.9 (3.5-5.1) mmol/L Chloride 103 (98-107) mmol/L Carbon Dioxide 26 (22-30) mmol/L Anion Gap 7 mmol/L BUN 3 L (7-17) mg/dL Creatinine 0.46 L (0.52-1.04) mg/dL Est GFR (CKD-EPI)AfAm >90 (>60 ml/min/1.73 sqM) Est GFR (CKD-EPI)NonAf >90 (>60 ml/min/1.73 sqM) Glucose 80 (74-99) mg/dL Calcium 9.5 (8.4-10.2) mg/dL Total Bilirubin 0.4 (0.2-1.3) mg/dL AST 29 (14-36) U/L ALT 17 (4-34) U/L Alkaline Phosphatase 107 (38-126) U/L Total Protein 7.4 (6.3-8.2) g/dL Albumin 4.4 (3.5-5.0) g/dL Amylase 68 (30-110) U/L Lipase 39 (23-300) U/L Urine Color Light Yellow Urine Appearance Clear (Clear) Urine pH 7.0 (5.0-8.0) Ur Specific [place] 1.003 (1.001-1.035) Urine Protein Negative (Negative) Urine Glucose (UA) Negative (Negative) Urine Ketones Negative (Negative) Urine Blood Negative (Negative) Urine Nitrite Negative (Negative) Urine Bilirubin Negative (Negative) Urine Urobilinogen <2.0 (<2.0) mg/dL Ur Leukocyte Esterase Negative (Negative) Disposition <Nikhil Lynch - Last Filed: 08/02/20 13:47> Is patient prescribed a controlled substance at d/c from ED?: No Time of Disposition: 15:25 <Ever German P - Last Filed: 08/02/20 15:25> Clinical Impression: Diarrhea Disposition: HOME SELF-CARE Condition: Good Instructions (If sedation given, give patient instructions): Acute Diarrhea (ED) Additional Instructions: Please drink plenty of fluids. Please follow-up with your doctor in one to 2 days. Return to the emergency room for any worsening symptoms. Take stool sample to outpatient lab. Referrals: Inna Bonilla MD [Primary Care Provider] - 1-2 days
[2020-08-02 14:37] LABS: Basophils % (A) 0 %; Eosinophils # (A) 0.1 k/uL (0-0.7); Eosinophils % (A) 1 %; HCT 36.6 % (34.0-46.0); HGB 12.9 gm/dL (11.4-16.0); Lymphocytes # (A) 1.2 k/uL (1.0-4.8); Lymphocytes % (A) 13 %; MCH 32.8 pg (25.0-35.0); MCHC 35.3 g/dL (31.0-37.0); Mean Platelet Volume 6.9; Monocytes # (A) 0.4 k/uL (0-1.0); Monocytes % (A) 4 %; Neutrophils # (A) 7.3 k/uL (1.3-7.7); Neutrophils % (A) 80 %; Platelet Count 240 k/uL (150-450); RBC 3.94 m/uL (3.80-5.40); RDW 12.3 % (11.5-15.5); WBC 9.1 k/uL (3.8-10.6)
[2020-08-02 14:42] LABS: Appearance,Urine Clear (Clear); Bilirubin,Urine Negative (Negative); Blood,Urine Negative (Negative); Color,Urine Light Yellow; Glucose,Urine (UA) Negative (Negative); Ketones,Urine Negative (Negative); Leukocyte Esterase,Urine Negative (Negative); Nitrite,Urine Negative (Negative); Protein,Urine Negative (Negative); Specific Gravity,Urine 1.003 (1.001-1.035); Urobilinogen,Urine <2.0 mg/dL (<2.0)
[2020-08-02 14:48] LABS: ALT 17 U/L (4-34); AST 29 U/L (14-36); African American GFR (CKD) >90 (>60 ml/min/1.73 sqM); Albumin 4.4 g/dL (3.5-5.0); Alkaline Phosphatase 107 U/L (38-126); Amylase 68 U/L (30-110); Anion Gap 7 mmol/L; Blood Urea Nitrogen 3 mg/dL (7-17); Calcium 9.5 mg/dL (8.4-10.2); Carbon Dioxide 26 mmol/L (22-30); Chloride 103 mmol/L (98-107); Glucose 80 mg/dL (74-99); Lipase 39 U/L (23-300); Non-African American GFR(CKD) >90 (>60 ml/min/1.73 sqM); Potassium 3.9 mmol/L (3.5-5.1); Sodium 136 mmol/L (137-145); Total Bilirubin 0.4 mg/dL (0.2-1.3); Total Protein 7.4 g/dL (6.3-8.2)
[2020-08-02] MEDS ORDERED: ONDANSETRON 4 MG/2 ML VIAL IVP STA (15:12)
[2020-08-02 15:24] VITALS: BP 100/64; PULSE 79; RESP 18; TEMP 98.1
== END 2020-08-02 15:40 | disposition home or self-care (01) ==
LOC: EC 13:00
DX: O99.612 Diseases of the digestive system complicating pregnancy, second trimester (principal); O99.512 Diseases of the respiratory system complicating pregnancy, second trimester; O99.342 Other mental disorders complicating pregnancy, second trimester; J45.909 Unspecified asthma, uncomplicated; F41.9 Anxiety disorder, unspecified; F12.90 Cannabis use, unspecified, uncomplicated; F32.9 Major depressive disorder, single episode, unspecified; K21.9 Gastro-esophageal reflux disease without esophagitis; Z3A.11 11 weeks gestation of pregnancy; Z87.891 Personal history of nicotine dependence
CPT/HCPCS: 36415; 80053; 82150; 83690; 85025; 81003; 99284; 96374; 96361; J2405

== ENCOUNTER 2020-11-07 21:44 | Emergency (ER) | payer OTHER ==
[2020-11-07 21:50] VITALS: TEMP 98.2
[2020-11-07] MEDS ORDERED: SODIUM CHLORIDE 0.9% 1,000 ML IV STA (22:01)
[2020-11-07 22:28] LABS: Basophils % (A) 0 %; Eosinophils # (A) 0.1 k/uL (0-0.7); Eosinophils % (A) 1 %; HCT 36.8 % (34.0-46.0); Lymphocytes # (A) 1.6 k/uL (1.0-4.8); Lymphocytes % (A) 16 %; MCH 32.8 pg (25.0-35.0); MCHC 35.2 g/dL (31.0-37.0); MCV 93.1 fL (80.0-100.0); Mean Platelet Volume 8.8; Monocytes # (A) 0.5 k/uL (0-1.0); Monocytes % (A) 5 %; Neutrophils # (A) 7.5 k/uL (1.3-7.7); Neutrophils % (A) 75 %; Platelet Count 180 k/uL (150-450); RBC 3.95 m/uL (3.80-5.40); RDW 12.5 % (11.5-15.5)
[2020-11-07 22:38] LABS: ALT 23 U/L (4-34); AST 36 U/L (14-36); African American GFR (CKD) >90 (>60 ml/min/1.73 sqM); Albumin 3.6 g/dL (3.5-5.0); Alkaline Phosphatase 229 U/L (38-126); Anion Gap 7 mmol/L; Blood Urea Nitrogen 7 mg/dL (7-17); Calcium 9.3 mg/dL (8.4-10.2); Carbon Dioxide 24 mmol/L (22-30); Chloride 105 mmol/L (98-107); Creatine Kinase 40 U/L (30-135); Glucose 94 mg/dL (74-99); Magnesium 1.8 mg/dL (1.6-2.3); Non-African American GFR(CKD) >90 (>60 ml/min/1.73 sqM); Potassium 3.8 mmol/L (3.5-5.1); Sodium 136 mmol/L (137-145); Total Bilirubin 0.3 mg/dL (0.2-1.3); Total Protein 6.5 g/dL (6.3-8.2)
--- NOTE | 2020-11-07 23:18 | ED ---
Arrhythmia/Palpitations HPI - General Chief Complaint: Arrhythmia/Palpitations Stated Complaint: Irregular heartbeat Time Seen by Provider: 11/07/20 22:01 Source: patient, RN notes reviewed, old records reviewed Mode of arrival: wheelchair Limitations: no limitations - History of Present Illness Initial Comments: This is a 22-year-old female DF for evaluation today. States she is presented for evaluation regards to palpitations and possible arrhythmia. Patient does have history of possible arrhythmia or PVCs in the past. 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 Patient's currently 35 weeks' she is a . is otherwise been uneventful. MD Complaint: "skipped beats", palpitations, irregular heart beat -: hour(s) Context: occurred during rest Arrhythmia History: other (She does have history of arrhythmia but no specific diagnosis, she has were altered monitors and has had multiple cardiac evaluations with no significant clots) Associated Symptoms: denies other symptoms Treatments Prior to Arrival: other (none) - Related Data Home Medications Medication Instructions Recorded Confirmed Albuterol Sulfate [Ventolin HFA] 1 - 2 puff INHALATION RT-Q6H PRN 04/26/20 11/07/20 Ondansetron [Zofran] 4 mg PO Q8HR PRN 11/07/20 11/07/20 Pantoprazole Sodium 40 mg PO DAILY 11/07/20 11/07/20 Pnv No.95/Ferrous Fum/Folic AC 1 tab PO DAILY 11/07/20 11/07/20 [ Multivitamin Tablet] Allergies Allergy/AdvReac Type Severity Reaction Status Date / Time calcium [From DHEA] Allergy Unknown Verified 11/07/20 22:30 calcium carbonate [From DHEA] Allergy Unknown Verified 11/07/20 22:30 cyclobenzaprine HCl Allergy Unknown Verified 11/07/20 22:30 [From Flexeril] divalproex sodium Allergy Unknown Verified 11/07/20 22:30 [From Depakote] influenza virus vaccine, Allergy Rash/Hives Verified 11/07/20 22:30 specific metoclopramide [From Reglan] Allergy Unknown Verified 11/07/20 22:30 prasterone (DHEA) [From DHEA] Allergy Unknown Verified 11/07/20 22:30 sulfamethoxazole Allergy Unknown Verified 11/07/20 22:30 [From Septra] sumatriptan [From Imitrex] Allergy Unknown Verified 11/07/20 22:30 sumatriptan succinate Allergy Unknown Verified 11/07/20 22:30 [From Imitrex] topiramate [From Topamax] Allergy Rash/Hives Verified 11/07/20 22:30 trimethoprim [From Septra] Allergy Unknown Verified 11/07/20 22:30 antihistamines Allergy Dyspnea Uncoded 11/07/20 21:51 Review of Systems ROS Statement: Those systems with pertinent positive or pertinent negative responses have been documented in the HPI. ROS Other: All systems not noted in ROS Statement are negative. Past Medical History Past Medical History: Asthma, GERD/Reflux Additional Past Medical History / Comment(s): ARTHRITIS, HIATAL HERNIA AND GASTRIC ULCER, ENVIRONMENTAL ALLERGIES, DIGESTIVE ISSUES, MIGRAINES, ANEMIA, "PREDIABETIC", herniated disc, narrowed ureters, being worked up for POTS History of Any Multi-Drug Resistant Organisms: None Reported Past Surgical History: Adenoidectomy, Tonsillectomy Additional Past Surgical History / Comment(s): eye sclera Past Psychological History: Anxiety, Depression, Panic Disorder Smoking Status: Former smoker Past Alcohol Use History: None Reported Past Drug Use History: Marijuana General Exam Limitations: no limitations General appearance: alert, in no apparent distress Head exam: Present: atraumatic, normocephalic, normal inspection Eye exam: Present: normal appearance, PERRL, EOMI. Absent: scleral icterus, conjunctival injection, periorbital swelling ENT exam: Present: normal exam, mucous membranes moist Neck exam: Present: normal inspection. Absent: tenderness, meningismus, lymphadenopathy Respiratory exam: Present: normal lung sounds bilaterally. Absent: respiratory distress, wheezes, rales, rhonchi, stridor Cardiovascular Exam: Present: regular rate, normal rhythm, normal heart sounds. Absent: systolic murmur, diastolic murmur, rubs, gallop, clicks GI/Abdominal exam: Present: soft, normal bowel sounds. Absent: distended, tenderness, guarding, rebound, rigid Extremities exam: Present: normal inspection, full ROM, normal capillary refill. Absent: tenderness, pedal edema, joint swelling, calf tenderness Back exam: Present: normal inspection Neurological exam: Present: alert, oriented X3, CN II-XII intact Psychiatric exam: Present: normal affect, normal mood Skin exam: Present: warm, dry, intact, normal color. Absent: rash Course Vital Signs 11/07/20 21:45 Temperature 98.2 F Pulse Rate 81 Respiratory 18 Rate Blood Pressure 114/77 O2 Sat by Pulse 98 Oximetry - Reevaluation(s) Reevaluation #1: 11/07/20 23:18 Medical records reviewed Reevaluation #2: 11/08/20 00:12 Patient feeling improved here in the emergency department Reevaluation #3: 11/08/20 00:12 Informed results questions answered Reevaluation #4: 11/08/20 00:12 patient feels good for discharge EKG Findings - EKG Comments: EKG Findings:: EKG shows sinus rhythm 75 AL 126 QRS 76 QTC 422 Medical Decision Making - Medical Decision Making 30 female presented today for evaluation regards to palpitations. At this time patient believes her symptoms are resolved he feels little fatigue but otherwise feels good for discharge home - Lab Data Result diagrams: 11/07/20 22:19 11/07/20 22:19 Lab Results 11/07/20 11/07/20 Range/Units 22:19 22:19 WBC 10.0 (3.8-10.6) k/uL RBC 3.95 (3.80-5.40) m/uL Hgb 13.0 (11.4-16.0) gm/dL Hct 36.8 (34.0-46.0) % MCV 93.1 (80.0-100.0) fL MCH 32.8 (25.0-35.0) pg MCHC 35.2 (31.0-37.0) g/dL RDW 12.5 (11.5-15.5) % Plt Count 180 (150-450) k/uL MPV 8.8 Neutrophils % 75 % Lymphocytes % 16 % Monocytes % 5 % Eosinophils % 1 % Basophils % 0 % Neutrophils # 7.5 (1.3-7.7) k/uL Lymphocytes # 1.6 (1.0-4.8) k/uL Monocytes # 0.5 (0-1.0) k/uL Eosinophils # 0.1 (0-0.7) k/uL Basophils # 0.0 (0-0.2) k/uL Sodium 136 L (137-145) mmol/L Potassium 3.8 (3.5-5.1) mmol/L Chloride 105 (98-107) mmol/L Carbon Dioxide 24 (22-30) mmol/L Anion Gap 7 mmol/L BUN 7 (7-17) mg/dL Creatinine 0.53 (0.52-1.04) mg/dL Est GFR (CKD-EPI)AfAm >90 (>60 ml/min/1.73 sqM) Est GFR (CKD-EPI)NonAf >90 (>60 ml/min/1.73 sqM) Glucose 94 (74-99) mg/dL Calcium 9.3 (8.4-10.2) mg/dL Phosphorus 4.0 (2.5-4.5) mg/dL Magnesium 1.8 (1.6-2.3) mg/dL Total Bilirubin 0.3 (0.2-1.3) mg/dL AST 36 (14-36) U/L ALT 23 (4-34) U/L Alkaline Phosphatase 229 H (38-126) U/L Creatine Kinase 40 (30-135) U/L Total Protein 6.5 (6.3-8.2) g/dL Albumin 3.6 (3.5-5.0) g/dL TSH 3.560 (0.465-4.680) mIU/L Disposition Clinical Impression: Palpitations, Ventricular premature beats Disposition: HOME SELF-CARE Condition: Good Instructions (If sedation given, give patient instructions): Heart Palpitations (ED), Premature Ventricular Contractions (ED) Is patient prescribed a controlled substance at d/c from ED?: No Referrals: Inna Bonilla MD [Primary Care Provider] - 1-2 days Bobby Covington DO [STAFF PHYSICIAN] - 1-2 days Jimmy Mcpherson MD [STAFF PHYSICIAN] - 1-2 days
[2020-11-08 00:22] VITALS: BP 111/81; PULSE 77; RESP 16
== END 2020-11-08 00:21 | disposition home or self-care (01) ==
LOC: EC 21:44
DX: O99.413 Diseases of the circulatory system complicating pregnancy, third trimester (principal); I49.3 Ventricular premature depolarization; J45.909 Unspecified asthma, uncomplicated; K21.9 Gastro-esophageal reflux disease without esophagitis; O99.513 Diseases of the respiratory system complicating pregnancy, third trimester; O99.613 Diseases of the digestive system complicating pregnancy, third trimester; Z3A.35 35 weeks gestation of pregnancy; Z87.891 Personal history of nicotine dependence
CPT/HCPCS: 36415; 80053; 82550; 83735; 84100; 84443; 85025; 93005; 99285

== ENCOUNTER 2020-11-09 11:40 | Outpatient (CLI) | payer OTHER ==
[2020-11-09] MEDS: DEXTROSE 5%-LACTATED RINGERS 1,000 ML IV ONE ×2 (13:30→14:39)
[2020-11-09] MEDS ORDERED: BETAMET ACET-BETAMETH SOD PHOS 6 MG/ML MDV IM SCH (13:30)
[2020-11-09 13:41] LABS: Appearance,Urine Clear (Clear); Bilirubin,Urine Negative (Negative); Blood,Urine Negative (Negative); Color,Urine Yellow; Glucose,Urine (UA) Negative (Negative); Ketones,Urine Negative (Negative); Leukocyte Esterase,Urine Negative (Negative); Nitrite,Urine Negative (Negative); Protein,Urine Negative (Negative); Specific Gravity,Urine 1.006 (1.001-1.035); Urobilinogen,Urine <2.0 mg/dL (<2.0)
[2020-11-09] MEDS: TERBUTALINE 1 MG/ML VIAL SQ STA ×2 (14:39→15:02)
[2020-11-09 15:50] VITALS: BP 136/86; PULSE 85; RESP 16; TEMP 98
--- NOTE | 2020-11-10 09:33 | P.MSEPDOC ---
Presenting Problems - Arrival Data Date of Arrival on Unit: 11/09/20 Time of Arrival on Unit: 11:40 Mode of Transport: Wheelchair - Complaint OB-Reason for Admission/Chief Complaint: Possible Onset of Labor Comment: abdominal cramping Medical History - Information : 2 Para: 0 Term: 0 : 0 Abortions: Spontaneous or Elective: 1 Number of Living Children: 0 - Gestational Age Gestational Age by [place] (wks/days): 34 Weeks and 6 Days Review of Systems - Review of Systems Constitutional: No problems Breast: No problems ENT: No problems Cardiovascular: Irregular heartbeat Respiratory: No problems Gastrointestinal: No problems Genitourinary: No problems Musculoskeletal: No problems Neurological: No problems Skin: No problems Comment: being seen by a breaker table worker for possible MARTINEZ and PVCs Vital Signs - Temperature Temperature: 98.0 F Temperature Source: Temporal Artery Scan - Pulse Pulse Oximetery Pulse Rate: 85 Pulse Assessment Method: Pulse Oximetry - Respirations Respiratory Rate: 16 Oxygen Delivery Method: Room Air O2 Sat by Pulse Oximetry: 99 - Blood Pressure Right Arm Blood Pressure: 136/86 Blood Pressure Mean: 102 Blood Pressure Source: Automatic Cuff Medical Screen Scoring - Cervical Exam Dilation (cm): 1 Effacement (%): 60 Station: -1 Membranes: Intact - Uterine Contractions Frequency From (mins): 3 Frequency To (mins): 5 Duration From (seconds): 40 Duration To (seconds): 70 Intensity: Moderate Resting: Soft to palpation - Assessment - Baby A Baseline FHR: 140 Heart Rate - NICHD Category: Category I (Normal) NST: Reactive Physician Notification - Physician Notified Physician Notified Date: 11/09/20 Physician Notified Time: 13:15 Physician: Lakshmi Luna New Order Received: Yes - Notification Comment Comment: Dr. Luna called, report given on maternal and status, complaints of cx,. hx of UTIs, was at [facility] and had a negative UA, vitals WNL, NST reative, contractions 2-5mins apart, pt is uncomfortable, SVE 1/60-70/-1 (unchanged in 1 hr). Orders to send a UA, start an IV and give 1L D5LR, give betamethasone per protocol and call back with results. 1419 - Dr. Luna calling for an update, UA negative, contractions about every 5mins after fluids but pt still hurting. Orders to give 1 more liter of fluid, and give terbutaline 0.25 s ub q every 15 mins up to 3 doses per protocol. 1500 - Dr. Luna called for an update, report given on contractions spacing out, pt feeling better but still irregular contractions noted. Orders to give 1 more dose of the terbutaline, recheck cervix one more time, and finish 2nd bag of fluid. Pt can then be discharged home with instructions to return in 24 hrs for a 2nd betamethasone shot and to be on pelvic rest and see dr. johnson next week. 1523 - Dr. Luna called for another update, report given on SVE unchanged, very light cramping to no contractions graphing, HR 100-115. Orders for pt to be discharged home once pt's HR is below 100 and with all instructions previously stated Maternal Triage Index - Maternal Triage Index Presenting for scheduled procedure w/no complaint: No - Stat/Priority 1 Stat Priority 1: No - Urgent/Priority 2 Urgent Priority 2: No - Prompt/Priority 3 Prompt Priority 3: Yes Criteria Met for Priority 3: 34 6/7 weeks, complaints of contractions Disposition - Disposition OB Disposition: Physician follow up in office, Discharge to home Discharge Date: 11/09/20 Discharge Time: 15:36 I agree with the RN Medical Screening Exam: Yes Case reviewed; plan agreed upon as documented in EMR&OBIX.: Yes Comments: Patient was neither seen nor examined by me. Diagnosis: FALSE LABOR BEFORE 37 COMPLETED WEEKS OF GEST, THIRD TRI
== END 2020-11-09 15:36 | disposition home or self-care (01) ==
LOC: FBPOP 11:40
PROVIDERS: ATTEND Obstetrics & Gynecology
DX: O47.03 False labor before 37 completed weeks of gestation, third trimester (principal); O99.333 Smoking (tobacco) complicating pregnancy, third trimester; F17.200 Nicotine dependence, unspecified, uncomplicated; Z3A.34 34 weeks gestation of pregnancy; Z88.8 Allergy status to other drugs, medicaments and biological substances; Z88.7 Allergy status to serum and vaccine; Z88.6 Allergy status to analgesic agent; Z88.1 Allergy status to other antibiotic agents; Z88.2 Allergy status to sulfonamides
CPT/HCPCS: 59025; 96360; 96361; 96372; 81003; G0463; J3105; J0702; 99214

== ENCOUNTER 2020-11-10 09:56 | Outpatient (CLI) | payer OTHER ==
[2020-11-10 10:08] VITALS: PULSE 88; RESP 16; TEMP 97.2
[2020-11-10] MEDS ORDERED: BETAMET ACET-BETAMETH SOD PHOS 6 MG/ML MDV IM SCH (10:15)
[2020-11-10 10:43] VITALS: BP 122/86
--- NOTE | 2020-11-19 09:03 | P.MSEPDOC ---
Presenting Problems - Arrival Data Date of Arrival on Unit: 11/10/20 Time of Arrival on Unit: 09:56 Mode of Transport: Ambulatory - Complaint OB-Reason for Admission/Chief Complaint: Celestone Injection Medical History - Information : 2 Para: 0 Term: 0 : 0 Abortions: Spontaneous or Elective: 1 Number of Living Children: 0 - Gestational Age Gestational Age by [place] (wks/days): 35 Weeks and 0 Days - History Complications: Smoker, Hx. Substance Abuse Comment: marijuana use Review of Systems - Review of Systems Constitutional: No problems Breast: No problems ENT: No problems Cardiovascular: No problems Respiratory: No problems Gastrointestinal: Constipation, Diarrhea Genitourinary: No problems Musculoskeletal: No problems Neurological: No problems Skin: No problems Vital Signs - Temperature Temperature: 97.2 F Temperature Source: Temporal Artery Scan - Pulse Apical Pulse Rate: 88 Pulse Assessment Method: Automatic Cuff - Respirations Respiratory Rate: 16 Oxygen Delivery Method: Room Air - Blood Pressure Right Arm Sitting Blood Pressure: 122/86 Blood Pressure Mean: 98 Blood Pressure Source: Automatic Cuff Medical Screen Scoring - Cervical Exam Dilation (cm): 1 Effacement (%): 60 Station: -1 Membranes: Intact - Uterine Contractions Resting: Soft to palpation Physician Notification - Physician Notified Physician Notified Date: 11/10/20 Physician Notified Time: 10:00 Physician: Dr Cheryl Jones Order Received: Yes (d/c home after 2nd bmz) Maternal Triage Index - Maternal Triage Index Presenting for scheduled procedure w/no complaint: Yes - Scheduled/Requesting Priority 5 Scheduled/Requesting Priority 5: Yes Criteria Met for Priority 5: second dose of BMZ Disposition - Disposition OB Disposition: Physician follow up in office, Discharge to home Discharge Date: 11/10/20 Discharge Time: 10:20 I agree with the RN Medical Screening Exam: Yes Case reviewed; plan agreed upon as documented in EMR&OBIX.: Yes Comments: Patient neither seen nor examined by me Diagnosis: RELATED CONDITIONS, UNSPECIFIED, THIRD TRIMESTER
== END 2020-11-10 10:20 | disposition home or self-care (01) ==
LOC: FBPOP 09:56
PROVIDERS: ATTEND Obstetrics & Gynecology
DX: O26.93 Pregnancy related conditions, unspecified, third trimester (principal); O99.333 Smoking (tobacco) complicating pregnancy, third trimester; F17.200 Nicotine dependence, unspecified, uncomplicated; Z3A.35 35 weeks gestation of pregnancy; Z88.2 Allergy status to sulfonamides; Z88.7 Allergy status to serum and vaccine; Z88.8 Allergy status to other drugs, medicaments and biological substances; Z88.1 Allergy status to other antibiotic agents
CPT/HCPCS: 96372; J0702

== ENCOUNTER 2020-11-17 12:05 | Outpatient (CLI) | payer OTHER ==
[2020-11-17 14:06] VITALS: BP 121/76; PULSE 88; RESP 17; TEMP 98.5
--- NOTE | 2020-11-19 09:08 | P.MSEPDOC ---
Presenting Problems - Arrival Data Date of Arrival on Unit: 11/17/20 Time of Arrival on Unit: 12:05 Mode of Transport: Wheelchair - Complaint OB-Reason for Admission/Chief Complaint: Possible Onset of Labor Comment: Pt states contractions started at 1015 today that are 15 minutes apart prior to arriving to triage, since arriving to triage contractions have spaced out, pt denies lof/vb, reports + fm, pt received betamethasone x2 2 weeks ago Medical History - Information : 2 Para: 0 Term: 0 : 0 Abortions: Spontaneous or Elective: 0 Number of Living Children: 0 - Gestational Age Gestational Age by [place] (wks/days): 36 Weeks and 0 Days - History Complications: Hx. Substance Abuse Comment: daily marijuana use Review of Systems - Review of Systems Constitutional: No problems Breast: No problems ENT: No problems Cardiovascular: No problems Respiratory: No problems Gastrointestinal: No problems Genitourinary: No problems Musculoskeletal: No problems Neurological: No problems Skin: No problems Vital Signs - Temperature Temperature: 98.5 F Temperature Source: Temporal Artery Scan - Pulse Right Brachial Pulse Rate: 88 Pulse Assessment Method: Automatic Cuff - Respirations Respiratory Rate: 17 Oxygen Delivery Method: Room Air O2 Sat by Pulse Oximetry: 98 - Blood Pressure Right Arm Blood Pressure: 121/76 Blood Pressure Mean: 91 Blood Pressure Source: Automatic Cuff Medical Screen Scoring - Cervical Exam Dilation (cm): 1 Effacement (%): 70 Station: -2 Membranes: Intact - Assessment - Baby A Baseline FHR: 145 Heart Rate - NICHD Category: Category I (Normal) NST: Reactive Physician Notification - Physician Notified Physician Notified Date: 11/17/20 Physician Notified Time: 12:45 Physician: Lakshmi Luna Order Received: Yes - Notification Comment Comment: dc home if cervical exam remains the same 1 hour later Maternal Triage Index - Prompt/Priority 3 Prompt Priority 3: Yes Criteria Met for Priority 3: 36 weeks irregular contractions, dr luna on unit Disposition - Disposition OB Disposition: Physician follow up in office, Discharge to home, Written follow up instructions reviewed Discharge Date: 11/17/20 Discharge Time: 13:40 I agree with the RN Medical Screening Exam: Yes Case reviewed; plan agreed upon as documented in EMR&OBIX.: Yes Comments: Patient was neither seen nor examined by me at this visit Diagnosis: FALSE LABOR BEFORE 37 COMPLETED WEEKS OF GEST, THIRD TRI
== END 2020-11-17 13:40 | disposition home or self-care (01) ==
LOC: FBPOP 12:05
PROVIDERS: ATTEND Obstetrics & Gynecology
DX: O47.03 False labor before 37 completed weeks of gestation, third trimester (principal); O99.333 Smoking (tobacco) complicating pregnancy, third trimester; F17.200 Nicotine dependence, unspecified, uncomplicated; Z3A.36 36 weeks gestation of pregnancy; Z88.1 Allergy status to other antibiotic agents; Z88.2 Allergy status to sulfonamides; Z88.8 Allergy status to other drugs, medicaments and biological substances; Z88.7 Allergy status to serum and vaccine
CPT/HCPCS: 59025; G0463; 99213

== ENCOUNTER 2020-11-29 19:30 | Inpatient (IN) | payer OTHER ==
[2020-11-29] MEDS ORDERED: CARBOPROST TROMETHAMINE 250 MCG/ML 1 ML AMP IM PRN (21:25)
[2020-11-29] MEDS ORDERED: METHYLERGONOVINE 0.2 MG/ML 1 ML AMP IM PRN (21:25)
[2020-11-29] MEDS ORDERED: OXYTOCIN 10 UNIT/ML 1 ML VIAL IM PRN (21:25)
[2020-11-29] MEDS ORDERED: LIDOCAINE 0.5% (PF) 5 MG/ML (50 ML SDV) SQ PRN (21:25)
[2020-11-29] MEDS ORDERED: TERBUTALINE 1 MG/ML VIAL SQ PRN (21:25)
[2020-11-29] MEDS ORDERED: PENICILLIN G POTASSIUM 5,000,000 UNIT in DEXTROSE 5% IN WATER 100 ML IVPB STA ×2 (21:25)
[2020-11-29] MEDS: LACTATED RINGERS 1,000 ML IV SCH ×2 (21:45→22:29)
[2020-11-29 22:02] LABS: Basophils % (A) 0 %; Eosinophils # (A) 0.1 k/uL (0-0.7); Eosinophils % (A) 1 %; HCT 37.7 % (34.0-46.0); HGB 13.1 gm/dL (11.4-16.0); Lymphocytes # (A) 1.7 k/uL (1.0-4.8); Lymphocytes % (A) 18 %; MCH 32.8 pg (25.0-35.0); MCHC 34.6 g/dL (31.0-37.0); MCV 94.9 fL (80.0-100.0); Monocytes # (A) 0.5 k/uL (0-1.0); Monocytes % (A) 5 %; Neutrophils % (A) 74 %; Platelet Count 153 k/uL (150-450); RBC 3.98 m/uL (3.80-5.40); RDW 12.7 % (11.5-15.5); WBC 9.5 k/uL (3.8-10.6)
[2020-11-29] MEDS ORDERED: BUTORPHANOL 1 MG/ML 1 ML VIAL IV PRN (22:09)
[2020-11-29 22:59] LABS: Amphetamine Screen,Urine Not Detected (NotDetected); Barbiturate Screen,Urine Not Detected (NotDetected); Benzodiazepines Screen,Urine Not Detected (NotDetected); Cocaine Screen,Urine Not Detected (NotDetected); Methadone Screen, Urine Not Detected (NotDetected); Opiate Screen,Urine Not Detected (NotDetected); Oxycodone Screen, Urine Not Detected (NotDetected); Phencyclidine Screen,Urine Not Detected (NotDetected); Tricyclic Antidepressant,Urine Not Detected (NotDetected); Urn Cannabinoid Scrn Detected (NotDetected)
[2020-11-29] MEDS ORDERED: fentaNYL (PF) 50 MCG/ML 5 ML AMP ONE (23:01)
[2020-11-29] MEDS ORDERED: SODIUM CHLORIDE 0.9% 100 ML BAG ONE (23:01)
[2020-11-29] MEDS ORDERED: ROPIVACAINE 5MG/ML 20ML VIAL ONE (23:01)
[2020-11-29] MEDS ORDERED: ROPIVACAINE 100 MG, fentaNYL (PF). 200 MCG in SODIUM CHLORIDE 0.9% 76 ML EPIDURAL ONE (23:15)
[2020-11-30] MEDS: PENICILLIN G POTASSIUM 2,500,000 UNIT in DEXTROSE 5% IN WATER 100 ML IVPB SCH ×6 (01:57→11:12)
[2020-11-30] MEDS: LACTATED RINGERS 1,000 ML IV SCH ×2 (05:12→18:22)
[2020-11-30] MEDS ORDERED: ONDANSETRON 4 MG/2 ML VIAL IVP STA (06:10)
[2020-11-30 06:32] LABS: Urine Alcohol Negative (Negative); Urine Barbiturate Negative (Negative); Urine Cocaine Negative (Negative); Urine Methadone Negative (Negative); Urine Opiates Negative (Negative); Urine Phencyclidine Negative (Negative)
--- NOTE | 2020-11-30 08:09 | P.HPOB ---
History of Present Illness H&P Date: 11/30/20 Chief Complaint: 37+ weeks, active labor The patient is a 30-year-old 2 para 0010 admitted at 37+ weeks as established by last menstrual period and confirmed by 19 week ultrasound. She is admitted in early active labor with all signs reassuring. Her has been essentially uncomplicated though she did see a supervisor paper machine for ongoing palpitations and was cleared. She additionally was found to have a low-grade Pap which be followed up . She lastly was found to be group B strep positive and will require antibody prophylaxis. Obstetrical history 2 para 0010 with 1 early miscarriage not requiring D&C. Current statistics are listed in history of present illness. EDC of 12/15/2020 was established by last menstrual period and confirmed by second trimester ultrasound. Laboratory workup demonstrates a blood type of O+ with a negative antibody screen. Rubella status is immune. The remainder of the laboratory workup was within normal limits. One hour Glucola was normal and group B strep status is positive. Gynecologic history: Unremarkable with no history of any infections to include STDs. Review of Systems Review of systems is confined to history of present illness. Past Medical History Past Medical History: Asthma, GERD/Reflux, Rheumatoid Arthritis (RA) Additional Past Medical History / Comment(s): ARTHRITIS, HIATAL HERNIA AND GASTRIC ULCER, ENVIRONMENTAL ALLERGIES, DIGESTIVE ISSUES, MIGRAINES, ANEMIA, "PREDIABETIC", herniated disc, narrowed ureters, being worked up for POTS, PVC History of Any Multi-Drug Resistant Organisms: None Reported Past Surgical History: Adenoidectomy, Tonsillectomy Additional Past Surgical History / Comment(s): eye sclera and laser Past Anesthesia/Blood Transfusion Reactions: No Reported Reaction Past Psychological History: Anxiety, Depression, Panic Disorder Smoking Status: Former smoker Past Alcohol Use History: None Reported Past Drug Use History: Marijuana Additional Drug Use History / Comment(s): uses at night to help with sleep - Past Family History Mother Family Medical History: Hyperlipidemia, Hypertension, Osteoarthritis (OA) Additional Family Medical History / Comment(s): rare heart conditions Father Family Medical History: Cancer, Diabetes Mellitus, Hypertension Medications and Allergies Home Medications Medication Instructions Recorded Confirmed Type Albuterol Sulfate [Ventolin HFA] 1 - 2 puff INHALATION RT-Q6H PRN 04/26/20 11/29/20 History Ondansetron [Zofran] 4 mg PO Q8HR PRN 11/07/20 11/29/20 History Pantoprazole Sodium 40 mg PO DAILY 11/07/20 11/29/20 History Pnv No.95/Ferrous Fum/Folic AC 1 tab PO DAILY 11/07/20 11/29/20 History [ Multivitamin Tablet] Beclomethasone Dipropionate [Qvar 2 puff PO DAILY 11/09/20 11/29/20 History 80mcg Redihaler] Allergies Allergy/AdvReac Type Severity Reaction Status Date / Time calcium [From DHEA] Allergy Unknown Verified 11/29/20 19:45 calcium carbonate [From DHEA] Allergy Unknown Verified 11/29/20 19:45 cyclobenzaprine HCl Allergy Unknown Verified 11/29/20 19:45 [From Flexeril] divalproex sodium Allergy Unknown Verified 11/29/20 19:45 [From Depakote] influenza virus vaccine, Allergy Rash/Hives Verified 11/29/20 19:45 specific metoclopramide [From Reglan] Allergy Unknown Verified 11/29/20 19:45 prasterone (DHEA) [From DHEA] Allergy Unknown Verified 11/29/20 19:45 sulfamethoxazole Allergy Unknown Verified 11/29/20 19:45 [From Septra] sumatriptan [From Imitrex] Allergy Unknown Verified 11/29/20 19:45 sumatriptan succinate Allergy Unknown Verified 11/29/20 19:45 [From Imitrex] topiramate [From Topamax] Allergy Rash/Hives Verified 11/29/20 19:45 trimethoprim [From Septra] Allergy Unknown Verified 11/29/20 19:45 antihistamines Allergy Dyspnea Uncoded 11/29/20 19:45 Exam Vital Signs Temp Pulse Resp BP Pulse Ox 11/29/20 21:45 97.5 F L 75 18 125/82 99 11/29/20 21:39 97.5 F L 75 18 125/82 99 Intake and Output 11/29/20 11/30/20 11/30/20 22:59 06:59 14:59 Intake Total 1000 3300 Output Total 1300 Balance 1000 2000 Intake: IV 1000 2100 Oral 1200 Output: Urine 900 Emesis 400 Other: # Voids 1 Weight 72.575 kg In general, this is a well-developed, well-nourished white female in no acute distress. Her heart has a regular rhythm and rate without murmur. Her lungs are clear to auscultation bilaterally in all gooden. Her abdomen is gravid, nondistended, has normal active bowel sounds, soft, nontender, and without any palpable masses aside from the uterine fundus. Her extremities are without any cyanosis, clubbing, or significant edema and are nontender to palpation bilaterally. Digital cervical examination demonstrates her cervix to be at this time 8-9 cm dilated, 100% effaced, the vertex in presentation at -1 station. Artificial rupture of membranes is carried out demonstrating clear fluid. Results Result Diagrams: 11/29/20 21:53 Abnormal Lab Results - Last 24 Hours (Table) 11/29/20 11/29/20 Range/Units 22:30 22:37 U Cannabinoids Screen Positive A (Negative) ng/mL U Marijuana (THC) Screen Detected H (NotDetected) Assessment and Plan (1) Group B streptococcal infection in Current Visit: Yes Status: Acute Code(s): O98.819 - OTH MATERNAL INFEC/PARASTC DISEASES COMP PREG, UNSP TRI; B95.1 - STREPTOCOCCUS, GROUP B, CAUSING DISEASES CLASSD [id number] SNOMED Code(s): 537491970 (2) Active labor at term Current Visit: Yes Status: Acute Code(s): DOJ2405 - SNOMED Code(s): 76820218 Plan: The patient has been admitted and has labored on her own to this point. She will continue to have close maternal and surveillance and expectant management will be practiced. She has an epidural catheter in place for analgesia. I would anticipate normal vaginal delivery in the near future.
[2020-11-30] MEDS ORDERED: diphenhydrAMINE 50 MG/ML 1 ML VIAL IVP STA (09:41)
[2020-11-30] MEDS ORDERED: CITRIC ACID-SODIUM CITRATE 15 ML CUP PO ONE (12:46)
[2020-11-30] MEDS ORDERED: LACTATED RINGERS 1,000 ML IV ONE (12:46)
[2020-11-30] MEDS ORDERED: ROPIVACAINE 5MG/ML 20ML VIAL ONE (13:09)
[2020-11-30] MEDS ORDERED: SODIUM CHLORIDE 0.9% 100 ML BAG ONE (13:09)
[2020-11-30] MEDS ORDERED: MORPHINE SULFATE (PF) 0.3 MG/0.3 ML SYR ONE (13:09)
[2020-11-30] MEDS ORDERED: ONDANSETRON 4 MG/2 ML VIAL ONE (13:09)
[2020-11-30] MEDS ORDERED: OXYTOCIN 30 UNITS/500 ML NS BAG IV ONE (13:09)
[2020-11-30] MEDS ORDERED: fentaNYL (PF) 50 MCG/ML 5 ML AMP ONE (13:09)
[2020-11-30] MEDS ORDERED: ePHEDrine SULFATE/0.9% NACL/PF 50 MG/5 ML SYRINGE IV ONE (13:09)
[2020-11-30] MEDS ORDERED: MAGNESIUM SULFATE-WATER PMX 4 GM in WATER FOR INJECTION 1 100ML.BAG IVPB ONE (14:25)
[2020-11-30 14:28] LABS: Glucose,Whole Blood 136 mg/dL (75-99)
[2020-11-30] MEDS ORDERED: diphenhydrAMINE 50 MG CAP PO PRN (14:30)
[2020-11-30] MEDS ORDERED: ONDANSETRON 4 MG/2 ML VIAL IVP PRN (14:30)
[2020-11-30] MEDS ORDERED: OXYTOCIN 30 UNITS/500 ML NS 30 UNIT in SALINE 1 500ML.BAG IV SCH (14:30)
[2020-11-30] MEDS ORDERED: NALOXONE 0.4 MG/ML 1 ML VIAL IV PRN (14:30)
[2020-11-30] MEDS ORDERED: HYDROmorphone PCA 10 MG/50 ML BAG IV PRN (14:30)
[2020-11-30] MEDS ORDERED: diphenhydrAMINE 25 MG CAP PO PRN (14:30)
[2020-11-30] MEDS ORDERED: LANOLIN CREAM 5 GM TUBE TOPICAL PRN (14:30)
[2020-11-30] MEDS ORDERED: ZOLPIDEM 5 MG TAB PO PRN (14:30)
[2020-11-30] MEDS ORDERED: diphenhydrAMINE 50 MG/ML 1 ML VIAL IVP PRN ×2 (14:30)
[2020-11-30] MEDS ORDERED: HYDROmorphone 2 MG TAB PO PRN ×2 (14:30)
--- NOTE | 2020-11-30 14:50 | P.OP ---
Date of Procedure: 11/30/20 Preoperative Diagnosis: #1. 37+ weeks, labor #2. Group B strep carrier #3. Arrest of descent in the second stage Postoperative Diagnosis: Same plus #4. occiput posterior presentation Procedure(s) Performed: #1. Primary low-transverse section Anesthesia: epidural Surgeon: Ajay Lawson Video Manager #1: Lakshmi Luna Estimated Blood Loss (ml): 950 IV fluids (ml): 1,400 Urine output (ml): 800 Pathology: other (The center) Condition: stable Disposition: floor Operative Findings: The patient ultimately reached complete and pushed for approximately 2-2-1/2 hours with no descent of the head below 0 station. Significant edema Was forming and the position was thought to be occiput posterior. As a result of both maternal exhaustion and the findings as noted above, the patient was c ounseled and agreed to proceed to the operating room for primary low-transverse section. She was delivered at section of a viable 3320 g baby boy with Apgars of 9 at 1 minute and 9 at 5 minutes. The placenta was delivered manually, intact, and grossly normal with a grossly normal three-vessel cord. The uterus, tubes, and ovaries were entirely normal to inspection. During the case, the patient continuously complained of significant headache as well as ongoing nausea and vomiting with significant retching. Following completion of the case at the time when the patient was ready to be transferred to her bed and transported back to her room, she was noted to have a grand mal, tonic-clonic seizure which lasted for approximately 60-120 seconds. Anesthesia was in attendance and the anesthesiologist was recalled to the room. The patient remained stable throughout the entire episode and is now resting in her room. Description of Procedure: The patient was prepped and draped in usual fashion after epidural anesthesia was bolused by the anesthesiologist. A Pfannenstiel incision was made and extended into the abdominal cavity without difficulty. The bladder peritoneum was felt to be significantly distal to the intended site of incision was left intact. A 2 cm incision was made in the transverse plane of the lower uterine segment to enter the uterus at which time a significant amount of clear fluid was still noted. The incision was extended in both directions using the bandage scissors. The head was encountered deep within the maternal pelvis and was delivered up and through the incision was some difficulty where the nose and mouth were thoroughly suctioned. Remainder of the was delivered onto the field where the cord was doubly clamped, cut, and the passed for resuscitative measures with weight and Apgars as noted above. cord blood was collected per protocol. A segment of cord was doubly clamped, cut, and set aside should cord gases be necessary. The placenta was delivered manually and intact as noted above. The uterus was exteriorized and the interior cavity of the uterus swept of any remaining placental or membranous fragments. The margins of the incision were grasped with Robison clamps and the uterus closed in 2 layers. The first was a running locking stitch of 0 chromic catgut followed by a running imbricating stitch of 0 chromic catgut, each from margin to margin. Following closure hemostasis appeared to be excellent. The posterior cul-de-sac was suctioned with a guard and the uterine and ovarian findings were entirely normal as noted above. The uterus was replaced within the abdominal cavity and the gutters swept of any remaining blood, fluid, or clot. The incision was reexamined and found to have a site of bleeding in the left central portion which was made hemostatic with 2 [id number] stitches of 0 chromic catgut. Once hemostasis had been achieved. The parietal peritoneum was loosely reapproximated in the layer of muscles examined and made hemostatic with the Bovie. The fascia was closed with 2 running stitches of 0 Vicryl proceeding from the lateral margins to the midpoint. The subcutaneous tissues were irrigated, made hemostatic with the Bovie, and reapproximated with a running stitch of 30 plain catgut. The skin was retracted with a running subcuticular stitch of 4-0 Vicryl followed by half-inch Steri-Strips placed with Mastisol. As the patient was being prepared for transfer to her bed to transport back to her room, she had a witnessed tonic-clonic or grand mal type of seizure. Anesthesia reports that blood pressure had been relatively stable throughout the entire case that she did have some elevated pressures when retching. She had significant nausea and vomiting as well as a complaint of headache through the entire procedure as well. Workup is being made for and she is been treated as if this represents an eclamptic seizure at this time. Neurology consultation is pending.
[2020-11-30 15:23] LABS: Basophils % (A) 0 %; Eosinophils % (A) 0 %; HCT 39.1 % (34.0-46.0); HGB 13.1 gm/dL (11.4-16.0); Lymphocytes # (A) 1.4 k/uL (1.0-4.8); Lymphocytes % (A) 9 %; MCH 33.6 pg (25.0-35.0); MCHC 33.6 g/dL (31.0-37.0); Mean Platelet Volume 8.5; Monocytes # (A) 0.8 k/uL (0-1.0); Monocytes % (A) 5 %; Neutrophils # (A) 12.9 k/uL (1.3-7.7); Neutrophils % (A) 83 %; Platelet Count 190 k/uL (150-450); RDW 12.7 % (11.5-15.5); WBC 15.6 k/uL (3.8-10.6)
[2020-11-30 15:28] LABS: AST 61 U/L (14-36); African American GFR (CKD) >90 (>60 ml/min/1.73 sqM); Blood Urea Nitrogen 7 mg/dL (7-17); LDH 636 U/L (313-618); Non-African American GFR(CKD) >90 (>60 ml/min/1.73 sqM); Uric Acid 4.6 mg/dL (3.7-7.4)
[2020-11-30 15:29] LABS: Creatinine,Urine Random 24.6 mg/dL; Protein/Creatinine Ratio,Urine 0.894
[2020-11-30 15:32] LABS: Appearance,Urine Clear (Clear); Bilirubin,Urine Negative (Negative); Blood,Urine Large (Negative); Color,Urine Yellow; Glucose,Urine (UA) Negative (Negative); Ketones,Urine 1+ (Negative); Leukocyte Esterase,Urine Negative (Negative); Nitrite,Urine Negative (Negative); PH, Urine 7.5 (5.0-8.0); Protein,Urine Negative (Negative); RBC,Urine >182 /hpf (0-5); Specific Gravity,Urine 1.009 (1.001-1.035); Squamous Epithelial Cell,Urine <1 /hpf (0-4); Urobilinogen,Urine <2.0 mg/dL (<2.0); WBC,Urine 3 /hpf (0-5)
[2020-11-30 15:35] LABS: ALT 37 U/L (4-34)
[2020-11-30] MEDS: MAGNESIUM SULFATE-WATER PMX 20 GM in WATER FOR INJECTION 1 500ML.BAG IV SCH (15:41)
[2020-11-30 16:02] LABS: MCV 100.2 fL (80.0-100.0)
[2020-11-30 16:12] LABS: INR 0.8 (<1.2); Partial Thromboplastin Time 24.4 sec (22.0-30.0); Prothrombin Time 9.3 sec (9.0-12.0)
[2020-11-30] MEDS ORDERED: DEXAMETHASONE SOD PHOSPHATE 4 MG/ML 1 ML VIAL IV STA (17:48)
[2020-11-30] MEDS: ACETAMINOPHEN IV (For NPO) 1,000 MG in EMPTY BAG 1 BAG IVPB PRN (18:23)
[2020-11-30] MEDS: SENNOSIDES-DOCUSATE SODIUM 1 EACH TAB PO SCH (19:52)
[2020-11-30] MEDS: ONDANSETRON 4 MG/2 ML VIAL IVP PRN (21:14)
[2020-11-30] MEDS: IBUPROFEN IV 800 MG in SODIUM CHLORIDE 0.9% 250 ML IV SCH (21:24)
[2020-12-01] MEDS: ACETAMINOPHEN TAB 500 MG TAB PO SCH ×4 (01:11→19:28)
[2020-12-01] MEDS: IBUPROFEN 600 MG TAB PO SCH ×2 (01:11→19:51)
[2020-12-01] MEDS: ACETAMINOPHEN IV (For NPO) 1,000 MG in EMPTY BAG 1 BAG IVPB PRN (02:05)
[2020-12-01] MEDS: MAGNESIUM SULFATE-WATER PMX 20 GM in WATER FOR INJECTION 1 500ML.BAG IV SCH (03:05)
[2020-12-01] MEDS: ONDANSETRON 4 MG/2 ML VIAL IVP PRN (04:14)
[2020-12-01] MEDS: IBUPROFEN IV 800 MG in SODIUM CHLORIDE 0.9% 250 ML IV SCH ×3 (04:55→10:56)
[2020-12-01 07:00] LABS: Basophils % (A) 0 %; Eosinophils % (A) 0 %; HCT 27.5 % (34.0-46.0); Lymphocytes # (A) 1.1 k/uL (1.0-4.8); Lymphocytes % (A) 9 %; MCH 33.2 pg (25.0-35.0); MCHC 35.2 g/dL (31.0-37.0); Mean Platelet Volume 8.5; Monocytes # (A) 0.6 k/uL (0-1.0); Monocytes % (A) 5 %; Neutrophils # (A) 10.8 k/uL (1.3-7.7); Neutrophils % (A) 85 %; Platelet Count 184 k/uL (150-450); RBC 2.92 m/uL (3.80-5.40); RDW 12.5 % (11.5-15.5); WBC 12.7 k/uL (3.8-10.6)
[2020-12-01] MEDS: LACTATED RINGERS 1,000 ML IV SCH ×2 (07:11→09:38)
[2020-12-01 07:12] LABS: ALT 27 U/L (4-34); AST 49 U/L (14-36); LDH 646 U/L (313-618)
[2020-12-01 07:24] LABS: HGB 9.7 gm/dL (11.4-16.0)
[2020-12-01 07:27] LABS: MCV 94.2 fL (80.0-100.0)
[2020-12-01] MEDS: SIMETHICONE 80 MG CHEWABLE PO PRN ×2 (08:41→21:08)
--- NOTE | 2020-12-01 08:56 | P.PN ---
Progress Note - Text Postop day 1 from under epidural anesthesia with epidural morphine given for postop pain management. Patient had one episode of seizure soon after . Started on magnesium sulfate and neurology consulted. Patient is doing well. No further episodes of seizure. Pain control is fair. On visual analog scale 5-6/10. Doesn't want to use much pain medications. Mild itching present Her nausea last night but it is better now. No Headache or weakness and numbness in the legs. No complications from spinal anesthesia.
[2020-12-01] MEDS ORDERED: ACETAMINOPHEN IV (For NPO) 1,000 MG in EMPTY BAG 1 BAG IVPB STA (09:24)
--- NOTE | 2020-12-01 09:27 | P.CNNES ---
History of Present Illness Consult date: 11/30/20 Requesting physician: Ajay Lawson Reason for Consult: Witnessed seizure History of Present Illness: Patient is a 30-year-old female, who underwent section had a witnessed seizure shortly after the delivery. Patient is a primigravida, had undergone attempt of natural labor for about 2-1/2 hours, with failure of progression of the labor. Patient performed a lot of pushing during this time of attempted natural labor. She was taken to the OR for section at 1:13 PM. The baby was delivered at around 1:30 PM. Patient afterwards was having nausea and headache. It was felt to be related to the stress of the labor. After the section was completed, at around 2:10 PM, patient had a witnessed grand mal seizure in which her head deviated to one side, eyes to the other, started having head jerking and then she had a grand mal seizure lasting for about 1-2 minutes, in which she completely lost consciousness. Patient denies biting of her tongue although there is evidence of bruise over the left side of the tongue likely from biting it. She was given 2 mg Versed. Her blood pressure was 169/100. Subsequently it was 170/100. Blood tests for -induced hypertension was sent, which subsequently has come back positive for eclampsia. Patient has been started on magnesium 4 g bolus and then 2 g every 1 hour. Her blood glucose 136. Patient's blood pressure was 150/95 pulse rate 112. Blood test shows WBC 15.6 hemoglobin 13.1, elevated MCV 100.2, platelets are 190. Renal functions normal. AST is 61, ALT 37. UA shows no signs of infection. Urine drug screen positive for cannabinoids. Patient has history of migraines. Patient states that she follows up with Dr. Deepti baca, who has tried her on multiple medications including nerve block, Botox injection. She gets migraine twice a week. She has had MRI of the brain and MRA done previously through his office and everything was normal. Patient has history of ALLERGY reaction versus seizure related to use of Reglan in 2018. There was no loss of consciousness and patient became very tremulous and shaking feeling hot and chest tightness. She had another instance she was given a flu vaccine and she had seizure-like activity in which she her blood pressure went high, had chest pain head was shaking but there was no loss of consciousness. He never had a clear cut seizure otherwise. Review of Systems Patient complains of headache, which she rates 7-8/10. Denies any numbness or tingling. Denies any chest pain. Patient is status post . She feels generalized weak. Denies any visual symptoms. Past Medical History Past Medical History: Asthma, GERD/Reflux, Rheumatoid Arthritis (RA) Additional Past Medical History / Comment(s): ARTHRITIS, HIATAL HERNIA AND GASTRIC ULCER, ENVIRONMENTAL ALLERGIES, DIGESTIVE ISSUES, MIGRAINES, ANEMIA, "PREDIABETIC", herniated disc, narrowed ureters, being worked up for POTS, PVC History of Any Multi-Drug Resistant Organisms: None Reported Past Surgical History: Adenoidectomy, Tonsillectomy Additional Past Surgical History / Comment(s): eye sclera and laser Past Anesthesia/Blood Transfusion Reactions: No Reported Reaction Past Psychological History: Anxiety, Depression, Panic Disorder Smoking Status: Former smoker Past Alcohol Use History: None Reported Past Drug Use History: Marijuana Additional Drug Use History / Comment(s): uses at night to help with sleep - Past Family History Mother Family Medical History: Hyperlipidemia, Hypertension, Osteoarthritis (OA) Additional Family Medical History / Comment(s): rare heart conditions Father Family Medical History: Cancer, Diabetes Mellitus, Hypertension Medications and Allergies Home Medications Medication Instructions Recorded Confirmed Type Albuterol Sulfate [Ventolin HFA] 1 - 2 puff INHALATION RT-Q6H PRN 04/26/20 11/29/20 History Ondansetron [Zofran] 4 mg PO Q8HR PRN 11/07/20 11/29/20 History Pantoprazole Sodium 40 mg PO DAILY 11/07/20 11/29/20 History Pnv No.95/Ferrous Fum/Folic AC 1 tab PO DAILY 11/07/20 11/29/20 History [ Multivitamin Tablet] Beclomethasone Dipropionate [Qvar 2 puff PO DAILY 11/09/20 11/29/20 History 80mcg Redihaler] Allergies Allergy/AdvReac Type Severity Reaction Status Date / Time calcium [From DHEA] Allergy Unknown Verified 11/29/20 19:45 calcium carbonate [From DHEA] Allergy Unknown Verified 11/29/20 19:45 cyclobenzaprine HCl Allergy Unknown Verified 11/29/20 19:45 [From Flexeril] divalproex sodium Allergy Unknown Verified 11/29/20 19:45 [From Depakote] influenza virus vaccine, Allergy Rash/Hives Verified 11/29/20 19:45 specific metoclopramide [From Reglan] Allergy Unknown Verified 11/29/20 19:45 prasterone (DHEA) [From DHEA] Allergy Unknown Verified 11/29/20 19:45 sulfamethoxazole Allergy Unknown Verified 11/29/20 19:45 [From Septra] sumatriptan [From Imitrex] Allergy Unknown Verified 11/29/20 19:45 sumatriptan succinate Allergy Unknown Verified 11/29/20 19:45 [From Imitrex] topiramate [From Topamax] Allergy Rash/Hives Verified 11/29/20 19:45 trimethoprim [From Septra] Allergy Unknown Verified 11/29/20 19:45 antihistamines Allergy Dyspnea Uncoded 11/29/20 19:45 Physical Examination - Vital Signs Vital Signs: Vital Signs Temp Pulse Resp BP Pulse Ox 11/30/20 16:41 81 17 146/95 100 11/30/20 16:11 66 16 134/88 100 11/30/20 15:41 86 16 136/79 100 11/30/20 15:26 112 H 16 154/89 100 11/30/20 15:11 88 16 150/95 100 11/30/20 14:56 90 17 153/96 100 11/30/20 14:41 97.4 F L 115 H 16 126/90 100 11/29/20 21:45 97.5 F L 75 18 125/82 99 11/29/20 21:39 97.5 F L 75 18 125/82 99 Intake and Output 11/30/20 11/30/20 11/30/20 06:59 14:59 22:59 Intake Total 3300 1000 Output Total 1300 1300 400 Balance 2000 -300 -400 Intake: IV 2100 1000 Oral 1200 Output: Urine 900 1300 400 Straight 500 Emesis 400 Other: Voiding Method Indwelling Catheter Patient is a young female, very pleasant, in no acute distress. Patient is alert awake oriented to time place and person. Speech and language functions are normal. No aphasia or dysarthria. Attention, concentration and fund of knowledge is adequate. On cranial examination, pupils are round and reacting to light, visual gooden are full on confrontation, extraocular muscles are intact with no nystagmus. Face is symmetric, tongue protrudes to the midline. Palatal elevation and sensation normal, hearing and shoulder shrug normal, facial sensation normal. Shoulder shrug normal. On muscle strength testing, there is no pronator drift and the strength is normal in arms and legs distally and proximally. Deep tendon reflexes are 3 in the upper limbs, 3+ at the knees, 2+ ankles and plantars are downgoing. No clonus. Sensory to touch is equal with no neglect. Cerebellar function showed no ataxia for [id number] testing. No dysdiadochokinesia. Tone and bulk of muscles normal. Gait not checked. On general examination, there is no carotid bruit or murmur, S1-S2 audible. Abdomen is soft nontender. Chest is clear. Peripheral pulses are present. No edema. Results - Laboratory Findings CBC and BMP: 12/01/20 06:43 11/30/20 14:17 Abnormal Lab Findings: Abnormal Labs 11/29/20 11/29/20 11/30/20 22:30 22:37 14:17 WBC MCV Neutrophils # Fibrinogen Glucose 122 H POC Glucose (mg/dL) AST ALT Lactate Dehydrogenase Urine Ketones Urine Blood Urine RBC U Cannabinoids Screen Positive A U Marijuana (THC) Screen Detected H 11/30/20 11/30/20 11/30/20 14:17 14:17 14:17 WBC 15.6 H MCV 100.2 H D Neutrophils # 12.9 H Fibrinogen 605 H Glucose POC Glucose (mg/dL) AST ALT Lactate Dehydrogenase Urine Ketones 1+ H Urine Blood Large H Urine RBC >182 H U Cannabinoids Screen U Marijuana (THC) Screen 11/30/20 11/30/20 14:17 14:26 WBC MCV Neutrophils # Fibrinogen Glucose POC Glucose (mg/dL) 136 H AST 61 H ALT 37 H Lactate Dehydrogenase 636 H Urine Ketones Urine Blood Urine RBC U Cannabinoids Screen U Marijuana (THC) Screen Assessment and Plan Assessment: * Grand mal seizure, likely due to eclampsia. * Patient has significantly elevated blood pressure, abnormal liver function and hyperreflexia, suggestive of eclampsia. * Status post . * Anemia * Previous history of seizure type spells 2, which were probably ALLERGIC or a vasovagal reaction rather than seizure. Plan: * Patient has been diagnosed with eclampsia, and seizure attributed to eclamptic seizure. She has been started on magnesium. * We will hold off on any antiepileptic medication. * Treatment of blood pressure as per her OB. * We will check EEG to rule out any underlying epileptiform activity. * Discussed with patient's , and nursing staff in detail.
[2020-12-01] MEDS: SENNOSIDES-DOCUSATE SODIUM 1 EACH TAB PO SCH ×2 (09:37→19:51)
[2020-12-01] MEDS ORDERED: HYDROcodone/APAP 5-325MG 1 EACH TAB PO PRN (10:12)
--- NOTE | 2020-12-01 10:22 | P.PNOBGPC ---
Subjective - Subjective Interval history: The patient continues to complain of nausea as well as continued migraine hea dache which she feels is her normal migraine headache. She remains at rest with a catheter in place secondary to ongoing magnesium sulfate but reports pain is otherwise reasonably controlled from her abdominal perspective. Patient reports: Reports appetite normal, Reports pain well controlled, Reports nauseated : doing well Objective - Vital Signs Latest vital signs: Vital Signs Temp Pulse Resp BP Pulse Ox 12/01/20 08:00 97.6 F 18 118/66 99 12/01/20 07:00 78 16 123/76 98 12/01/20 06:00 80 16 115/73 99 12/01/20 05:00 76 16 125/76 100 12/01/20 04:00 98 F 75 16 138/92 99 12/01/20 03:00 79 16 114/67 96 12/01/20 02:00 82 16 121/82 98 12/01/20 01:00 84 16 118/66 96 12/01/20 00:00 96.1 F L 86 16 117/78 98 11/30/20 23:00 93 16 114/54 98 11/30/20 22:00 96.9 F L 83 16 155/92 99 11/30/20 20:00 109 H 16 11/30/20 19:43 98 F 109 H 16 150/94 99 11/30/20 18:52 97.6 F 81 16 131/94 100 11/30/20 16:41 81 17 146/95 100 11/30/20 16:11 66 16 134/88 100 11/30/20 15:41 86 16 136/79 100 11/30/20 15:26 112 H 16 154/89 100 11/30/20 15:11 88 16 150/95 100 11/30/20 14:56 90 17 153/96 100 11/30/20 14:41 97.4 F L 115 H 16 126/90 100 Intake and Output 11/30/20 12/01/20 12/01/20 22:59 06:59 14:59 Intake Total 650 1310 Output Total 1250 2475 Balance -600 -1165 Intake: IV 650 360 Ibuprofen IV 800 mg In 500 Sodium Chloride 0.9% 250 ml @ 500 mls/hr IV Q6H [facility] Rx#:[id number] Intake, IV Titration 950 Amount Lactated Ringers 1,000 ml 200 @ 125 mls/hr IV .Q8H [facility] Rx#:[id number] Magnesium Sulfate-Water 750 Pmx 20 gm In Water For Injection 1 500ml.bag @ 2 GM/HR 50 mls/hr IV .Q10H [facility] Rx#:[id number] Output: Urine 1250 2475 Other: Voiding Method Indwelling Catheter Indwelling Catheter # Voids 1 Weight 68.175 kg - Exam Extremities: Present: normal Abdomen: Present: normal appearance, soft. Absent: distention, tenderness Incision: Present: normal, dry, intact Uterus: Present: normal, firm (The uterine fundus is tonic inappropriately tender just at the umbilicus) - Labs Labs: Abnormal Lab Results - Last 24 Hours (Table) 11/30/20 11/30/20 11/30/20 Range/Units 14:17 14:17 14:17 WBC 15.6 H (3.8-10.6) k/uL RBC (3.80-5.40) m/uL Hgb (11.4-16.0) gm/dL Hct (34.0-46.0) % MCV 100.2 H D (80.0-100.0) fL Neutrophils # 12.9 H (1.3-7.7) k/uL Fibrinogen 605 H (200-500) mg/dL Glucose 122 H (74-99) mg/dL POC Glucose (mg/dL) (75-99) mg/dL AST (14-36) U/L ALT (4-34) U/L Lactate Dehydrogenase (313-618) U/L Urine Ketones (Negative) Urine Blood (Negative) Urine RBC (0-5) /hpf 11/30/20 11/30/20 11/30/20 Range/Units 14:17 14:17 14:26 WBC (3.8-10.6) k/uL RBC (3.80-5.40) m/uL Hgb (11.4-16.0) gm/dL Hct (34.0-46.0) % MCV (80.0-100.0) fL Neutrophils # (1.3-7.7) k/uL Fibrinogen (200-500) mg/dL Glucose (74-99) mg/dL POC Glucose (mg/dL) 136 H (75-99) mg/dL AST 61 H (14-36) U/L ALT 37 H (4-34) U/L Lactate Dehydrogenase 636 H (313-618) U/L Urine Ketones 1+ H (Negative) Urine Blood Large H (Negative) Urine RBC >182 H (0-5) /hpf 12/01/20 12/01/20 Range/Units 06:43 06:43 WBC 12.7 H (3.8-10.6) k/uL RBC 2.92 L (3.80-5.40) m/uL Hgb 9.7 L D (11.4-16.0) gm/dL Hct 27.5 L (34.0-46.0) % MCV (80.0-100.0) fL Neutrophils # 10.8 H (1.3-7.7) k/uL Fibrinogen (200-500) mg/dL Glucose (74-99) mg/dL POC Glucose (mg/dL) (75-99) mg/dL AST 49 H (14-36) U/L ALT (4-34) U/L Lactate Dehydrogenase 646 H (313-618) U/L Urine Ketones (Negative) Urine Blood (Negative) Urine RBC (0-5) /hpf Assessment and Plan (1) Group B streptococcal infection in Current Visit: Yes Status: Acute Code(s): O98.819 - OTH MATERNAL INFEC/PARASTC DISEASES COMP PREG, UNSP TRI; B95.1 - STREPTOCOCCUS, GROUP B, CAUSING DISEASES CL[facility]SD [facility] SNOMED Code(s): 010361715 (2) Active labor at term Current Visit: Yes Status: Acute Code(s): VHG9858 - SNOMED Code(s): 92659566 (3) Status post section Current Visit: Yes Status: Acute Code(s): Z98.891 - HISTORY OF UTERINE SCAR FROM PREVIOUS SURGERY SNOMED Code(s): 898087995 (4) Eclampsia Current Visit: Yes Status: Acute Code(s): O15.9 - ECLAMPSIA, UNSPECIFIED TO TIME PERIOD SNOMED Code(s): 68533045 Plan: The patient will be continued on magnesium sulfate for 24 hours total. Her bl ood pressures are entirely normal at this time. The continued nausea certainly could be secondary to her ongoing headaches which hopefully will improve with resolution of magnesium sulfate. Additionally, she is quite likely experiencing some nausea from the Dilaudid WHISKEY REGAUGER which has been discontinued. I discussed with her what pain medications haven't worked in the past and she reports that Merrill has been effective. As a result, Merrill has been ordered for oral pain medication. She will continue to receive IV Tylenol and possibly IV ibuprofen as needed at this time. Her catheter will be discontinued at the time of the magnesium. I additionally have advanced her diet though have encouraged her only to eat if she feels she is able. We will additionally asked neurology for an opinion regarding medications for treatment of migraine if it is to continue.
--- NOTE | 2020-12-01 16:07 | EEG ---
ELECTROENCEPHALOGRAM REPORT DATE OF SERVICE: 12/01/2020 PREAMBLE: This is a 30-year-old female who has grand mal seizure shortly after delivery with a diagnosis of probable eclampsia. This study is performed to evaluate for any epileptiform activity. EEG FINDINGS: This is a 21 channel routine EEG recording patient utilizing 10/20 international system with referential and bipolar montages. The EEG starts and continues with presence of extensive myogenic activity seen in bihemispheric region throughout the study, creating difficulty with identifying underlying electrographic activity. The patient was very sick throughout the study with vomiting and nausea. The background otherwise appeared to be normal with 10 hertz moderate voltage activity seen in bihemispheric region, which is reactive to eye opening and closing. Different stages of sleep were not seen. Photic stimulation was not performed. No clear-cut epileptiform activity was seen. IMPRESSION: Almost nondiagnostic electrographic study because of presence of severe myogenic activity in the bifrontal parietal region throughout the study. No definitive epileptiform activity was seen. Some posterior background was seen intermittently which appeared normal. Suggest repeat EEG when patient is able to tolerate. MMODL / IJN: [id number] / [facility]
[2020-12-01] MEDS ORDERED: PANTOPRAZOLE 40 MG TABLET PO STA (18:57)
[2020-12-01] MEDS: HYDROcodone/APAP 7.5-325MG 1 EACH TAB PO PRN (21:08)
[2020-12-02] MEDS: ACETAMINOPHEN TAB 500 MG TAB PO SCH ×3 (01:56→18:45)
[2020-12-02] MEDS: IBUPROFEN 600 MG TAB PO SCH ×3 (02:01→16:19)
[2020-12-02] MEDS: HYDROcodone/APAP 7.5-325MG 1 EACH TAB PO PRN ×3 (05:10→20:44)
[2020-12-02 06:46] LABS: HGB 9.3 gm/dL (11.4-16.0); MCH 33.8 pg (25.0-35.0); MCHC 35.6 g/dL (31.0-37.0); Mean Platelet Volume 8.1; Platelet Count 243 k/uL (150-450); RBC 2.74 m/uL (3.80-5.40); RDW 12.9 % (11.5-15.5); WBC 10.7 k/uL (3.8-10.6)
[2020-12-02 07:10] LABS: ALT 30 U/L (4-34); AST 48 U/L (14-36); LDH 710 U/L (313-618)
[2020-12-02] MEDS: SENNOSIDES-DOCUSATE SODIUM 1 EACH TAB PO SCH ×2 (08:08→19:28)
--- NOTE | 2020-12-02 11:31 | P.PNOBGPC ---
Subjective - Subjective Interval history: The patient denies any ongoing headache or nausea and vomiting at this point. She feels significantly better since stopping the PULP MACHINE OPERATOR and magnesium sulfate yesterday. She is ambulating routinely and performing all activities of daily living. Patient reports: Reports appetite normal, Reports voiding normally, Reports pain well controlled, Reports ambulating normally [place]: doing well Objective - Vital Signs Latest vital signs: Vital Signs Temp Pulse Resp BP Pulse Ox 12/02/20 08:00 98.5 F 75 20 112/70 97 12/02/20 04:00 98.2 F 81 16 123/72 100 12/02/20 00:00 98.3 F 90 16 117/78 98 12/01/20 20:00 98.2 F 79 16 130/81 99 12/01/20 16:00 98.2 F 16 12/01/20 11:33 97.8 F 87 18 128/72 99 Intake and Output 12/01/20 12/02/20 12/02/20 22:59 06:59 14:59 Other: # Voids 1 1 - Exam Extremities: Present: normal Abdomen: Present: normal appearance, soft. Absent: distention, tenderness Incision: Present: normal, dry, intact Uterus: Present: normal, firm (The uterine fundus is tonic and appropriate tender at the umbilicus.) - Labs Labs: Abnormal Lab Results - Last 24 Hours (Table) 12/02/20 12/02/20 Range/Units 06:20 06:20 WBC 10.7 H (3.8-10.6) k/uL RBC 2.74 L (3.80-5.40) m/uL Hgb 9.3 L (11.4-16.0) gm/dL Hct 26.0 L (34.0-46.0) % AST 48 H (14-36) U/L Lactate Dehydrogenase 710 H (313-618) U/L Assessment and Plan (1) Group B streptococcal infection in Current Visit: Yes Status: Acute Code(s): O98.819 - OTH MATERNAL INFEC/PARASTC DISEASES COMP PREG, UNSP TRI; B95.1 - STREPTOCOCCUS, GROUP B, CAUSING DISEASES CLASSD [facility] SNOMED Code(s): 157539256 (2) Active labor at term Current Visit: Yes Status: Acute Code(s): BWC6474 - SNOMED Code(s): 34437719 (3) Status post section Current Visit: Yes Status: Acute Code(s): Z98.891 - HISTORY OF UTERINE SCAR FROM PREVIOUS SURGERY SNOMED Code(s): 702906304 (4) Eclampsia Current Visit: Yes Status: Acute Code(s): O15.9 - ECLAMPSIA, UNSPECIFIED TO TIME PERIOD SNOMED Code(s): 56369639 Plan: Continue routine and postoperative care. Her vital signs have remained entirely stable with no evidence of hypertension. She additionally has no edema nor any secondary symptoms that might be associated with preeclampsia and subsequent eclampsia. Her labs remained mildly irregular with one liver functions still abnormal. Regardless, she is entirely stable at this point. We will continue to have routine care as noted above and evaluate for possible discharge tomorrow.
[2020-12-02] MEDS: SIMETHICONE 80 MG CHEWABLE PO PRN (13:01)
[2020-12-03] MEDS: IBUPROFEN 600 MG TAB PO SCH ×3 (00:19→08:05)
[2020-12-03] MEDS: ACETAMINOPHEN TAB 500 MG TAB PO SCH (01:44)
[2020-12-03] MEDS: HYDROcodone/APAP 7.5-325MG 1 EACH TAB PO PRN (04:36)
[2020-12-03] MEDS: SENNOSIDES-DOCUSATE SODIUM 1 EACH TAB PO SCH (08:08)
[2020-12-03 08:39] VITALS: BP 124/81; PULSE 75; RESP 20; TEMP 98.7
--- NOTE | 2020-12-03 10:15 | P.PN ---
Subjective Progress Note Date: 12/02/20 12/02/2020: This is a tele-neurology follow-up performed today on 12/02/2020. Patient is feeling much better. Patient states that she has headache last night, but it was felt to be related to the use of magnesium. Since the magnesium has stopped, today she has no headache. She has no further seizures. Her blood pressure is much better controlled. No new focal symptoms. Objective - Vital Signs Vital signs: Vital Signs Temp 98.7 F 12/03/20 08:00 Pulse 75 12/03/20 08:00 Resp 20 12/03/20 08:00 BP 124/81 12/03/20 08:00 Pulse Ox 99 12/03/20 08:00 Intake & Output 12/02/20 12/03/20 12/03/20 18:59 06:59 18:59 Other: # Voids 1 2 # Bowel Movements 1 - Exam Patient's mental status, speech and language functions are normal. Cranial nerves are normal. Muscle strength is normal. Reflexes are still brisk in the legs and plantars are downgoing. No clonus. Sensations are equal. - Labs CBC & Chem 7: 12/02/20 06:20 11/30/20 14:17 Assessment and Plan Assessment: * Grand mal seizure, likely due to eclampsia. * Patient has significantly elevated blood pressure, abnormal liver function and hyperreflexia, suggestive of eclampsia. * Status post . * Anemia * Previous history of seizure type spells 2, which were probably ALLERGIC or a vasovagal reaction rather than seizure. Plan: * Patient is doing much better. Her headache has resolved. No further seizures. * EEG was performed, which was almost nondiagnostic electrographic study because of presence of severe myogenic activity in the bifrontal parietal region throughout the study. No definitive epileptiform activity was seen. Suggest repeat EEG when patient is able to tolerate. * No indication for antiepileptic medication. * Treatment of blood pressure as per her OB. * Her hepatic panel also improving with AST borderline 48 and ALT now normal 30. * We will check B12 and folate levels because of hyperreflexia. * Patient recommended to have a follow-up EEG performed as an outpatient. * Discussed with patient's , and nursing staff in detail. * No other neurological workup indicated. Neurology will sign off. Please reconsult if any other concerns.
--- NOTE | 2020-12-03 11:02 | P.DS ---
Providers Date of admission: 11/29/20 21:15 Expected date of discharge: 12/03/20 Attending physician: Ajay Lawson Consults: 11/30/20 14:46 Consult Physician Stat Consulting Provider: Alee Madrid Consult Reason/Comments: Witnessed Seizure Do you want consulting provider notified?: Already Contacted Primary care physician: Stated None - Discharge Diagnosis(es) (1) Group B streptococcal infection in Current Visit: Yes Status: Acute (2) Active labor at term Current Visit: Yes Status: Acute (3) Status post section Current Visit: Yes Status: Acute (4) Eclampsia Current Visit: Yes Status: Acute Hospital Course: The patient is a 30-year-old 2 para 0010 admitted at 37+ weeks by good dating parameters. She is admitted in early active labor with all signs reassuring. Her has been essentially uncomplicated though she saw a fixing carpenter during the for palpitations and required no further treatment or follow-up thereafter. She is group B strep positive. As a result, she had antibiotic prophylaxis started. She made progress through the active phase of labor and underwent artificial rupture of membranes demonstrating clear fluid. She did have an epidural catheter placed for analgesia. She ultimately progressed to complete and pushed for well over 2 hours with minimal descensus below approximately 0 station and significant caput formation. The presentation was thought to be occiput posterior. She was taken the operating room where she underwent primary low-transverse section and was delivered of a viable 3320 g baby boy with Apgars of 9 at 1 minute and 9 at 5 minutes. Following the procedure, just prior to transferring the patient from the operating table to her bed for transport, she had a witnessed grand mal seizure with, in the absence of other evidence, was presumed to be eclamptic in nature. As a result, she had magnesium sulfate started for 24 hours. Her blood pressures remained stable throughout the first 24 hours of treatment and never required addition of antihypertensives. She did continue to complain of significant headache with nausea and vomiting which resolved with removal of the LINER REPLACER and magnesium sulfate a 24 hours. She remained stable over the course of the next roughly 48 hours with vital signs entirely stable and she was afebrile throughout. She was deemed stable for discharge on post operative day #3 and was discharged home to follow-up in the office in 2 weeks for a recheck and 6 weeks routinely. Discharge instructions included calling for any significantly increased bleeding or foul-smelling lochia, significantly increased fever or abdominal pain, perineal complaints, breast complaints, incisional complaints, or anything else that concerned her. She was additionally instructed to do no heavy lifting over the 6 weeks and to abstain from driving until off of all pain medications or 2 weeks' time, whichever came first. She was additionally and lastly instructed to stay at relative rest for the next several days and gradually increase her activity level. She was also to call if she had any significant symptoms of possible preeclampsia including return of severe headache, nausea and vomiting, scotomata, or anything else that might concerned her. She understood all of her instructions and agrees to follow up as noted above. Discharge medications included continued vitamins as she has opted to breast-feed. She additionally was to use [id number] analgesic pain medications as well as any medications she would normally take at home. She was provided with a prescription for [place] 5/325 mg, 1-2 by mouth every 6 hours when necessary pain, #30 dispensed with no refills. Maternal blood type is O+ and rubella status is immune. Discharge hemoglobin and hematocrit were 9.3 and 26.0 respectively. As a result, she was instructed to use iron sulfate daily for up to a month to rebuild her hemoglobin. Patient Condition at Discharge: Stable Plan - Discharge Summary New Discharge Prescriptions: No Action Albuterol Sulfate [Ventolin HFA] 1 - 2 puff INHALATION RT-Q6H PRN PRN Reason: Shortness Of Breath Pnv No.95/Ferrous Fum/Folic AC [ Multivitamin Tablet] 1 tab PO DAILY Ondansetron [Zofran] 4 mg PO Q8HR PRN PRN Reason: Nausea Pantoprazole Sodium 40 mg PO DAILY Beclomethasone Dipropionate [Qvar 80mcg Redihaler] 2 puff PO DAILY Discharge Medication List Albuterol Sulfate [Ventolin HFA] 1 - 2 puff INHALATION RT-Q6H PRN 04/26/20 [History] Ondansetron [Zofran] 4 mg PO Q8HR PRN 11/07/20 [History] Pantoprazole Sodium 40 mg PO DAILY 11/07/20 [History] Pnv No.95/Ferrous Fum/Folic AC [ Multivitamin Tablet] 1 tab PO DAILY 11/07/20 [History] Beclomethasone Dipropionate [Qvar 80mcg Redihaler] 2 puff PO DAILY 11/09/20 [History] Follow up Appointment(s)/Referral(s): Ajay Lawson MD [STAFF PHYSICIAN] - 2 Weeks Discharge Disposition: HOME SELF-CARE
[2020-12-03 20:14] LABS: Folate, Serum 23.4 ng/mL
== END 2020-12-03 12:50 | disposition home or self-care (01) | DRG 787 ==
LOC: FBPOP 19:30 → 4FBP 21:15
PROVIDERS: ADMIT Obstetrics & Gynecology; ATTEND Obstetrics & Gynecology
PROC: 10D00Z1 Extraction of Products of Conception, Low, Open Approach (ICD-10-PCS; principal; 2020-11-29)
PROC: 10907ZC Drainage of Amniotic Fluid, Therapeutic from Products of Conception, Via Natural or Artificial Opening (ICD-10-PCS; 2020-11-29)
DX: O15.1 Eclampsia complicating labor (principal); O99.113 Other diseases of the blood and blood-forming organs and certain disorders involving the immune mechanism complicating pregnancy, third trimester; O99.324 Drug use complicating childbirth; O99.02 Anemia complicating childbirth; O99.824 Streptococcus B carrier state complicating childbirth; O99.353 Diseases of the nervous system complicating pregnancy, third trimester; O62.0 Primary inadequate contractions; D64.9 Anemia, unspecified; O75.81 Maternal exhaustion complicating labor and delivery; F32.9 Major depressive disorder, single episode, unspecified; F41.0 Panic disorder [episodic paroxysmal anxiety]; O99.613 Diseases of the digestive system complicating pregnancy, third trimester; G43.909 Migraine, unspecified, not intractable, without status migrainosus; M06.9 Rheumatoid arthritis, unspecified; O99.892 Other specified diseases and conditions complicating childbirth; R73.03 Prediabetes; O99.73 Diseases of the skin and subcutaneous tissue complicating the puerperium; L29.9 Pruritus, unspecified; J45.909 Unspecified asthma, uncomplicated; G40.409 Other generalized epilepsy and epileptic syndromes, not intractable, without status epilepticus; O99.344 Other mental disorders complicating childbirth; O99.513 Diseases of the respiratory system complicating pregnancy, third trimester; Z37.0 Single live birth; Z87.11 Personal history of peptic ulcer disease; Z87.891 Personal history of nicotine dependence; F12.90 Cannabis use, unspecified, uncomplicated; Z87.59 Personal history of other complications of pregnancy, childbirth and the puerperium; Z88.7 Allergy status to serum and vaccine; Z88.2 Allergy status to sulfonamides
CPT/HCPCS: 59025; 80306; 81001; 82565; 82570; 82607; 82746; 82947; 83615; 84156; 84450; 84460; 84520; 84550; 85025; 85027; 85384; 85610; 85730; 86850; 86900; 86901; 95816; 99213

== ENCOUNTER 2021-02-26 09:53 | Emergency (ER) | payer OTHER ==
[2021-02-26 10:21] VITALS: BP 106/70; PULSE 104; RESP 18; TEMP 97.9
[2021-02-26] MEDS ORDERED: ONDANSETRON ODT 4 MG TAB PO STA (10:30)
--- NOTE | 2021-02-26 10:49 | XR ---
EXAMINATION TYPE: XR chest 2V DATE OF EXAM: 02/26/2021 COMPARISON: Chest x-ray September 17, 2018 HISTORY: Fever and cough. TECHNIQUE: Frontal and lateral views of the chest are obtained. FINDINGS: There is no suspicious focal air space opacity, pleural effusion, or pneumothorax seen. T he cardiac silhouette size is stable and within normal limits. The osseous structures are intact. IMPRESSION: No acute pulmonary process. No significant change from prior.
--- NOTE | 2021-02-26 12:06 | ED ---
URI HPI - General Chief Complaint: Upper Respiratory Infection Stated Complaint: fever & abd pain Time Seen by Provider: 02/26/21 10:22 Source: patient, RN notes reviewed Mode of arrival: ambulatory Limitations: no limitations - History of Present Illness Initial Comments: She is a 30-year-old female that presents to emergency department complaining of Covid exposure and upper respiratory tract symptoms. She notes she is immune compromised so she wanted to be evaluated to make sure that she did not have it. Patient was otherwise well-appearing in no apparent distress or pain. She denied chest pain shortness of breath headache nausea vomiting diarrhea constipation fever fatigue chills. - Related Data Home Medications Medication Instructions Recorded Confirmed Albuterol Sulfate [Ventolin HFA] 1 - 2 puff INHALATION RT-Q6H PRN 04/26/20 11/29/20 Ondansetron [Zofran] 4 mg PO Q8HR PRN 11/07/20 11/29/20 Pantoprazole Sodium 40 mg PO DAILY 11/07/20 11/29/20 Pnv No.95/Ferrous Fum/Folic AC 1 tab PO DAILY 11/07/20 11/29/20 [ Multivitamin Tablet] Beclomethasone Dipropionate [Qvar 2 puff PO DAILY 11/09/20 11/29/20 80mcg Redihaler] Previous Rx's Medication Instructions Recorded methylPREDNISolone [Medrol Dose 4 mg PO DIRECTED #1 packet 02/26/21 Pack] Allergies Allergy/AdvReac Type Severity Reaction Status Date / Time calcium [From DHEA] Allergy Unknown Verified 02/26/21 10:21 calcium carbonate [From DHEA] Allergy Unknown Verified 02/26/21 10:21 cyclobenzaprine HCl Allergy Unknown Verified 02/26/21 10:21 [From Flexeril] divalproex sodium Allergy Unknown Verified 02/26/21 10:21 [From Depakote] fentanyl Allergy Unknown Verified 02/26/21 10:21 influenza virus vaccine, Allergy Rash/Hives Verified 02/26/21 10:21 specific metoclopramide [From Reglan] Allergy Unknown Verified 02/26/21 10:21 prasterone (DHEA) [From DHEA] Allergy Unknown Verified 02/26/21 10:21 sulfamethoxazole Allergy Unknown Verified 02/26/21 10:21 [From Septra] sumatriptan [From Imitrex] Allergy Unknown Verified 02/26/21 10:21 sumatriptan succinate Allergy Unknown Verified 02/26/21 10:21 [From Imitrex] topiramate [From Topamax] Allergy Rash/Hives Verified 02/26/21 10:21 trimethoprim [From Septra] Allergy Unknown Verified 02/26/21 10:21 antihistamines Allergy Dyspnea Uncoded 02/26/21 10:21 Review of Systems ROS Statement: Those systems with pertinent positive or pertinent negative responses have been documented in the HPI. ROS Other: All systems not noted in ROS Statement are negative. Past Medical History Past Medical History: Asthma, GERD/Reflux, Rheumatoid Arthritis (RA) Additional Past Medical History / Comment(s): ARTHRITIS, HIATAL HERNIA AND GASTRIC ULCER, ENVIRONMENTAL ALLERGIES, DIGESTIVE ISSUES, MIGRAINES, ANEMIA, "PREDIABETIC", herniated disc, narrowed ureters, being worked up for POTS, PVC History of Any Multi-Drug Resistant Organisms: None Reported Past Surgical History: Adenoidectomy, Tonsillectomy Additional Past Surgical History / Comment(s): eye sclera and laser Past Anesthesia/Blood Transfusion Reactions: No Reported Reaction Past Psychological History: Anxiety, Depression, Panic Disorder Smoking Status: Former smoker Past Alcohol Use History: None Reported Past Drug Use History: Marijuana - Past Family History Mother Family Medical History: Hyperlipidemia, Hypertension, Osteoarthritis (OA) Additional Family Medical History / Comment(s): rare heart conditions Father Family Medical History: Cancer, Diabetes Mellitus, Hypertension General Exam Limitations: no limitations General appearance: alert, in no apparent distress Head exam: Present: atraumatic, normocephalic, normal inspection Eye exam: Present: normal appearance, PERRL, EOMI. Absent: scleral icterus, conjunctival injection, periorbital swelling ENT exam: Present: normal exam, mucous membranes moist Neck exam: Present: normal inspection Respiratory exam: Present: normal lung sounds bilaterally. Absent: respiratory distress, wheezes, rales, rhonchi, stridor Cardiovascular Exam: Present: regular rate, normal rhythm, normal heart sounds. Absent: systolic murmur, diastolic murmur, rubs, gallop, clicks GI/Abdominal exam: Present: soft, normal bowel sounds. Absent: distended, tenderness, guarding, rebound, rigid Extremities exam: Present: normal inspection, full ROM, normal capillary refill. Absent: tenderness, pedal edema, joint swelling, calf tenderness Neurological exam: Present: alert, oriented X3 Psychiatric exam: Present: normal affect, normal mood Skin exam: Present: warm, dry, intact, normal color. Absent: rash Course Vital Signs 02/26/21 10:15 Temperature 97.9 F Pulse Rate 104 H Respiratory 18 Rate Blood Pressure 106/70 O2 Sat by Pulse 100 Oximetry Medical Decision Making - Medical Decision Making 30-year-old female complaining of upper respiratory tract symptoms and exposure to Covid. Covid test, chest x-ray ordered. Covid test negative. Chest x-ray shows no acute cardiopulmonary process. Patient most likely experiencing upper respiratory tract infection due to other virus. Case discussed with Dr. Ibarra, patient can discharge home. - Lab Data Lab Results 02/26/21 Range/Units 10:57 Coronavirus (PCR) Not Detected (Not Detectd) - Radiology Data Radiology results: report reviewed, image reviewed Chest X-ray: No acute pulmonary process. No significant change from prior. Disposition Clinical Impression: Acute upper respiratory infection Disposition: HOME SELF-CARE Condition: Stable Instructions (If sedation given, give patient instructions): Upper Respiratory Infection (ED) Additional Instructions: Please return to the Emergency Department if symptoms worsen or any other concerns. Follow-up with primary care 1-2 days. Take Medrol Dosepak as prescribed. Use Tylenol Motrin as needed for fever. Is patient prescribed a controlled substance at d/c from ED?: No Referrals: Inna Bonilla MD [Primary Care Provider] - 1-2 days Time of Disposition: 12:06
== END 2021-02-26 12:14 | disposition home or self-care (01) ==
LOC: EC 09:53
DX: J06.9 Acute upper respiratory infection, unspecified (principal); J45.909 Unspecified asthma, uncomplicated; K21.9 Gastro-esophageal reflux disease without esophagitis; M06.9 Rheumatoid arthritis, unspecified; Z79.51 Long term (current) use of inhaled steroids; F32.9 Major depressive disorder, single episode, unspecified; F41.0 Panic disorder [episodic paroxysmal anxiety]; F12.90 Cannabis use, unspecified, uncomplicated; Z72.89 Other problems related to lifestyle; Z20.822 Contact with and (suspected) exposure to COVID-19; Z87.891 Personal history of nicotine dependence; Z79.899 Other long term (current) drug therapy
CPT/HCPCS: 71046; 87635; 99283

== ENCOUNTER 2021-06-29 08:04 | Emergency (ER) | payer OTHER ==
[2021-06-29] MEDS ORDERED: KETOROLAC 15 MG/ML 1 ML VIAL IM STA (08:15)
[2021-06-29] MEDS ORDERED: diazePAM 2 MG TAB PO STA (08:15)
[2021-06-29 08:18] VITALS: TEMP 97.3
--- NOTE | 2021-06-29 08:55 | XR ---
EXAMINATION TYPE: XR chest 2V DATE OF EXAM: 06/29/2021 COMPARISON: X-ray dated 02/26/2021 HISTORY: Back pain TECHNIQUE: Frontal and lateral views of the chest are obtained. FINDINGS: Unremarkable lungs. No pleural effusion or pneumothorax. No cardiomegaly. No gross aggressive bone le marlyn. IMPRESSION: Unremarkable chest x-ray.
--- NOTE | 2021-06-29 09:19 | CT ---
EXAMINATION TYPE: CT Cerv Thor Lumbar spine wo con DATE OF EXAM: 06/29/2021 COMPARISON: MRI dated 02/07/2017 chest x-ray dated 02/26/2021 HISTORY: Alder something pop in back after coughing. Pain. CT DLP: 853.6 mGycm Automated exposure control for dose reduction was used. TECHNIQUE: Multiplanar CT scan of the cervical, thoracic and lumbar spine without IV contrast adminis tration. FINDINGS: Cervical spine: Preserved cervical curvature. No significant anterolisthesis or retrolisthesis. No definite vertebral body collapse or acute displaced fracture. Unremarkable atlantoaxial and atlantooccipital articulati ons. No facet dislocation or significant subluxation. No significant bony degenerative changes of the cervical spine. No bony central spinal canal stenosis or neuroforaminal stenosis. Unremarkable preve rtebral soft tissue. Thoracic spine: Preserved dorsal kyphosis. No significant anterolisthesis or retrolisthesis. No definite vertebral adrian dy collapse or acute displaced fracture. Degenerative changes of the mid thoracic spine with opposing endplate osteophytosis, irregularity and slightly degenerated discs most evident at C6-7 down to T9- 10 levels. At T9-10 level: Left preforaminal focal soft tissue, possibly representing disc extrusion, indenting the left anterolateral aspect of the thecal sac without spinal canal stenosis and causing moderate le ft neuroforaminal stenosis, possibly compressing the left T9 nerve root. No other significant thoracic disease, central spinal canal stenosis or neuroforaminal stenosis. Inci dental findings of scattered areas of focal pulmonary infiltration is seen at the upper lung zones, n ot appreciated on the previous x-rays or today's x-ray. They could represent acute inflammatory/infec tious process however chronic atypical infection cannot be excluded. Recommend clinical correlation a nd pulmonology consultation. No paraspinal lesion Lumbar spine spine: Bilateral L3 pars interarticularis break without anterolisthesis or retrolisthesis. Good lumbar verte bral alignment. No other definite lumbar vertebral fracture identified. No significant degenerative c hanges of the lumbar spine. Mild L3-4 and L4-5 disc bulges without significant central spinal canal s tenosis or neuroforaminal stenosis. Small central L5-S1 focal disc protrusion, causing no significant central spinal canal stenosis or ne uroforaminal stenosis. No other significant lumbar disc disease, neuroforaminal stenosis or spinal ca nal stenosis. No paraspinal lesion. Slightly prominent left retroperitoneal para-aortic lymph node me asuring up to 8mm, nonspecific. IMPRESSION: 1. NO ACUTE TRAUMATIC BONY INJURY OF THE CERVICAL OR THE THORACIC SPINE. 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 PLEASE CORRELATE CLINICALLY. 2. THE DESCRIBED SOFT TISSUE ALONG THE LEFT PREFORAMINAL LOCATION AT T9-10 LEVEL CAUSES LEFT NEUROFOR AMINAL STENOSIS AND POSSIBLE COMPRESSION OF THE LEFT T9 NERVE ROOT, LIKELY REPRESENTING AN EXTRUDED D ISC MATERIAL HOWEVER OTHER SOFT TISSUE LESION CAN'T BE EXCLUDED BY THIS CT SCAN. RECOMMEND FURTHER DE DICATED TARGETED MRI AT THAT LEVEL. 3. NO OTHER SIGNIFICANT CENTRAL SPINAL CANAL STENOSIS OR NEUROFORAMINAL STENOSIS IDENTIFIED IN THE SP INE. 4. BILATERAL UPPER LUNG ZONE AREAS OF PULMONARY INFILTRATION DESCRIBED ABOVE, NOT WELL APPRECIATED ON THE CHEST X-RAY OR THE PREVIOUS X-RAYS. IT COULD REPRESENT ACUTE INFLAMMATION/INFECTIOUS PROCESS OR FOCI OF HEMORRHAGE HOWEVER CHRONIC OR ATYPICAL INFECTION CANNOT BE EXCLUDED, PLEASE CORRELATE CLIN ICALLY. FURTHER WORKUP AND PULMONOLOGY CONSULTATION CAN BE CONSIDERED. OTHER INCIDENTAL FINDINGS D ESCRIBED ABOVE.
[2021-06-29] MEDS ORDERED: LIDOCAINE 5% PATCH TOPICAL STA (09:58)
[2021-06-29] MEDS ORDERED: methocarbamoL 750 MG TAB PO STA (09:58)
--- NOTE | 2021-06-29 10:00 | ED ---
General Adult HPI - General Chief complaint: Back Pain/Injury Stated complaint: Back pain Time Seen by Provider: 06/29/21 08:06 Source: patient, RN notes reviewed, old records reviewed Mode of arrival: EMS Limitations: no limitations - History of Present Illness Initial comments: Patient is a 31-year-old female with past medical history remarkable for lumbar spine injuries as well as nerve impingement presents emergency department over concern for injury to her thoracic spine. Patient states that she woke up and coughed this morning, none felt a pulling sensation located over the left middle of her back. States it is not long bones but just left of her spine in the middle of her back. She is concerned as she does have a history of nerve impin gement. She denies any other trauma. She states that it is extremely tight and is difficult to walk secondary to this. Denies any lower extremity weakness, saddle anesthesia, difficulty with urinating or stooling. Has no other acute complaints at this time. Is uncertain what is causing her pain. States she does have a follow-up appointment with her neurologist this week, however states that she wanted to be evaluated before then. - Related Data Home Medications Medication Instructions Recorded Confirmed Albuterol Sulfate [Ventolin HFA] 1 - 2 puff INHALATION RT-Q6H PRN 04/26/20 11/29/20 Ondansetron [Zofran] 4 mg PO Q8HR PRN 11/07/20 11/29/20 Pantoprazole Sodium 40 mg PO DAILY 11/07/20 11/29/20 Pnv No.95/Ferrous Fum/Folic AC 1 tab PO DAILY 11/07/20 11/29/20 [ Multivitamin Tablet] Beclomethasone Dipropionate [Qvar 2 puff PO DAILY 11/09/20 11/29/20 80mcg Redihaler] Previous Rx's Medication Instructions Recorded methylPREDNISolone [Medrol Dose 4 mg PO DIRECTED #1 packet 02/26/21 Pack] Lidocaine 5% Patch [Lidoderm 5% 1 patch TOPICAL DAILY PRN 7 Days 06/29/21 Patch] #7 patch Methocarbamol [Robaxin-750] 750 mg PO BID PRN 14 Days #28 06/29/21 tablet Allergies Allergy/AdvReac Type Severity Reaction Status Date / Time calcium [From DHEA] Allergy Unknown Verified 06/29/21 08:19 calcium carbonate [From DHEA] Allergy Unknown Verified 06/29/21 08:19 cyclobenzaprine HCl Allergy Unknown Verified 06/29/21 08:19 [From Flexeril] divalproex sodium Allergy Unknown Verified 06/29/21 08:19 [From Depakote] fentanyl Allergy Unknown Verified 06/29/21 08:19 influenza virus vaccine, Allergy Rash/Hives Verified 06/29/21 08:19 specific metoclopramide [From Reglan] Allergy Unknown Verified 06/29/21 08:19 prasterone (DHEA) [From DHEA] Allergy Unknown Verified 06/29/21 08:19 sulfamethoxazole Allergy Unknown Verified 06/29/21 08:19 [From Septra] sumatriptan [From Imitrex] Allergy Unknown Verified 06/29/21 08:19 sumatriptan succinate Allergy Unknown Verified 06/29/21 08:19 [From Imitrex] topiramate [From Topamax] Allergy Rash/Hives Verified 06/29/21 08:19 trimethoprim [From Septra] Allergy Unknown Verified 06/29/21 08:19 antihistamines Allergy Dyspnea Uncoded 06/29/21 08:19 Review of Systems ROS Statement: Those systems with pertinent positive or pertinent negative responses have been documented in the HPI. Review of Systems: CONST: Denies fever EYES: Denies blurry vision ENT: Denies nasal congestion C/V: Denies Chest pain RESP: Denies shortness of breath GI: Denies abdominal pain : Denies dysuria SKIN: Denies rash. MSK: Endorses back pain NEURO: Denies headache ROS Other: All systems not noted in ROS Statement are negative. Past Medical History Past Medical History: Asthma, GERD/Reflux, Rheumatoid Arthritis (RA) Additional Past Medical History / Comment(s): ARTHRITIS, HIATAL HERNIA AND GASTRIC ULCER, ENVIRONMENTAL ALLERGIES, DIGESTIVE ISSUES, MIGRAINES, ANEMIA, "PREDIABETIC", herniated disc, narrowed ureters, being worked up for POTS, PVC History of Any Multi-Drug Resistant Organisms: None Reported Past Surgical History: Adenoidectomy, Section, Tonsillectomy Additional Past Surgical History / Comment(s): eye sclera and laser Past Anesthesia/Blood Transfusion Reactions: No Reported Reaction Past Psychological History: Anxiety, Depression, Panic Disorder Smoking Status: Current every day smoker Past Alcohol Use History: None Reported Past Drug Use History: Marijuana - Past Family History Mother Family Medical History: Hyperlipidemia, Hypertension, Osteoarthritis (OA) Additional Family Medical History / Comment(s): rare heart conditions Father Family Medical History: Cancer, Diabetes Mellitus, Hypertension General Exam - General Exam Comments Initial Comments: General: Appears in mild to moderate distress secondary to back discomfort. HEAD: Normal with no signs of head trauma. EYES: PERRLA, EOMI, conjunctiva normal, no discharge. ENT: Hearing grossly intact, normal oropharynx. RESPIRATORY: Clear breath sounds bilaterally. No wheezes, rales, or rhonchi. C/V: Regular rate and rhythm. S1 and S2 auscultated, no edema, peripheral pulses 2+ and intact throughout ABD: Abd is soft, nontender, nondistended EXT: Normal range of motion of the extremities without any obvious deformity. No midline cervical, thoracic, lumbar spine tenderness to palpation. Left paraspinal muscle tenderness to palpation of the thoracic spine. SKIN: No rashes or lesions observed on exposed skin. NEURO: Alert and oriented 4. No focal sensory strength deficits. Neuro exam is unremarkable. Limitations: no limitations Course Vital Signs 06/29/21 06/29/21 08:11 10:29 Temperature 97.3 F L Pulse Rate 85 88 Respiratory 18 16 Rate Blood Pressure 94/75 101/62 O2 Sat by Pulse 95 97 Oximetry Medical Decision Making - Medical Decision Making Based on patient's presentation and physical exam, she likely experiencing some back spasm, however with her spinal history she is requesting imaging and I believe that is reasonable. We will obtain CT imaging of the spine as well as a chest x-ray. She was in agreement with this plan. She'll be administered Valium as well as IM Toradol for analgesia. Chest x-ray revealed no acute cardiopulmonary process. Spinal CT revealed no acute injury. There is chronic L3 spondylitic the lysis this the potential for compression of the left T9 nerve root but no definitive evidence. Recommend MRI. They did see findings concerning for possible pulmonary infiltration on CT, however patient has no acute symptoms and chest x-ray was clear. Does not correlate clinically. Incidental finding. I did discuss with her the findings on CT imaging. I recommended she will likely require an MRI if it does not improve. She was in agreement this plan. Pain is somewhat more controlled at this time, however I will administered dose of Robaxin as well as lidocaine patches and she will be given prescriptions for these. She can follow-up with her neurologist later this week. Patient was in agreement this plan. I will provide the patient with a prescription for Robaxin, lidocaine patche. I instructed the patient to follow up with their PCP in the next 3 days. I explained that the patient should return to the emergency department if they experience any worsening symptoms. Strict return precautions were discussed with the patient. The patient expressed understanding of these instructions. I answered all questions that the patient had. The patient was discharged home in fair condition with their prescriptions and follow up information. I did recommend that the patient not attend her chiropractor for correction until seeing her neurologist, she did ask for my opinion. She was in agreement this plan. Disposition Clinical Impression: Back pain, Muscle spasm Disposition: HOME SELF-CARE Condition: Fair Instructions (If sedation given, give patient instructions): Acute Low Back Pain (ED), Muscle Spasm (ED) Prescriptions: Lidocaine 5% Patch [Lidoderm 5% Patch] 1 patch TOPICAL DAILY PRN 7 Days #7 patch PRN Reason: Pain Methocarbamol [Robaxin-750] 750 mg PO BID PRN 14 Days #28 tablet PRN Reason: Pain Is patient prescribed a controlled substance at d/c from ED?: No Referrals: Diana Bell [Primary Care Provider] - 1-2 days
[2021-06-29 10:33] VITALS: BP 101/62; PULSE 88; RESP 16
== END 2021-06-29 10:34 | disposition home or self-care (01) ==
LOC: EC 08:04
DX: M54.9 Dorsalgia, unspecified (principal); M62.830 Muscle spasm of back; J45.909 Unspecified asthma, uncomplicated; K21.9 Gastro-esophageal reflux disease without esophagitis; M06.9 Rheumatoid arthritis, unspecified; F41.9 Anxiety disorder, unspecified; F32.A Depression, unspecified; F17.200 Nicotine dependence, unspecified, uncomplicated; F12.90 Cannabis use, unspecified, uncomplicated; Z88.1 Allergy status to other antibiotic agents; Z88.2 Allergy status to sulfonamides; Z88.7 Allergy status to serum and vaccine
CPT/HCPCS: 99284; 96372; 71046; 72128; 72125; 72131; J1885

== ENCOUNTER → 2021-09-12 | Outpatient (CLI) | payer OTHER ==
--- NOTE | 2021-09-12 15:53 | CONS ---
CONSULTATION DATE OF SERVICE: 09/12/2021 This 31-year-old lady has been evaluated in [facility] for difficulties initiating sleep and multiple awakenings from sleep. HISTORY OF PRESENT ILLNESS/SLEEP-WAKE EVALUATION: Patient's usual sleep schedule is from midnight until around 9 a.m. to 11 a.m., seven days a week. The patient has difficulties initiating sleep. She has a TV set in the bedroom. She sleeps in different positions. She has mild snoring and she wakes up from sleep maybe once, but then she has difficulties falling asleep again. During the night she has muscle spasms, twitching, flailing movements and possibly stops breathing during sleep. She grinds her teeth, has a dry mouth, positive history of panic attacks, palpitations, restless leg symptoms and sweating during the night. In the morning the patient wakes up tired, has difficulties paying attention, worries about her sleep, has problems with memory, concentration, irritability, depression, anxiety, sexual dysfunction. [place] Sleepiness Scale is 1. She may occasionally take one nap during the day. 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 PAST SURGICAL HISTORY: Tonsillectomy, adenoidectomy, . MEDICATIONS: 1. Bupropion once a day. 2. Pantoprazole twice a day. 3. Zofran 3 times a day. 4. Cymbalta twice a day. 5. Ventolin. 6. Flovent. FAMILY HISTORY: Hypertension, heart problems, stroke, sleep apnea, cancer, diabetes, mental illness. REVIEW OF SYSTEMS: Difficulties initiating sleep, awakening from sleep with difficulties to re-initiate sleep, snoring. No fevers. No double vision. No recent chest pain. No shortness of breath. No abdominal pain. No bleeding episodes. No blood in the urine. No seizure episodes. PHYSICAL EXAMINATION: GENERAL: Pleasant lady without distress. VITAL SIGNS: BP 107/70, HR 54, RR 16, height 5 feet 9-1/2 inches, weight 115.6 pounds, body mass index 16.7, temperature 97.6, oxygen saturation at room air 100%. HEENT: PERRLA, EOMI, evaluation of oropharynx showed tongue protrudes midline. Moderately low position of soft palate; Mallampati II to III. NECK: Supple, no JVD. Thyroid is not palpable. Neck measures 12 inches in circumference. LUNGS: Clear to percussion and to auscultation. Good air exchange. No wheezing or rhonchi. HEART: S1, S2 regular. No murmurs, gallops, or rubs. ABDOMEN: Soft and nontender. Bowel sounds are present. No organomegaly appreciated. EXTREMITIES: No clubbing or cyanosis. [employer]LY[employer]: Awake, alert, and oriented X3. Cranial nerves 2 to 7 intact. There is no fasciculation or atrophy. noted. No focal deficits observed. IMPRESSION: 1. Snoring, awakenings from sleep; possible obstructive sleep apnea-hypopnea syndrome. 2. Allergies. 3. Asthma. 4. History of restless leg symptoms and movements during the night; possibly periodic limb movements. 5. Status post back injury, herniated disk, leg pain. 6. History of asthma. 7. Status post . 8. History of epilepsy, grand-mal type. 9. Status post tonsillectomy and adenoidectomy. 10.History of pneumonia. 11.History of hypertension episodes. PLAN: 1. Polysomnography for evaluation of patient's breathing during sleep. 2. CPAP/BiPAP titration if sleep study confirms obstructive sleep apnea-hypopnea syndrome. 3. Preferable position during sleep on the side. 4. No driving if patient feels any sleepiness. 5. I will see patient for follow up visit to explain results of testing and following plan. Thank you very much for referring this patient for consultation. Sincerely, Wayne Benitez MD, PhD, FAASM Diplomat of [employer] Sleep Medicine Board of [place] [employer] [facility] [place] MMODL / IJN: [id number] /
== END ==
LOC: SLEEP 10:37
PROVIDERS: ATTEND Internal Medicine
DX: G47.8 Other sleep disorders (principal); J45.909 Unspecified asthma, uncomplicated; I10 Essential (primary) hypertension; G25.81 Restless legs syndrome; T78.40XA Allergy, unspecified, initial encounter; Z87.828 Personal history of other (healed) physical injury and trauma; M79.606 Pain in leg, unspecified; Z90.09 Acquired absence of other part of head and neck; G40.909 Epilepsy, unspecified, not intractable, without status epilepticus; Z87.09 Personal history of other diseases of the respiratory system; Z87.59 Personal history of other complications of pregnancy, childbirth and the puerperium; Z88.1 Allergy status to other antibiotic agents; Z88.8 Allergy status to other drugs, medicaments and biological substances; Z88.6 Allergy status to analgesic agent; Z88.5 Allergy status to narcotic agent; Z88.7 Allergy status to serum and vaccine; F17.200 Nicotine dependence, unspecified, uncomplicated
CPT/HCPCS: 99211

== ENCOUNTER 2021-09-26 13:49 | Emergency (ER) | payer OTHER ==
[2021-09-26 15:59] LABS: Basophils % (A) 0 %; Eosinophils # (A) 0.1 k/uL (0-0.7); Eosinophils % (A) 2 %; HCT 41.8 % (34.0-46.0); HGB 13.7 gm/dL (11.4-16.0); Lymphocytes # (A) 1.5 k/uL (1.0-4.8); Lymphocytes % (A) 27 %; MCH 30.9 pg (25.0-35.0); MCHC 32.8 g/dL (31.0-37.0); MCV 94.3 fL (80.0-100.0); Mean Platelet Volume 7.8; Monocytes # (A) 0.3 k/uL (0-1.0); Monocytes % (A) 6 %; Neutrophils # (A) 3.3 k/uL (1.3-7.7); Neutrophils % (A) 61 %; Platelet Count 271 k/uL (150-450); RBC 4.44 m/uL (3.80-5.40); RDW 12.3 % (11.5-15.5); WBC 5.4 k/uL (3.8-10.6)
[2021-09-26 16:01] LABS: Appearance,Urine Clear (Clear); Bilirubin,Urine Negative (Negative); Blood,Urine Negative (Negative); Color,Urine Yellow; Glucose,Urine (UA) Negative (Negative); Ketones,Urine Negative (Negative); Leukocyte Esterase,Urine Negative (Negative); Nitrite,Urine Negative (Negative); PH, Urine 6.5 (5.0-8.0); Protein,Urine Negative (Negative); Specific Gravity,Urine 1.007 (1.001-1.035); Urobilinogen,Urine <2.0 mg/dL (<2.0)
[2021-09-26 16:11] LABS: ALT 21 U/L (4-34); AST 23 U/L (14-36); African American GFR (CKD) >90 (>60 ml/min/1.73 sqM); Albumin 4.5 g/dL (3.5-5.0); Alkaline Phosphatase 72 U/L (38-126); Anion Gap 6 mmol/L; Blood Urea Nitrogen 8 mg/dL (7-17); Calcium 9.3 mg/dL (8.4-10.2); Carbon Dioxide 26 mmol/L (22-30); Chloride 106 mmol/L (98-107); Glucose 87 mg/dL (74-99); Non-African American GFR(CKD) >90 (>60 ml/min/1.73 sqM); Potassium 4.3 mmol/L (3.5-5.1); Sodium 138 mmol/L (137-145); Total Bilirubin 0.3 mg/dL (0.2-1.3); Total Protein 7.1 g/dL (6.3-8.2)
[2021-09-26 16:36] LABS: Amphetamine Screen,Urine Not Detected (NotDetected); Barbiturate Screen,Urine Not Detected (NotDetected); Benzodiazepines Screen,Urine Not Detected (NotDetected); Cocaine Screen,Urine Not Detected (NotDetected); Methadone Screen, Urine Not Detected (NotDetected); Opiate Screen,Urine Not Detected (NotDetected); Oxycodone Screen, Urine Not Detected (NotDetected); Phencyclidine Screen,Urine Not Detected (NotDetected); Tricyclic Antidepressant,Urine Not Detected (NotDetected); Urn Cannabinoid Scrn Detected (NotDetected)
--- NOTE | 2021-09-26 17:03 | ED ---
General Adult HPI - General Chief complaint: Headache Stated complaint: head & eye pain Time Seen by Provider: 09/26/21 14:36 Source: patient, RN notes reviewed Mode of arrival: ambulatory Limitations: no limitations - History of Present Illness Initial comments: Patient is a 31-year-old female presents to the emergency room with complaints of headaches. She has a history of migraines perforates that her symptoms are different with an increased compared to her previous migraine symptoms. She states that symptoms began after being on duloxetine and bupropion together for approximately 10 days. She reports that she has been on duloxetine for some time and recently had a dose adjustment for her neuropathic pain she states that she was tolerating her 40 mg well but then forgot to take the doses for a few days after standing people prone she remembered she was missing doses and began taking them together. She reports that she had one day with left-sided had a dilated left pupil. She reports that she has occasional blurred vision but her blurred vision is not occurring at this time. She reports some generalized weakness and weakness in her left leg. She reports that her pain and her had is across her frontal lobe at this time and mild. She reports that her pupils seem as though they are "not as dilated" as previously. She has past medical history significant for migraines as stated above, asthma, anxiety, depression, neuropathy, rheumatoid arthritis, Pierson and vertigo. She states that after her of her oldest child that she had a grand mal seizure despite no previous history of seizures. She reports that her symptoms that she was having a few days ago were similar to how she felt prior to her seizure however she d enies any seizure activity. She reports that she was advised that she needed to wean off of her people prone though she was only taking the medication for 1 month she had some not taken the dose in 4 days with her last dose of 75 mg. She states that her last dose of duloxetine was 40 mg and she took that last night. She denies any other complaints or concerns at this time. - Related Data Home Medications Medication Instructions Recorded Confirmed Pantoprazole Sodium 40 mg PO DAILY 11/07/20 09/26/21 Pnv No.95/Ferrous Fum/Folic AC 1 tab PO DAILY 11/07/20 09/26/21 [ Multivitamin Tablet] Beclomethasone Dipropionate [Qvar 2 puff PO RT-DAILY 11/09/20 09/26/21 80mcg Redihaler] DULoxetine HCL 40 mg PO DAILY 09/26/21 09/26/21 Doxylamine Succinate [Unisom] 25 mg PO HS 09/26/21 09/26/21 Ondansetron Odt [Zofran Odt] 4 mg PO Q8H PRN 09/26/21 09/26/21 Allergies Allergy/AdvReac Type Severity Reaction Status Date / Time calcium [From DHEA] Allergy Unknown Verified 09/26/21 15:24 calcium carbonate [From DHEA] Allergy Unknown Verified 09/26/21 15:24 cyclobenzaprine HCl Allergy Unknown Verified 09/26/21 15:24 [From Flexeril] divalproex sodium Allergy Unknown Verified 09/26/21 15:24 [From Depakote] fentanyl Allergy Unknown Verified 09/26/21 15:24 influenza virus vaccine, Allergy Rash/Hives Verified 09/26/21 15:24 specific metoclopramide [From Reglan] Allergy Unknown Verified 09/26/21 15:24 prasterone (DHEA) [From DHEA] Allergy Unknown Verified 09/26/21 15:24 sulfamethoxazole Allergy Unknown Verified 09/26/21 15:24 [From Septra] sumatriptan [From Imitrex] Allergy Unknown Verified 09/26/21 15:24 sumatriptan succinate Allergy Unknown Verified 09/26/21 15:24 [From Imitrex] topiramate [From Topamax] Allergy Rash/Hives Verified 09/26/21 15:24 trimethoprim [From Septra] Allergy Unknown Verified 09/26/21 15:24 antihistamines Allergy Dyspnea Uncoded 09/26/21 14:11 Review of Systems ROS Statement: Those systems with pertinent positive or pertinent negative responses have been documented in the HPI. ROS Other: All systems not noted in ROS Statement are negative. Past Medical History Past Medical History: Asthma, GERD/Reflux, Rheumatoid Arthritis (RA) Additional Past Medical History / Comment(s): ARTHRITIS, HIATAL HERNIA AND GASTRIC ULCER, ENVIRONMENTAL ALLERGIES, DIGESTIVE ISSUES, MIGRAINES, ANEMIA, "PREDIABETIC", herniated disc, narrowed ureters, being worked up for POTS, PVC History of Any Multi-Drug Resistant Organisms: None Reported Past Surgical History: Adenoidectomy, Section, Tonsillectomy Additional Past Surgical History / Comment(s): eye sclera and laser Past Anesthesia/Blood Transfusion Reactions: No Reported Reaction Past Psychological History: Anxiety, Depression, Panic Disorder Smoking Status: Current every day smoker Past Alcohol Use History: None Reported Past Drug Use History: Marijuana - Past Family History Mother Family Medical History: Hyperlipidemia, Hypertension, Osteoarthritis (OA) Additional Family Medical History / Comment(s): rare heart conditions Father Family Medical History: Cancer, Diabetes Mellitus, Hypertension General Exam Limitations: no limitations General appearance: alert, in no apparent distress Head exam: Present: atraumatic, normocephalic, normal inspection Eye exam: Present: normal appearance, PERRL, EOMI. Absent: scleral icterus, conjunctival injection, periorbital swelling ENT exam: Present: normal exam, mucous membranes moist Neck exam: Present: normal inspection. Absent: tenderness, meningismus, lymphadenopathy Respiratory exam: Present: normal lung sounds bilaterally. Absent: respiratory distress, wheezes, rales, rhonchi, stridor Cardiovascular Exam: Present: regular rate, normal rhythm, normal heart sounds. Absent: systolic murmur, diastolic murmur, rubs, gallop, clicks GI/Abdominal exam: Present: soft, normal bowel sounds. Absent: distended, tend erness, guarding, rebound, rigid Extremities exam: Present: normal inspection, full ROM, normal capillary refill. Absent: tenderness, pedal edema, joint swelling, calf tenderness Back exam: Present: normal inspection Neurological exam: Present: alert, oriented X3, CN II-XII intact, normal gait Psychiatric exam: Present: normal affect, normal mood Skin exam: Present: warm, dry, intact, normal color. Absent: rash Course Vital Signs 09/26/21 14:06 Temperature 98.3 F Pulse Rate 82 Respiratory 20 Rate Blood Pressure 117/87 O2 Sat by Pulse 99 Oximetry Medical Decision Making - Medical Decision Making Characteristics of her headache migraine with aura despite decrease in symptoms now and no focal neuro deficits check computed tomography scan along with labs. Pain tolerable at this time without any need for pain medication. Computed tomography scan negative unenhanced head CT with no adverse changes. Labs without significant anomalies. She is requesting pain medication will give dose of Toradol and monitor response. Pain improved with toradol without side effects. Patient agreeable for discharge home with follow-up with PCP. No need for medication prescriptions at this time. - Lab Data Result diagrams: 09/26/21 15:42 09/26/21 15:42 Lab Results 09/26/21 09/26/21 09/26/21 Range/Units 15:42 15:42 15:42 WBC 5.4 (3.8-10.6) k/uL RBC 4.44 (3.80-5.40) m/uL Hgb 13.7 (11.4-16.0) gm/dL Hct 41.8 (34.0-46.0) % MCV 94.3 (80.0-100.0) fL MCH 30.9 (25.0-35.0) pg MCHC 32.8 (31.0-37.0) g/dL RDW 12.3 (11.5-15.5) % Plt Count 271 (150-450) k/uL MPV 7.8 Neutrophils % 61 % Lymphocytes % 27 % Monocytes % 6 % Eosinophils % 2 % Basophils % 0 % Neutrophils # 3.3 (1.3-7.7) k/uL Lymphocytes # 1.5 (1.0-4.8) k/uL Monocytes # 0.3 (0-1.0) k/uL Eosinophils # 0.1 (0-0.7) k/uL Basophils # 0.0 (0-0.2) k/uL Sodium 138 (137-145) mmol/L Potassium 4.3 (3.5-5.1) mmol/L Chloride 106 (98-107) mmol/L Carbon Dioxide 26 (22-30) mmol/L Anion Gap 6 mmol/L BUN 8 (7-17) mg/dL Creatinine 0.64 (0.52-1.04) mg/dL Est GFR (CKD-EPI)AfAm >90 (>60 ml/min/1.73 sqM) Est GFR (CKD-EPI)NonAf >90 (>60 ml/min/1.73 sqM) Glucose 87 (74-99) mg/dL Calcium 9.3 (8.4-10.2) mg/dL Total Bilirubin 0.3 (0.2-1.3) mg/dL AST 23 (14-36) U/L ALT 21 (4-34) U/L Alkaline Phosphatase 72 (38-126) U/L Total Protein 7.1 (6.3-8.2) g/dL Albumin 4.5 (3.5-5.0) g/dL Urine Color Yellow Urine Appearance Clear (Clear) Urine pH 6.5 (5.0-8.0) Ur Specific [place] 1.007 (1.001-1.035) Urine Protein Negative (Negative) Urine Glucose (UA) Negative (Negative) Urine Ketones Negative (Negative) Urine Blood Negative (Negative) Urine Nitrite Negative (Negative) Urine Bilirubin Negative (Negative) Urine Urobilinogen <2.0 (<2.0) mg/dL Ur Leukocyte Esterase Negative (Negative) Urine Opiates Screen Not Detected (NotDetected) Ur Oxycodone Screen Not Detected (NotDetected) Urine Methadone Screen Not Detected (NotDetected) Ur Propoxyphene Screen Not Detected (NotDetected) Ur Barbiturates Screen Not Detected (NotDetected) U Tricyclic Antidepress Not Detected (NotDetected) Ur Phencyclidine Scrn Not Detected (NotDetected) Ur Amphetamines Screen Not Detected (NotDetected) U Methamphetamines Scrn Not Detected (NotDetected) U Benzodiazepines Scrn Not Detected (NotDetected) Urine Cocaine Screen Not Detected (NotDetected) U Marijuana (THC) Screen Detected H (NotDetected) - Radiology Data Radiology results: report reviewed, image reviewed Disposition Clinical Impression: Headache Disposition: HOME SELF-CARE Condition: Fair Instructions (If sedation given, give patient instructions): Acute Headache (ED) Additional Instructions: Please return to the Emergency Department if symptoms worsen or any other concerns. Is patient prescribed a controlled substance at d/c from ED?: No Referrals: Diana Bell [Primary Care Provider] - 1-2 days Time of Disposition: 17:57
[2021-09-26] MEDS ORDERED: KETOROLAC 15 MG/ML 1 ML VIAL IVP STA (17:05)
--- NOTE | 2021-09-26 17:05 | CT ---
EXAMINATION TYPE: CT brain wo con DATE OF EXAM: 09/26/2021 COMPARISON: 05/11/2010 HISTORY: headache CT DLP: 1090.4 mGycm Automated exposure control for dose reduction was used. Ventricles have normal size. There is no mass effect or midline shift. No sign of intracranial hemorr josé miguel. The calvarium is intact. No evidence of cerebral edema. Skull base is intact. There is normal a eration of the mastoid sinuses. IMPRESSION: Negative unenhanced head CT scan. No adverse change.
[2021-09-26 18:58] VITALS: BP 121/71; PULSE 79; RESP 16; TEMP 98.2
== END 2021-09-26 18:09 | disposition home or self-care (01) ==
LOC: EC 13:49
DX: R51.9 Headache, unspecified (principal); H57.10 Ocular pain, unspecified eye; F17.200 Nicotine dependence, unspecified, uncomplicated; J45.909 Unspecified asthma, uncomplicated; K21.9 Gastro-esophageal reflux disease without esophagitis; Z86.69 Personal history of other diseases of the nervous system and sense organs; Z88.8 Allergy status to other drugs, medicaments and biological substances; Z88.1 Allergy status to other antibiotic agents; Z88.7 Allergy status to serum and vaccine; Z88.2 Allergy status to sulfonamides; Z79.51 Long term (current) use of inhaled steroids; Z79.899 Other long term (current) drug therapy
CPT/HCPCS: 36415; 80053; 85025; 81003; 80306; 70450; 99284; 96374; J1885

== ENCOUNTER 2021-10-14 17:00 | Emergency (ER) | payer OTHER ==
[2021-10-14 17:26] VITALS: TEMP 97.8
[2021-10-14] MEDS ORDERED: SODIUM CHLORIDE 0.9% 1,000 ML IV STA (17:48)
--- NOTE | 2021-10-14 18:16 | ED ---
General Adult HPI - General Chief complaint: Chest Pain Stated complaint: Heart skipping/chest pain Time Seen by Provider: 10/14/21 17:33 Source: patient, RN notes reviewed Mode of arrival: ambulatory Limitations: no limitations - History of Present Illness Initial comments: 31-year-old female presents to the emergency department for evaluation of chest pain that radiates down the left arm and is accompanied by palpitations and numbness to hands and mouth, onset yesterday. Patient states she has a history of POTS and PVCs as well as an autoimmune condition. States she has been suffering from significant insomnia and has not slept for more than 1-2 hours for the past several nights. States she has a sleep study scheduled. Reports increased stress and anxiety. Has had recent medication changes. Denies fever, chills, headache, shortness of breath, abdominal pain, nausea, vomiting, diarrhea, dysuria, or hematuria. - Related Data Home Medications Medication Instructions Recorded Confirmed Pantoprazole Sodium 40 mg PO DAILY 11/07/20 10/14/21 Pnv No.95/Ferrous Fum/Folic AC 1 tab PO DAILY 11/07/20 10/14/21 [ Multivitamin Tablet] Beclomethasone Dipropionate [Qvar 2 puff PO RT-DAILY 11/09/20 10/14/21 80mcg Redihaler] DULoxetine HCL 40 mg PO DAILY 09/26/21 10/14/21 Doxylamine Succinate [Unisom] 25 mg PO HS 09/26/21 10/14/21 Ondansetron Odt [Zofran Odt] 4 mg PO Q8H PRN 09/26/21 10/14/21 Albuterol Nebulized [Ventolin 2.5 mg INHALATION RT-Q6H PRN 10/14/21 10/14/21 Nebulized] Albuterol Sulfate [Ventolin HFA] 2 puff INHALATION RT-QID PRN 10/14/21 10/14/21 Fluticasone Propionate 110 Mcg 1 puff INHALATION RT-BID 10/14/21 10/14/21 [Flovent 110 Mcg Inhaler] Previous Rx's Medication Instructions Recorded ALPRAZolam [Xanax] 0.5 mg PO HS PRN #6 tab 10/14/21 Allergies Allergy/AdvReac Type Severity Reaction Status Date / Time calcium [From DHEA] Allergy Unknown Verified 10/14/21 18:46 calcium carbonate [From DHEA] Allergy Unknown Verified 10/14/21 18:46 cyclobenzaprine HCl Allergy Unknown Verified 10/14/21 18:46 [From Flexeril] divalproex sodium Allergy Unknown Verified 10/14/21 18:46 [From Depakote] fentanyl Allergy Unknown Verified 10/14/21 18:46 influenza virus vaccine, Allergy Rash/Hives Verified 10/14/21 18:46 specific metoclopramide [From Reglan] Allergy Unknown Verified 10/14/21 18:46 prasterone (DHEA) [From DHEA] Allergy Unknown Verified 10/14/21 18:46 sulfamethoxazole Allergy Unknown Verified 10/14/21 18:46 [From Septra] sumatriptan [From Imitrex] Allergy Unknown Verified 10/14/21 18:46 sumatriptan succinate Allergy Unknown Verified 10/14/21 18:46 [From Imitrex] topiramate [From Topamax] Allergy Rash/Hives Verified 10/14/21 18:46 trimethoprim [From Septra] Allergy Unknown Verified 10/14/21 18:46 antihistamines Allergy Dyspnea Uncoded 10/14/21 18:46 Review of Systems ROS Statement: Those systems with pertinent positive or pertinent negative responses have been documented in the HPI. ROS Other: All systems not noted in ROS Statement are negative. Past Medical History Past Medical History: Asthma, GERD/Reflux, Rheumatoid Arthritis (RA) Additional Past Medical History / Comment(s): ARTHRITIS, HIATAL HERNIA AND GASTRIC ULCER, ENVIRONMENTAL ALLERGIES, DIGESTIVE ISSUES, MIGRAINES, ANEMIA, "PREDIABETIC", herniated disc, narrowed ureters, being worked up for POTS, PVC History of Any Multi-Drug Resistant Organisms: None Reported Past Surgical History: Adenoidectomy, Section, Tonsillectomy Additional Past Surgical History / Comment(s): eye sclera and laser Past Anesthesia/Blood Transfusion Reactions: No Reported Reaction Past Psychological History: Anxiety, Depression, Panic Disorder Smoking Status: Current every day smoker Past Alcohol Use History: None Reported Past Drug Use History: Marijuana - Past Family History Mother Family Medical History: Hyperlipidemia, Hypertension, Osteoarthritis (OA) Additional Family Medical History / Comment(s): rare heart conditions Father Family Medical History: Cancer, Diabetes Mellitus, Hypertension General Exam Limitations: no limitations General appearance: alert, in no apparent distress ( well-developed, well- nourished female in no acute distress. Initial temperature 97.8, pulse 108 , respiration 16, blood pressure 109/76 , pulse ox 99% on room air.) Head exam: Present: atraumatic, normocephalic Eye exam: Present: normal appearance, PERRL, EOMI. Absent: scleral icterus, co njunctival injection, periorbital swelling ENT exam: Present: normal oropharynx, mucous membranes moist Neck exam: Present: normal inspection, full ROM. Absent: tenderness, meningismus, lymphadenopathy Respiratory exam: Present: normal lung sounds bilaterally. Absent: respiratory distress, wheezes, rales, rhonchi, stridor, chest wall tenderness Cardiovascular Exam: Present: regular rate, normal rhythm, normal heart sounds, other (Discussed normal heart rate range which patient states is 70-130. Has intermittent palpitations and known PVCs. No PVCs on monitor at this time. Current heart 82, but is documented at 108 on arrival.). Absent: systolic murmur, diastolic murmur, rubs, gallop, clicks GI/Abdominal exam: Present: soft, normal bowel sounds. Absent: distended, tenderness, guarding, rebound, rigid Extremities exam: Present: normal inspection, full ROM, normal capillary refill. Absent: pedal edema Back exam: Present: normal inspection. Absent: CVA tenderness (R), CVA tenderness (L) Neurological exam: Present: alert, oriented X3, CN II-XII intact Expanded Patient oriented to: Present: person, place, time Speech: Present: fluid speech Cranial nerves: EOM's Intact: Normal, Nystagmus: Normal Cerebellar function: Romberg: Normal Motor strength exam: RUE: 5, LUE: 5, RLE: 5, LLE: 5 Eye Response: (4) open spontaneously Motor Response: (6) obeys commands Verbal Response: (5) oriented Hugo Total: 15 Psychiatric exam: Present: anxious Skin exam: Present: warm, dry, intact, normal color. Absent: rash Course Vital Signs 10/14/21 10/14/21 10/14/21 17:24 20:09 22:21 Temperature 97.8 F Pulse Rate 108 H 80 75 Respiratory 16 16 12 Rate Blood Pressure 109/76 107/79 97/62 O2 Sat by Pulse 99 99 98 Oximetry - Reevaluation(s) Reevaluation #1: 10/14/21 19:10 Upon reassessment, patient continues to complain of ongoing headache and chest pain. Discussed treatment options and patient states she has had negative reactions to Toradol recently but has been able to tolerate morphine in the past therefore is small dose will be given along with Zofran. Updated on results and will reevaluate pain shortly. 10/14/21 20:45 Patient is resting more comfortably at this time. Discussed the likelihood that her symptoms are the result of sleep disturbance and anxiety. Encouraged to schedule a follow up with her counselor this week and to work diligently to establish with a psychiatrist as well. Will provide a limited supply of Xanax. Medical Decision Making - Medical Decision Making this is a pleasant 31-year-old female with a past medical history of pots , PVCs, and insomniawho presents to the emergency department for evaluation of headache and chest pain that radiates down the left arm. Upon exam, patient is anxious but well-appearing. Her physical exam findings are unremarkable. She shows normal sinus rhythm with no ectopy on the continuous monitor technician. Her EKG shows Normal Sinus Rhythm with no ST segment changes. chest x-ray is negative. Laboratory studies are unremarkable. she is neurologically intact with no focal deficits. she is given pain medication an antiemetic for her headache. Reports some improvement. We discussed her ongoing issues with insomnia and anxiety at length. Her symptoms are felt to be exacerbated by her sleepless state and do not appear to be cardiac in nature. She does see a cou nselor and is encouraged to schedule an appointment this week. I am prescribing a limited quantity of Xanax due to her persistent anxiety. Return parameters discussed in detail. Patient and spouse verbalize understanding and agree with this plan. Attending: June - Lab Data Result diagrams: 10/14/21 18:07 10/14/21 18:07 Lab Results 10/14/21 10/14/21 10/14/21 Range/Units 18:07 18:07 18:07 WBC 9.7 (3.8-10.6) k/uL RBC 4.55 (3.80-5.40) m/uL Hgb 14.5 (11.4-16.0) gm/dL Hct 42.5 (34.0-46.0) % MCV 93.5 (80.0-100.0) fL MCH 32.0 (25.0-35.0) pg MCHC 34.2 (31.0-37.0) g/dL RDW 12.1 (11.5-15.5) % Plt Count 263 (150-450) k/uL MPV 7.4 Neutrophils % 79 % Lymphocytes % 13 % Monocytes % 5 % Eosinophils % 1 % Basophils % 1 % Neutrophils # 7.7 (1.3-7.7) k/uL Lymphocytes # 1.3 (1.0-4.8) k/uL Monocytes # 0.5 (0-1.0) k/uL Eosinophils # 0.1 (0-0.7) k/uL Basophils # 0.1 (0-0.2) k/uL PT 9.9 (9.0-12.0) sec INR 0.9 (<1.2) APTT 26.0 (22.0-30.0) sec D-Dimer 0.27 (<0.60) mg/L FEU Sodium 136 L (137-145) mmol/L Potassium 4.3 (3.5-5.1) mmol/L Chloride 105 (98-107) mmol/L Carbon Dioxide 23 (22-30) mmol/L Anion Gap 8 mmol/L BUN 8 (7-17) mg/dL Creatinine 0.67 (0.52-1.04) mg/dL Est GFR (CKD-EPI)AfAm >90 (>60 ml/min/1.73 sqM) Est GFR (CKD-EPI)NonAf >90 (>60 ml/min/1.73 sqM) Glucose 96 (74-99) mg/dL Calcium 9.2 (8.4-10.2) mg/dL Magnesium 1.9 (1.6-2.3) mg/dL Total Bilirubin 0.2 (0.2-1.3) mg/dL AST 22 (14-36) U/L ALT 17 (4-34) U/L Alkaline Phosphatase 69 (38-126) U/L Troponin I (0.000-0.034) ng/mL Total Protein 7.5 (6.3-8.2) g/dL Albumin 4.8 (3.5-5.0) g/dL 10/14/21 Range/Units 18:07 WBC (3.8-10.6) k/uL RBC (3.80-5.40) m/uL Hgb (11.4-16.0) gm/dL Hct (34.0-46.0) % MCV (80.0-100.0) fL MCH (25.0-35.0) pg MCHC (31.0-37.0) g/dL RDW (11.5-15.5) % Plt Count (150-450) k/uL MPV Neutrophils % % Lymphocytes % % Monocytes % % Eosinophils % % Basophils % % Neutrophils # (1.3-7.7) k/uL Lymphocytes # (1.0-4.8) k/uL Monocytes # (0-1.0) k/uL Eosinophils # (0-0.7) k/uL Basophils # (0-0.2) k/uL PT (9.0-12.0) sec INR (<1.2) APTT (22.0-30.0) sec D-Dimer (<0.60) mg/L FEU Sodium (137-145) mmol/L Potassium (3.5-5.1) mmol/L Chloride (98-107) mmol/L Carbon Dioxide (22-30) mmol/L Anion Gap mmol/L BUN (7-17) mg/dL Creatinine (0.52-1.04) mg/dL Est GFR (CKD-EPI)AfAm (>60 ml/min/1.73 sqM) Est GFR (CKD-EPI)NonAf (>60 ml/min/1.73 sqM) Glucose (74-99) mg/dL Calcium (8.4-10.2) mg/dL Magnesium (1.6-2.3) mg/dL Total Bilirubin (0.2-1.3) mg/dL AST (14-36) U/L ALT (4-34) U/L Alkaline Phosphatase (38-126) U/L Troponin I <0.012 (0.000-0.034) ng/mL Total Protein (6.3-8.2) g/dL Albumin (3.5-5.0) g/dL - EKG Data EKG shows normal: sinus rhythm Rate: normal EKG Comments: EKG obtained at 17:36 shows sinus rhythm with short CO interval. Ventricular rate 82, CO interval 116, QRS duration 86, QT/QTC 335/373. Interpretation borderline ECG. - Radiology Data Radiology results: report reviewed, image reviewed 2-view chest x-ray was obtained. Report was reviewed in its entirety. Impression per Dr. Marin is normal chest. Disposition Clinical Impression: Non-cardiac chest pain, Anxiety Disposition: HOME SELF-CARE Condition: Stable Instructions (If sedation given, give patient instructions): Chest Pain (ED), Anxiety (ED) Additional Instructions: Continue taking your home medications as prescribed and follow-up with your PCP. Call your counselor or the nurse to facilitate an appointment with the psychiatrist in the practice. You were being prescribed a short course of Xanax for anxiety. This medication can make you drowsy so avoid driving when you take it. If you develop persistent chest pain, palpitations, difficulty breathing, or shortness of breath that is unusual for you, please return to the emergency department. Prescriptions: ALPRAZolam [Xanax] 0.5 mg PO HS PRN #6 tab PRN Reason: Anxiety Is patient prescribed a controlled substance at d/c from ED?: Yes When asked, does pt state using other controlled substances?: No If prescribed controlled substance>3 days was MAPS reviewed?: Yes Referrals: Kj Amaro MD [Primary Care Provider] - 1-2 days Time of Disposition: 21:26
[2021-10-14 18:23] LABS: Basophils # (A) 0.1 k/uL (0-0.2); Basophils % (A) 1 %; Eosinophils # (A) 0.1 k/uL (0-0.7); Eosinophils % (A) 1 %; HCT 42.5 % (34.0-46.0); HGB 14.5 gm/dL (11.4-16.0); Lymphocytes # (A) 1.3 k/uL (1.0-4.8); Lymphocytes % (A) 13 %; MCHC 34.2 g/dL (31.0-37.0); MCV 93.5 fL (80.0-100.0); Mean Platelet Volume 7.4; Monocytes # (A) 0.5 k/uL (0-1.0); Monocytes % (A) 5 %; Neutrophils # (A) 7.7 k/uL (1.3-7.7); Neutrophils % (A) 79 %; Platelet Count 263 k/uL (150-450); RBC 4.55 m/uL (3.80-5.40); RDW 12.1 % (11.5-15.5); WBC 9.7 k/uL (3.8-10.6)
[2021-10-14 18:30] LABS: ALT 17 U/L (4-34); AST 22 U/L (14-36); African American GFR (CKD) >90 (>60 ml/min/1.73 sqM); Albumin 4.8 g/dL (3.5-5.0); Alkaline Phosphatase 69 U/L (38-126); Anion Gap 8 mmol/L; Blood Urea Nitrogen 8 mg/dL (7-17); Calcium 9.2 mg/dL (8.4-10.2); Carbon Dioxide 23 mmol/L (22-30); Chloride 105 mmol/L (98-107); Glucose 96 mg/dL (74-99); Magnesium 1.9 mg/dL (1.6-2.3); Non-African American GFR(CKD) >90 (>60 ml/min/1.73 sqM); Potassium 4.3 mmol/L (3.5-5.1); Sodium 136 mmol/L (137-145); Total Bilirubin 0.2 mg/dL (0.2-1.3); Total Protein 7.5 g/dL (6.3-8.2)
--- NOTE | 2021-10-14 18:31 | XR ---
EXAMINATION TYPE: XR chest 2V DATE OF EXAM: 10/14/2021 COMPARISON: 07/10/2021 HISTORY: Chest pain TECHNIQUE: FINDINGS: Heart and mediastinum are normal. Lungs are clear. Diaphragm is normal. Bony thorax appears normal. Pulmonary vascularity is normal. IMPRESSION: Normal chest. No adverse change.
[2021-10-14 18:52] LABS: INR 0.9 (<1.2); Prothrombin Time 9.9 sec (9.0-12.0)
[2021-10-14] MEDS ORDERED: MORPHINE SULFATE 2 MG/ML SYRINGE IVP ONE (19:16)
[2021-10-14] MEDS ORDERED: ONDANSETRON 4 MG/2 ML VIAL IVP STA (19:16)
[2021-10-14] MEDS ORDERED: ALPRAZolam 0.25 MG TAB PO STA (21:34)
[2021-10-14 22:22] VITALS: BP 97/62; PULSE 75; RESP 12
== END 2021-10-14 22:21 | disposition home or self-care (01) ==
LOC: EC 17:00
DX: F41.9 Anxiety disorder, unspecified (principal); R07.89 Other chest pain; J45.909 Unspecified asthma, uncomplicated; K21.9 Gastro-esophageal reflux disease without esophagitis; Z79.83 Long term (current) use of bisphosphonates; F17.200 Nicotine dependence, unspecified, uncomplicated; Z88.7 Allergy status to serum and vaccine; Z88.5 Allergy status to narcotic agent; Z88.2 Allergy status to sulfonamides
CPT/HCPCS: 36415; 93005; 85379; 80053; 83735; 84484; 85025; 85610; 85730; 71046; 99285; 96374; 96375; 96361; J2405; J2270

== ENCOUNTER 2021-10-31 02:44 | Emergency (ER) | payer OTHER ==
[2021-10-31 02:51] VITALS: BP 116/75; PULSE 70; RESP 19; TEMP 97.8
--- NOTE | 2021-10-31 04:21 | ED ---
Anxiety HPI - General Chief Complaint: Anxiety Stated Complaint: chest pain Time Seen by Provider: 10/31/21 03:53 Source: patient Mode of arrival: ambulatory - History of Present Illness MD Complaint: anxiety -: hour(s) Symptoms: perioral numbness/tingling Place: home Previous History of Same: Yes Severity: moderate Quality: improving Provoking factors: emotional stress Improves With: nothing Worsens With: nothing - Related Data Home Medications: Home Medications Medication Instructions Recorded Confirmed Pantoprazole Sodium 40 mg PO DAILY 11/07/20 10/14/21 Pnv No.95/Ferrous Fum/Folic AC 1 tab PO DAILY 11/07/20 10/14/21 [ Multivitamin Tablet] Beclomethasone Dipropionate [Qvar 2 puff PO RT-DAILY 11/09/20 10/14/21 80mcg Redihaler] DULoxetine HCL 40 mg PO DAILY 09/26/21 10/14/21 Doxylamine Succinate [Unisom] 25 mg PO HS 09/26/21 10/14/21 Ondansetron Odt [Zofran Odt] 4 mg PO Q8H PRN 09/26/21 10/14/21 Albuterol Nebulized [Ventolin 2.5 mg INHALATION RT-Q6H PRN 10/14/21 10/14/21 Nebulized] Albuterol Sulfate [Ventolin HFA] 2 puff INHALATION RT-QID PRN 10/14/21 10/14/21 Fluticasone Propionate 110 Mcg 1 puff INHALATION RT-BID 10/14/21 10/14/21 [Flovent 110 Mcg Inhaler] Previous Rx's Medication Instructions Recorded ALPRAZolam [Xanax] 0.5 mg PO HS PRN #6 tab 10/14/21 ALPRAZolam [Xanax] 0.5 mg PO HS PRN #5 tab 10/31/21 Allergies/Adverse Reactions: Allergies Allergy/AdvReac Type Severity Reaction Status Date / Time calcium [From DHEA] Allergy Unknown Verified 10/14/21 18:46 calcium carbonate [From DHEA] Allergy Unknown Verified 10/14/21 18:46 cyclobenzaprine HCl Allergy Unknown Verified 10/14/21 18:46 [From Flexeril] divalproex sodium Allergy Unknown Verified 10/14/21 18:46 [From Depakote] fentanyl Allergy Unknown Verified 10/14/21 18:46 influenza virus vaccine, Allergy Rash/Hives Verified 10/14/21 18:46 specific metoclopramide [From Reglan] Allergy Unknown Verified 10/14/21 18:46 prasterone (DHEA) [From DHEA] Allergy Unknown Verified 10/14/21 18:46 sulfamethoxazole Allergy Unknown Verified 10/14/21 18:46 [From Septra] sumatriptan [From Imitrex] Allergy Unknown Verified 10/14/21 18:46 sumatriptan succinate Allergy Unknown Verified 10/14/21 18:46 [From Imitrex] topiramate [From Topamax] Allergy Rash/Hives Verified 10/14/21 18:46 trimethoprim [From Septra] Allergy Unknown Verified 10/14/21 18:46 antihistamines Allergy Dyspnea Uncoded 10/14/21 18:46 Review of Systems ROS Statement: Those systems with pertinent positive or pertinent negative responses have been documented in the HPI. ROS Other: All systems not noted in ROS Statement are negative. Constitutional: Denies: fever, chills Respiratory: Denies: cough, dyspnea Cardiovascular: Denies: chest pain, palpitations, edema Gastrointestinal: Denies: abdominal pain, vomiting, diarrhea Skin: Denies: rash Neurological: Denies: headache, weakness, numbness Psychiatric: Reports: anxiety Past Medical History Past Medical History: Asthma, GERD/Reflux, Rheumatoid Arthritis (RA) Additional Past Medical History / Comment(s): ARTHRITIS, HIATAL HERNIA AND GASTRIC ULCER, ENVIRONMENTAL ALLERGIES, DIGESTIVE ISSUES, MIGRAINES, ANEMIA, "PREDIABETIC", herniated disc, narrowed ureters, being worked up for POTS, PVC History of Any Multi-Drug Resistant Organisms: None Reported Past Surgical History: Adenoidectomy, Section, Tonsillectomy Additional Past Surgical History / Comment(s): eye sclera and laser Past Anesthesia/Blood Transfusion Reactions: No Reported Reaction Past Psychological History: Anxiety, Depression, Panic Disorder Smoking Status: Current every day smoker Past Alcohol Use History: None Reported Past Drug Use History: Marijuana - Past Family History Mother Family Medical History: Hyperlipidemia, Hypertension, Osteoarthritis (OA) Additional Family Medical History / Comment(s): rare heart conditions Father Family Medical History: Cancer, Diabetes Mellitus, Hypertension General Exam General appearance: alert, in no apparent distress, anxious Head exam: Present: atraumatic, normocephalic Eye exam: Present: normal appearance. Absent: scleral icterus, conjunctival injection Neck exam: Present: normal inspection Respiratory exam: Present: normal lung sounds bilaterally. Absent: respiratory distress, wheezes, rales, rhonchi, stridor Cardiovascular Exam: Present: regular rate, normal rhythm, normal heart sounds. Absent: systolic murmur, diastolic murmur, rubs, gallop GI/Abdominal exam: Present: soft. Absent: distended, tenderness, guarding Extremities exam: Present: normal inspection Back exam: Present: normal inspection Neurological exam: Present: alert Psychiatric exam: Present: anxious. Absent: agitated, flat affect, manic, homicidal ideation, suicidal ideation Skin exam: Present: warm, dry, intact, normal color. Absent: rash Course Vital Signs 10/31/21 02:49 Temperature 97.8 F Pulse Rate 70 Respiratory 19 Rate Blood Pressure 116/75 O2 Sat by Pulse 100 Oximetry Disposition Clinical Impression: Insomnia Disposition: HOME SELF-CARE Condition: Fair Instructions (If sedation given, give patient instructions): Generalized Anxiety Disorder (ED) Prescriptions: ALPRAZolam [Xanax] 0.5 mg PO HS PRN #5 tab PRN Reason: Insomnia Is patient prescribed a controlled substance at d/c from ED?: No Referrals: Nonstaff,Physician [Primary Care Provider] - 1-2 days
[2021-10-31] MEDS ORDERED: ALPRAZolam 0.5 MG TAB PO STA (05:04)
== END 2021-10-31 05:09 | disposition home or self-care (01) ==
LOC: EC 02:44
DX: F51.05 Insomnia due to other mental disorder (principal); J45.909 Unspecified asthma, uncomplicated; K21.9 Gastro-esophageal reflux disease without esophagitis; F32.A Depression, unspecified; F17.200 Nicotine dependence, unspecified, uncomplicated; F12.90 Cannabis use, unspecified, uncomplicated; Z91.09 Other allergy status, other than to drugs and biological substances; Z88.2 Allergy status to sulfonamides; Z88.8 Allergy status to other drugs, medicaments and biological substances; Z88.7 Allergy status to serum and vaccine; Z79.51 Long term (current) use of inhaled steroids; Z79.899 Other long term (current) drug therapy
CPT/HCPCS: 93005; 99284

== ENCOUNTER → 2021-11-16 | Outpatient (CLI) | payer OTHER | END | disposition home or self-care (01) | LOC: LABWHC1 11:51 | PROVIDERS: ATTEND Internal Medicine | DX: R00.2 Palpitations (principal); R53.83 Other fatigue | CPT/HCPCS: 36415; 84443; 87045; 87046 ==

== ENCOUNTER 2021-11-26 00:53 | Emergency (ER) | payer OTHER ==
[2021-11-26 01:15] VITALS: TEMP 97.7
[2021-11-26] MEDS ORDERED: hydrOXYzine HCL 50 MG/ML 1 ML VIAL IM PRN (01:23)
[2021-11-26] MEDS ORDERED: ACETAMINOPHEN TAB 500 MG TAB PO STA (01:25)
[2021-11-26] MEDS ORDERED: KETOROLAC 15 MG/ML 1 ML VIAL IM STA (01:25)
--- NOTE | 2021-11-26 01:49 | ED ---
General Adult HPI - General Chief complaint: Recheck/Abnormal Lab/Rx Stated complaint: insomnia Time Seen by Provider: 11/26/21 01:11 Source: patient, RN notes reviewed Mode of arrival: ambulatory - History of Present Illness Initial comments: This is a pleasant 31-year-old female with a history of chronic insomnia and recurrent headaches related to insomnia. Patient states that she has a bout of insomnia going on. Patient has been tried on many medications to include antidepressants, antipsychotics, anxiolytics. Patient currently taking Xanax. Patient states she's had sleep studies and actually has to sleep medicine doctors, neurologist, as well as her PCP. Patient requesting something for sleep. Patient states that her normal headache has been exacerbated by the insomnia. Patient denying any neurological impairment. No vision or hearing disturbance. No gait disturbance. No numbness or tingling. No dizziness. No vertiginous symptoms. Headache consistent with what she has experienced in the past with the insomnia. Requesting Tylenol for the headache. Patient states she has had previous reactions to Benadryl but is able to take other antihistamines. POSITIVE insomnia, no fever or chills, no changes in vision or hearing, no sore throat or difficulty with speech, no neck pain, no chest pain or shortness of breath, no abdominal pain, no nausea or vomiting, no changes in urination or bowel movements, no numbness or tingling, no extremity pain, no skin rashes or lesions. Past medical, surgical, social, and family history reviewed. - Related Data Home Medications Medication Instructions Recorded Confirmed Pantoprazole Sodium 40 mg PO DAILY 11/07/20 10/14/21 Pnv No.95/Ferrous Fum/Folic AC 1 tab PO DAILY 11/07/20 10/14/21 [ Multivitamin Tablet] Beclomethasone Dipropionate [Qvar 2 puff PO RT-DAILY 11/09/20 10/14/21 80mcg Redihaler] DULoxetine HCL 40 mg PO DAILY 09/26/21 10/14/21 Doxylamine Succinate [Unisom] 25 mg PO HS 09/26/21 10/14/21 Ondansetron Odt [Zofran Odt] 4 mg PO Q8H PRN 09/26/21 10/14/21 Albuterol Nebulized [Ventolin 2.5 mg INHALATION RT-Q6H PRN 10/14/21 10/14/21 Nebulized] Albuterol Sulfate [Ventolin HFA] 2 puff INHALATION RT-QID PRN 10/14/21 10/14/21 Fluticasone Propionate 110 Mcg 1 puff INHALATION RT-BID 10/14/21 10/14/21 [Flovent 110 Mcg Inhaler] Previous Rx's Medication Instructions Recorded ALPRAZolam [Xanax] 0.5 mg PO HS PRN #6 tab 10/14/21 ALPRAZolam [Xanax] 0.5 mg PO HS PRN #5 tab 10/31/21 Allergies Allergy/AdvReac Type Severity Reaction Status Date / Time calcium [From DHEA] Allergy Unknown Verified 10/14/21 18:46 calcium carbonate [From DHEA] Allergy Unknown Verified 10/14/21 18:46 cyclobenzaprine HCl Allergy Unknown Verified 10/14/21 18:46 [From Flexeril] divalproex sodium Allergy Unknown Verified 10/14/21 18:46 [From Depakote] fentanyl Allergy Unknown Verified 10/14/21 18:46 influenza virus vaccine, Allergy Rash/Hives Verified 10/14/21 18:46 specific metoclopramide [From Reglan] Allergy Unknown Verified 10/14/21 18:46 prasterone (DHEA) [From DHEA] Allergy Unknown Verified 10/14/21 18:46 sulfamethoxazole Allergy Unknown Verified 10/14/21 18:46 [From Septra] sumatriptan [From Imitrex] Allergy Unknown Verified 10/14/21 18:46 sumatriptan succinate Allergy Unknown Verified 10/14/21 18:46 [From Imitrex] topiramate [From Topamax] Allergy Rash/Hives Verified 10/14/21 18:46 trimethoprim [From Septra] Allergy Unknown Verified 10/14/21 18:46 antihistamines Allergy Dyspnea Uncoded 10/14/21 18:46 Review of Systems ROS Statement: Those systems with pertinent positive or pertinent negative responses have been documented in the HPI. ROS Other: All systems not noted in ROS Statement are negative. Past Medical History Past Medical History: Asthma, GERD/Reflux, Rheumatoid Arthritis (RA) Additional Past Medical History / Comment(s): ARTHRITIS, HIATAL HERNIA AND GASTRIC ULCER, ENVIRONMENTAL ALLERGIES, DIGESTIVE ISSUES, MIGRAINES, ANEMIA, "PREDIABETIC", herniated disc, narrowed ureters, being worked up for POTS, PVC History of Any Multi-Drug Resistant Organisms: None Reported Past Surgical History: Adenoidectomy, Section, Tonsillectomy Additional Past Surgical History / Comment(s): eye sclera and laser Past Anesthesia/Blood Transfusion Reactions: No Reported Reaction Past Psychological History: Anxiety, Depression, Panic Disorder Smoking Status: Current every day smoker Past Alcohol Use History: None Reported Past Drug Use History: Marijuana - Past Family History Mother Family Medical History: Hyperlipidemia, Hypertension, Osteoarthritis (OA) Additional Family Medical History / Comment(s): rare heart conditions Father Family Medical History: Cancer, Diabetes Mellitus, Hypertension General Exam - General Exam Comments Initial Comments: This is a thin but healthy-appearing 31-year-old female in no distress. Patient does not appear to be ill or toxic. Vital signs reviewed, patient afebrile. General appearance: alert, in no apparent distress Head exam: Present: atraumatic, normocephalic, normal inspection Eye exam: Present: normal appearance, PERRL, EOMI. Absent: scleral icterus, conjunctival injection, periorbital swelling ENT exam: Present: normal exam, normal oropharynx, mucous membranes moist, normal external ear exam. Absent: mucous membranes dry Neck exam: Present: normal inspection, full ROM. Absent: tenderness, meningismus, lymphadenopathy Respiratory exam: Present: normal lung sounds bilaterally. Absent: respiratory distress, wheezes, rales, rhonchi, stridor Cardiovascular Exam: Present: regular rate, normal rhythm, normal heart sounds. Absent: systolic murmur, diastolic murmur, rubs, gallop, clicks GI/Abdominal exam: Present: soft. Absent: distended, tenderness, guarding, rebound, rigid Extremities exam: Present: normal inspection, full ROM, normal capillary refill. Absent: tenderness, pedal edema, joint swelling, calf tenderness Back exam: Present: normal inspection Neurological exam: Present: alert, oriented X3, CN II-XII intact, normal gait. Absent: altered, abnormal gait, motor sensory deficit Psychiatric exam: Present: normal affect, normal mood Skin exam: Present: warm, dry, intact, normal color. Absent: rash, cyanosis, diaphoretic Course Vital Signs 11/26/21 01:08 Temperature 97.7 F Pulse Rate 75 Respiratory 19 Rate Blood Pressure 111/76 O2 Sat by Pulse 99 Oximetry Medical Decision Making - Medical Decision Making Patient requesting something for sleep. We'll try hydroxyzine 100 mg IM. I did agree to give the patient something for her recurrent and chronic headache. Tylenol and Toradol ordered. Patient denies chance of . Patient to follow-up with her regular physician tomorrow. Patient symptomology is chronic and recurrent. Patient has Xanax at home. See no indication for any diagnostic workup or imaging at this time. Patient's symptoms are chronic in nature. Patient was told to return to the ER for any signs or symptoms worsen. Told to return immediately if any other problems arise. All questions answered. Treatment plan discussed. Patient in agreement Every effort has been made to ensure accuracy of this dictation. However, due to the limitations of electronic medical records and dictation devices, errors in charting still occur. [employer] Architect Dr. Mckoy Disposition Clinical Impression: Insomnia, Chronic headache Disposition: HOME SELF-CARE Condition: Good Instructions (If sedation given, give patient instructions): Insomnia (ED) Additional Instructions: Taking her medications as directed by your doctor. Call at 8 AM in the morning to schedule follow-up appointment tomorrow. Follow-up with your regular physician as directed. Return to the ER immediately if any symptoms worsen, new symptoms arise, or any other problems develop. Is patient prescribed a controlled substance at d/c from ED?: No Referrals: Diana Bell [Primary Care Provider] - 1-2 days Time of Disposition: 01:49
[2021-11-26 02:23] VITALS: BP 102/67; PULSE 76; RESP 16
== END 2021-11-26 02:23 | disposition home or self-care (01) ==
LOC: EC 00:53
DX: G47.00 Insomnia, unspecified (principal); G89.29 Other chronic pain; R51.9 Headache, unspecified; J45.909 Unspecified asthma, uncomplicated; K21.9 Gastro-esophageal reflux disease without esophagitis; M06.9 Rheumatoid arthritis, unspecified; F17.200 Nicotine dependence, unspecified, uncomplicated; Z79.51 Long term (current) use of inhaled steroids; Z79.899 Other long term (current) drug therapy; Z91.09 Other allergy status, other than to drugs and biological substances; Z91.048 Other nonmedicinal substance allergy status; Z88.8 Allergy status to other drugs, medicaments and biological substances; Z88.1 Allergy status to other antibiotic agents; Z88.7 Allergy status to serum and vaccine; Z88.9 Allergy status to unspecified drugs, medicaments and biological substances; Z88.2 Allergy status to sulfonamides
CPT/HCPCS: 99283; 96372; J3410; J1885

== ENCOUNTER 2021-11-26 18:01 | Emergency (ER) | payer OTHER ==
[2021-11-26 18:12] VITALS: BP 117/73; PULSE 83; RESP 20; TEMP 98.3
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
== END 2021-11-27 07:30 | disposition left against medical advice (07) ==
LOC: EC 18:01
DX: F51.05 Insomnia due to other mental disorder (principal); F41.9 Anxiety disorder, unspecified; F17.210 Nicotine dependence, cigarettes, uncomplicated; J45.909 Unspecified asthma, uncomplicated; K21.9 Gastro-esophageal reflux disease without esophagitis; M06.9 Rheumatoid arthritis, unspecified; F32.A Depression, unspecified; F12.90 Cannabis use, unspecified, uncomplicated; Z88.8 Allergy status to other drugs, medicaments and biological substances; Z88.2 Allergy status to sulfonamides; Z88.7 Allergy status to serum and vaccine; Z79.899 Other long term (current) drug therapy; Z53.29 Procedure and treatment not carried out because of patient's decision for other reasons
CPT/HCPCS: 81025; 82075; 99284

== ENCOUNTER 2022-04-05 11:04 | Emergency (ER) | payer OTHER ==
[2022-04-05 11:11] VITALS: RESP 18
--- NOTE | 2022-04-05 11:32 | ED ---
General Adult HPI - General Chief complaint: Wound/Laceration Stated complaint: Thumb Lac Time Seen by Provider: 04/05/22 11:13 Source: patient, RN notes reviewed Mode of arrival: ambulatory Limitations: no limitations - History of Present Illness Initial comments: 31-year-old female with no significant past medical history presents emergency department for a laceration. Patient was cutting onions at approximately 8:30 when he cut her left thumb. She admits that it has been bleeding and will bleed when she moves it. She has tried Tylenol with mild relief. She denies numbness, tingling, erythema, fever. - Related Data Home Medications Medication Instructions Recorded Confirmed Pantoprazole Sodium 40 mg PO DAILY 11/07/20 11/26/21 Pnv No.95/Ferrous Fum/Folic AC 1 tab PO DAILY 11/07/20 11/26/21 [ Multivitamin Tablet] Doxylamine Succinate [Unisom] 25 mg PO HS PRN 09/26/21 11/26/21 Ondansetron Odt [Zofran Odt] 4 mg PO Q8H PRN 09/26/21 11/26/21 Albuterol Nebulized [Ventolin 2.5 mg INHALATION RT-Q6H PRN 10/14/21 11/26/21 Nebulized] Albuterol Sulfate [Ventolin HFA] 2 puff INHALATION RT-QID PRN 10/14/21 11/26/21 Fluticasone Propionate 110 Mcg 1 puff INHALATION RT-BID 10/14/21 11/26/21 [Flovent 110 Mcg Inhaler] Docusate [Colace] 100 mg PO DAILY PRN 11/26/21 11/26/21 Simethicone [Gas-X] 125 mg PO ACHS PRN 11/26/21 11/26/21 Previous Rx's Medication Instructions Recorded ALPRAZolam [Xanax] 0.5 mg PO HS PRN #5 tab 10/31/21 Allergies Allergy/AdvReac Type Severity Reaction Status Date / Time calcium [From DHEA] Allergy Unknown Verified 04/05/22 11:12 calcium carbonate [From DHEA] Allergy Unknown Verified 04/05/22 11:12 cyclobenzaprine HCl Allergy Unknown Verified 04/05/22 11:12 [From Flexeril] divalproex sodium Allergy Unknown Verified 04/05/22 11:12 [From Depakote] fentanyl Allergy Unknown Verified 04/05/22 11:12 influenza virus vaccine, Allergy Rash/Hives Verified 04/05/22 11:12 specific metoclopramide [From Reglan] Allergy Unknown Verified 04/05/22 11:12 prasterone (DHEA) [From DHEA] Allergy Unknown Verified 04/05/22 11:12 sulfamethoxazole Allergy Unknown Verified 04/05/22 11:12 [From Septra] sumatriptan [From Imitrex] Allergy Unknown Verified 04/05/22 11:12 sumatriptan succinate Allergy Unknown Verified 04/05/22 11:12 [From Imitrex] topiramate [From Topamax] Allergy Rash/Hives Verified 04/05/22 11:12 trimethoprim [From Septra] Allergy Unknown Verified 04/05/22 11:12 antihistamines Allergy Dyspnea Uncoded 04/05/22 11:12 Review of Systems ROS Statement: Those systems with pertinent positive or pertinent negative responses have been documented in the HPI. ROS Other: All systems not noted in ROS Statement are negative. Past Medical History Past Medical History: Asthma, GERD/Reflux, Rheumatoid Arthritis (RA) Additional Past Medical History / Comment(s): ARTHRITIS, HIATAL HERNIA AND GASTRIC ULCER, ENVIRONMENTAL ALLERGIES, DIGESTIVE ISSUES, MIGRAINES, ANEMIA, "PREDIABETIC", herniated disc, narrowed ureters, being worked up for POTS, PVC History of Any Multi-Drug Resistant Organisms: None Reported Past Surgical History: Adenoidectomy, Section, Tonsillectomy Additional Past Surgical History / Comment(s): eye sclera and laser Past Anesthesia/Blood Transfusion Reactions: No Reported Reaction Past Psychological History: Anxiety, Depression, Panic Disorder Smoking Status: Current every day smoker Past Alcohol Use History: None Reported Past Drug Use History: Marijuana - Past Family History Mother Family Medical History: Hyperlipidemia, Hypertension, Osteoarthritis (OA) Additional Family Medical History / Comment(s): rare heart conditions Father Family Medical History: Cancer, Diabetes Mellitus, Hypertension General Exam Limitations: no limitations General appearance: alert, in no apparent distress Head exam: Present: atraumatic, normocephalic, normal inspection Eye exam: Present: normal appearance, PERRL, EOMI. Absent: scleral icterus, conjunctival injection, periorbital swelling ENT exam: Present: normal exam, mucous membranes moist Neck exam: Present: normal inspection. Absent: tenderness, meningismus, lymphadenopathy Respiratory exam: Present: normal lung sounds bilaterally. Absent: respiratory distress, wheezes, rales, rhonchi, stridor Cardiovascular Exam: Present: regular rate, normal rhythm, normal heart sounds. Absent: systolic murmur, diastolic murmur, rubs, gallop, clicks GI/Abdominal exam: Present: soft, normal bowel sounds. Absent: distended, tenderness, guarding, rebound, rigid Extremities exam: Present: normal inspection, full ROM, normal capillary refill. Absent: tenderness, pedal edema, joint swelling, calf tenderness Left General: Present: normal inspection, laceration (L lateral aspect of thumb with 1cm laceration. No erythema, edema. No active bleeding. No crepitus, with full ROM. Distal NVI, 2+ radial pulses.) Back exam: Present: normal inspection Psychiatric exam: Present: normal affect, normal mood Skin exam: Present: warm, dry, intact, normal color. Absent: rash Course Vital Signs 04/05/22 11:09 Temperature 98.1 F Pulse Rate 97 Respiratory 18 Rate Blood Pressure 116/70 O2 Sat by Pulse 100 Oximetry Disposition Clinical Impression: Laceration Disposition: HOME SELF-CARE Condition: Stable Instructions (If sedation given, give patient instructions): Laceration (ED) Additional Instructions: Return to the nearest ER if worsening symptoms of numbness, tingling, uncontrolled bleeding Is patient prescribed a controlled substance at d/c from ED?: No Referrals: Diana Bell [Primary Care Provider] - 1-2 days Time of Disposition: 11:28
[2022-04-05 12:02] VITALS: BP 110/68; PULSE 94; TEMP 97.9
== END 2022-04-05 12:02 | disposition home or self-care (01) ==
LOC: EC 11:04
DX: S61.012A Laceration without foreign body of left thumb without damage to nail, initial encounter (principal); J45.909 Unspecified asthma, uncomplicated; K21.9 Gastro-esophageal reflux disease without esophagitis; F41.9 Anxiety disorder, unspecified; F32.A Depression, unspecified; F17.200 Nicotine dependence, unspecified, uncomplicated; F12.90 Cannabis use, unspecified, uncomplicated; Z79.899 Other long term (current) drug therapy; Z88.1 Allergy status to other antibiotic agents; Z88.2 Allergy status to sulfonamides; Z88.7 Allergy status to serum and vaccine; Z88.8 Allergy status to other drugs, medicaments and biological substances; W26.0XXA Contact with knife, initial encounter
CPT/HCPCS: 99282

== ENCOUNTER 2022-08-21 10:28 | Emergency (ER) | payer OTHER ==
[2022-08-21] MEDS ORDERED: ONDANSETRON ODT 4 MG TAB PO STA (10:51)
[2022-08-21] MEDS ORDERED: ALBUTEROL NEBULIZED 2.5 MG/3 ML INHALATION STA (10:57)
--- NOTE | 2022-08-21 11:47 | XR ---
EXAMINATION TYPE: XR chest 2V DATE OF EXAM: 08/21/2022 COMPARISON: 10/14/2021 HISTORY: 32-year-old female productive cough, nausea TECHNIQUE: PA and lateral views FINDINGS: The cardiomediastinal silhouette, aorta, and pulmonary vasculature are within normal limits. Hyperinf lation. Mild peribronchial cuffing noted centrally. No consolidation or pleural effusion. IMPRESSION: Mild central peribronchial cuffing could reflect bronchitis or chronic asthma. Hyperinflation probabl y related to depth of inspiration given patient's age. Correlate with smoking history to exclude the less likely possibility of underlying emphysema.
[2022-08-21] MEDS ORDERED: FLUTICASONE 50MCG/SPRAY NASAL 16GM EA NOSTRIL STA (12:00)
--- NOTE | 2022-08-21 13:20 | ED ---
General Adult HPI - General Chief complaint: Upper Respiratory Infection Stated complaint: suspects pnemonia, stomach upset Time Seen by Provider: 08/21/22 10:50 Source: patient Mode of arrival: ambulatory Limitations: no limitations - History of Present Illness Initial comments: Patient is a 32-year-old female presents to the emergency department for upper respiratory symptoms. Patient's baby currently has croup. Patient reports nasal congestion, productive cough with yellow sputum, chills and nausea. No reported fever, no vomiting. Patient states she has autoimmune disease and has had pneumonia previously she is concerned she has pneumonia today. She denies chest pain and shortness of breath. Patient does have history of asthma states her exacerbations are occurring more frequently. She does not have a furnace unloader currently. She does not use an inhaler or nebulizer however does have a family member that owns a nebulizer nearby. Patient is a nonsmoker. - Related Data Home Medications Medication Instructions Recorded Confirmed Pantoprazole Sodium 40 mg PO DAILY 11/07/20 11/26/21 Pnv No.95/Ferrous Fum/Folic AC 1 tab PO DAILY 11/07/20 11/26/21 [ Multivitamin Tablet] Doxylamine Succinate [Unisom] 25 mg PO HS PRN 09/26/21 11/26/21 Ondansetron Odt [Zofran Odt] 4 mg PO Q8H PRN 09/26/21 11/26/21 Albuterol Nebulized [Ventolin 2.5 mg INHALATION RT-Q6H PRN 10/14/21 11/26/21 Nebulized] Albuterol Sulfate [Ventolin HFA] 2 puff INHALATION RT-QID PRN 10/14/21 11/26/21 Fluticasone Propionate 110 Mcg 1 puff INHALATION RT-BID 10/14/21 11/26/21 [Flovent 110 Mcg Inhaler] Docusate [Colace] 100 mg PO DAILY PRN 11/26/21 11/26/21 Simethicone [Gas-X] 125 mg PO ACHS PRN 11/26/21 11/26/21 Previous Rx's Medication Instructions Recorded ALPRAZolam [Xanax] 0.5 mg PO HS PRN #5 tab 10/31/21 methocarbamoL [Robaxin-750] 750 mg PO QID #28 tab 06/14/22 Albuterol Inhaler [Ventolin Hfa 2 puff INHALATION TID #8 gm 08/21/22 Inhaler] Albuterol Nebulized [Ventolin 2.5 mg INHALATION Q4H 8 Days #150 08/21/22 Nebulized] ml Ondansetron Odt [Zofran Odt] 4 mg PO Q8HR PRN #10 tab 08/21/22 methylPREDNISolone [Medrol Dose 0 mg PO DIRECTED #1 packet 08/21/22 Pack] Allergies Allergy/AdvReac Type Severity Reaction Status Date / Time calcium [From DHEA] Allergy Unknown Verified 08/21/22 10:46 calcium carbonate [From DHEA] Allergy Unknown Verified 08/21/22 10:46 cyclobenzaprine HCl Allergy Unknown Verified 08/21/22 10:46 [From Flexeril] divalproex sodium Allergy Unknown Verified 08/21/22 10:46 [From Depakote] fentanyl Allergy Unknown Verified 08/21/22 10:46 influenza virus vaccine, Allergy Rash/Hives Verified 08/21/22 10:46 specific metoclopramide [From Reglan] Allergy Unknown Verified 08/21/22 10:46 prasterone (DHEA) [From DHEA] Allergy Unknown Verified 08/21/22 10:46 sulfamethoxazole Allergy Unknown Verified 08/21/22 10:46 [From Septra] sumatriptan [From Imitrex] Allergy Unknown Verified 08/21/22 10:46 sumatriptan succinate Allergy Unknown Verified 08/21/22 10:46 [From Imitrex] topiramate [From Topamax] Allergy Rash/Hives Verified 08/21/22 10:46 trimethoprim [From Septra] Allergy Unknown Verified 08/21/22 10:46 antihistamines Allergy Dyspnea Uncoded 08/21/22 10:46 Review of Systems ROS Statement: Those systems with pertinent positive or pertinent negative responses have been documented in the HPI. ROS Other: All systems not noted in ROS Statement are negative. Past Medical History Past Medical History: Asthma, GERD/Reflux, Rheumatoid Arthritis (RA) Additional Past Medical History / Comment(s): ARTHRITIS, HIATAL HERNIA AND GASTRIC ULCER, ENVIRONMENTAL ALLERGIES, DIGESTIVE ISSUES, MIGRAINES, ANEMIA, "PREDIABETIC", herniated disc, narrowed ureters, being worked up for POTS, PVC History of Any Multi-Drug Resistant Organisms: None Reported Past Surgical History: Adenoidectomy, Section, Tonsillectomy Additional Past Surgical History / Comment(s): eye sclera and laser Past Anesthesia/Blood Transfusion Reactions: No Reported Reaction Past Psychological History: Anxiety, Depression, Panic Disorder Smoking Status: Current every day smoker, Vaper Past Alcohol Use History: None Reported Past Drug Use History: Marijuana - Past Family History Mother Family Medical History: Hyperlipidemia, Hypertension, Osteoarthritis (OA) Additional Family Medical History / Comment(s): rare heart conditions Father Family Medical History: Cancer, Diabetes Mellitus, Hypertension General Exam Limitations: no limitations General appearance: alert, in no apparent distress Head exam: Present: atraumatic, normocephalic, normal inspection Eye exam: Present: normal appearance, PERRL, EOMI. Absent: scleral icterus, conjunctival injection, periorbital swelling Respiratory exam: Present: decreased breath sounds. Absent: normal lung sounds bilaterally, respiratory distress, wheezes, rales, rhonchi, stridor, chest wall tenderness, accessory muscle use Cardiovascular Exam: Present: regular rate, normal rhythm, normal heart sounds. Absent: systolic murmur, diastolic murmur, rubs, gallop, clicks GI/Abdominal exam: Present: soft, normal bowel sounds. Absent: distended, tenderness, guarding, rebound, rigid Neurological exam: Present: alert, oriented X3, CN II-XII intact Psychiatric exam: Present: normal affect, normal mood Skin exam: Present: warm, dry, intact, normal color. Absent: rash Course Vital Signs 08/21/22 08/21/22 08/21/22 10:43 13:12 13:20 Temperature 97.9 F Pulse Rate 89 71 71 Respiratory 20 16 16 Rate Blood Pressure 111/77 O2 Sat by Pulse 97 Oximetry 08/21/22 14:12 Temperature 98.6 F Pulse Rate 101 H Respiratory 20 Rate Blood Pressure 106/69 O2 Sat by Pulse 96 Oximetry Medical Decision Making - Medical Decision Making Was pt. sent in by a medical professional or institution (, PA, BATCH ROLLER OPERATOR, urgent care, hospital, or skilled nursing...) When possible be specific @ -No Did you speak to anyone other than the patient for history (EMS, parent, family, police, friend...)? What history was obtained from this source @ -No Did you review nursing and triage notes (agree or disagree)? Why? @ -I reviewed and agree with nursing and triage notes Were old charts reviewed (outside hosp., previous admission, EMS record, old EKG, old radiological studies, urgent care reports/EKG's, skilled nursing records)? Report findings @ -No old charts were reviewed Differential Diagnosis (chest pain, altered mental status, abdominal pain women, abdominal pain men, vaginal bleeding, weakness, fever, dyspnea, syncope, headache, dizziness, GI bleed, back pain, seizure, CVA, palpatations, mental health)? @ URI, sinusitus,strep pharyngitis, viral pharyngitis, pneumonia, bronchitis- this list is not meant to be all-inclusive EKG interpreted by me (3pts min.). @ -As above X-rays interpreted by me (1pt min.). @ -Yes, chest x-ray shows peribronchial cuffing representing bronchitis or chronic asthma CT interpreted by me (1pt min.). @ -None done U/S interpreted by me (1pt. min.). @ -None done What testing was considered but not performed or refused? (CT, X-rays, U/S, labs)? Why? @ -None What meds were considered but not given or refused? Why? @ -None Did you discuss the management of the patient with other professionals (professionals i.e. , PA, BATCH ROLLER OPERATOR, lab, RT, psych nurse, social sciences chair, motorcoach driver, teacher, fundraising officer, oil field caser)? Give summary @ -No Was smoking cessation discussed for >3mins.? @ -No Was critical care preformed (if so, how long)? @ -No Were there social determinants of health that impacted care today? How? (Homelessness, low income, unemployed, alcoholism, drug addiction, transportation, low edu. Level, literacy, decrease access to med. care, [facility], rehab)? @ -No Was there de-escalation of care discussed even if they declined (Discuss DNR or withdrawal of care, Hospice)? DNR status @ -No] What co-morbidities impacted this encounter? (DM, HTN, Smoking, COPD, CAD, Cancer, CVA, ARF, Chemo, Hep., AIDS, mental health diagnosis, sleep apnea, morbid obesity)? @ -[None] Was patient admitted / discharged? Hospital course, mention meds given and route, prescriptions, significant lab abnormalities, going to OR and other pertinent info. @ -Patient presented with upper respiratory symptoms. With concern for pneumonia x-ray was obtained which ruled out pneumonia there was peribronchial cuffing representing bronchitis or chronic asthma. COVID-19, RSV, influenza and detected. Patient had mildly decreased lung sounds without wheezing. She was given a breathing treatment which improved lung sounds significantly. Patient feeling improved after symptomatic treatment in the emergency department. Vitals signs within normal limits in stable medical condition for discharge. She will be discharged with albuterol for nebulizer and Medrol Dosepak. She is referred to pulmonology today. Undiagnosed new problem with uncertain prognosis? @ -[No] Drug Therapy requiring intensive monitoring for toxicity (Heparin, Nitro, Insulin, Cardizem)? @ -[No] Were any procedures done? @ -[No] Diagnosis/symptom? Bronchitis Acute, or Chronic, or Acute on Chronic? @ -Acute Uncomplicated (without systemic symptoms) or Complicated (systemic symptoms)? @ -Uncomplicated Side effects of treatment? @ -[No] Exacerbation, Progression, or Severe Exacerbation? @ -[No] Poses a threat to life or bodily function? How? (Chest pain, [place], [place], pneumonia, PE, COPD, DKA, ARF, appy, cholecystitis, CVA, Diverticulitis, Homicidal, Suicidal, threat to staff... and all critical care pts) @ -[No] Dr. Zelaya is my attending - Lab Data Lab Results 08/21/22 08/21/22 Range/Units 11:07 11:07 Influenza Type A (PCR) Not Detected (Not Detectd) Influenza Type B (PCR) Not Detected (Not Detectd) RSV (PCR) Not Detected (Not Detectd) SARS-CoV-2 (PCR) Not Detected (Not Detectd) Group A Strep (PCR) NOT DETECTED (Not Detectd) Disposition Clinical Impression: Bronchitis Disposition: HOME SELF-CARE Condition: Good Instructions (If sedation given, give patient instructions): Acute Bronchitis (ED) Additional Instructions: Take medication as directed. Please follow-up with your primary care provider in 1-2 days. Return to the emergency department if you experience new, concerning, or worsening symptoms. Prescriptions: methylPREDNISolone [Medrol Dose Pack] 0 mg PO DIRECTED #1 packet Albuterol Inhaler [Ventolin Hfa Inhaler] 2 puff INHALATION TID #8 gm Albuterol Nebulized [Ventolin Nebulized] 2.5 mg INHALATION Q4H 8 Days #150 ml Ondansetron Odt [Zofran Odt] 4 mg PO Q8HR PRN #10 tab PRN Reason: Nausea Is patient prescribed a controlled substance at d/c from ED?: No Referrals: Diana Bell [Primary Care Provider] - 1-2 days Miguel Angel Rodriguez MD [STAFF PHYSICIAN] - 1-2 days
[2022-08-21 14:13] VITALS: BP 106/69; PULSE 101; RESP 20; TEMP 98.6
== END 2022-08-21 14:13 | disposition home or self-care (01) ==
LOC: EC 10:28
DX: J40 Bronchitis, not specified as acute or chronic (principal); K21.9 Gastro-esophageal reflux disease without esophagitis; F17.290 Nicotine dependence, other tobacco product, uncomplicated; F12.90 Cannabis use, unspecified, uncomplicated; Z20.822 Contact with and (suspected) exposure to COVID-19; Z79.51 Long term (current) use of inhaled steroids; Z79.899 Other long term (current) drug therapy; Z88.2 Allergy status to sulfonamides; Z88.7 Allergy status to serum and vaccine; Z88.8 Allergy status to other drugs, medicaments and biological substances; Z91.048 Other nonmedicinal substance allergy status
CPT/HCPCS: 71046; 87636; 87651; 94640; 99284

== ENCOUNTER 2022-11-12 10:59 | Emergency (ER) | payer OTHER ==
[2022-11-12 11:02] VITALS: TEMP 97.7
--- NOTE | 2022-11-12 11:33 | ED ---
Skin/Abscess/FB HPI - General Chief complaint: Skin/Abscess/Foreign Body Stated complaint: finger infection Time Seen by Provider: 11/12/22 11:07 Source: patient Mode of arrival: ambulatory Limitations: no limitations - History of Present Illness Initial comments: Patient is a 32-year-old female presenting to the emergency room for evaluation of what she believes is an infection on her right ring finger around her nail. She reports that the tissue becomes very red and swollen and tender intermittently despite recurrent steroid and antibiotic treatments by urgent cares and her primary care provider or the past several months. She reports an injury to the nail and impaired nail growth since then at the beginning of symptoms she reports purulent drainage at times however at this time she denies any bright red discoloration, purulent drainage or severe tenderness. She denies biting or picking at her nails or skin. She denies any fevers or chills. She reports a past medical history significant for asthma, GERD and rheumatoid arthritis. - Related Data Home Medications Medication Instructions Recorded Confirmed Pantoprazole Sodium 40 mg PO DAILY 11/07/20 08/27/22 Albuterol Nebulized [Ventolin 2.5 mg INHALATION RT-Q6H PRN 10/14/21 08/27/22 Nebulized] Albuterol Sulfate [Ventolin HFA] 2 puff INHALATION RT-QID PRN 10/14/21 08/27/22 Fluticasone Propionate 110 Mcg 2 puff INHALATION RT-BID 10/14/21 08/27/22 [Flovent 110 Mcg Inhaler] Albuterol Inhaler [Ventolin Hfa 2 puff INHALATION RT-QID PRN 08/27/22 08/27/22 Inhaler] Azithromycin [Zithromax Z Pack] See Taper PO DIRECTED 08/27/22 08/27/22 Fluticasone Nasal Avalon [Flonase 2 spray EA NOSTRIL DAILY 08/27/22 08/27/22 Nasal Avalon] Loratadine [Claritin] 10 mg PO DAILY 08/27/22 08/27/22 Pantoprazole [Protonix] 40 mg PO DAILY 08/27/22 08/27/22 clonazePAM 0.5 mg PO BID PRN 08/27/22 08/27/22 Allergies Allergy/AdvReac Type Severity Reaction Status Date / Time calcium [From DHEA] Allergy Unknown Verified 11/12/22 11:02 calcium carbonate [From DHEA] Allergy Unknown Verified 11/12/22 11:02 cyclobenzaprine HCl Allergy Unknown Verified 11/12/22 11:02 [From Flexeril] divalproex sodium Allergy Unknown Verified 11/12/22 11:02 [From Depakote] fentanyl Allergy Unknown Verified 11/12/22 11:02 influenza virus vaccine, Allergy Rash/Hives Verified 11/12/22 11:02 specific metoclopramide [From Reglan] Allergy Unknown Verified 11/12/22 11:02 prasterone (DHEA) [From DHEA] Allergy Unknown Verified 11/12/22 11:02 sulfamethoxazole Allergy Unknown Verified 11/12/22 11:02 [From Septra] sumatriptan [From Imitrex] Allergy Unknown Verified 11/12/22 11:02 sumatriptan succinate Allergy Unknown Verified 11/12/22 11:02 [From Imitrex] topiramate [From Topamax] Allergy Rash/Hives Verified 11/12/22 11:02 trimethoprim [From Septra] Allergy Unknown Verified 11/12/22 11:02 antihistamines Allergy Dyspnea Uncoded 11/12/22 11:02 Review of Systems ROS Statement: Those systems with pertinent positive or pertinent negative responses have been documented in the HPI. ROS Other: All systems not noted in ROS Statement are negative. Past Medical History Past Medical History: Asthma, GERD/Reflux, Rheumatoid Arthritis (RA) Additional Past Medical History / Comment(s): ARTHRITIS, HIATAL HERNIA AND GASTRIC ULCER, ENVIRONMENTAL ALLERGIES, DIGESTIVE ISSUES, MIGRAINES, ANEMIA, "PREDIABETIC", herniated disc, narrowed ureters, being worked up for POTS, PVC History of Any Multi-Drug Resistant Organisms: None Reported Past Surgical History: Adenoidectomy, Section, Tonsillectomy Additional Past Surgical History / Comment(s): eye sclera and laser Past Anesthesia/Blood Transfusion Reactions: No Reported Reaction Past Psychological History: Anxiety, Depression, Panic Disorder Smoking Status: Current every day smoker, Vaper Past Alcohol Use History: None Reported Past Drug Use History: Marijuana - Past Family History Mother Family Medical History: Hyperlipidemia, Hypertension, Osteoarthritis (OA) Additional Family Medical History / Comment(s): rare heart conditions Father Family Medical History: Cancer, Diabetes Mellitus, Hypertension General Exam Limitations: no limitations General appearance: alert, in no apparent distress Head exam: Present: atraumatic, normocephalic, normal inspection Eye exam: Present: normal appearance, PERRL, EOMI. Absent: scleral icterus, conjunctival injection, periorbital swelling ENT exam: Present: normal exam, mucous membranes moist Neck exam: Present: normal inspection, full ROM Respiratory exam: Absent: respiratory distress, accessory muscle use Cardiovascular Exam: Present: regular rate Extremities exam: Present: other (Multiple brittle nails with surrounding skin irritation and breaking. Right ring finger with swelling appearing chronic in nature with mild pinking of skin no overt redness, drainage or tenderness.) Back exam: Present: normal inspection Neurological exam: Present: alert, oriented X3, CN II-XII intact Psychiatric exam: Present: normal affect, normal mood Skin exam: Present: other (Nail and finger skin abnormality as above.) Course Vital Signs 11/12/22 11/12/22 10:59 11:49 Temperature 97.7 F Pulse Rate 88 86 Respiratory 18 16 Rate Blood Pressure 117/75 110/60 O2 Sat by Pulse 98 98 Oximetry Medical Decision Making - Medical Decision Making Was pt. sent in by a medical professional or institution (, PA, DERMATOLOGY PHYSICIAN, urgent care, hospital, or long-term...) When possible be specific @ -No Did you speak to anyone other than the patient for history (EMS, parent, family, police, friend...)? What history was obtained from this source @ -No Did you review nursing and triage notes (agree or disagree)? Why? @ -I reviewed and agree with nursing and triage notes Were old charts reviewed (outside hosp., previous admission, EMS record, old EKG, old radiological studies, urgent care reports/EKG's, long-term records)? Report findings @ -No old charts were reviewed Differential Diagnosis (chest pain, altered mental status, abdominal pain women, abdominal pain men, vaginal bleeding, weakness, fever, dyspnea, syncope, headache, dizziness, GI bleed, back pain, seizure, CVA, palpatations, mental health, musculoskeletal)? @ -not applicable EKG interpreted by me (3pts min.). @ -None done X-rays interpreted by me (1pt min.). @ -None done CT interpreted by me (1pt min.). @ -None done U/S interpreted by me (1pt. min.). @ -None done What testing was considered but not performed or refused? (CT, X-rays, U/S, labs)? Why? @ -None What meds were considered but not given or refused? Why? @ -None Did you discuss the management of the patient with other professionals (professionals i.e. , PA, DERMATOLOGY PHYSICIAN, lab, RT, psych nurse, social media assistant, manager material, teacher, classification officer, correctional casework specialist)? Give summary @ -No Was smoking cessation discussed for >3mins.? @ -No Was critical care preformed (if so, how long)? @ -No Were there social determinants of health that impacted care today? How? (Homeles sness, low income, unemployed, alcoholism, drug addiction, transportation, low edu. Level, literacy, decrease access to med. care, long-term, rehab)? @ -No Was there de-escalation of care discussed even if they declined (Discuss DNR or withdrawal of care, Hospice)? DNR status @ -No What co-morbidities impacted this encounter? (DM, HTN, Smoking, COPD, CAD, Cancer, CVA, ARF, Chemo, Hep., AIDS, mental health diagnosis, sleep apnea, morbid obesity)? @ -None Was patient admitted / discharged? Hospital course, mention meds given and route, prescriptions, significant lab abnormalities, going to OR and other pertinent info. @ -32-year-old female presenting to the emergency room for evaluation of what she believes is an infection on her right ring finger around her nail. She reports that the tissue becomes very red and swollen and tender intermittently despite recurrent steroid and antibiotic treatments by urgent cares and her primary care provider or the past several months. Evaluation reveals chronically inflamed tissue around right ring finger nailbed with no evidence of infection at this time. No indication for any diagnostic imaging, laboratory studies are medication administration. Encouraged avoidance of biting or picking at nails, good skin hygiene along with follow-up with dermatology regarding chronic inflammation of skin surrounding nailbed. Questions and concerns answered. Return parameters the emergency room discussed. Will discharge home in stable condition with education regarding paronychia to monitor chronic inflammatory skin changes of right ring finger advising follow- up with dermatology and primary care provider. Undiagnosed new problem with uncertain prognosis? @ -No Drug Therapy requiring intensive monitoring for toxicity (Heparin, Nitro, Insulin, Cardizem)? @ -No Were any procedures done? @ -No Diagnosis/symptom? @ -Chronic inflammatory changes of the skin around nailbed with a history of paronychia Acute, or Chronic, or Acute on Chronic? @ -Chronic Uncomplicated (without systemic symptoms) or Complicated (systemic symptoms)? @ -Uncomplicated Side effects of treatment? @ -No Exacerbation, Progression, or Severe Exacerbation? @ -No Poses a threat to life or bodily function? How? (Chest pain, [place], [place], pneumonia, PE, COPD, DKA, ARF, appy, cholecystitis, CVA, Diverticulitis, Homicidal, Suicidal, threat to staff... and all critical care pts) @ -No Case discussed with Dr. Zelaya. Disposition Clinical Impression: Paronychia of finger Disposition: HOME SELF-CARE Instructions (If sedation given, give patient instructions): Paronychia (ED) Additional Instructions: Keep hands clean and dry. Avoid biting taking at the nailbed. It is recommended that you follow-up with dermatology in regards to chronic skin inflammation of your right ring finger. Avoid artificial nails and itching of skin. Please return to the Emergency Department if symptoms worsen or any other concerns. Is patient prescribed a controlled substance at d/c from ED?: No Referrals: Diana Bell [Primary Care Provider] - 1-2 days Time of Disposition: 11:32
[2022-11-12 11:50] VITALS: BP 110/60; PULSE 86; RESP 16
== END 2022-11-12 11:50 | disposition home or self-care (01) ==
LOC: EC 10:59
DX: L03.011 Cellulitis of right finger (principal); J45.909 Unspecified asthma, uncomplicated; K21.9 Gastro-esophageal reflux disease without esophagitis; F41.9 Anxiety disorder, unspecified; F32.A Depression, unspecified; F17.290 Nicotine dependence, other tobacco product, uncomplicated; F12.90 Cannabis use, unspecified, uncomplicated; Z79.51 Long term (current) use of inhaled steroids; Z79.899 Other long term (current) drug therapy; Z88.1 Allergy status to other antibiotic agents; Z88.2 Allergy status to sulfonamides; Z88.7 Allergy status to serum and vaccine; Z88.8 Allergy status to other drugs, medicaments and biological substances
CPT/HCPCS: 99282